=== PATIENT | male | born 1975 | race African-American/Black ===

== ENCOUNTER 2017-12-19 12:15 | Emergency (ER) | payer SELFPAY ==
[2017-12-19] MEDS: HYDROcodone/APAP 5/325MG 1 TAB TABLET PO ×2 (13:12)
[2017-12-19] MEDS: DIPHTH,PERTUSS(ACELL),TET TOX 0.5 ML DISP.SYRIN. VAX IM ×2 (14:24)
== END 2017-12-19 14:37 | disposition home or self-care (01) ==
LOC: ER 12:15
DX: S91.302A Unspecified open wound, left foot, initial encounter (principal); E11.9 Type 2 diabetes mellitus without complications; I10 Essential (primary) hypertension; Z23 Encounter for immunization; X58.XXXA Exposure to other specified factors, initial encounter; Y93.89 Activity, other specified; Y92.89 Other specified places as the place of occurrence of the external cause; Y99.8 Other external cause status
CPT/HCPCS: 73630; 87071; 87075; 87186; 87205; 90471; 90715; 99285-25

== ENCOUNTER 2019-08-27 05:46 | Inpatient (IN) | payer SELFPAY ==
[~2019-08-27] VITALS: Ht 157.5 cm; Wt 46.1 kg
[2019-08-27] VITALS (12 sets, daily range): BP systolic 104–160; BP diastolic 65–98
[~2019-08-27 05:46] MED LIST: CLIN300C8 PO; HYDR-3164 PO
[2019-08-27] MEDS ORDERED: IV NORMAL SALINE 1000ML BAG 1,000 ML IV SCH ×2 (06:30→08:45)
--- NOTE | 2019-08-27 06:52 | PHYS DOC ---
Past Medical History Past Medical History: Diabetes-Type II, Hypertension Past Surgical History: No Surgical History Alcohol Use: None Drug Use: None Adult General Chief Complaint Chief Complaint: DEPRESSION HPI HPI Patient is a 44 year old male who presents via EMS because of depression. Patient states he has diabetes and unable to eat and his life is not good and he feels depressed. When I questioned him about suicidal ideation he states he has suicidal ideation with plan to hang himself. Patient states he has suicidal ideation and mental hospital hospitalization about couple years ago. Patient states he sometimes has hallucination but at this time doesn't have hallucination. Patient denies homicidal ideation. Review of Systems Review of Systems Constitutional: Denies fever or chills [] Eyes: Denies change in visual acuity, redness, or eye pain [] HENT: Denies nasal congestion or sore throat [] Respiratory: Denies cough or shortness of breath [] Cardiovascular: No additional information not addressed in HPI [] GI: Denies abdominal pain, nausea, vomiting, bloody stools or diarrhea [] : Denies dysuria or hematuria [] Musculoskeletal: Denies back pain or joint pain [] Integument: Denies rash or skin lesions [] Neurologic: Denies headache, focal weakness or sensory changes [] Endocrine: Denies polyuria or polydipsia [] All other systems were reviewed and found to be within normal limits, except as documented in this note. Current Medications Current Medications Current Medications Medications (Trade) Dose Ordered Sig/Dez Start Time Stop Time Status Last Admin Dose Admin Sodium Chloride 1,000 ml @ 1,000 mls/hr Q1H 08/27/19 06:30 08/27/19 07:29 DC 08/27/19 08:40 1,000 MLS/HR Allergies Allergies Allergies Coded Allergies Type Severity Reaction Last Updated Verified I S O L A T I O N *CONTACT* Allergy Unknown 12/23/17 Yes lisinopril Allergy Unknown 08/27/19 Yes Physical Exam Physical Exam Constitutional: Very cachectic and thin patient, mild distress, non-toxic appearance. [] HENT: Normocephalic, atraumatic, bilateral external ears normal, oropharynx dry, no oral exudates, nose normal. [] Eyes: PERRLA, EOMI, conjunctiva normal, no discharge. [] Neck: Normal range of motion, no tenderness, supple, no stridor. [] Cardiovascular:Heart rate regular rhythm, no murmur [] Lungs & Thorax: Bilateral breath sounds clear to auscultation [] Abdomen: Bowel sounds normal, soft, no tenderness, no masses, no pulsatile masses. [] Skin: Warm, dry, no erythema, no rash. [] Back: No tenderness, no CVA tenderness. 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 [] Psychologic: Affect depressed and anxious, suicidal. Current Patient Data Vital Signs Vital Signs Date Time Temp Pulse Resp B/P (MAP) Pulse Ox O2 Delivery O2 Flow Rate FiO2 08/27/19 05:47 97.5 96 20 112/71 (85) 100 Room Air 97.5 Lab Values Laboratory Tests Test 08/27/19 06:35 08/27/19 07:25 Glucose (Fingerstick) 81 mg/dL (70-99) White Blood Count 7.3 x10^3/uL (4.0-11.0) Red Blood Count 3.74 x10^6/uL (4.30-5.70) L Hemoglobin 10.0 g/dL (13.0-17.5) L Hematocrit 30.5 % (39.0-53.0) L Mean Corpuscular Volume 82 fL (79-100) Mean Corpuscular Hemoglobin 27 pg (25-35) Mean Corpuscular Hemoglobin Concent 33 g/dL (31-37) Red Cell Distribution Width 16.7 % (11.5-14.5) H Platelet Count 370 x10^3/uL (140-400) Neutrophils (%) (Auto) 80 % (31-73) H Lymphocytes (%) (Auto) 15 % (24-48) L Monocytes (%) (Auto) 5 % (0-9) Eosinophils (%) (Auto) 0 % (0-3) Basophils (%) (Auto) 0 % (0-3) Neutrophils # (Auto) 5.8 x10^3/uL (1.8-7.7) Lymphocytes # (Auto) 1.1 x10^3/uL (1.0-4.8) Monocytes # (Auto) 0.4 x10^3/uL (0.0-1.1) Eosinophils # (Auto) 0.0 x10^3/uL (0.0-0.7) Basophils # (Auto) 0.0 x10^3/uL (0.0-0.2) Prothrombin Time 18.7 SEC (11.7-14.0) H Prothrombin Time INR 1.6 (0.8-1.1) H Sodium Level 131 mmol/L (136-145) L Potassium Level 6.1 mmol/L (3.5-5.1) *H Chloride Level 100 mmol/L (98-107) Carbon Dioxide Level 10 mmol/L (21-32) *L Anion Gap 21 (6-14) H Blood Urea Nitrogen 166 mg/dL (8-26) H Creatinine 2.9 mg/dL (0.7-1.3) H Estimated GFR (Cockcroft-Gault) 28.7 Glucose Level 78 mg/dL (70-99) Lactic Acid Level 1.2 mmol/L (0.4-2.0) Calcium Level 7.9 mg/dL (8.5-10.1) L Magnesium Level 2.9 mg/dL (1.8-2.4) H Total Bilirubin 0.3 mg/dL (0.2-1.0) Direct Bilirubin 0.2 mg/dL (0.0-0.2) Aspartate Amino Transferase (AST) 21 U/L (15-37) Alanine Aminotransferase (ALT) 24 U/L (16-63) Alkaline Phosphatase 262 U/L (46-116) H Troponin I Quantitative 0.158 ng/mL (0.000-0.055) Total Protein 8.1 g/dL (6.4-8.2) Albumin 2.5 g/dL (3.4-5.0) L Thyroid Stimulating Hormone (TSH) 5.788 uIU/mL (0.358-3.74) H Ethyl Alcohol Level < 10 mg/dL (0-10) Laboratory Tests 08/27/19 07:25 Laboratory Tests 08/27/19 07:25 EKG EKG EKG interpreted by me. EKG at 0 926 showed normal sinus rhythm at rate of 86, left atrial abnormality, poor R-wave progress in anteroseptal leads, prolonged QT at 414, no acute ST and T-wave abnormalities. Radiology/Procedures Radiology/Procedures [][facility] [address] [place] [address] IMAGING REPORT Signed PATIENT: ELADIA PEARSON ACCOUNT: [id number] : 1975 LOCATION: [address] [place] [address] AGE: 44 SEX: M EXAM STATUS: ADM IN ORD. PHYSICIAN: IMELDA ANDREW MD REASON: abnormal weight loss PROCEDURE: CHEST AP ONLY CHEST AP ONLY Clinical Indication: Abnormal weight loss Comparison: 12/17/2018 Portable Chest X-ray Exam. Findings: Upright frontal view of the chest was obtained. Limited pulmonary inflation noted. The cardiomediastinal silhouette is normal. Lungs are clear. There is no pneumothorax. No pleural effusion is appreciated. No acute bone abnormality. IMPRESSION: No acute cardiopulmonary process. Electronically signed by: Jaden Clark MD (08/27/2019 9:50 AM) [facility] DICTATED and SIGNED BY: JADEN CLARK MD DATE: 08/27/19 09 Course & Med Decision Making Course & Med Decision Making Pertinent Labs and Imaging studies reviewed. (See chart for details) Evaluation of patient in ER showed 44-year-old male patient brought in by EMS because of depression. Patient was cachectic and dehydrated and complaining of suicidal ideation. Labs showed severe dehydration and electrolyte problems. Patient was treated with IV fluid and also treatment for hyperkalemia was started. On-call bolt loader was consulted at 0918.Patient requiring admission for further evaluation and treatment. Discussed with Dr. Andrew] wh o is in agreement with admission. Discussed findings and plan with patient and family, who acknowledge understanding and agreement. Dragon Disclaimer Dragon Disclaimer This electronic medical record was generated, in whole or in part, using a voice recognition dictation system. Departure Departure Impression: Primary Impression: Acute renal failure Additional Impressions: Severe malnutrition Hyperkalemia Suicidal ideation Hyponatremia Hypoalbuminemia Metabolic acidosis Hypermagnesemia Hyperphosphatemia Hypocalcemia Disposition: ADMITTED INPATIENT (at 0 840) Admitting Physician: MELVAS (Dr. Andrew accepted admission at 0 839) Condition: GUARDED Referrals: NO PCP (PCP) Critical Care Time Critical care time was 90 minutes exclusive of procedures. Problem Qualifiers Primary Impression: Acute renal failure Acute renal failure type: unspecified Qualified Codes: N17.9 - Acute kidney failure, unspecified ODILON TIPTON MD Aug 27, 2019 06:52
[2019-08-27 07:42] LABS: BASO % 0 % (0-3); EOS % 0 % (0-3); HEMATOCRIT 30.5 % (39.0-53.0); LYMPH # 1.1 x10^3/uL (1.0-4.8); LYMPH % 15 % (24-48); MEAN CORPUSCULAR HEMOGLOBIN 27 pg (25-35); MEAN CORPUSCULAR HGB CONC 33 g/dL (31-37); MEAN CORPUSCULAR VOLUME 82 fL (79-100); MONO # 0.4 x10^3/uL (0.0-1.1); MONO % 5 % (0-9); NEUT # 5.8 x10^3/uL (1.8-7.7); NEUT % 80 % (31-73); PLATELET COUNT 370 x10^3/uL (140-400); RED BLOOD COUNT 3.74 x10^6/uL (4.30-5.70); RED CELL DISTRIBUTION WIDTH 16.7 % (11.5-14.5); WHITE BLOOD COUNT 7.3 x10^3/uL (4.0-11.0)
[2019-08-27 07:54] LABS: PROTHROMBIN TIME PATIENT 18.7 SEC (11.7-14.0)
[2019-08-27 08:06] LABS: ALBUMIN 2.5 g/dL (3.4-5.0); CALCIUM 7.9 mg/dL (8.5-10.1); CREATININE 2.9 mg/dL (0.7-1.3); DIRECT BILIRUBIN 0.2 mg/dL (0.0-0.2); GFR 28.7; MAGNESIUM 2.9 mg/dL (1.8-2.4); TOTAL BILIRUBIN 0.3 mg/dL (0.2-1.0); TOTAL PROTEIN 8.1 g/dL (6.4-8.2)
[2019-08-27 08:11] LABS: POTASSIUM 6.1 mmol/L (3.5-5.1)
[2019-08-27] MEDS ORDERED: DEXTROSE 50% 25 GM / 50ML DISP.SYRIN. IV ONE (08:45)
[2019-08-27] MEDS ORDERED: CALCIUM GLUCONATE 1,000 MG/10 ML VIAL. IVP ONE ×2 (08:45→12:45)
[2019-08-27] MEDS ORDERED: SODIUM BICARB ADULT 8.4% 50 MEQ/50 ML DISP.SYRIN. IV ONE (08:45)
[2019-08-27] MEDS ORDERED: INSULIN REGULAR 100 UNIT/ML 3ML VIAL. IV ONE (08:45)
[2019-08-27] MEDS ORDERED: SODIUM POLYSTYRENE SULFON/SORB 15 GM/60 ML ORAL.SUSP PO ONE (08:45)
--- NOTE | 2019-08-27 08:52 | PDOC1 ---
History and Physical Date of Admission Date of Admission DATE: 08/27/19 TIME: 08:51 Identification/Chief Complaint Chief Complaint Seen in ER , presented via EMS because of depression. Patient states he has diabetes and unable to eat and his life is not good and he feels depressed, he has suicidal ideation with plan to hang himself. 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 "Girlfriend does with-hold water" "because she is lazy" and does not feed him enough food. Past Medical History Psych: Addictions Endocrine: Diabetes Family History Family History: Hypertension Social History Smoke: <1 pack per day ALCOHOL: none Drugs: None, Cocaine, Marijuana Current Medications Current Medications Current Medications Sodium Chloride 1,000 ml @ 1,000 mls/hr Q1H IV Last administered on 08/27/19at 08:40; Start 08/27/19 at 06:30; Stop 08/27/19 at 07:29; Status DC Calcium Gluconate (Calcium Gluconate) 1,000 mg 1X ONCE IVP ; Start 08/27/19 at 08:45; Stop 08/27/19 at 08:46; Status DC Sodium Bicarbonate (Sodium Bicarb Adult 8.4% Syr) 50 meq 1X ONCE IV ; Start 08/27/19 at 08:45; Stop 08/27/19 at 08:46; Status DC Dextrose (Dextrose 50%-Water Syringe) 25 gm 1X ONCE IV ; Start 08/27/19 at 08:45; Stop 08/27/19 at 08:46; Status DC Insulin Human Regular (HumuLIN R VIAL) 10 unit 1X ONCE IV ; Start 08/27/19 at 08:45; Stop 08/27/19 at 08:46; Status DC Sodium Polystyrene Sulfonate (Kayexalate) 30 gm 1X ONCE PO ; Start 08/27/19 at 08:45; Stop 08/27/19 at 08:46; Status DC Sodium Chloride 1,000 ml @ 1,000 mls/hr Q1H IV ; Start 08/27/19 at 08:45; Stop 08/27/19 at 09:44 Active Scripts Active [place] 5-325 Tablet (Acetaminophen/Hydrocodone Bitart) 1 Each Tablet 1 Tab PO PRN Q6HRS PRN Clindamycin Hcl 300 Mg Capsule 1 Cap PO TID Allergies Allergies: Coded Allergies: I S O L A T I O N *CONTACT* (Verified Allergy, Unknown, 12/23/17) mrsa No Known Medication Allergies (Verified Allergy, Unknown, 12/23/17) lisinopril (Verified Allergy, Unknown, 08/27/19) Physical Exam Physical Exam Physical Exam Physical Exam Constitutional: Very cachectic and thin patient, mild distress, non-toxic appearance. [] ADVANCED DENTAL DISEASE HENT: Normocephalic, atraumatic, bilateral external ears normal, oropharynx dry, no oral exudates, nose normal. [] Eyes: PERRLA, EOMI, conjunctiva normal, no discharge. [] Neck: Normal range of motion, no tenderness, supple, no stridor. [] Cardiovascular:Heart rate regular rhythm, no murmur [] Lungs & Thorax: Bilateral breath sounds clear to auscultation [] Abdomen: Bowel sounds normal, soft, no tenderness, no masses, no pulsatile masses. very thin [] Skin: Warm, dry, no erythema, no rash. [] LEFT LEG SEVERAL superficial abrasions Back: No tenderness, no CVA tenderness. 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 [] Psychologic: Affect depressed and anxious, suicidal. General: Alert, Oriented X3, Cooperative, mild distress HEENT: Atraumatic Lungs: Clear to auscultation Heart: RRR Abdomen: Soft Rectal Exam: not examined Extremities: No cyanosis Neuro: Normal speech, Cranial nerves 3-12 NL Vitals Vitals Vital Signs Date Time Temp Pulse Resp B/P (MAP) Pulse Ox O2 Delivery O2 Flow Rate FiO2 08/27/19 05:47 97.5 96 20 112/71 (85) 100 Room Air 97.5 Labs Labs Laboratory Tests Test 08/27/19 06:35 08/27/19 07:25 Glucose (Fingerstick) 81 mg/dL (70-99) White Blood Count 7.3 x10^3/uL (4.0-11.0) Red Blood Count 3.74 x10^6/uL (4.30-5.70) Hemoglobin 10.0 g/dL (13.0-17.5) Hematocrit 30.5 % (39.0-53.0) Mean Corpuscular Volume 82 fL (79-100) Mean Corpuscular Hemoglobin 27 pg (25-35) Mean Corpuscular Hemoglobin Concent 33 g/dL (31-37) Red Cell Distribution Width 16.7 % (11.5-14.5) Platelet Count 370 x10^3/uL (140-400) Neutrophils (%) (Auto) 80 % (31-73) Lymphocytes (%) (Auto) 15 % (24-48) Monocytes (%) (Auto) 5 % (0-9) Eosinophils (%) (Auto) 0 % (0-3) Basophils (%) (Auto) 0 % (0-3) Neutrophils # (Auto) 5.8 x10^3/uL (1.8-7.7) Lymphocytes # (Auto) 1.1 x10^3/uL (1.0-4.8) Monocytes # (Auto) 0.4 x10^3/uL (0.0-1.1) Eosinophils # (Auto) 0.0 x10^3/uL (0.0-0.7) Basophils # (Auto) 0.0 x10^3/uL (0.0-0.2) Prothrombin Time 18.7 SEC (11.7-14.0) Prothromb Time International Ratio 1.6 (0.8-1.1) Sodium Level 131 mmol/L (136-145) Potassium Level 6.1 mmol/L (3.5-5.1) Chloride Level 100 mmol/L (98-107) Carbon Dioxide Level 10 mmol/L (21-32) Anion Gap 21 (6-14) Blood Urea Nitrogen 166 mg/dL (8-26) Creatinine 2.9 mg/dL (0.7-1.3) Estimated GFR (Cockcroft-Gault) 28.7 Glucose Level 78 mg/dL (70-99) Lactic Acid Level 1.2 mmol/L (0.4-2.0) Calcium Level 7.9 mg/dL (8.5-10.1) Magnesium Level 2.9 mg/dL (1.8-2.4) Total Bilirubin 0.3 mg/dL (0.2-1.0) Direct Bilirubin 0.2 mg/dL (0.0-0.2) Aspartate Amino Transf (AST/SGOT) 21 U/L (15-37) Alanine Aminotransferase (ALT/SGPT) 24 U/L (16-63) Alkaline Phosphatase 262 U/L (46-116) Total Protein 8.1 g/dL (6.4-8.2) Albumin 2.5 g/dL (3.4-5.0) Ethyl Alcohol Level < 10 mg/dL (0-10) Laboratory Tests Test 08/27/19 06:35 08/27/19 07:25 Glucose (Fingerstick) 81 mg/dL (70-99) White Blood Count 7.3 x10^3/uL (4.0-11.0) Red Blood Count 3.74 x10^6/uL (4.30-5.70) Hemoglobin 10.0 g/dL (13.0-17.5) Hematocrit 30.5 % (39.0-53.0) Mean Corpuscular Volume 82 fL (79-100) Mean Corpuscular Hemoglobin 27 pg (25-35) Mean Corpuscular Hemoglobin Concent 33 g/dL (31-37) Red Cell Distribution Width 16.7 % (11.5-14.5) Platelet Count 370 x10^3/uL (140-400) Neutrophils (%) (Auto) 80 % (31-73) Lymphocytes (%) (Auto) 15 % (24-48) Monocytes (%) (Auto) 5 % (0-9) Eosinophils (%) (Auto) 0 % (0-3) Basophils (%) (Auto) 0 % (0-3) Neutrophils # (Auto) 5.8 x10^3/uL (1.8-7.7) Lymphocytes # (Auto) 1.1 x10^3/uL (1.0-4.8) Monocytes # (Auto) 0.4 x10^3/uL (0.0-1.1) Eosinophils # (Auto) 0.0 x10^3/uL (0.0-0.7) Basophils # (Auto) 0.0 x10^3/uL (0.0-0.2) Prothrombin Time 18.7 SEC (11.7-14.0) Prothromb Time International Ratio 1.6 (0.8-1.1) Sodium Level 131 mmol/L (136-145) Potassium Level 6.1 mmol/L (3.5-5.1) Chloride Level 100 mmol/L (98-107) Carbon Dioxide Level 10 mmol/L (21-32) Anion Gap 21 (6-14) Blood Urea Nitrogen 166 mg/dL (8-26) Creatinine 2.9 mg/dL (0.7-1.3) Estimated GFR (Cockcroft-Gault) 28.7 Glucose Level 78 mg/dL (70-99) Lactic Acid Level 1.2 mmol/L (0.4-2.0) Calcium Level 7.9 mg/dL (8.5-10.1) Magnesium Level 2.9 mg/dL (1.8-2.4) Total Bilirubin 0.3 mg/dL (0.2-1.0) Direct Bilirubin 0.2 mg/dL (0.0-0.2) Aspartate Amino Transf (AST/SGOT) 21 U/L (15-37) Alanine Aminotransferase (ALT/SGPT) 24 U/L (16-63) Alkaline Phosphatase 262 U/L (46-116) Total Protein 8.1 g/dL (6.4-8.2) Albumin 2.5 g/dL (3.4-5.0) Ethyl Alcohol Level < 10 mg/dL (0-10) VTE Prophylaxis Ordered VTE Prophylaxis Devices: Contraindicated VTE Pharmacological Prophylaxi: Yes Assessment/Plan Assessment/Plan impression 1. Major depression 2. suicidial ideations 3. severe protein-caloric - malnutrition, severe weight loss 4. acute severe renal failure 5. hx diabetes 6. metabolic acidosis 7. hyperkalemia 8. anemia, likely more severe after hydration 9. possible occult malignancy 10. coagulopathy perhaps sec to severe malnutrition 11. severe dental hygiene 12. hx cocaine use and THC abuse 13. recent right BKA amputation, [facility] 14. diarrhea 15. Severe dental disease plan admit ICU due to severe electrolyte imbalance IV FLUID SUPPORT SUICIDE PRECAUTIONS GI consult Nephrology consult bmp at noon today occult stools iron panel cxr abdominal sono drugs of abuse screen UA Serum protein electrophoresis notify adult protective services sq heparin dvt prophylaxis 5000 units sq q 12 hrs OLD RECORDS NEEDED [facility] Kayexylate c-diff screen, stool checo k 5 mg po x 1 40 min cc time IMELDA ANDREW MD Aug 27, 2019 08:51
[2019-08-27] MEDS ORDERED: 0.9 % SODIUM CHLORIDE 10 ML DISP.SYRIN. IV PRN (09:45)
--- NOTE | 2019-08-27 09:53 | RAD ---
CHEST AP ONLY Clinical Indication: Abnormal weight loss Comparison: 12/17/2018 Portable Chest X-ray Exam. Findings: Upright frontal view of the chest was obtained. Limited pulmonary inflation noted. The cardiomediastinal silhouette is normal. Lungs are clear. There is no pneumothorax. No pleural effusion is appreciated. No acute bone abnormality. IMPRESSION: No acute cardiopulmonary process. Electronically signed by: Jaden Gibson MD (08/27/2019 9:50 AM) [facility]
--- NOTE | 2019-08-27 09:59 | EKG ---
[facility] [address] [place] [address] Test Date: 2019-08-27 Test Time: 09:26:54 Pat Name: ELADIA PEARSON Department: Room: 114 1 Gender: M [employer]: : 1975 Requested By: ODILON TIPTON Order Number: [id number] Reading MD: Hunter Alarcon MD Measurements Intervals [place] Rate: 86 P: 149 NE: 118 QRS: 72 QRSD: 110 T: 80 QT: 414 QTc: 499 Interpretive Statements SINUS RHYTHM NON-SPECIFIC ST/T CHANGES Electronically Signed On 09-07-2019 12:51:12 CDT by Hunter Alarcon MD
[2019-08-27] MEDS ORDERED: PHYTONADIONE 10 MG/ML ORAL SOLUTION. PO ONE (10:00)
[2019-08-27 10:17] LABS: BASE EXCESS ABG -19 mmol/L (-3-3); HCO3 ABG 7 mmol/L (21-28); PO2 ABG 145 mmHg (75-108); SAT O2 ABG 98 % (92-99)
[2019-08-27 10:21] LABS: PCO2 ABG 19 mmHg (35-46)
[2019-08-27] MEDS: FAMOTIDINE 20 MG/2 ML VIAL IVP SCH (10:39)
--- NOTE | 2019-08-27 10:46 | RAD ---
Examination: ABDOMEN COMPLETE History: Elevated liver function enzymes Comparison/Correlation: 03/18/2013 CT abdomen and pelvis with contrast Findings: Liver length is 12.6 mm. Normal hepatic echotexture is present. Common bile duct diameter is 0.5 cm. Few small calculi are present within the gallbladder. Minimal sludge also suggested. Gallbladder wall thickness of 0.1 cm. No pericholecystic fluid. Proximal pancreas is normal. Distal pancreas obscured by bowel gas. Spleen is not well visualized. Right kidney measures 9.1 cm x 6 cm x 4.77. Left kidney measures 10.4 cm x 6 cm x 5.9 cm. Moderate right hydronephrosis is present. Mild left hydronephrosis is present. Renal cortical echotexture is unremarkable. Inferior vena cava is unremarkable. 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 No upper abdominal ascites. Impression: Bilateral hydronephrosis greater on the right. Cholelithiasis without findings of acute cholecystitis or biliary dilatation. Atheromatous involvement of the abdominal aorta is greater then expected for age. Electronically signed by: Jaden Gibson MD (08/27/2019 10:43 AM) [facility]
[2019-08-27] MEDS ORDERED: cefTRIAXone IV Push 1 GM VIAL. IVP ONE (12:00)
[2019-08-27 12:26] LABS: CALCIUM 7.5 mg/dL (8.5-10.1); CREATININE 2.6 mg/dL (0.7-1.3); GFR 32.6; POTASSIUM 4.7 mmol/L (3.5-5.1)
[2019-08-27] MEDS: IV NORMAL SALINE 1000ML BAG 1,000 ML IV SCH (12:37)
[2019-08-27 12:42] LABS: ALBUMIN 2.3 g/dL (3.4-5.0); PHOSPHORUS 8.4 mg/dL (2.6-4.7)
[2019-08-27] MEDS ORDERED: NOREPINEPHRIN 8MG/250ML PREMIX 250 ML IV PRN (12:45)
[2019-08-27] MEDS ORDERED: IV NORMAL SALINE 500ML BAG 500 ML IV PRN (12:45)
--- NOTE | 2019-08-27 12:45 | NUR ---
admitted to rm 114 from ER per cart. Pt alert and oriented. LISBET taylor, Has Rt AKA. Pt here with ARF, dehydration. Reportedly Had rec'd 2 liters NS in ER. Geiger with yellow urine. No family at this time. under 1:1 observation with nursing at bedside for report that pt had told DR he had plan to harm himself. Multiple wounds on body ranging from healed scrapes to open wounds. mergers and acquisitions manager consulted. Pt reports he does not feel safe at home. Soc Serv consulted. Reportedly, PAT team spoke with pt in ER. Dr Archuleta aware of consult as well as Dorian . Temp low at 96. Karley liriano applied. Pt states he is thirsty and hungry. Will check swallow for safety and give oral and food. Pt has rectal tube with very watery liq lt orange pichardo. BP stable SR. 2 IV's patent. Will cont to admit process.
--- NOTE | 2019-08-27 13:07 | PDOC2 ---
GREYSON CABRERA ADVERTISING DISPATCH CLERK 08/27/19 1307: CARDIAC CONSULT DATE OF CONSULT Date of Consult DATE: 08/27/19 TIME: 12:57 REASON FOR CONSULT Reason for Consult: Elevated troponin REFERRING PHYSICIAN Referring Physician: Vinod SOURCE Source: Chart review HISTORY OF PRESENT ILLNESS HISTORY OF PRESENT ILLNESS This is a pleasant 44 yo male admitted for complains of depression. Stated "life not worth living" He has hx of depression seen in the past by [facility] but has not been on medications as instructed. Reports that he wants to hang himself. He recently had a RAKA by ortho due to wounds and DMUpon further testing, he has been noted with severe renal failure with elevated potassium. He is cachectic and looking malnourished. He has not been taking any medications lately and denies attempting overdose. No hx of CAD and no complains of chest pain, SOA. Consult is for elevated troponin. He has multiple body wounds and in no distress currently and not in any pain. PAST MEDICAL HISTORY Cardiovascular: CHF, HTN Pulmonary: No pertinent hx CENTRAL NERVOUS SYSTEM: Periperal neuropathy, Other GI: No pertinent hx Heme/Onc: Anemia NOS Hepatobiliary: No pertinent hx Psych: Depression Musculoskeletal: Other (RAKA) Rheumatologic: No pertinent hx ENT: No pertinent hx Renal/: Chronic renal insuff (prior hemodialysis in 05/2019) Endocrine: Diabetes (2) Dermatology: Other (coccygeal pressure ulcer) PAST SURGICAL HISTORY Past Surgical History: Other (right AKA due to gangrene and DM) FAMILY HISTORY Family History noncontributory SOCIAL HISTORY Smoke: <1 pack per day ALCOHOL: none Drugs: None Lives: Friends CURRENT MEDICATIONS CURRENT MEDICATIONS Current Medications Medications (Trade) Dose Ordered Sig/Dez Route PRN Reason Start Time Stop Time Status Last Admin Dose Admin Sodium Chloride 1,000 ml @ 1,000 mls/hr Q1H IV 08/27/19 06:30 08/27/19 07:29 DC 08/27/19 08:40 Calcium Gluconate (Calcium Gluconate) 1,000 mg 1X ONCE IVP 08/27/19 08:45 08/27/19 08:46 DC 08/27/19 10:36 Sodium Bicarbonate (Sodium Bicarb Adult 8.4% Syr) 50 meq 1X ONCE IV 08/27/19 08:45 08/27/19 08:46 DC 08/27/19 10:35 Dextrose (Dextrose 50%-Water Syringe) 25 gm 1X ONCE IV 08/27/19 08:45 08/27/19 08:46 DC 08/27/19 10:35 Insulin Human Regular (HumuLIN R VIAL) 10 unit 1X ONCE IV 08/27/19 08:45 08/27/19 08:46 DC 08/27/19 11:23 Sodium Polystyrene Sulfonate (Kayexalate) 30 gm 1X ONCE PO 08/27/19 08:45 08/27/19 08:46 DC 08/27/19 10:37 Sodium Chloride 1,000 ml @ 1,000 mls/hr Q1H IV 08/27/19 08:45 08/27/19 09:44 DC 08/27/19 10:36 Famotidine (Pepcid Vial) 20 mg DAILY IVP 08/27/19 10:00 08/27/19 10:39 ALLERGIES ALLERGIES: Coded Allergies: I S O L A T I O N *CONTACT* (Verified Allergy, Unknown, 12/23/17) mrsa lisinopril (Verified Allergy, Unknown, 08/27/19) ROS Review of System 14 point ROS evaluated with pertinent positives noted per HPI PHYSICAL EXAM General: Alert, Oriented X3, Cooperative, No acute distress, Other (cachectic) HEENT: Atraumatic, Mucous membr. moist/pink Heart: Regular rate (SR), Normal S1, Normal S2, No murmurs, Other Abdomen: Soft, Other (hyperactive bowel sounds) Extremities: No cyanosis, No edema Skin: Other (multiple pressure ulcers) Neuro: Normal speech, Sensation intact Psych/Mental Status: Other (depressed) MUSCULOSKELETAL: Osteoarthritic changes both hands, Other (RAKA) VITALS/I&O VITALS/I&O: Vital Signs Date Time Temp Pulse Resp B/P (MAP) Pulse Ox O2 Delivery O2 Flow Rate FiO2 08/27/19 12:42 96.1 90 20 152/86 (108) 100 Room Air 96.1 LABS Lab: Laboratory Tests Test 08/27/19 06:35 08/27/19 07:25 08/27/19 10:15 08/27/19 12:05 Glucose (Fingerstick) 81 mg/dL (70-99) White Blood Count 7.3 x10^3/uL (4.0-11.0) Red Blood Count 3.74 x10^6/uL (4.30-5.70) L 3.43 x10^6/uL (4.30-5.70) L Hemoglobin 10.0 g/dL (13.0-17.5) L Hematocrit 30.5 % (39.0-53.0) L Mean Corpuscular Volume 82 fL (79-100) Mean Corpuscular Hemoglobin 27 pg (25-35) Mean Corpuscular Hemoglobin Concent 33 g/dL (31-37) Red Cell Distribution Width 16.7 % (11.5-14.5) H Platelet Count 370 x10^3/uL (140-400) Neutrophils (%) (Auto) 80 % (31-73) H Lymphocytes (%) (Auto) 15 % (24-48) L Monocytes (%) (Auto) 5 % (0-9) Eosinophils (%) (Auto) 0 % (0-3) Basophils (%) (Auto) 0 % (0-3) Neutrophils # (Auto) 5.8 x10^3/uL (1.8-7.7) Lymphocytes # (Auto) 1.1 x10^3/uL (1.0-4.8) Monocytes # (Auto) 0.4 x10^3/uL (0.0-1.1) Eosinophils # (Auto) 0.0 x10^3/uL (0.0-0.7) Basophils # (Auto) 0.0 x10^3/uL (0.0-0.2) Prothrombin Time 18.7 SEC (11.7-14.0) H Prothrombin Time INR 1.6 (0.8-1.1) H Sodium Level 131 mmol/L (136-145) L 137 mmol/L (136-145) Potassium Level 6.1 mmol/L (3.5-5.1) *H 4.7 mmol/L (3.5-5.1) # Chloride Level 100 mmol/L (98-107) 104 mmol/L (98-107) Carbon Dioxide Level 10 mmol/L (21-32) *L 12 mmol/L (21-32) L Anion Gap 21 (6-14) H 21 (6-14) H Blood Urea Nitrogen 166 mg/dL (8-26) H 146 mg/dL (8-26) H Creatinine 2.9 mg/dL (0.7-1.3) H 2.6 mg/dL (0.7-1.3) H Estimated GFR (Cockcroft-Gault) 28.7 32.6 Glucose Level 78 mg/dL (70-99) 95 mg/dL (70-99) Lactic Acid Level 1.2 mmol/L (0.4-2.0) Calcium Level 7.9 mg/dL (8.5-10.1) L 7.5 mg/dL (8.5-10.1) L Magnesium Level 2.9 mg/dL (1.8-2.4) H Total Bilirubin 0.3 mg/dL (0.2-1.0) Direct Bilirubin 0.2 mg/dL (0.0-0.2) Aspartate Amino Transferase (AST) 21 U/L (15-37) Alanine Aminotransferase (ALT) 24 U/L (16-63) Alkaline Phosphatase 262 U/L (46-116) H Troponin I Quantitative 0.158 ng/mL (0.000-0.055) Total Protein 8.1 g/dL (6.4-8.2) Albumin 2.5 g/dL (3.4-5.0) L 2.3 g/dL (3.4-5.0) L Thyroid Stimulating Hormone (TSH) 5.788 uIU/mL (0.358-3.74) H Ethyl Alcohol Level < 10 mg/dL (0-10) O2 Saturation 98 % (92-99) Arterial Blood pH 7.20 (7.35-7.45) *L Arterial Blood pCO2 at Patient Temp 19 mmHg (35-46) *L Arterial Blood pO2 at Patient Temp 145 mmHg (75-108) H Arterial Blood HCO3 7 mmol/L (21-28) L Arterial Blood Base Excess -19 mmol/L (-3-3) L Absolute Reticulocyte Count 0.031 x10^6/uL (0.020-0.120) Percent Reticulocyte Count 0.9 % (0.5-2.3) Immature Reticulocyte Fraction 0.46 (0.20-0.60) Ionized Calcium 1.02 mmol/L (1.13-1.32) L Phosphorus Level 8.4 mg/dL (2.6-4.7) H Laboratory Tests 08/27/19 07:25 Laboratory Tests 08/27/19 07:25 08/27/19 12:05 ECHOCARDIOGRAM ECHOCARDIOGRAM 05/18/2019 Rest Echo: Normal left ventricular systolic function. EF~ 60% Right ventricular size and systolic function are normal No significant valvular stenosis or regurgitation Estimated peak systolic PA pressure of 37 mmHg Trivial circumferential pericardial effusion. Left pleural effusion. ASSESSMENT/PLAN ASSESSMENT/PLAN 1. Depression with suicidal ideation with plans to hang himself. States"Life not worth living" 2. Elevated troponin: 0.15, EKG SR/ST without acute changes. Type 2 demand mediated with culprits below 3. Severe VENANCIO/uremia/hyperkalemia with underlying bilateral hydronephrosis: had temporary HD 05/2019 4. Metabolic acidosis 5. Tobaccoism 6. Mild coagulopathy 7. DM2 8. Malnutrition/multiple wounds/anorexia/cachexia 9. Hx of cocaine and marijuana abuse: last use 2 months ago 10. Diarrhea: medication induced? 11. Noncompliance: has not been taking any medications for a while now. 12. 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 Hypothermia: rewarming in process. Recommendations 1. TTE. No arrhythmias. 2. Consult urology 3. Psych referral once acute issues are better 4. Restart BP regimen when is consistently adequate 5. Potential HD, defer to nephrology 6. Poor fdc prognosis. Supportive care. BILLY BORGES MD 08/27/19 1720: CARDIAC CONSULT ASSESSMENT/PLAN ASSESSMENT/PLAN (1) GREYSON CABRERA APRN Aug 27, 2019 13:07 BILLY BORGES MD Aug 27, 2019 17:20 1: Patient seen and examined. Agree with above nurse practitioner note. 44-year-old male severely cachectic male with multiple medical problems as noted above presenting for multiorgan failure. Currently being evaluated for possible transfer to [facility] for urologic care. From a purely cardiac perspective he has moderate LV dysfunction. LV dysfunction likely related to his multiple comorbidities. Minimal troponin elevation without any acute EKG findings. Supportive care for now and one acute issues are resolved could consider outpatient stress testing.
[2019-08-27] MEDS ORDERED: C.DIFF MED SCREEN BY RX. MC ONE (13:15)
[2019-08-27] MEDS: THIAMINE 100 MG TABLET. PO SCH (13:56)
[2019-08-27] MEDS: MULTIVITAMIN I-VITE TABLET. PO SCH (13:56)
[2019-08-27] MEDS ORDERED: MEROPENEM 1 GM in IV NORMAL SALINE 100ML 100 ML IV SCH (14:00)
[2019-08-27] MEDS: HEPARIN for SUB-Q USE 5,000 UNIT/ML VIAL. SQ SCH ×2 (14:00→21:07)
[2019-08-27] MEDS ORDERED: MEROPENEM 500 MG in IV NORMAL SALINE 50ML 50 ML IV SCH (14:00)
--- NOTE | 2019-08-27 14:00 | NUR ---
Dr Archuleta aware of amadeo hydronephrosis and no urology coverage at this time. Urine pink tinged. Wounds pictured and measured. Pt very cooperative. Nurses and DRs in room very freq. D5W with bicarb placed. remians on RA. VSS. temp warming up. Pt signed consent for temp dialysis placement
[2019-08-27] MEDS ORDERED: LIDOCAINE WITH 8.4% SOD BICARB 3 ML DISP.SYRIN. ONE (14:06)
--- NOTE | 2019-08-27 14:11 | PDOC2 ---
CONSULT Date of Consult Date of Consult DATE: 08/27/19 TIME: 13:52 Reason for Consult Reason for Consult: VENANCIO Referring Physician Referring Physician: Dr. Chacon Source Source: Chart review History of Present Illness Reason for Visit: Pt is a 44 yo male presented via EMS because of depression. Patient states he has diabetes and unable to eat and his life is not good and he feels depressed . 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 Denies any N/V/D. No CP, SOB. No Urinary complaints HAS KNOWN HX MAJOR DEPRESSION HX Past Medical History Psych: Depression Endocrine: Diabetes (2) Family History Family History: Hypertension Social History <1 pack per day ALCOHOL: none Drugs: None, Cocaine, Marijuana Current Problem List Problem List Problems Medical Problems: (1) Hyperkalemia Status: Acute Current Medications Current Medications Current Medications Sodium Chloride 1,000 ml @ 1,000 mls/hr Q1H IV Last administered on 08/27/19at 08:40; Start 08/27/19 at 06:30; Stop 08/27/19 at 07:29; Status DC Calcium Gluconate (Calcium Gluconate) 1,000 mg 1X ONCE IVP Last administered on 08/27/19at 10:36; Start 08/27/19 at 08:45; Stop 08/27/19 at 08:46; Status DC Sodium Bicarbonate (Sodium Bicarb Adult 8.4% Syr) 50 meq 1X ONCE IV Last administered on 08/27/19at 10:35; Start 08/27/19 at 08:45; Stop 08/27/19 at 08:46; Status DC Dextrose (Dextrose 50%-Water Syringe) 25 gm 1X ONCE IV Last administered on 08/27/19at 10:35; Start 08/27/19 at 08:45; Stop 08/27/19 at 08:46; Status DC Insulin Human Regular (HumuLIN R VIAL) 10 unit 1X ONCE IV Last administered on 08/27/19at 11:23; Start 08/27/19 at 08:45; Stop 08/27/19 at 08:46; Status DC Sodium Polystyrene Sulfonate (Kayexalate) 30 gm 1X ONCE PO Last administered on 08/27/19at 10:37; Start 08/27/19 at 08:45; Stop 08/27/19 at 08:46; Status DC Sodium Chloride 1,000 ml @ 1,000 mls/hr Q1H IV Last administered on 08/27/19at 10:36; Start 08/27/19 at 08:45; Stop 08/27/19 at 09:44; Status DC Acetaminophen (Tylenol) 650 mg Q6H PRN PO Headaches, Temp > 101.5'; Start 08/27/19 at 09:45 Famotidine (Pepcid Vial) 20 mg DAILY IVP Last administered on 08/27/19at 10:39; Start 08/27/19 at 10:00 Info (Icu Electrolyte Protocol) 1 ea DAILY MC ; Start 08/28/19 at 09:00 Heparin Sodium (Porcine) (Heparin Sodium) 5,000 unit Q12HR SQ ; Start 08/27/19 at 10:00 Sodium Chloride (Normal Saline Flush) 3 ml QSHIFT PRN IV AFTER MEDS AND BLOOD DRAWS; Start 08/27/19 at 09:45 Thiamine Mononitrate (Vitamin B-1) 100 mg DAILY PO ; Start 08/27/19 at 10:00 Multivitamins/ Minerals (I-Carly) 1 tab DAILY PO ; Start 08/27/19 at 10:00 Phytonadione (Mephyton Oral Soln) 5 mg 1X ONCE PO ; Start 08/27/19 at 10:00; Stop 08/27/19 at 10:01; Status DC Ceftriaxone Sodium (Rocephin) 1 gm 1X ONCE IVP Last administered on 08/27/19at 13:14; Start 08/27/19 at 12:00; Stop 08/27/19 at 12:01; Status DC Calcium Gluconate (Calcium Gluconate) 1,000 mg 1X ONCE IVP ; Start 08/27/19 at 12:45; Stop 08/27/19 at 12:46; Status DC Sodium Chloride 1,000 ml @ 1,650 mls/hr Q37M IV ; Start 08/27/19 at 12:37; Stop 08/27/19 at 13:37; Status DC Sodium Chloride 500 ml @ 1,000 mls/hr PRN Q30MIN PRN IV SEE COMMENTS; Start 08/27/19 at 12:45 Meropenem 1 gm/ Sodium Chloride 100 ml @ 200 mls/hr Q8HRS IV ; Start 08/27/19 at 14:00; Status UNV Norepinephrine Bitartrate 250 ml @ 0 mls/hr CONT PRN IV SEE I/O RECORD; Start 08/27/19 at 12:45 Dobutamine HCl/ Dextrose 250 ml @ 0 mls/hr CONT PRN IV SEE I/O RECORD; Start 08/27/19 at 12:45 Meropenem 500 mg/ Sodium Chloride 50 ml @ 100 mls/hr Q8HRS IV ; Start 08/27/19 at 14:00 Pharmacy Consult (C.diff Med Screen By Rx) 1 each 1X ONCE MC ; Start 08/27/19 at 13:15; Stop 08/27/19 at 13:16; Status UNV Influenza Virus Vaccine Quadrival (Afluria Quad 2019-20 (3yr Up) Syringe) 0.5 ml ONCE ONCE VAX IM ; Start 08/28/19 at 09:00; Stop 08/28/19 at 09:01 Lactobacillus Rhamnosus (Culturelle) 1 cap BID PO ; Start 08/27/19 at 21:00 Active Scripts Active Allergies Allergies: Coded Allergies: I S O L A T I O N *CONTACT* (Verified Allergy, Unknown, 12/23/17) mrsa lisinopril (Verified Allergy, Unknown, 08/27/19) ROS Review of System Per HPI Physical Exam Physical Exam GEN: NAD HEEN- OM dry NECK: supple CVS: S1S2 , No rub RESP: CTA, No Acc. Muscle Use GI: BS + ve, NO Bruit, Non Tender, Non Distended : [No CVA tenderness, No Suprapubic Tenderness, Geiger + NEURO- Grossly normal, No Asterexis Skin No Rash Vital Signs Vital Signs Date Time Temp Pulse Resp B/P (MAP) Pulse Ox O2 Delivery O2 Flow Rate FiO2 08/27/19 13:05 91.6 87 18 160/98 (118) 100 Room Air 91.6 Assessment & Plan VENANCIO - ATN sec to Dehydration,poor PO intake,illicit drug use ? PRUITT - Hydronephrosis Non Oliguric , NO UA done in ER Renal US Bilat Hydronephrosis Rt > Lt , IVF , avoid nephrotoxins , Strict I/O , No urgent indication for SPARE HAND CARDING Bilat Hydronephrosis- Urology consult TIFFANY Hyperkalemia- Back to normal, recd Kayexalate in the ER Hypo Na- Na corrected with IVF Metabolic acidosis- sec to VENANCIO IV D5 W with 3 amps of Bicarb Hypotensive - IVF Depression with suicidal ideation - per primary DM2 Hx of cocaine and marijuana abuse Discussed with RN Labs Labs Laboratory Tests Test 08/27/19 06:35 08/27/19 07:25 08/27/19 10:15 08/27/19 12:05 Glucose (Fingerstick) 81 mg/dL (70-99) White Blood Count 7.3 x10^3/uL (4.0-11.0) Red Blood Count 3.74 x10^6/uL (4.30-5.70) 3.43 x10^6/uL (4.30-5.70) Hemoglobin 10.0 g/dL (13.0-17.5) Hematocrit 30.5 % (39.0-53.0) Mean Corpuscular Volume 82 fL (79-100) Mean Corpuscular Hemoglobin 27 pg (25-35) Mean Corpuscular Hemoglobin Concent 33 g/dL (31-37) Red Cell Distribution Width 16.7 % (11.5-14.5) Platelet Count 370 x10^3/uL (140-400) Neutrophils (%) (Auto) 80 % (31-73) Lymphocytes (%) (Auto) 15 % (24-48) Monocytes (%) (Auto) 5 % (0-9) Eosinophils (%) (Auto) 0 % (0-3) Basophils (%) (Auto) 0 % (0-3) Neutrophils # (Auto) 5.8 x10^3/uL (1.8-7.7) Lymphocytes # (Auto) 1.1 x10^3/uL (1.0-4.8) Monocytes # (Auto) 0.4 x10^3/uL (0.0-1.1) Eosinophils # (Auto) 0.0 x10^3/uL (0.0-0.7) Basophils # (Auto) 0.0 x10^3/uL (0.0-0.2) Prothrombin Time 18.7 SEC (11.7-14.0) Prothromb Time International Ratio 1.6 (0.8-1.1) Sodium Level 131 mmol/L (136-145) 137 mmol/L (136-145) Potassium Level 6.1 mmol/L (3.5-5.1) 4.7 mmol/L (3.5-5.1) Chloride Level 100 mmol/L (98-107) 104 mmol/L (98-107) Carbon Dioxide Level 10 mmol/L (21-32) 12 mmol/L (21-32) Anion Gap 21 (6-14) 21 (6-14) Blood Urea Nitrogen 166 mg/dL (8-26) 146 mg/dL (8-26) Creatinine 2.9 mg/dL (0.7-1.3) 2.6 mg/dL (0.7-1.3) Estimated GFR (Cockcroft-Gault) 28.7 32.6 Glucose Level 78 mg/dL (70-99) 95 mg/dL (70-99) Lactic Acid Level 1.2 mmol/L (0.4-2.0) Calcium Level 7.9 mg/dL (8.5-10.1) 7.5 mg/dL (8.5-10.1) Magnesium Level 2.9 mg/dL (1.8-2.4) Total Bilirubin 0.3 mg/dL (0.2-1.0) Direct Bilirubin 0.2 mg/dL (0.0-0.2) Aspartate Amino Transf (AST/SGOT) 21 U/L (15-37) Alanine Aminotransferase (ALT/SGPT) 24 U/L (16-63) Alkaline Phosphatase 262 U/L (46-116) Troponin I Quantitative 0.158 ng/mL (0.000-0.055) Total Protein 8.1 g/dL (6.4-8.2) Albumin 2.5 g/dL (3.4-5.0) 2.3 g/dL (3.4-5.0) Thyroid Stimulating Hormone (TSH) 5.788 uIU/mL (0.358-3.74) Ethyl Alcohol Level < 10 mg/dL (0-10) O2 Saturation 98 % (92-99) Arterial Blood pH 7.20 (7.35-7.45) Arterial Blood pCO2 at Patient Temp 19 mmHg (35-46) Arterial Blood pO2 at Patient Temp 145 mmHg (75-108) Arterial Blood HCO3 7 mmol/L (21-28) Arterial Blood Base Excess -19 mmol/L (-3-3) Absolute Reticulocyte Count 0.031 x10^6/uL (0.020-0.120) Percent Reticulocyte Count 0.9 % (0.5-2.3) Immature Reticulocyte Fraction 0.46 (0.20-0.60) Ionized Calcium 1.02 mmol/L (1.13-1.32) Phosphorus Level 8.4 mg/dL (2.6-4.7) Laboratory Tests Test 08/27/19 06:35 08/27/19 07:25 08/27/19 10:15 08/27/19 12:05 Glucose (Fingerstick) 81 mg/dL (70-99) White Blood Count 7.3 x10^3/uL (4.0-11.0) Red Blood Count 3.74 x10^6/uL (4.30-5.70) 3.43 x10^6/uL (4.30-5.70) Hemoglobin 10.0 g/dL (13.0-17.5) Hematocrit 30.5 % (39.0-53.0) Mean Corpuscular Volume 82 fL (79-100) Mean Corpuscular Hemoglobin 27 pg (25-35) Mean Corpuscular Hemoglobin Concent 33 g/dL (31-37) Red Cell Distribution Width 16.7 % (11.5-14.5) Platelet Count 370 x10^3/uL (140-400) Neutrophils (%) (Auto) 80 % (31-73) Lymphocytes (%) (Auto) 15 % (24-48) Monocytes (%) (Auto) 5 % (0-9) Eosinophils (%) (Auto) 0 % (0-3) Basophils (%) (Auto) 0 % (0-3) Neutrophils # (Auto) 5.8 x10^3/uL (1.8-7.7) Lymphocytes # (Auto) 1.1 x10^3/uL (1.0-4.8) Monocytes # (Auto) 0.4 x10^3/uL (0.0-1.1) Eosinophils # (Auto) 0.0 x10^3/uL (0.0-0.7) Basophils # (Auto) 0.0 x10^3/uL (0.0-0.2) Prothrombin Time 18.7 SEC (11.7-14.0) Prothromb Time International Ratio 1.6 (0.8-1.1) Sodium Level 131 mmol/L (136-145) 137 mmol/L (136-145) Potassium Level 6.1 mmol/L (3.5-5.1) 4.7 mmol/L (3.5-5.1) Chloride Level 100 mmol/L (98-107) 104 mmol/L (98-107) Carbon Dioxide Level 10 mmol/L (21-32) 12 mmol/L (21-32) Anion Gap 21 (6-14) 21 (6-14) Blood Urea Nitrogen 166 mg/dL (8-26) 146 mg/dL (8-26) Creatinine 2.9 mg/dL (0.7-1.3) 2.6 mg/dL (0.7-1.3) Estimated GFR (Cockcroft-Gault) 28.7 32.6 Glucose Level 78 mg/dL (70-99) 95 mg/dL (70-99) Lactic Acid Level 1.2 mmol/L (0.4-2.0) Calcium Level 7.9 mg/dL (8.5-10.1) 7.5 mg/dL (8.5-10.1) Magnesium Level 2.9 mg/dL (1.8-2.4) Total Bilirubin 0.3 mg/dL (0.2-1.0) Direct Bilirubin 0.2 mg/dL (0.0-0.2) Aspartate Amino Transf (AST/SGOT) 21 U/L (15-37) Alanine Aminotransferase (ALT/SGPT) 24 U/L (16-63) Alkaline Phosphatase 262 U/L (46-116) Troponin I Quantitative 0.158 ng/mL (0.000-0.055) Total Protein 8.1 g/dL (6.4-8.2) Albumin 2.5 g/dL (3.4-5.0) 2.3 g/dL (3.4-5.0) Thyroid Stimulating Hormone (TSH) 5.788 uIU/mL (0.358-3.74) Ethyl Alcohol Level < 10 mg/dL (0-10) O2 Saturation 98 % (92-99) Arterial Blood pH 7.20 (7.35-7.45) Arterial Blood pCO2 at Patient Temp 19 mmHg (35-46) Arterial Blood pO2 at Patient Temp 145 mmHg (75-108) Arterial Blood HCO3 7 mmol/L (21-28) Arterial Blood Base Excess -19 mmol/L (-3-3) Absolute Reticulocyte Count 0.031 x10^6/uL (0.020-0.120) Percent Reticulocyte Count 0.9 % (0.5-2.3) Immature Reticulocyte Fraction 0.46 (0.20-0.60) Ionized Calcium 1.02 mmol/L (1.13-1.32) Phosphorus Level 8.4 mg/dL (2.6-4.7) Review All relevant outside records, renal labs, imaging studies, telemetry/EKG's were reviewed. Images Images Liver length is 12.6 mm. Normal hepatic echotexture is present. Common bile duct diameter is 0.5 cm. Few small calculi are present within the gallbladder. Minimal sludge also suggested. Gallbladder wall thickness of 0.1 cm. No pericholecystic fluid. Proximal pancreas is normal. Distal pancreas obscured by bowel gas. Spleen is not well visualized. Right kidney measures 9.1 cm x 6 cm x 4.77. Left kidney measures 10.4 cm x 6 cm x 5.9 cm. Moderate right hydronephrosis is present. Mild left hydronephrosis is present. Renal cortical echotexture is unremarkable. Inferior vena cava is unremarkable. 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 No upper abdominal ascites. Impression: Bilateral hydronephrosis greater on the right. Cholelithiasis without findings of acute cholecystitis or biliary dilatation. Atheromatous involvement of the abdominal aorta is greater then expected for age. PETTY FERRIS MD Aug 27, 2019 14:11
--- NOTE | 2019-08-27 14:11 | PDOC2 ---
GI CONSULT Reason For Consult: severe malnutrition, weight loss, elevated LFTs HPI: HPI: 44 y/o admitted to ICU from ER. Per chart, thought about hanging himself. Apparently smelled of urine and was incontinent of stool. Noted w/ multiple pressure wounds. Says he's been ill since he left [facility] in "I wanna say July" after right AKA. Tells me he doesn't eat because he's stressed trying to take care of his disabled girlfriend and her dog. Also says he can't make food himself because he's in a wheelchair and can't stand up. He's really hungry now. Admits weight loss, not sure how much. Some acid reflux, untreated. No dysphagia. No n/v. No abd pain. No constipation. No hematochezia or melena. Doesn't know about previous 'scopes. No GB, liver, pancreas, or PUD history. Says takes no meds at home. Noted w/ anemia, hyperkalemia, and VENANCIO. LFTs are actually normal except Alk Phos 262 (which has also been elevated in the past). Abd US notes hydronephrosis and cholelithiasis. Has a rectal tube after Kayexalate w/ wounds/skin breakdown on buttocks. PMH: PMH: HTN, DM, depression, substance abuse, MRSA right AKA FH: Family History: No pertinent hx Social History: Smoke: <1 pack per day ALCOHOL: none Drugs: Cocaine, Marijuana ROS: GEN: Denies fevers, chills, sweats HEENT: Denies blurred vision, sore throat CV: Denies chest pain RESP: Denies shortness of air, cough GI: Per HPI : Denies hematuria, dysuria ENDO: Denies weight changes NEURO: Denies confusion, dizziness MSK: Denies weakness, joint pain/swelling SKIN: Denies jaundice, pruritus Vitals: Vitals: Vital Signs Date Time Temp Pulse Resp B/P (MAP) Pulse Ox O2 Delivery O2 Flow Rate FiO2 08/27/19 13:05 91.6 87 18 160/98 (118) 100 Room Air 91.6 Labs: Labs: Laboratory Tests Test 08/27/19 06:35 08/27/19 07:25 08/27/19 10:15 08/27/19 12:05 Glucose (Fingerstick) 81 mg/dL (70-99) White Blood Count 7.3 x10^3/uL (4.0-11.0) Red Blood Count 3.74 x10^6/uL (4.30-5.70) 3.43 x10^6/uL (4.30-5.70) Hemoglobin 10.0 g/dL (13.0-17.5) Hematocrit 30.5 % (39.0-53.0) Mean Corpuscular Volume 82 fL (79-100) Mean Corpuscular Hemoglobin 27 pg (25-35) Mean Corpuscular Hemoglobin Concent 33 g/dL (31-37) Red Cell Distribution Width 16.7 % (11.5-14.5) Platelet Count 370 x10^3/uL (140-400) Neutrophils (%) (Auto) 80 % (31-73) Lymphocytes (%) (Auto) 15 % (24-48) Monocytes (%) (Auto) 5 % (0-9) Eosinophils (%) (Auto) 0 % (0-3) Basophils (%) (Auto) 0 % (0-3) Neutrophils # (Auto) 5.8 x10^3/uL (1.8-7.7) Lymphocytes # (Auto) 1.1 x10^3/uL (1.0-4.8) Monocytes # (Auto) 0.4 x10^3/uL (0.0-1.1) Eosinophils # (Auto) 0.0 x10^3/uL (0.0-0.7) Basophils # (Auto) 0.0 x10^3/uL (0.0-0.2) Prothrombin Time 18.7 SEC (11.7-14.0) Prothromb Time International Ratio 1.6 (0.8-1.1) Sodium Level 131 mmol/L (136-145) 137 mmol/L (136-145) Potassium Level 6.1 mmol/L (3.5-5.1) 4.7 mmol/L (3.5-5.1) Chloride Level 100 mmol/L (98-107) 104 mmol/L (98-107) Carbon Dioxide Level 10 mmol/L (21-32) 12 mmol/L (21-32) Anion Gap 21 (6-14) 21 (6-14) Blood Urea Nitrogen 166 mg/dL (8-26) 146 mg/dL (8-26) Creatinine 2.9 mg/dL (0.7-1.3) 2.6 mg/dL (0.7-1.3) Estimated GFR (Cockcroft-Gault) 28.7 32.6 Glucose Level 78 mg/dL (70-99) 95 mg/dL (70-99) Lactic Acid Level 1.2 mmol/L (0.4-2.0) Calcium Level 7.9 mg/dL (8.5-10.1) 7.5 mg/dL (8.5-10.1) Magnesium Level 2.9 mg/dL (1.8-2.4) Total Bilirubin 0.3 mg/dL (0.2-1.0) Direct Bilirubin 0.2 mg/dL (0.0-0.2) Aspartate Amino Transf (AST/SGOT) 21 U/L (15-37) Alanine Aminotransferase (ALT/SGPT) 24 U/L (16-63) Alkaline Phosphatase 262 U/L (46-116) Troponin I Quantitative 0.158 ng/mL (0.000-0.055) Total Protein 8.1 g/dL (6.4-8.2) Albumin 2.5 g/dL (3.4-5.0) 2.3 g/dL (3.4-5.0) Thyroid Stimulating Hormone (TSH) 5.788 uIU/mL (0.358-3.74) Ethyl Alcohol Level < 10 mg/dL (0-10) O2 Saturation 98 % (92-99) Arterial Blood pH 7.20 (7.35-7.45) Arterial Blood pCO2 at Patient Temp 19 mmHg (35-46) Arterial Blood pO2 at Patient Temp 145 mmHg (75-108) Arterial Blood HCO3 7 mmol/L (21-28) Arterial Blood Base Excess -19 mmol/L (-3-3) Absolute Reticulocyte Count 0.031 x10^6/uL (0.020-0.120) Percent Reticulocyte Count 0.9 % (0.5-2.3) Immature Reticulocyte Fraction 0.46 (0.20-0.60) Ionized Calcium 1.02 mmol/L (1.13-1.32) Phosphorus Level 8.4 mg/dL (2.6-4.7) Procalcitonin 33.29 ng/mL (0.00-0.10) Allergies: Coded Allergies: I S O L A T I O N *CONTACT* (Verified Allergy, Unknown, 12/23/17) mrsa lisinopril (Verified Allergy, Unknown, 08/27/19) Medications: Current Medications Medications (Trade) Dose Ordered Sig/Dez Route PRN Reason Start Time Stop Time Status Last Admin Dose Admin Sodium Chloride 1,000 ml @ 1,000 mls/hr Q1H IV 08/27/19 06:30 08/27/19 07:29 DC 08/27/19 08:40 Calcium Gluconate (Calcium Gluconate) 1,000 mg 1X ONCE IVP 08/27/19 08:45 08/27/19 08:46 DC 08/27/19 10:36 Sodium Bicarbonate (Sodium Bicarb Adult 8.4% Syr) 50 meq 1X ONCE IV 08/27/19 08:45 08/27/19 08:46 DC 08/27/19 10:35 Dextrose (Dextrose 50%-Water Syringe) 25 gm 1X ONCE IV 08/27/19 08:45 08/27/19 08:46 DC 08/27/19 10:35 Insulin Human Regular (HumuLIN R VIAL) 10 unit 1X ONCE IV 08/27/19 08:45 08/27/19 08:46 DC 08/27/19 11:23 Sodium Polystyrene Sulfonate (Kayexalate) 30 gm 1X ONCE PO 08/27/19 08:45 08/27/19 08:46 DC 08/27/19 10:37 Sodium Chloride 1,000 ml @ 1,000 mls/hr Q1H IV 08/27/19 08:45 08/27/19 09:44 DC 08/27/19 10:36 Famotidine (Pepcid Vial) 20 mg DAILY IVP 08/27/19 10:00 08/27/19 10:39 Ceftriaxone Sodium (Rocephin) 1 gm 1X ONCE IVP 08/27/19 12:00 08/27/19 12:01 DC 08/27/19 13:14 Imaging: Imaging: CXR IMPRESSION: No acute cardiopulmonary process. Abd US Impression: Bilateral hydronephrosis greater on the right. Cholelithiasis without findings of acute cholecystitis or biliary dilatation. Atheromatous involvement of the abdominal aorta is greater then expected for age. PE: GEN: thin HEENT: poor dentition LUNGS: room air HEART: RRR ABD: NABS, S/ND/NT EXTREMITY: right AKA SKIN: multiple wounds NEURO/PSYCH: A & O 3 A/P: A/P: Suicidal ideation Weakness, weight loss, multiple wounds, diarrhea Anemia, hyperkalemia, VENANCIO, elevated procalcitonin, hydronephrosis Acid reflux Elevated Alk Phos Cholelithiasis - incidental finding H/o substance abuse (cocaine, marijuana), DM -- Unable/unwilling to care for self at home. Not sure Alk Phos is all from the liver. 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 Many additional labs ordered including iron profile and C Diff - await these. NENA ARCINIEGA Aug 27, 2019 14:11
[2019-08-27] MEDS ORDERED: DEXTROSE 50% 25 GM / 50ML DISP.SYRIN. IV PRN (14:15)
[2019-08-27] MEDS ORDERED: LIDOCAINE WITH 8.4% SOD BICARB 3 ML DISP.SYRIN. INJ ONE (14:30)
[2019-08-27] MEDS: SODIUM BICARBONATE VIAL 150 MEQ in IV DEXTROSE 5% 1,000 ML IV SCH (15:00)
--- NOTE | 2019-08-27 15:01 | NUR ---
Wound Care Wound care consult for multiple wounds. Pt has multiple wounds on bony prominences that appear to be DTI and Stage III pressure ulcers. Pt is not stable enough for full consult, recommend A&D ointment to bilateral buttocks and pink foams to all other wounds, WC will reassess on Friday if he is still here.
--- NOTE | 2019-08-27 15:02 | NUR ---
SS following for discharge planning. SS received request for transfer to for urology. SS contacted transfer team, and made request for transfer. SS spoke with Shlomo, , in the transfer center. SS phoned and faxed requested clinical to at fax [phone]. SS left voicemail for Radiology, 1955, requesting images for current stay be clouded to . SS will await acceptance decision and will proceed accordingly. Pt's RN notified.
--- NOTE | 2019-08-27 15:29 | RAD ---
CHEST AP ONLY Clinical indications: Temporary hemodialysis catheter placement. COMPARISON: August 27, 2019. Findings: A left IJ hemodialysis catheter has been placed and the tip is seen within the lower SVC at the junction with the right atrium. No acute lung infiltrate or pleural effusion or pulmonary edema or lung mass or pneumothorax is seen. The heart size, pulmonary vasculature, mediastinum and both shea are unremarkable. Impression: No acute radiographic abnormality is seen. Electronically signed by: Alexis Paredes MD (08/27/2019 3:26 PM) [place] [id number]
[2019-08-27 15:32] LABS: BILIRUBIN,URINE NEGATIVE (NEG); CLARITY,URINE CLOUDY; COLOR,URINE RED; NITRITE,URINE NEGATIVE (NEG); PROTEIN,URINE >=300 mg/dL (NEG-TRACE); UROBILINOGEN,URINE 0.2 mg/dL (0.2 mg/dL)
[2019-08-27] MEDS ORDERED: MEROPENEM 500 MG in IV NORMAL SALINE 50ML 50 ML IV ONE (15:45)
--- NOTE | 2019-08-27 15:46 | CARD ---
MR#: [id number] Date of Study: 08/27/2019 Ordering Physician: IMELDA ANDREW, Referring Physician: IMELDA ANDREW, Tech: Kiara Pena APPROVED REPORT EXAM: Two-dimensional and M-mode echocardiogram with Doppler and color Doppler. Other Information Quality : AverageHR: 92bpm Technically limited study due to body habitus. INDICATION LV Function:Systolic 2D DIMENSIONS Left Atrium(2D)2.9 (1.6-4.0cm)IVSd0.9 (0.7-1.1cm) Aortic Root(2D)2.2 (2.0-3.7cm)LVDd4.1 (3.9-5.9cm) PWd0.8 (0.7-1.1cm)LVDs3.7 (2.5-4.0cm) FS (%) 10.1 %SV16.8 ml LVEF(%)22.3 (>50%) LEFT VENTRICLE The left ventricle is normal size. There is normal left ventricular wall thickness. The systolic func tion is moderately impaired. The Ejection Fraction is 40%. There is global hypokinesis of the left ve ntricle with mild predominance in the anterior wall. Diastology not performed. RIGHT VENTRICLE The right ventricle is normal size. There is normal right ventricular wall thickness. The right ventr icular systolic function is normal. ATRIA The left atrium size is normal. The right atrium size is normal. The interatrial septum is intact wit h no evidence for an atrial septal defect or patent foramen ovale as noted on 2-D or Doppler imaging. AORTIC VALVE The aortic valve is normal in structure and function. Doppler and color-flow analysis was not perform ed. There is no significant aortic valvular stenosis. MITRAL VALVE The mitral valve is thickened but opens well. There is no evidence of mitral valve prolapse. There is no mitral valve stenosis. Doppler and color-flow analysis was not performed. TRICUSPID VALVE The tricuspid valve is normal in structure and function. Doppler and color-flow analysis was not perf ormed. There is no tricuspid valve prolapse. There is no tricuspid valve stenosis. PULMONIC VALVE The pulmonic valve is not well visualized. Doppler and color-flow analysis was not performed. GREAT VESSELS The aortic root is normal in size. The IVC is normal in size and collapses >50% with inspiration. PERICARDIAL EFFUSION There is a trace pericardial effusion. Critical Notification Critical Value: No <Conclusion> The systolic function is moderately impaired. The Ejection Fraction is 40%. There is global hypokinesis of the left ventricle with mild predominance in the anterior wall. Limited study only Signed by : Hunter Alarcon, Electronically Approved : 08/27/2019 15:46:19
[2019-08-27 16:00] LABS: BACTERIA,URINE 0 /HPF (0-FEW); RBC,URINE TNTC /HPF (0-2); WBC,URINE TNTC /HPF (0-4)
--- NOTE | 2019-08-27 18:00 | NUR ---
TDC placed at bedside by IR w/o diff. [facility] denied transfer at this time. DR Dave aware. Pt making urine but bloodtinged at times. Pt had some jello and juice and water, anes here to place another PIV.
[2019-08-27] MEDS: ACETAMINOPHEN 325 MG TABLET. PO PRN (18:29)
[2019-08-27] MEDS: DAPTOMYCIN IV SCH (18:29)
[2019-08-27] MEDS: NORMAL SALINE IV SCH (18:29)
[2019-08-27 19:14] LABS: ALBUMIN 2.1 g/dL (3.4-5.0); ALBUMIN/GLOBULIN RATIO 0.4 (1.0-1.7); CALCIUM 7.2 mg/dL (8.5-10.1); CREATININE 2.4 mg/dL (0.7-1.3); GFR 35.8; POTASSIUM 4.7 mmol/L (3.5-5.1); TOTAL BILIRUBIN 0.3 mg/dL (0.2-1.0)
[2019-08-27] MEDS: MEROPENEM 500 MG in IV NORMAL SALINE 50ML 50 ML IV SCH (20:07)
[2019-08-27] MEDS: LACTOBACILLUS RHAMNOSUS GG 1 CAPSULE. PO SCH (20:14)
[2019-08-28] VITALS (15 sets, daily range): BP systolic 107–160; BP diastolic 70–97
[2019-08-28] MEDS ORDERED: CARV25TA PO (00:18)
[2019-08-28] MEDS ORDERED: TRAM50TA PO (00:18)
[2019-08-28] MEDS ORDERED: GLIP5TAB10 PO (00:18)
[2019-08-28] MEDS ORDERED: AMLO10TA4 PO (00:18)
[2019-08-28] MEDS ORDERED: CHOL10003 PO (00:18)
[2019-08-28] MEDS ORDERED: TAMS0.4C97 PO (00:18)
[2019-08-28] MEDS ORDERED: HYDR-2868 PO (00:18)
[2019-08-28] MEDS: SODIUM BICARBONATE VIAL 150 MEQ in IV DEXTROSE 5% 1,000 ML IV SCH ×2 (02:02→13:49)
[2019-08-28] MEDS: IV NORMAL SALINE 1000ML BAG 1,000 ML IV SCH (02:03)
--- NOTE | 2019-08-28 02:13 | CONS ---
DATE OF CONSULTATION: 08/27/2019 ATTENDING PHYSICIAN: Dr. Chacon. REASON FOR CONSULTATION: The patient is seen in pulmonary consultation at the request of Dr. Chacon for sepsis. HISTORY OF PRESENT ILLNESS: The patient is a 44-year-old that presented to the Emergency Room because of depression, states that he has diabetes, is unable to eat. He was also suicidal with plans to hang himself. He does have a prior history of major depression episode. He has lost approximately 20 pounds in the last 3 months, lives with his significant other. He has severe renal failure and he was dehydrated upon the initial exam. He had apparently stopped using cocaine 3 months ago, but uses THC. I was asked to see him in consultation. The patient denies any increasing shortness of breath. No chest pain. No pressure. His white count was 7.3. Arterial blood gas initially revealed a pH of 7.20, PaCO2 of 19, pO2 of 145, bicarbonate was 17. The patient is currently receiving IV antibiotics. Nephrology has been consulted. ID has been consulted along with Cardiology. He is currently receiving IV fluids. He is awake, alert, following commands. No chest pain or pressure. PAST MEDICAL HISTORY: Remarkable for diabetes complicated with previous amputation. He has a prior history of major depression and addiction. FAMILY HISTORY: Hypertension. SOCIAL HISTORY: He smokes less than 1 pack of cigarettes a day. In the past, he has used cocaine and marijuana. REVIEW OF SYSTEMS: As indicated above, otherwise a 10-point system was reviewed and negative. PHYSICAL EXAMINATION: GENERAL: The patient was in the intensive care unit, on room air, saturation 92%. LUNGS: Anteriorly were clear. CARDIOVASCULAR: Regular rate and rhythm with S1, S2, no S3. ABDOMEN: Soft. EXTREMITIES: Evidence of previous right amputation. LABORATORY DATA: As indicated above. White count was normal. Hemoglobin and hematocrit were noted. Arterial blood gas revealed a severe metabolic acidosis. INR was 1.6, BUN was 146, creatinine was 2.6, procalcitonin was high. TSH was high. IMPRESSION: 1. Sepsis. 2. Severe metabolic acidosis. 3. Acute renal failure. 4. Diabetes complicated with peripheral vascular disease, status post amputation. 5. Electrolyte abnormalities. 6. Hyperkalemia. 7. Chronic anemia. 8. Coagulopathy. PLAN: 1. Continue current support with IV fluids. 2. IV antibiotics. 3. P.r.n. oxygen supplementation. 4. Follow other consultants' input. The patient's respiratory status is currently compensated. No need for invasive or noninvasive ventilation. I do appreciate the privilege in sharing in the patient's care. ELIZA JUNIOR MD DR: ANGELA/tisha JOB#: [id number] / [id number]
[2019-08-28 04:37] LABS: BASO % 0 % (0-3); EOS % 0 % (0-3); HEMATOCRIT 26.3 % (39.0-53.0); LYMPH # 0.5 x10^3/uL (1.0-4.8); LYMPH % 6 % (24-48); MEAN CORPUSCULAR HEMOGLOBIN 27 pg (25-35); MEAN CORPUSCULAR HGB CONC 34 g/dL (31-37); MEAN CORPUSCULAR VOLUME 79 fL (79-100); MONO # 0.4 x10^3/uL (0.0-1.1); MONO % 5 % (0-9); NEUT # 7.8 x10^3/uL (1.8-7.7); NEUT % 89 % (31-73); PLATELET COUNT 290 x10^3/uL (140-400); RED BLOOD COUNT 3.34 x10^6/uL (4.30-5.70); RED CELL DISTRIBUTION WIDTH 16.7 % (11.5-14.5); WHITE BLOOD COUNT 8.9 x10^3/uL (4.0-11.0)
[2019-08-28 05:07] LABS: ALBUMIN 1.7 g/dL (3.4-5.0); ALBUMIN/GLOBULIN RATIO 0.4 (1.0-1.7); CALCIUM 6.5 mg/dL (8.5-10.1); CREATININE 2.2 mg/dL (0.7-1.3); GFR 39.5; POTASSIUM 3.2 mmol/L (3.5-5.1); TOTAL BILIRUBIN 0.3 mg/dL (0.2-1.0)
--- NOTE | 2019-08-28 06:49 | PDOC ---
PULMONARY PROGRESS NOTES Subjective on ra, denies sob, has occ cough, no pain Vitals Vital Signs Date Time Temp Pulse Resp B/P (MAP) Pulse Ox O2 Delivery O2 Flow Rate FiO2 08/28/19 06:03 98.2 93 16 134/81 (98) 100 Room Air 98.2 ROS: No Nausea, No Chest Pain General: Alert HEENT: Other (nc at perrl) Lungs: Clear Cardiovascular: S1, S2 Abdomen: Soft, Non-tender Neuro Exam: Alert Extremities: Other (s/p r aka) Skin: Warm Labs Laboratory Tests Test 08/27/19 06:35 08/27/19 07:25 08/27/19 10:15 08/27/19 12:05 Glucose (Fingerstick) 81 mg/dL (70-99) White Blood Count 7.3 x10^3/uL (4.0-11.0) Red Blood Count 3.74 x10^6/uL (4.30-5.70) 3.43 x10^6/uL (4.30-5.70) Hemoglobin 10.0 g/dL (13.0-17.5) Hematocrit 30.5 % (39.0-53.0) Mean Corpuscular Volume 82 fL (79-100) Mean Corpuscular Hemoglobin 27 pg (25-35) Mean Corpuscular Hemoglobin Concent 33 g/dL (31-37) Red Cell Distribution Width 16.7 % (11.5-14.5) Platelet Count 370 x10^3/uL (140-400) Neutrophils (%) (Auto) 80 % (31-73) Lymphocytes (%) (Auto) 15 % (24-48) Monocytes (%) (Auto) 5 % (0-9) Eosinophils (%) (Auto) 0 % (0-3) Basophils (%) (Auto) 0 % (0-3) Neutrophils # (Auto) 5.8 x10^3/uL (1.8-7.7) Lymphocytes # (Auto) 1.1 x10^3/uL (1.0-4.8) Monocytes # (Auto) 0.4 x10^3/uL (0.0-1.1) Eosinophils # (Auto) 0.0 x10^3/uL (0.0-0.7) Basophils # (Auto) 0.0 x10^3/uL (0.0-0.2) Prothrombin Time 18.7 SEC (11.7-14.0) Prothromb Time International Ratio 1.6 (0.8-1.1) Sodium Level 131 mmol/L (136-145) 137 mmol/L (136-145) Potassium Level 6.1 mmol/L (3.5-5.1) 4.7 mmol/L (3.5-5.1) Chloride Level 100 mmol/L (98-107) 104 mmol/L (98-107) Carbon Dioxide Level 10 mmol/L (21-32) 12 mmol/L (21-32) Anion Gap 21 (6-14) 21 (6-14) Blood Urea Nitrogen 166 mg/dL (8-26) 146 mg/dL (8-26) Creatinine 2.9 mg/dL (0.7-1.3) 2.6 mg/dL (0.7-1.3) Estimated GFR (Cockcroft-Gault) 28.7 32.6 Glucose Level 78 mg/dL (70-99) 95 mg/dL (70-99) Lactic Acid Level 1.2 mmol/L (0.4-2.0) Calcium Level 7.9 mg/dL (8.5-10.1) 7.5 mg/dL (8.5-10.1) Magnesium Level 2.9 mg/dL (1.8-2.4) Total Bilirubin 0.3 mg/dL (0.2-1.0) Direct Bilirubin 0.2 mg/dL (0.0-0.2) Aspartate Amino Transf (AST/SGOT) 21 U/L (15-37) Alanine Aminotransferase (ALT/SGPT) 24 U/L (16-63) Alkaline Phosphatase 262 U/L (46-116) Troponin I Quantitative 0.158 ng/mL (0.000-0.055) Total Protein 8.1 g/dL (6.4-8.2) Albumin 2.5 g/dL (3.4-5.0) 2.3 g/dL (3.4-5.0) Thyroid Stimulating Hormone (TSH) 5.788 uIU/mL (0.358-3.74) Ethyl Alcohol Level < 10 mg/dL (0-10) O2 Saturation 98 % (92-99) Arterial Blood pH 7.20 (7.35-7.45) Arterial Blood pCO2 at Patient Temp 19 mmHg (35-46) Arterial Blood pO2 at Patient Temp 145 mmHg (75-108) Arterial Blood HCO3 7 mmol/L (21-28) Arterial Blood Base Excess -19 mmol/L (-3-3) Absolute Reticulocyte Count 0.031 x10^6/uL (0.020-0.120) Percent Reticulocyte Count 0.9 % (0.5-2.3) Immature Reticulocyte Fraction 0.46 (0.20-0.60) Ionized Calcium 1.02 mmol/L (1.13-1.32) Phosphorus Level 8.4 mg/dL (2.6-4.7) Gamma Glutamyl Transpeptidase 65 U/L (10-85) Procalcitonin 33.29 ng/mL (0.00-0.10) Test 08/27/19 14:04 08/27/19 14:05 08/27/19 14:40 08/27/19 14:47 Glucose (Fingerstick) 31 mg/dL (70-99) 104 mg/dL (70-99) Troponin I Quantitative 0.118 ng/mL (0.000-0.055) Creatine Kinase 143 U/L (39-308) Test 08/27/19 15:00 08/27/19 18:30 08/27/19 21:04 08/28/19 04:00 Urine Collection Type Unknown Urine Color Red Urine Clarity Cloudy Urine pH 6.0 Urine Specific [place] 1.020 Urine Protein >=300 mg/dL (NEG-TRACE) Urine Glucose (UA) Negative mg/dL (NEG) Urine Ketones (Stick) Negative mg/dL (NEG) Urine Blood Large (NEG) Urine Nitrite Negative (NEG) Urine Bilirubin Negative (NEG) Urine Urobilinogen Dipstick 0.2 mg/dL (0.2 mg/dL) Urine Leukocyte Esterase Large (NEG) Urine RBC Tntc /HPF (0-2) Urine WBC Tntc /HPF (0-4) Urine Bacteria 0 /HPF (0-FEW) Sodium Level 137 mmol/L (136-145) 137 mmol/L (136-145) Potassium Level 4.7 mmol/L (3.5-5.1) 3.2 mmol/L (3.5-5.1) Chloride Level 106 mmol/L (98-107) 104 mmol/L (98-107) Carbon Dioxide Level 9 mmol/L (21-32) 15 mmol/L (21-32) Anion Gap 22 (6-14) 18 (6-14) Blood Urea Nitrogen 142 mg/dL (8-26) 119 mg/dL (8-26) Creatinine 2.4 mg/dL (0.7-1.3) 2.2 mg/dL (0.7-1.3) Estimated GFR (Cockcroft-Gault) 35.8 39.5 BUN/Creatinine Ratio 59 (6-20) 54 (6-20) Glucose Level 57 mg/dL (70-99) 87 mg/dL (70-99) Calcium Level 7.2 mg/dL (8.5-10.1) 6.5 mg/dL (8.5-10.1) Iron Level 68 ug/dL (65-175) Total Iron Binding Capacity 124 ug/dL (250-450) Iron Saturation 55 % (15-34) Total Bilirubin 0.3 mg/dL (0.2-1.0) 0.3 mg/dL (0.2-1.0) Aspartate Amino Transf (AST/SGOT) 21 U/L (15-37) 14 U/L (15-37) Alanine Aminotransferase (ALT/SGPT) 16 U/L (16-63) 17 U/L (16-63) Alkaline Phosphatase 222 U/L (46-116) 183 U/L (46-116) Total Protein 7.0 g/dL (6.4-8.2) 6.0 g/dL (6.4-8.2) Albumin 2.1 g/dL (3.4-5.0) 1.7 g/dL (3.4-5.0) Albumin/Globulin Ratio 0.4 (1.0-1.7) 0.4 (1.0-1.7) Glucose (Fingerstick) 131 mg/dL (70-99) White Blood Count 8.9 x10^3/uL (4.0-11.0) Red Blood Count 3.34 x10^6/uL (4.30-5.70) Hemoglobin 9.0 g/dL (13.0-17.5) Hematocrit 26.3 % (39.0-53.0) Mean Corpuscular Volume 79 fL (79-100) Mean Corpuscular Hemoglobin 27 pg (25-35) Mean Corpuscular Hemoglobin Concent 34 g/dL (31-37) Red Cell Distribution Width 16.7 % (11.5-14.5) Platelet Count 290 x10^3/uL (140-400) Neutrophils (%) (Auto) 89 % (31-73) Lymphocytes (%) (Auto) 6 % (24-48) Monocytes (%) (Auto) 5 % (0-9) Eosinophils (%) (Auto) 0 % (0-3) Basophils (%) (Auto) 0 % (0-3) Neutrophils # (Auto) 7.8 x10^3/uL (1.8-7.7) Lymphocytes # (Auto) 0.5 x10^3/uL (1.0-4.8) Monocytes # (Auto) 0.4 x10^3/uL (0.0-1.1) Eosinophils # (Auto) 0.0 x10^3/uL (0.0-0.7) Basophils # (Auto) 0.0 x10^3/uL (0.0-0.2) Laboratory Tests Test 08/27/19 07:25 08/27/19 10:15 08/27/19 12:05 08/27/19 14:04 White Blood Count 7.3 x10^3/uL (4.0-11.0) Red Blood Count 3.74 x10^6/uL (4.30-5.70) 3.43 x10^6/uL (4.30-5.70) Hemoglobin 10.0 g/dL (13.0-17.5) Hematocrit 30.5 % (39.0-53.0) Mean Corpuscular Volume 82 fL (79-100) Mean Corpuscular Hemoglobin 27 pg (25-35) Mean Corpuscular Hemoglobin Concent 33 g/dL (31-37) Red Cell Distribution Width 16.7 % (11.5-14.5) Platelet Count 370 x10^3/uL (140-400) Neutrophils (%) (Auto) 80 % (31-73) Lymphocytes (%) (Auto) 15 % (24-48) Monocytes (%) (Auto) 5 % (0-9) Eosinophils (%) (Auto) 0 % (0-3) Basophils (%) (Auto) 0 % (0-3) Neutrophils # (Auto) 5.8 x10^3/uL (1.8-7.7) Lymphocytes # (Auto) 1.1 x10^3/uL (1.0-4.8) Monocytes # (Auto) 0.4 x10^3/uL (0.0-1.1) Eosinophils # (Auto) 0.0 x10^3/uL (0.0-0.7) Basophils # (Auto) 0.0 x10^3/uL (0.0-0.2) Prothrombin Time 18.7 SEC (11.7-14.0) Prothromb Time International Ratio 1.6 (0.8-1.1) Sodium Level 131 mmol/L (136-145) 137 mmol/L (136-145) Potassium Level 6.1 mmol/L (3.5-5.1) 4.7 mmol/L (3.5-5.1) Chloride Level 100 mmol/L (98-107) 104 mmol/L (98-107) Carbon Dioxide Level 10 mmol/L (21-32) 12 mmol/L (21-32) Anion Gap 21 (6-14) 21 (6-14) Blood Urea Nitrogen 166 mg/dL (8-26) 146 mg/dL (8-26) Creatinine 2.9 mg/dL (0.7-1.3) 2.6 mg/dL (0.7-1.3) Estimated GFR (Cockcroft-Gault) 28.7 32.6 Glucose Level 78 mg/dL (70-99) 95 mg/dL (70-99) Lactic Acid Level 1.2 mmol/L (0.4-2.0) Calcium Level 7.9 mg/dL (8.5-10.1) 7.5 mg/dL (8.5-10.1) Magnesium Level 2.9 mg/dL (1.8-2.4) Total Bilirubin 0.3 mg/dL (0.2-1.0) Direct Bilirubin 0.2 mg/dL (0.0-0.2) Aspartate Amino Transf (AST/SGOT) 21 U/L (15-37) Alanine Aminotransferase (ALT/SGPT) 24 U/L (16-63) Alkaline Phosphatase 262 U/L (46-116) Troponin I Quantitative 0.158 ng/mL (0.000-0.055) Total Protein 8.1 g/dL (6.4-8.2) Albumin 2.5 g/dL (3.4-5.0) 2.3 g/dL (3.4-5.0) Thyroid Stimulating Hormone (TSH) 5.788 uIU/mL (0.358-3.74) Ethyl Alcohol Level < 10 mg/dL (0-10) O2 Saturation 98 % (92-99) Arterial Blood pH 7.20 (7.35-7.45) Arterial Blood pCO2 at Patient Temp 19 mmHg (35-46) Arterial Blood pO2 at Patient Temp 145 mmHg (75-108) Arterial Blood HCO3 7 mmol/L (21-28) Arterial Blood Base Excess -19 mmol/L (-3-3) Absolute Reticulocyte Count 0.031 x10^6/uL (0.020-0.120) Percent Reticulocyte Count 0.9 % (0.5-2.3) Immature Reticulocyte Fraction 0.46 (0.20-0.60) Ionized Calcium 1.02 mmol/L (1.13-1.32) Phosphorus Level 8.4 mg/dL (2.6-4.7) Gamma Glutamyl Transpeptidase 65 U/L (10-85) Procalcitonin 33.29 ng/mL (0.00-0.10) Glucose (Fingerstick) 31 mg/dL (70-99) Test 08/27/19 14:05 08/27/19 14:40 08/27/19 14:47 08/27/19 15:00 Troponin I Quantitative 0.118 ng/mL (0.000-0.055) Creatine Kinase 143 U/L (39-308) Glucose (Fingerstick) 104 mg/dL (70-99) Urine Collection Type Unknown Urine Color Red Urine Clarity Cloudy Urine pH 6.0 Urine Specific [place] 1.020 Urine Protein >=300 mg/dL (NEG-TRACE) Urine Glucose (UA) Negative mg/dL (NEG) Urine Ketones (Stick) Negative mg/dL (NEG) Urine Blood Large (NEG) Urine Nitrite Negative (NEG) Urine Bilirubin Negative (NEG) Urine Urobilinogen Dipstick 0.2 mg/dL (0.2 mg/dL) Urine Leukocyte Esterase Large (NEG) Urine RBC Tntc /HPF (0-2) Urine WBC Tntc /HPF (0-4) Urine Bacteria 0 /HPF (0-FEW) Test 08/27/19 18:30 08/27/19 21:04 08/28/19 04:00 Sodium Level 137 mmol/L (136-145) 137 mmol/L (136-145) Potassium Level 4.7 mmol/L (3.5-5.1) 3.2 mmol/L (3.5-5.1) Chloride Level 106 mmol/L (98-107) 104 mmol/L (98-107) Carbon Dioxide Level 9 mmol/L (21-32) 15 mmol/L (21-32) Anion Gap 22 (6-14) 18 (6-14) Blood Urea Nitrogen 142 mg/dL (8-26) 119 mg/dL (8-26) Creatinine 2.4 mg/dL (0.7-1.3) 2.2 mg/dL (0.7-1.3) Estimated GFR (Cockcroft-Gault) 35.8 39.5 BUN/Creatinine Ratio 59 (6-20) 54 (6-20) Glucose Level 57 mg/dL (70-99) 87 mg/dL (70-99) Calcium Level 7.2 mg/dL (8.5-10.1) 6.5 mg/dL (8.5-10.1) Iron Level 68 ug/dL (65-175) Total Iron Binding Capacity 124 ug/dL (250-450) Iron Saturation 55 % (15-34) Total Bilirubin 0.3 mg/dL (0.2-1.0) 0.3 mg/dL (0.2-1.0) Aspartate Amino Transf (AST/SGOT) 21 U/L (15-37) 14 U/L (15-37) Alanine Aminotransferase (ALT/SGPT) 16 U/L (16-63) 17 U/L (16-63) Alkaline Phosphatase 222 U/L (46-116) 183 U/L (46-116) Total Protein 7.0 g/dL (6.4-8.2) 6.0 g/dL (6.4-8.2) Albumin 2.1 g/dL (3.4-5.0) 1.7 g/dL (3.4-5.0) Albumin/Globulin Ratio 0.4 (1.0-1.7) 0.4 (1.0-1.7) Glucose (Fingerstick) 131 mg/dL (70-99) White Blood Count 8.9 x10^3/uL (4.0-11.0) Red Blood Count 3.34 x10^6/uL (4.30-5.70) Hemoglobin 9.0 g/dL (13.0-17.5) Hematocrit 26.3 % (39.0-53.0) Mean Corpuscular Volume 79 fL (79-100) Mean Corpuscular Hemoglobin 27 pg (25-35) Mean Corpuscular Hemoglobin Concent 34 g/dL (31-37) Red Cell Distribution Width 16.7 % (11.5-14.5) Platelet Count 290 x10^3/uL (140-400) Neutrophils (%) (Auto) 89 % (31-73) Lymphocytes (%) (Auto) 6 % (24-48) Monocytes (%) (Auto) 5 % (0-9) Eosinophils (%) (Auto) 0 % (0-3) Basophils (%) (Auto) 0 % (0-3) Neutrophils # (Auto) 7.8 x10^3/uL (1.8-7.7) Lymphocytes # (Auto) 0.5 x10^3/uL (1.0-4.8) Monocytes # (Auto) 0.4 x10^3/uL (0.0-1.1) Eosinophils # (Auto) 0.0 x10^3/uL (0.0-0.7) Basophils # (Auto) 0.0 x10^3/uL (0.0-0.2) Medications Active Scripts Medications Dose Route/Sig Max Daily Dose Days Date Category Tramadol Hcl 50 Mg Tablet 50 Mg PO Q6HRS PRN 08/28/19 Reported Flomax (Tamsulosin Hcl) 0.4 Mg Cap.er.24h 0.4 Mg PO DAILY 08/28/19 Reported Hydralazine Hcl 25 Mg Tablet 1 Tab PO TID 08/28/19 Reported Glipizide 5 Mg Tablet 1.5 Tab PO DAILY 08/28/19 Reported Vitamin D3 (Cholecalciferol (Vitamin D3)) 1,000 Unit Tablet 1 Tab PO DAILY 08/28/19 Reported Coreg (Carvedilol) 25 Mg Tablet 25 Mg PO BIDWMEALS 08/28/19 Reported Norvasc (Amlodipine Besylate) 10 Mg Tablet 10 Mg PO DAILY 08/28/19 Reported Impression . IMPRESSION: 1. Sepsis. 2. Severe metabolic acidosis. 3. Acute renal failure. 4. Diabetes complicated with peripheral vascular disease, status post amputation. 5. Electrolyte abnormalities. 6. Hyperkalemia. 7. Chronic anemia. 8. Coagulopathy. 9. cardiomyopathy Plan . PLAN: 1. Continue current support with IV fluids. 2. IV antibiotics. 3. P.r.n. oxygen supplementation. 4. Follow other consultants' input. discussed w pt KERVIN Lennon MD Aug 28, 2019 06:49
[2019-08-28] MEDS ORDERED: POTASSIUM CHLORIDE 20 MEQ TABLET.ER. PO ONE (07:30)
[2019-08-28 07:53] LABS: % ATYL 1 % (0-0); % BANDS 25 % (0-9); % LYMPHS 2 % (24-48); % MONOS 3 % (0-10); % SEGS 69 % (35-66); PLT ESTIMATE ADEQUATE (ADEQUATE)
[2019-08-28 07:54] LABS: ANISOCYTOSIS SLIGHT; POLYCHROMASIA SLIGHT
[2019-08-28 07:55] LABS: ACANTHOCYTES OCC; BURR CELLS FEW; SCHISTOCYTES OCC; TARGET CELLS FEW
--- NOTE | 2019-08-28 08:30 | PDOC ---
CARDIOLOGY PROGRESS NOTE SUBJECTIVE: No transfer to [facility] This morning he states that he is tired of being sick and wants to get better. OBJECTIVE: Vital Signs/I&O: Vital Signs Date Time Temp Pulse Resp B/P (MAP) Pulse Ox O2 Delivery O2 Flow Rate FiO2 08/28/19 06:03 98.2 93 16 134/81 (98) 100 Room Air 98.2 I & O 08/27/19 08/27/19 08/28/19 15:00 23:00 07:00 Intake Total 3000 ml 1230 ml 2140 ml Output Total 625 ml 790 ml 950 ml Balance 2375 ml 440 ml 1190 ml Objective: Cachectic No edema. RLE amputation Multiple skin wounds Normal cardiac exam. CURRENT MEDICATIONS: Current Medications Medications (Trade) Dose Ordered Sig/Dez Route PRN Reason Start Time Stop Time Status Last Admin Dose Admin Calcium Gluconate (Calcium Gluconate) 1,000 mg 1X ONCE IVP 08/27/19 08:45 08/27/19 08:46 DC 08/27/19 10:36 Sodium Bicarbonate (Sodium Bicarb Adult 8.4% Syr) 50 meq 1X ONCE IV 08/27/19 08:45 08/27/19 08:46 DC 08/27/19 10:35 Dextrose (Dextrose 50%-Water Syringe) 25 gm 1X ONCE IV 08/27/19 08:45 08/27/19 08:46 DC 08/27/19 10:35 Insulin Human Regular (HumuLIN R VIAL) 10 unit 1X ONCE IV 08/27/19 08:45 08/27/19 08:46 DC 08/27/19 11:23 Sodium Polystyrene Sulfonate (Kayexalate) 30 gm 1X ONCE PO 08/27/19 08:45 08/27/19 08:46 DC 08/27/19 10:37 Sodium Chloride 1,000 ml @ 1,000 mls/hr Q1H IV 08/27/19 08:45 08/27/19 09:44 DC 08/27/19 10:36 Acetaminophen (Tylenol) 650 mg Q6H PRN PO Headaches, Temp > 101.5' 08/27/19 09:45 08/27/19 18:29 Famotidine (Pepcid Vial) 20 mg DAILY IVP 08/27/19 10:00 08/27/19 10:39 Heparin Sodium (Porcine) (Heparin Sodium) 5,000 unit Q12HR SQ 08/27/19 10:00 08/27/19 21:07 Thiamine Mononitrate (Vitamin B-1) 100 mg DAILY PO 08/27/19 10:00 08/27/19 13:56 Multivitamins/ Minerals (I-Carly) 1 tab DAILY PO 08/27/19 10:00 08/27/19 13:56 Phytonadione (Mephyton Oral Soln) 5 mg 1X ONCE PO 08/27/19 10:00 08/27/19 10:01 DC 08/27/19 14:00 Ceftriaxone Sodium (Rocephin) 1 gm 1X ONCE IVP 08/27/19 12:00 08/27/19 12:01 DC 08/27/19 13:14 Sodium Chloride 1,000 ml @ 1,650 mls/hr Q37M IV 08/27/19 12:37 08/27/19 13:37 DC 08/28/19 02:03 Meropenem 500 mg/ Sodium Chloride 50 ml @ 100 mls/hr Q8HRS IV 08/27/19 14:00 08/27/19 16:26 DC 08/27/19 15:16 Lactobacillus Rhamnosus (Culturelle) 1 cap BID PO 08/27/19 21:00 08/27/19 20:14 Lidocaine HCl (Buffered Lidocaine 1%) 6 ml 1X ONCE INJ 08/27/19 14:30 08/27/19 14:31 DC 08/27/19 14:51 Sodium Bicarbonate 150 meq/Dextrose 1,150 ml @ 100 mls/hr [id number] IV 08/27/19 14:30 08/28/19 02:02 Daptomycin 200 mg/ Sodium Chloride 50 ml @ 100 mls/hr Q48H IV 08/27/19 17:00 08/27/19 18:29 Meropenem 500 mg/ Sodium Chloride 50 ml @ 100 mls/hr Q12HR IV 08/27/19 21:00 08/27/19 20:07 DIAGNOSTIC TESTING: Echo with moderate LV dysfunction. Labs: Laboratory Tests 08/28/19 04:00 Laboratory Tests Test 08/27/19 10:15 08/27/19 12:05 08/27/19 14:04 08/27/19 14:40 O2 Saturation 98 % (92-99) Arterial Blood pH 7.20 (7.35-7.45) *L Arterial Blood pCO2 at Patient Temp 19 mmHg (35-46) *L Arterial Blood pO2 at Patient Temp 145 mmHg (75-108) H Arterial Blood HCO3 7 mmol/L (21-28) L Arterial Blood Base Excess -19 mmol/L (-3-3) L Red Blood Count 3.43 x10^6/uL (4.30-5.70) L Absolute Reticulocyte Count 0.031 x10^6/uL (0.020-0.120) Percent Reticulocyte Count 0.9 % (0.5-2.3) Immature Reticulocyte Fraction 0.46 (0.20-0.60) Sodium Level 137 mmol/L (136-145) Potassium Level 4.7 mmol/L (3.5-5.1) # Chloride Level 104 mmol/L (98-107) Carbon Dioxide Level 12 mmol/L (21-32) L Anion Gap 21 (6-14) H Blood Urea Nitrogen 146 mg/dL (8-26) H Creatinine 2.6 mg/dL (0.7-1.3) H Estimated GFR (Cockcroft-Gault) 32.6 Glucose Level 95 mg/dL (70-99) Calcium Level 7.5 mg/dL (8.5-10.1) L Ionized Calcium 1.02 mmol/L (1.13-1.32) L Phosphorus Level 8.4 mg/dL (2.6-4.7) H Gamma Glutamyl Transpeptidase 65 U/L (10-85) Albumin 2.3 g/dL (3.4-5.0) L Procalcitonin 33.29 ng/mL (0.00-0.10) H Glucose (Fingerstick) 31 mg/dL (70-99) *L Creatine Kinase 143 U/L (39-308) Test 08/27/19 14:47 08/27/19 15:00 08/27/19 18:30 08/27/19 21:04 Glucose (Fingerstick) 104 mg/dL (70-99) H 131 mg/dL (70-99) H Urine Collection Type Unknown Urine Color Red Urine Clarity Cloudy Urine pH 6.0 Urine Specific [place] 1.020 Urine Protein >=300 mg/dL (NEG-TRACE) Urine Glucose (UA) Negative mg/dL (NEG) Urine Ketones (Stick) Negative mg/dL (NEG) Urine Blood Large (NEG) Urine Nitrite Negative (NEG) Urine Bilirubin Negative (NEG) Urine Urobilinogen Dipstick 0.2 mg/dL (0.2 mg/dL) Urine Leukocyte Esterase Large (NEG) Urine RBC Tntc /HPF (0-2) Urine WBC Tntc /HPF (0-4) Urine Bacteria 0 /HPF (0-FEW) Sodium Level 137 mmol/L (136-145) Potassium Level 4.7 mmol/L (3.5-5.1) Chloride Level 106 mmol/L (98-107) Carbon Dioxide Level 9 mmol/L (21-32) *L Anion Gap 22 (6-14) H Blood Urea Nitrogen 142 mg/dL (8-26) H Creatinine 2.4 mg/dL (0.7-1.3) H Estimated GFR (Cockcroft-Gault) 35.8 BUN/Creatinine Ratio 59 (6-20) H Glucose Level 57 mg/dL (70-99) L Calcium Level 7.2 mg/dL (8.5-10.1) L Iron Level 68 ug/dL (65-175) Total Iron Binding Capacity 124 ug/dL (250-450) L Iron Saturation 55 % (15-34) H Total Bilirubin 0.3 mg/dL (0.2-1.0) Aspartate Amino Transf (AST/SGOT) 21 U/L (15-37) Alkaline Phosphatase 222 U/L (46-116) H Total Protein 7.0 g/dL (6.4-8.2) Albumin 2.1 g/dL (3.4-5.0) L Albumin/Globulin Ratio 0.4 (1.0-1.7) L Test 08/28/19 04:00 White Blood Count 8.9 x10^3/uL (4.0-11.0) Red Blood Count 3.34 x10^6/uL (4.30-5.70) L Hemoglobin 9.0 g/dL (13.0-17.5) L Hematocrit 26.3 % (39.0-53.0) L Mean Corpuscular Volume 79 fL (79-100) Mean Corpuscular Hemoglobin 27 pg (25-35) Mean Corpuscular Hemoglobin Concent 34 g/dL (31-37) Red Cell Distribution Width 16.7 % (11.5-14.5) H Platelet Count 290 x10^3/uL (140-400) Neutrophils (%) (Auto) 89 % (31-73) H Lymphocytes (%) (Auto) 6 % (24-48) L Monocytes (%) (Auto) 5 % (0-9) Eosinophils (%) (Auto) 0 % (0-3) Basophils (%) (Auto) 0 % (0-3) Neutrophils # (Auto) 7.8 x10^3/uL (1.8-7.7) H Lymphocytes # (Auto) 0.5 x10^3/uL (1.0-4.8) L Monocytes # (Auto) 0.4 x10^3/uL (0.0-1.1) Eosinophils # (Auto) 0.0 x10^3/uL (0.0-0.7) Basophils # (Auto) 0.0 x10^3/uL (0.0-0.2) Segmented Neutrophils % 69 % (35-66) H Band Neutrophils % 25 % (0-9) H Lymphocytes % 2 % (24-48) L Atypical Lymphocytes % (Manual) 1 % (0-0) H Monocytes % 3 % (0-10) Platelet Estimate Adequate (ADEQUATE) Polychromasia Slight Anisocytosis Slight Target Cells Few [place] Cells Few Acanthocytes Occ Schistocytes Occ Sodium Level 137 mmol/L (136-145) Potassium Level 3.2 mmol/L (3.5-5.1) #L Chloride Level 104 mmol/L (98-107) Carbon Dioxide Level 15 mmol/L (21-32) L Anion Gap 18 (6-14) H Blood Urea Nitrogen 119 mg/dL (8-26) H Creatinine 2.2 mg/dL (0.7-1.3) H Estimated GFR (Cockcroft-Gault) 39.5 BUN/Creatinine Ratio 54 (6-20) H Glucose Level 87 mg/dL (70-99) Calcium Level 6.5 mg/dL (8.5-10.1) L Total Bilirubin 0.3 mg/dL (0.2-1.0) Aspartate Amino Transf (AST/SGOT) 14 U/L (15-37) L Alkaline Phosphatase 183 U/L (46-116) H Total Protein 6.0 g/dL (6.4-8.2) L Albumin 1.7 g/dL (3.4-5.0) L Albumin/Globulin Ratio 0.4 (1.0-1.7) L ASSESSMENT: 1. Cardiomyopathy - probable stress induced but cannot rule out CAD due to his multiple risk factors 2. Diabetic with prior RLE amputation 3. Failure to thrive. 4. Multiple psychosocial issues 5. Severe metabolic acidosis with renal failure 6. anemia - probably related to chronic disease. PLAN: 1. Given his multiple comorbidities, poor candidate for any further CV intervention. 2. Supportive care with medical therapy for cardiomyopathy including b-marlena, asa and afterload reduction with hydralazine/imdur when tolerated. Will first start with low dose asa and b-marlena, probably tomorrow after ensuring stable hgb and BP. Thanks. Will follow along BILLY BORGES MD Aug 28, 2019 08:30
[2019-08-28] MEDS: MULTIVITAMIN I-VITE TABLET. PO SCH (08:41)
[2019-08-28] MEDS: FAMOTIDINE 20 MG/2 ML VIAL IVP SCH (08:42)
[2019-08-28] MEDS: THIAMINE 100 MG TABLET. PO SCH (08:42)
[2019-08-28] MEDS: LACTOBACILLUS RHAMNOSUS GG 1 CAPSULE. PO SCH ×2 (08:42→23:13)
[2019-08-28] MEDS: HEPARIN for SUB-Q USE 5,000 UNIT/ML VIAL. SQ SCH ×2 (08:44→23:20)
--- NOTE | 2019-08-28 08:49 | PDOC ---
Infectious Disease Note Vital Signs: Vital Signs Vital Signs Date Time Temp Pulse Resp B/P (MAP) Pulse Ox O2 Delivery O2 Flow Rate FiO2 08/28/19 06:03 98.2 93 16 134/81 (98) 100 Room Air 98.2 Medications: Inpatient Meds: Current Medications Medications (Trade) Dose Ordered Sig/Dez Start Time Stop Time Status Last Admin Dose Admin Acetaminophen (Tylenol) 650 mg Q6H PRN 08/27/19 09:45 08/27/19 18:29 650 MG Calcium Gluconate (Calcium Gluconate) 1,000 mg 1X ONCE 08/27/19 12:45 08/27/19 12:46 DC Ceftriaxone Sodium (Rocephin) 1 gm 1X ONCE 08/27/19 12:00 08/27/19 12:01 DC 08/27/19 13:14 1 GM Daptomycin 200 mg/ Sodium Chloride 50 ml @ 100 mls/hr Q48H 08/27/19 17:00 08/27/19 18:29 100 MLS/HR Dextrose (Dextrose 50%-Water Syringe) 12.5 gm PRN Q15MIN PRN 08/27/19 14:15 Dobutamine HCl/ Dextrose 250 ml @ 0 mls/hr CONT PRN 08/27/19 12:45 Famotidine (Pepcid Vial) 20 mg DAILY 08/27/19 10:00 08/27/19 10:39 20 MG Heparin Sodium (Porcine) (Heparin Sodium) 5,000 unit Q12HR 08/27/19 10:00 08/27/19 21:07 5,000 UNIT Influenza Virus Vaccine Quadrival (Afluria Quad 2019-20 (3yr Up) Syringe) 0.5 ml ONCE ONCE 08/28/19 09:00 08/28/19 09:01 Info ([facility] Electrolyte Protocol) 1 ea DAILY 08/28/19 09:00 Insulin Human Regular (HumuLIN R VIAL) 10 unit 1X ONCE 08/27/19 08:45 08/27/19 08:46 DC 08/27/19 11:23 10 UNIT Lactobacillus Rhamnosus (Culturelle) 1 cap BID 08/27/19 21:00 08/27/19 20:14 1 CAP Lidocaine HCl (Buffered Lidocaine 1%) 6 ml 1X ONCE 08/27/19 14:30 08/27/19 14:31 DC 08/27/19 14:51 4 ML Meropenem 1 gm/ Sodium Chloride 100 ml @ 200 mls/hr Q8HRS 08/27/19 14:00 UNV Meropenem 500 mg/ Sodium Chloride 50 ml @ 100 mls/hr Q12HR 08/27/19 21:00 08/27/19 20:07 100 MLS/HR Multivitamins/ Minerals (I-Carly) 1 tab DAILY 08/27/19 10:00 08/27/19 13:56 1 TAB Norepinephrine Bitartrate 250 ml @ 0 mls/hr CONT PRN 08/27/19 12:45 Pharmacy Consult (C.diff Med Screen By Rx) 1 each 1X ONCE 08/27/19 13:15 08/27/19 13:16 UNV Phytonadione (Mephyton Oral Soln) 5 mg 1X ONCE 08/27/19 10:00 08/27/19 10:01 DC 08/27/19 14:00 5 MG Potassium Chloride (Klor-Con) 40 meq 1X ONCE 08/28/19 07:30 08/28/19 07:31 DC Sodium Bicarbonate 150 meq/Dextrose 1,150 ml @ 100 mls/hr [id number] 08/27/19 14:30 08/28/19 02:02 100 MLS/HR Sodium Polystyrene Sulfonate (Kayexalate) 30 gm 1X ONCE 08/27/19 08:45 08/27/19 08:46 DC 08/27/19 10:37 30 GM Sodium Bicarbonate (Sodium Bicarb Adult 8.4% Syr) 50 meq 1X ONCE 08/27/19 08:45 08/27/19 08:46 DC 08/27/19 10:35 50 MEQ Sodium Chloride 500 ml @ 1,000 mls/hr PRN Q30MIN PRN 08/27/19 12:45 Sodium Chloride (Normal Saline Flush) 3 ml QSHIFT PRN 08/27/19 09:45 Thiamine Mononitrate (Vitamin B-1) 100 mg DAILY 08/27/19 10:00 08/27/19 13:56 100 MG Labs: Lab Laboratory Tests Test 08/27/19 10:15 08/27/19 12:05 08/27/19 14:04 08/27/19 14:05 O2 Saturation 98 % (92-99) Arterial Blood pH 7.20 (7.35-7.45) Arterial Blood pCO2 at Patient Temp 19 mmHg (35-46) Arterial Blood pO2 at Patient Temp 145 mmHg (75-108) Arterial Blood HCO3 7 mmol/L (21-28) Arterial Blood Base Excess -19 mmol/L (-3-3) Red Blood Count 3.43 x10^6/uL (4.30-5.70) Absolute Reticulocyte Count 0.031 x10^6/uL (0.020-0.120) Percent Reticulocyte Count 0.9 % (0.5-2.3) Immature Reticulocyte Fraction 0.46 (0.20-0.60) Sodium Level 137 mmol/L (136-145) Potassium Level 4.7 mmol/L (3.5-5.1) Chloride Level 104 mmol/L (98-107) Carbon Dioxide Level 12 mmol/L (21-32) Anion Gap 21 (6-14) Blood Urea Nitrogen 146 mg/dL (8-26) Creatinine 2.6 mg/dL (0.7-1.3) Estimated GFR (Cockcroft-Gault) 32.6 Glucose Level 95 mg/dL (70-99) Calcium Level 7.5 mg/dL (8.5-10.1) Ionized Calcium 1.02 mmol/L (1.13-1.32) Phosphorus Level 8.4 mg/dL (2.6-4.7) Gamma Glutamyl Transpeptidase 65 U/L (10-85) Albumin 2.3 g/dL (3.4-5.0) Procalcitonin 33.29 ng/mL (0.00-0.10) Glucose (Fingerstick) 31 mg/dL (70-99) Troponin I Quantitative 0.118 ng/mL (0.000-0.055) Test 08/27/19 14:40 08/27/19 14:47 08/27/19 15:00 08/27/19 18:30 Creatine Kinase 143 U/L (39-308) Glucose (Fingerstick) 104 mg/dL (70-99) Urine Collection Type Unknown Urine Color Red Urine Clarity Cloudy Urine pH 6.0 Urine Specific Randolph 1.020 Urine Protein >=300 mg/dL (NEG-TRACE) Urine Glucose (UA) Negative mg/dL (NEG) Urine Ketones (Stick) Negative mg/dL (NEG) Urine Blood Large (NEG) Urine Nitrite Negative (NEG) Urine Bilirubin Negative (NEG) Urine Urobilinogen Dipstick 0.2 mg/dL (0.2 mg/dL) Urine Leukocyte Esterase Large (NEG) Urine RBC Tntc /HPF (0-2) Urine WBC Tntc /HPF (0-4) Urine Bacteria 0 /HPF (0-FEW) Sodium Level 137 mmol/L (136-145) Potassium Level 4.7 mmol/L (3.5-5.1) Chloride Level 106 mmol/L (98-107) Carbon Dioxide Level 9 mmol/L (21-32) Anion Gap 22 (6-14) Blood Urea Nitrogen 142 mg/dL (8-26) Creatinine 2.4 mg/dL (0.7-1.3) Estimated GFR (Cockcroft-Gault) 35.8 BUN/Creatinine Ratio 59 (6-20) Glucose Level 57 mg/dL (70-99) Calcium Level 7.2 mg/dL (8.5-10.1) Iron Level 68 ug/dL (65-175) Total Iron Binding Capacity 124 ug/dL (250-450) Iron Saturation 55 % (15-34) Total Bilirubin 0.3 mg/dL (0.2-1.0) Aspartate Amino Transf (AST/SGOT) 21 U/L (15-37) Alanine Aminotransferase (ALT/SGPT) 16 U/L (16-63) Alkaline Phosphatase 222 U/L (46-116) Total Protein 7.0 g/dL (6.4-8.2) Albumin 2.1 g/dL (3.4-5.0) Albumin/Globulin Ratio 0.4 (1.0-1.7) Test 08/27/19 21:04 08/28/19 04:00 Glucose (Fingerstick) 131 mg/dL (70-99) White Blood Count 8.9 x10^3/uL (4.0-11.0) Red Blood Count 3.34 x10^6/uL (4.30-5.70) Hemoglobin 9.0 g/dL (13.0-17.5) Hematocrit 26.3 % (39.0-53.0) Mean Corpuscular Volume 79 fL (79-100) Mean Corpuscular Hemoglobin 27 pg (25-35) Mean Corpuscular Hemoglobin Concent 34 g/dL (31-37) Red Cell Distribution Width 16.7 % (11.5-14.5) Platelet Count 290 x10^3/uL (140-400) Neutrophils (%) (Auto) 89 % (31-73) Lymphocytes (%) (Auto) 6 % (24-48) Monocytes (%) (Auto) 5 % (0-9) Eosinophils (%) (Auto) 0 % (0-3) Basophils (%) (Auto) 0 % (0-3) Neutrophils # (Auto) 7.8 x10^3/uL (1.8-7.7) Lymphocytes # (Auto) 0.5 x10^3/uL (1.0-4.8) Monocytes # (Auto) 0.4 x10^3/uL (0.0-1.1) Eosinophils # (Auto) 0.0 x10^3/uL (0.0-0.7) Basophils # (Auto) 0.0 x10^3/uL (0.0-0.2) Segmented Neutrophils % 69 % (35-66) Band Neutrophils % 25 % (0-9) Lymphocytes % 2 % (24-48) Atypical Lymphocytes % (Manual) 1 % (0-0) Monocytes % 3 % (0-10) Platelet Estimate Adequate (ADEQUATE) Polychromasia Slight Anisocytosis Slight Target Cells Few Novice Cells Few Acanthocytes Occ Schistocytes Occ Sodium Level 137 mmol/L (136-145) Potassium Level 3.2 mmol/L (3.5-5.1) Chloride Level 104 mmol/L (98-107) Carbon Dioxide Level 15 mmol/L (21-32) Anion Gap 18 (6-14) Blood Urea Nitrogen 119 mg/dL (8-26) Creatinine 2.2 mg/dL (0.7-1.3) Estimated GFR (Cockcroft-Gault) 39.5 BUN/Creatinine Ratio 54 (6-20) Glucose Level 87 mg/dL (70-99) Calcium Level 6.5 mg/dL (8.5-10.1) Total Bilirubin 0.3 mg/dL (0.2-1.0) Aspartate Amino Transf (AST/SGOT) 14 U/L (15-37) Alanine Aminotransferase (ALT/SGPT) 17 U/L (16-63) Alkaline Phosphatase 183 U/L (46-116) Total Protein 6.0 g/dL (6.4-8.2) Albumin 1.7 g/dL (3.4-5.0) Albumin/Globulin Ratio 0.4 (1.0-1.7) Objective: Assessment: Pt seen and examined Imp Sepsis ,hypothermia Gram neg bacteremia multiple chronic wounds dm rt aka acute renal failure,met acidosis,hyperkalemia bilat hydronephrosis suicidal ideation Plan: Plan of Care cont merrem and dapto f/u gnr in f/u cults cont supportive care d/w rn [id number] DELBERT LOPEZ MD Aug 28, 2019 08:49
[2019-08-28] MEDS: ELECTROLYTE (ICU) PROTOCOL. MC SCH (09:00)
[2019-08-28] MEDS ORDERED: FLU VAX QS 2019-20 (36MOS+)/PF 0.5 ML SYRINGE. VAX IM ONE (09:00)
[2019-08-28] MEDS: MEROPENEM 500 MG in IV NORMAL SALINE 50ML 50 ML IV SCH ×2 (09:05→23:14)
--- NOTE | 2019-08-28 09:19 | CONS ---
DATE OF CONSULTATION: 08/28/2019 REFERRING PHYSICIAN: Rick Chacon MD REASON FOR CONSULTATION: Sepsis. HISTORY OF PRESENT ILLNESS: A 44-year-old male presented to the EMS because of depression. The patient underwent right BKA recently at [facility] a couple of months ago. Has been wheelchair bound. Also, has diabetes, unable to eat, has social issues. He started having suicidal ideation and with plans to hang himself. The patient underwent right BKA at [facility] a couple of months ago. He has poor p.o. intake. Has not been taking his medication recently. He has a lot of weight loss. He has multiple body wounds. His white count was normal. Potassium was 6, bicarb of 10. Ultrasound of the renal showed bilateral hydronephrosis. UA shows large blood, large leukocyte esterase, wbc's too numerous to count. He received a dose of Rocephin. Was admitted to ICU. Currently on bicarb drip. ID consult has been requested for antibiotic management. This morning, the patient states he feels a little better. Denies any fevers, chills, nausea, vomiting. Had diarrhea, but currently none. Denies any symptoms prior to admission. PAST MEDICAL HISTORY: CHF, hypertension, peripheral neuropathy, anemia, depression, right AKA for chronic nonhealing diabetic foot wound at [facility], chronic renal insufficiency prior to hemodialysis at in 05/2019, diabetes, coccygeal pressure wound, multiple leg wounds. PAST SURGICAL HISTORY: Right AKA due to gangrene and diabetic foot infection. FAMILY HISTORY: As per HPI. SOCIAL HISTORY: Smoker. No ETOH. No drugs. Lives with friends. CURRENT MEDICATION: Meropenem, daptomycin, received a dose of Rocephin in the ER. ALLERGIES: LISINOPRIL. REVIEW OF SYSTEMS: Negative except for above in HPI. PHYSICAL EXAMINATION: VITALS: Temperature 98.2; yesterday the temperature was 91.6, pulse 93, respirations 16, blood pressure 134/81, oxygen saturation 100% on room air. GENERAL: Cachectic, thin male, lying in bed, cooperative, appears comfortable, in no acute distress. HEENT: Anicteric. Poor dentition. No thrush. Oral mucosa moist. NECK: HDC catheter looks okay. LUNGS: Clear. HEART: S1, S2. ABDOMEN: Soft, nontender, nondistended. GENITOURINARY: Geiger in place. Groin dry skin. EXTREMITIES: Right AKA. SKIN: Multiple wounds lower extremities, no evidence of infection, multiple abrasions, wound descriptions noted from pictures in the chart over the back, no purulent drainage noted, unstageable. NEUROLOGIC: Alert, oriented, grossly nonfocal. PSYCHIATRY: Awake, alert, cooperative. LABORATORY DATA: WBC 8.9, hemoglobin 9.0, hematocrit 26.3, platelets 290, neutrophil 89%. Sodium 137, potassium 3.2, chloride 104, bicarb 15, BUN 119; was 142, creatinine of 2.2, glucose of 87. Lactate was 1.2, glucose of 135, calcium 6.5, alk phos 183, albumin 1.7. Ethyl alcohol less than 10. UA: Large blood, large leukocyte esterase, rbc's too numerous to count, wbc's too numerous to count. Micro: C. diff pending. Urine culture pending. Blood culture pending. MRSA PCR pending. IMAGING: Ultrasound of the abdomen shows bilateral hydronephrosis, greater on the right, cholelithiasis without findings of acute cholecystitis or biliary dilatation. Atheromatous involvement of the abdominal aorta is greater than expected for the age. MICRO: Blood culture 2 out of 4 bottles positive for Gram-negative rods. ID and DAVID pending. Urine culture pending. MRSA PCR pending. C. diff pending. IMPRESSION: 1. Sepsis with hypothermia present on admission, Gram-negative sepsis. 2. Gram-negative sepsis, source genitourinary and/or wounds. 3. Chronic nonhealing wounds. 4. Severe Depression with suicidal ideation present on admission. 5. Severe acute renal failure,hyperkalemia with metabolic acidosis. 6. Bilateral hydronephrosis. 7. Severe protein-calorie malnutrition. 8. Diabetes mellitus 2. 9. Right above-knee amputation for gangrene, 06/2019, at [facility]. 10. Diarrhea. 11. History of cocaine and marijuana abuse. 12. Poor dentition. 13. Tobaccoism. 14. Cholelithiasis without acute cholecystitis or biliary dilatation. RECOMMENDATIONS: 1. Continue meropenem and daptomycin renal dosing. 2. Follow up Gram-negative yuliya in blood cultures. 3. Follow up blood and urine cultures.Repeat blood cultures in a.m. 4. F/U C diff pcr 5. Continue wound care by wound team. 6. No urology service is available at [facility]. Attempts were made to transfer to per team. He was not accepted at this time. 7. Continue supportive care. Thank you for consulting Infectious Disease to participate in this patient's care. We will follow along with you. Discussed with nursing staff. DELBERT LOPEZ MD DR: MINDI/tisha JOB#: [id number] / [id number] YESICA
[2019-08-28] MEDS ORDERED: DEXTROSE 50% 25 GM / 50ML DISP.SYRIN. IV PRN (12:30)
--- NOTE | 2019-08-28 12:44 | PDOC ---
PROGRESS NOTES Chief Complaint Chief Complaint acute renal failure obstructive uropathy severe sepsis severe malnutrition, BMI 13.8 diabetes 2, very poor care peripheral vascular disease, s/p AKA sacral and leg wounds, poor self care, cellulitis and poss furhter infection depression, reports suicidal, hx bipolar History of Present Illness History of Present Illness I discussed poss tranfer with [facility] x2 yesterday, Dr. Humberto Hale declined transfer and I was in agreement, that we should allow [facility]immerman a few days to see if obstruction resolves. making urine, appears bloody he still reports suicidal intent, his chronic condition looks terrible, would needs long course of wound care and likely snu or LTAC, he has no insurance, and history of poor self-care that I dont think we can improve on here. will start antidepressant, considereed [place], he says he has been on that before, start 50 seroquel HS. I would consider hospice on discharge due to how poorly he looks with his general self care on admit, he refused to go back to , Vitals Vitals Vital Signs Date Time Temp Pulse Resp B/P (MAP) Pulse Ox O2 Delivery O2 Flow Rate FiO2 08/28/19 12:00 97.9 96 20 151/95 (113) 100 Room Air 97.9 Physical Exam Physical Exam at times lying in chair with blanket over his head, behavior is odd at best General: Alert, Oriented X3, Cooperative, No acute distress, Other (cachectic) Heart: Regular rate (SR), Normal S1, Normal S2, No murmurs, Other Abdomen: Soft, Other (hyperactive bowel sounds) Extremities: No cyanosis, No edema Skin: Other (multiple pressure ulcers) Labs LABS Laboratory Tests Test 08/27/19 14:04 08/27/19 14:05 08/27/19 14:40 08/27/19 14:47 Glucose (Fingerstick) 31 mg/dL (70-99) 104 mg/dL (70-99) Troponin I Quantitative 0.118 ng/mL (0.000-0.055) Creatine Kinase 143 U/L (39-308) Test 08/27/19 15:00 08/27/19 18:30 08/27/19 21:04 08/28/19 04:00 Urine Collection Type Unknown Urine Color Red Urine Clarity Cloudy Urine pH 6.0 Urine Specific [place] 1.020 Urine Protein >=300 mg/dL (NEG-TRACE) Urine Glucose (UA) Negative mg/dL (NEG) Urine Ketones (Stick) Negative mg/dL (NEG) Urine Blood Large (NEG) Urine Nitrite Negative (NEG) Urine Bilirubin Negative (NEG) Urine Urobilinogen Dipstick 0.2 mg/dL (0.2 mg/dL) Urine Leukocyte Esterase Large (NEG) Urine RBC Tntc /HPF (0-2) Urine WBC Tntc /HPF (0-4) Urine Bacteria 0 /HPF (0-FEW) Sodium Level 137 mmol/L (136-145) 137 mmol/L (136-145) Potassium Level 4.7 mmol/L (3.5-5.1) 3.2 mmol/L (3.5-5.1) Chloride Level 106 mmol/L (98-107) 104 mmol/L (98-107) Carbon Dioxide Level 9 mmol/L (21-32) 15 mmol/L (21-32) Anion Gap 22 (6-14) 18 (6-14) Blood Urea Nitrogen 142 mg/dL (8-26) 119 mg/dL (8-26) Creatinine 2.4 mg/dL (0.7-1.3) 2.2 mg/dL (0.7-1.3) Estimated GFR (Cockcroft-Gault) 35.8 39.5 BUN/Creatinine Ratio 59 (6-20) 54 (6-20) Glucose Level 57 mg/dL (70-99) 87 mg/dL (70-99) Calcium Level 7.2 mg/dL (8.5-10.1) 6.5 mg/dL (8.5-10.1) Iron Level 68 ug/dL (65-175) Total Iron Binding Capacity 124 ug/dL (250-450) Iron Saturation 55 % (15-34) Total Bilirubin 0.3 mg/dL (0.2-1.0) 0.3 mg/dL (0.2-1.0) Aspartate Amino Transf (AST/SGOT) 21 U/L (15-37) 14 U/L (15-37) Alanine Aminotransferase (ALT/SGPT) 16 U/L (16-63) 17 U/L (16-63) Alkaline Phosphatase 222 U/L (46-116) 183 U/L (46-116) Total Protein 7.0 g/dL (6.4-8.2) 6.0 g/dL (6.4-8.2) Albumin 2.1 g/dL (3.4-5.0) 1.7 g/dL (3.4-5.0) Albumin/Globulin Ratio 0.4 (1.0-1.7) 0.4 (1.0-1.7) Glucose (Fingerstick) 131 mg/dL (70-99) White Blood Count 8.9 x10^3/uL (4.0-11.0) Red Blood Count 3.34 x10^6/uL (4.30-5.70) Hemoglobin 9.0 g/dL (13.0-17.5) Hematocrit 26.3 % (39.0-53.0) Mean Corpuscular Volume 79 fL (79-100) Mean Corpuscular Hemoglobin 27 pg (25-35) Mean Corpuscular Hemoglobin Concent 34 g/dL (31-37) Red Cell Distribution Width 16.7 % (11.5-14.5) Platelet Count 290 x10^3/uL (140-400) Neutrophils (%) (Auto) 89 % (31-73) Lymphocytes (%) (Auto) 6 % (24-48) Monocytes (%) (Auto) 5 % (0-9) Eosinophils (%) (Auto) 0 % (0-3) Basophils (%) (Auto) 0 % (0-3) Neutrophils # (Auto) 7.8 x10^3/uL (1.8-7.7) Lymphocytes # (Auto) 0.5 x10^3/uL (1.0-4.8) Monocytes # (Auto) 0.4 x10^3/uL (0.0-1.1) Eosinophils # (Auto) 0.0 x10^3/uL (0.0-0.7) Basophils # (Auto) 0.0 x10^3/uL (0.0-0.2) Segmented Neutrophils % 69 % (35-66) Band Neutrophils % 25 % (0-9) Lymphocytes % 2 % (24-48) Atypical Lymphocytes % (Manual) 1 % (0-0) Monocytes % 3 % (0-10) Platelet Estimate Adequate (ADEQUATE) Polychromasia Slight Anisocytosis Slight Target Cells Few Monica Cells Few Acanthocytes Occ Schistocytes Occ Test 08/28/19 12:17 Glucose (Fingerstick) 265 mg/dL (70-99) Assessment and Plan Assessmemt and Plan Problems Medical Problems: (1) Hyperkalemia Status: Acute (2) Hypermagnesemia Status: Acute (3) Hyperphosphatemia Status: Acute (4) Hypoalbuminemia Status: Acute (5) Hypocalcemia Status: Acute (6) Hyponatremia Status: Acute (7) Metabolic acidosis Status: Acute (8) Suicidal ideation Status: Acute Comment Review of Relevant I have reviewed the following items anisa (where applicable) has been applied. Labs Laboratory Tests Test 08/27/19 06:35 08/27/19 07:25 08/27/19 10:15 08/27/19 12:05 Glucose (Fingerstick) 81 mg/dL (70-99) White Blood Count 7.3 x10^3/uL (4.0-11.0) Red Blood Count 3.74 x10^6/uL (4.30-5.70) 3.43 x10^6/uL (4.30-5.70) Hemoglobin 10.0 g/dL (13.0-17.5) Hematocrit 30.5 % (39.0-53.0) Mean Corpuscular Volume 82 fL (79-100) Mean Corpuscular Hemoglobin 27 pg (25-35) Mean Corpuscular Hemoglobin Concent 33 g/dL (31-37) Red Cell Distribution Width 16.7 % (11.5-14.5) Platelet Count 370 x10^3/uL (140-400) Neutrophils (%) (Auto) 80 % (31-73) Lymphocytes (%) (Auto) 15 % (24-48) Monocytes (%) (Auto) 5 % (0-9) Eosinophils (%) (Auto) 0 % (0-3) Basophils (%) (Auto) 0 % (0-3) Neutrophils # (Auto) 5.8 x10^3/uL (1.8-7.7) Lymphocytes # (Auto) 1.1 x10^3/uL (1.0-4.8) Monocytes # (Auto) 0.4 x10^3/uL (0.0-1.1) Eosinophils # (Auto) 0.0 x10^3/uL (0.0-0.7) Basophils # (Auto) 0.0 x10^3/uL (0.0-0.2) Prothrombin Time 18.7 SEC (11.7-14.0) Prothromb Time International Ratio 1.6 (0.8-1.1) Sodium Level 131 mmol/L (136-145) 137 mmol/L (136-145) Potassium Level 6.1 mmol/L (3.5-5.1) 4.7 mmol/L (3.5-5.1) Chloride Level 100 mmol/L (98-107) 104 mmol/L (98-107) Carbon Dioxide Level 10 mmol/L (21-32) 12 mmol/L (21-32) Anion Gap 21 (6-14) 21 (6-14) Blood Urea Nitrogen 166 mg/dL (8-26) 146 mg/dL (8-26) Creatinine 2.9 mg/dL (0.7-1.3) 2.6 mg/dL (0.7-1.3) Estimated GFR (Cockcroft-Gault) 28.7 32.6 Glucose Level 78 mg/dL (70-99) 95 mg/dL (70-99) Lactic Acid Level 1.2 mmol/L (0.4-2.0) Calcium Level 7.9 mg/dL (8.5-10.1) 7.5 mg/dL (8.5-10.1) Magnesium Level 2.9 mg/dL (1.8-2.4) Total Bilirubin 0.3 mg/dL (0.2-1.0) Direct Bilirubin 0.2 mg/dL (0.0-0.2) Aspartate Amino Transf (AST/SGOT) 21 U/L (15-37) Alanine Aminotransferase (ALT/SGPT) 24 U/L (16-63) Alkaline Phosphatase 262 U/L (46-116) Troponin I Quantitative 0.158 ng/mL (0.000-0.055) Total Protein 8.1 g/dL (6.4-8.2) Albumin 2.5 g/dL (3.4-5.0) 2.3 g/dL (3.4-5.0) Thyroid Stimulating Hormone (TSH) 5.788 uIU/mL (0.358-3.74) Ethyl Alcohol Level < 10 mg/dL (0-10) O2 Saturation 98 % (92-99) Arterial Blood pH 7.20 (7.35-7.45) Arterial Blood pCO2 at Patient Temp 19 mmHg (35-46) Arterial Blood pO2 at Patient Temp 145 mmHg (75-108) Arterial Blood HCO3 7 mmol/L (21-28) Arterial Blood Base Excess -19 mmol/L (-3-3) Absolute Reticulocyte Count 0.031 x10^6/uL (0.020-0.120) Percent Reticulocyte Count 0.9 % (0.5-2.3) Immature Reticulocyte Fraction 0.46 (0.20-0.60) Ionized Calcium 1.02 mmol/L (1.13-1.32) Phosphorus Level 8.4 mg/dL (2.6-4.7) Gamma Glutamyl Transpeptidase 65 U/L (10-85) Procalcitonin 33.29 ng/mL (0.00-0.10) Test 08/27/19 14:04 08/27/19 14:05 08/27/19 14:40 08/27/19 14:47 Glucose (Fingerstick) 31 mg/dL (70-99) 104 mg/dL (70-99) Troponin I Quantitative 0.118 ng/mL (0.000-0.055) Creatine Kinase 143 U/L (39-308) Test 08/27/19 15:00 08/27/19 18:30 08/27/19 21:04 08/28/19 04:00 Urine Collection Type Unknown Urine Color Red Urine Clarity Cloudy Urine pH 6.0 Urine Specific [place] 1.020 Urine Protein >=300 mg/dL (NEG-TRACE) Urine Glucose (UA) Negative mg/dL (NEG) Urine Ketones (Stick) Negative mg/dL (NEG) Urine Blood Large (NEG) Urine Nitrite Negative (NEG) Urine Bilirubin Negative (NEG) Urine Urobilinogen Dipstick 0.2 mg/dL (0.2 mg/dL) Urine Leukocyte Esterase Large (NEG) Urine RBC Tntc /HPF (0-2) Urine WBC Tntc /HPF (0-4) Urine Bacteria 0 /HPF (0-FEW) Sodium Level 137 mmol/L (136-145) 137 mmol/L (136-145) Potassium Level 4.7 mmol/L (3.5-5.1) 3.2 mmol/L (3.5-5.1) Chloride Level 106 mmol/L (98-107) 104 mmol/L (98-107) Carbon Dioxide Level 9 mmol/L (21-32) 15 mmol/L (21-32) Anion Gap 22 (6-14) 18 (6-14) Blood Urea Nitrogen 142 mg/dL (8-26) 119 mg/dL (8-26) Creatinine 2.4 mg/dL (0.7-1.3) 2.2 mg/dL (0.7-1.3) Estimated GFR (Cockcroft-Gault) 35.8 39.5 BUN/Creatinine Ratio 59 (6-20) 54 (6-20) Glucose Level 57 mg/dL (70-99) 87 mg/dL (70-99) Calcium Level 7.2 mg/dL (8.5-10.1) 6.5 mg/dL (8.5-10.1) Iron Level 68 ug/dL (65-175) Total Iron Binding Capacity 124 ug/dL (250-450) Iron Saturation 55 % (15-34) Total Bilirubin 0.3 mg/dL (0.2-1.0) 0.3 mg/dL (0.2-1.0) Aspartate Amino Transf (AST/SGOT) 21 U/L (15-37) 14 U/L (15-37) Alanine Aminotransferase (ALT/SGPT) 16 U/L (16-63) 17 U/L (16-63) Alkaline Phosphatase 222 U/L (46-116) 183 U/L (46-116) Total Protein 7.0 g/dL (6.4-8.2) 6.0 g/dL (6.4-8.2) Albumin 2.1 g/dL (3.4-5.0) 1.7 g/dL (3.4-5.0) Albumin/Globulin Ratio 0.4 (1.0-1.7) 0.4 (1.0-1.7) Glucose (Fingerstick) 131 mg/dL (70-99) White Blood Count 8.9 x10^3/uL (4.0-11.0) Red Blood Count 3.34 x10^6/uL (4.30-5.70) Hemoglobin 9.0 g/dL (13.0-17.5) Hematocrit 26.3 % (39.0-53.0) Mean Corpuscular Volume 79 fL (79-100) Mean Corpuscular Hemoglobin 27 pg (25-35) Mean Corpuscular Hemoglobin Concent 34 g/dL (31-37) Red Cell Distribution Width 16.7 % (11.5-14.5) Platelet Count 290 x10^3/uL (140-400) Neutrophils (%) (Auto) 89 % (31-73) Lymphocytes (%) (Auto) 6 % (24-48) Monocytes (%) (Auto) 5 % (0-9) Eosinophils (%) (Auto) 0 % (0-3) Basophils (%) (Auto) 0 % (0-3) Neutrophils # (Auto) 7.8 x10^3/uL (1.8-7.7) Lymphocytes # (Auto) 0.5 x10^3/uL (1.0-4.8) Monocytes # (Auto) 0.4 x10^3/uL (0.0-1.1) Eosinophils # (Auto) 0.0 x10^3/uL (0.0-0.7) Basophils # (Auto) 0.0 x10^3/uL (0.0-0.2) Segmented Neutrophils % 69 % (35-66) Band Neutrophils % 25 % (0-9) Lymphocytes % 2 % (24-48) Atypical Lymphocytes % (Manual) 1 % (0-0) Monocytes % 3 % (0-10) Platelet Estimate Adequate (ADEQUATE) Polychromasia Slight Anisocytosis Slight Target Cells Few Monica Cells Few Acanthocytes Occ Schistocytes Occ Test 08/28/19 12:17 Glucose (Fingerstick) 265 mg/dL (70-99) Laboratory Tests Test 08/27/19 14:04 08/27/19 14:05 08/27/19 14:40 08/27/19 14:47 Glucose (Fingerstick) 31 mg/dL (70-99) 104 mg/dL (70-99) Troponin I Quantitative 0.118 ng/mL (0.000-0.055) Creatine Kinase 143 U/L (39-308) Test 08/27/19 15:00 08/27/19 18:30 08/27/19 21:04 08/28/19 04:00 Urine Collection Type Unknown Urine Color Red Urine Clarity Cloudy Urine pH 6.0 Urine Specific [place] 1.020 Urine Protein >=300 mg/dL (NEG-TRACE) Urine Glucose (UA) Negative mg/dL (NEG) Urine Ketones (Stick) Negative mg/dL (NEG) Urine Blood Large (NEG) Urine Nitrite Negative (NEG) Urine Bilirubin Negative (NEG) Urine Urobilinogen Dipstick 0.2 mg/dL (0.2 mg/dL) Urine Leukocyte Esterase Large (NEG) Urine RBC Tntc /HPF (0-2) Urine WBC Tntc /HPF (0-4) Urine Bacteria 0 /HPF (0-FEW) Sodium Level 137 mmol/L (136-145) 137 mmol/L (136-145) Potassium Level 4.7 mmol/L (3.5-5.1) 3.2 mmol/L (3.5-5.1) Chloride Level 106 mmol/L (98-107) 104 mmol/L (98-107) Carbon Dioxide Level 9 mmol/L (21-32) 15 mmol/L (21-32) Anion Gap 22 (6-14) 18 (6-14) Blood Urea Nitrogen 142 mg/dL (8-26) 119 mg/dL (8-26) Creatinine 2.4 mg/dL (0.7-1.3) 2.2 mg/dL (0.7-1.3) Estimated GFR (Cockcroft-Gault) 35.8 39.5 BUN/Creatinine Ratio 59 (6-20) 54 (6-20) Glucose Level 57 mg/dL (70-99) 87 mg/dL (70-99) Calcium Level 7.2 mg/dL (8.5-10.1) 6.5 mg/dL (8.5-10.1) Iron Level 68 ug/dL (65-175) Total Iron Binding Capacity 124 ug/dL (250-450) Iron Saturation 55 % (15-34) Total Bilirubin 0.3 mg/dL (0.2-1.0) 0.3 mg/dL (0.2-1.0) Aspartate Amino Transf (AST/SGOT) 21 U/L (15-37) 14 U/L (15-37) Alanine Aminotransferase (ALT/SGPT) 16 U/L (16-63) 17 U/L (16-63) Alkaline Phosphatase 222 U/L (46-116) 183 U/L (46-116) Total Protein 7.0 g/dL (6.4-8.2) 6.0 g/dL (6.4-8.2) Albumin 2.1 g/dL (3.4-5.0) 1.7 g/dL (3.4-5.0) Albumin/Globulin Ratio 0.4 (1.0-1.7) 0.4 (1.0-1.7) Glucose (Fingerstick) 131 mg/dL (70-99) White Blood Count 8.9 x10^3/uL (4.0-11.0) Red Blood Count 3.34 x10^6/uL (4.30-5.70) Hemoglobin 9.0 g/dL (13.0-17.5) Hematocrit 26.3 % (39.0-53.0) Mean Corpuscular Volume 79 fL (79-100) Mean Corpuscular Hemoglobin 27 pg (25-35) Mean Corpuscular Hemoglobin Concent 34 g/dL (31-37) Red Cell Distribution Width 16.7 % (11.5-14.5) Platelet Count 290 x10^3/uL (140-400) Neutrophils (%) (Auto) 89 % (31-73) Lymphocytes (%) (Auto) 6 % (24-48) Monocytes (%) (Auto) 5 % (0-9) Eosinophils (%) (Auto) 0 % (0-3) Basophils (%) (Auto) 0 % (0-3) Neutrophils # (Auto) 7.8 x10^3/uL (1.8-7.7) Lymphocytes # (Auto) 0.5 x10^3/uL (1.0-4.8) Monocytes # (Auto) 0.4 x10^3/uL (0.0-1.1) Eosinophils # (Auto) 0.0 x10^3/uL (0.0-0.7) Basophils # (Auto) 0.0 x10^3/uL (0.0-0.2) Segmented Neutrophils % 69 % (35-66) Band Neutrophils % 25 % (0-9) Lymphocytes % 2 % (24-48) Atypical Lymphocytes % (Manual) 1 % (0-0) Monocytes % 3 % (0-10) Platelet Estimate Adequate (ADEQUATE) Polychromasia Slight Anisocytosis Slight Target Cells Few Monica Cells Few Acanthocytes Occ Schistocytes Occ Test 08/28/19 12:17 Glucose (Fingerstick) 265 mg/dL (70-99) Microbiology 08/27/19 Blood Culture - Final, Complete Medications Current Medications Sodium Chloride 1,000 ml @ 1,000 mls/hr Q1H IV Last administered on 08/27/19at 08:40; Start 08/27/19 at 06:30; Stop 08/27/19 at 07:29; Status DC Calcium Gluconate (Calcium Gluconate) 1,000 mg 1X ONCE IVP Last administered on 08/27/19at 10:36; Start 08/27/19 at 08:45; Stop 08/27/19 at 08:46; Status DC Sodium Bicarbonate (Sodium Bicarb Adult 8.4% Syr) 50 meq 1X ONCE IV Last administered on 08/27/19at 10:35; Start 08/27/19 at 08:45; Stop 08/27/19 at 08:46; Status DC Dextrose (Dextrose 50%-Water Syringe) 25 gm 1X ONCE IV Last administered on 08/27/19at 10:35; Start 08/27/19 at 08:45; Stop 08/27/19 at 08:46; Status DC Insulin Human Regular (HumuLIN R VIAL) 10 unit 1X ONCE IV Last administered on 08/27/19at 11:23; Start 08/27/19 at 08:45; Stop 08/27/19 at 08:46; Status DC Sodium Polystyrene Sulfonate (Kayexalate) 30 gm 1X ONCE PO Last administered on 08/27/19at 10:37; Start 08/27/19 at 08:45; Stop 08/27/19 at 08:46; Status DC Sodium Chloride 1,000 ml @ 1,000 mls/hr Q1H IV Last administered on 08/27/19at 10:36; Start 08/27/19 at 08:45; Stop 08/27/19 at 09:44; Status DC Acetaminophen (Tylenol) 650 mg Q6H PRN PO Headaches, Temp > 101.5' Last administered on 08/27/19at 18:29; Start 08/27/19 at 09:45 Famotidine (Pepcid Vial) 20 mg DAILY IVP Last administered on 08/28/19at 08:42; Start 08/27/19 at 10:00 Info (Icu Electrolyte Protocol) 1 ea DAILY MC ; Start 08/28/19 at 09:00 Heparin Sodium (Porcine) (Heparin Sodium) 5,000 unit Q12HR SQ Last administered on 08/28/19at 08:44; Start 08/27/19 at 10:00 Sodium Chloride (Normal Saline Flush) 3 ml QSHIFT PRN IV AFTER MEDS AND BLOOD DRAWS; Start 08/27/19 at 09:45 Thiamine Mononitrate (Vitamin B-1) 100 mg DAILY PO Last administered on 08/28/19at 08:42; Start 08/27/19 at 10:00 Multivitamins/ Minerals (I-Carly) 1 tab DAILY PO Last administered on 08/28/19at 08:41; Start 08/27/19 at 10:00 Phytonadione (Mephyton Oral Soln) 5 mg 1X ONCE PO Last administered on 08/27/19at 14:00; Start 08/27/19 at 10:00; Stop 08/27/19 at 10:01; Status DC Ceftriaxone Sodium (Rocephin) 1 gm 1X ONCE IVP Last administered on 08/27/19at 13:14; Start 08/27/19 at 12:00; Stop 08/27/19 at 12:01; Status DC Calcium Gluconate (Calcium Gluconate) 1,000 mg 1X ONCE IVP ; Start 08/27/19 at 12:45; Stop 08/27/19 at 12:46; Status DC Sodium Chloride 1,000 ml @ 1,650 mls/hr Q37M IV Last administered on 08/28/19at 02:03; Start 08/27/19 at 12:37; Stop 08/27/19 at 13:37; Status DC Sodium Chloride 500 ml @ 1,000 mls/hr PRN Q30MIN PRN IV SEE COMMENTS; Start 08/27/19 at 12:45 Meropenem 1 gm/ Sodium Chloride 100 ml @ 200 mls/hr Q8HRS IV ; Start 08/27/19 at 14:00; Status UNV Norepinephrine Bitartrate 250 ml @ 0 mls/hr CONT PRN IV SEE I/O RECORD; Start 08/27/19 at 12:45 Dobutamine HCl/ Dextrose 250 ml @ 0 mls/hr CONT PRN IV SEE I/O RECORD; Start 08/27/19 at 12:45 Meropenem 500 mg/ Sodium Chloride 50 ml @ 100 mls/hr Q8HRS IV Last administered on 08/27/19at 15:16; Start 08/27/19 at 14:00; Stop 08/27/19 at 16:26; Status DC Pharmacy Consult (C.diff Med Screen By Rx) 1 each 1X ONCE MC ; Start 08/27/19 at 13:15; Stop 08/27/19 at 13:16; Status UNV Influenza Virus Vaccine Quadrival (Afluria Quad 2019-20 (3yr Up) Syringe) 0.5 ml ONCE ONCE VAX IM Last administered on 08/28/19at 09:01; Start 08/28/19 at 09:00; Stop 08/28/19 at 09:01; Status DC Lactobacillus Rhamnosus (Culturelle) 1 cap BID PO Last administered on 08/28/19at 08:42; Start 08/27/19 at 21:00 Lidocaine HCl (Buffered Lidocaine 1%) 3 ml STK-MED ONCE .ROUTE ; Start 08/27/19 at 14:06; Stop 08/27/19 at 14:07; Status DC Dextrose (Dextrose 50%-Water Syringe) 12.5 gm PRN Q15MIN PRN IV SEE COMMENTS; Start 08/27/19 at 14:15 Lidocaine HCl (Buffered Lidocaine 1%) 6 ml 1X ONCE INJ Last administered on 08/27/19at 14:51; Start 08/27/19 at 14:30; Stop 08/27/19 at 14:31; Status DC Sodium Bicarbonate 150 meq/Dextrose 1,150 ml @ 100 mls/hr [id number] IV Last a dministered on 08/28/19at 02:02; Start 08/27/19 at 14:30 Meropenem 500 mg/ Sodium Chloride 50 ml @ 100 mls/hr 1X ONCE IV ; Start 08/27/19 at 15:45; Stop 08/27/19 at 16:14; Status UNV Daptomycin 200 mg/ Sodium Chloride 50 ml @ 100 mls/hr Q48H IV Last administered on 08/27/19at 18:29; Start 08/27/19 at 17:00 Meropenem 500 mg/ Sodium Chloride 50 ml @ 100 mls/hr Q12HR IV Last administered on 08/28/19at 09:05; Start 08/27/19 at 21:00 Potassium Chloride (Klor-Con) 40 meq 1X ONCE PO Last administered on 08/28/19at 08:41; Start 08/28/19 at 07:30; Stop 08/28/19 at 07:31; Status DC Insulin Human Lispro (HumaLOG) 0-7 UNITS TIDWMEALS SQ ; Start 08/28/19 at 12:30 Dextrose (Dextrose 50%-Water Syringe) 12.5 gm PRN Q15MIN PRN IV SEE COMMENTS; Start 08/28/19 at 12:30; Status UNV Active Scripts Active Reported Tramadol Hcl 50 Mg Tablet 50 Mg PO Q6HRS PRN Flomax (Tamsulosin Hcl) 0.4 Mg Cap.er.24h 0.4 Mg PO DAILY Hydralazine Hcl 25 Mg Tablet 1 Tab PO TID Glipizide 5 Mg Tablet 1.5 Tab PO DAILY Vitamin D3 (Cholecalciferol (Vitamin D3)) 1,000 Unit Tablet 1 Tab PO DAILY Coreg (Carvedilol) 25 Mg Tablet 25 Mg PO BIDWMEALS Norvasc (Amlodipine Besylate) 10 Mg Tablet 10 Mg PO DAILY Vitals/I & O Vital Sign - Last 24 Hours 08/27/19 08/27/19 08/27/19 08/27/19 12:42 13:05 13:47 14:00 Temp 96.1 91.6 93.6 96.1 91.6 93.6 Pulse 90 87 90 Resp 20 18 20 B/P (MAP) 152/86 (108) 160/98 (118) 127/88 (101) Pulse Ox 92 100 100 O2 Delivery Room Air Room Air Room Air Room Air 08/27/19 08/27/19 08/27/19 08/27/19 15:07 16:04 16:13 17:00 Temp 94.1 94.8 94.1 94.8 Pulse 97 91 97 Resp 20 18 20 B/P (MAP) 124/85 (98) 117/82 (94) 129/65 (86) Pulse Ox 100 100 98 O2 Delivery Room Air Room Air Room Air Room Air 08/27/19 08/27/19 08/27/19 08/27/19 18:00 19:00 20:00 20:00 Temp 95.0 95.0 95.0 95.0 Pulse 97 96 94 Resp 20 16 16 B/P (MAP) 104/67 (79) 112/72 (85) 116/73 (87) Pulse Ox 100 94 100 O2 Delivery Room Air Room Air Room Air Room Air 08/27/19 08/27/19 08/27/19 08/27/19 21:00 22:01 23:06 23:59 Temp 97.3 98.1 98.4 97.3 98.1 98.4 Pulse 97 93 99 Resp 16 16 B/P (MAP) 114/74 (87) 105/71 (82) 114/75 (88) Pulse Ox 100 100 100 O2 Delivery Room Air Room Air Room Air Room Air 08/28/19 08/28/19 08/28/19 08/28/19 01:00 02:04 03:00 04:05 Temp 97.3 97.3 98.4 97.3 97.3 98.4 Pulse 94 101 92 Resp 16 B/P (MAP) 112/73 (86) 107/70 (82) 130/81 (97) Pulse Ox 100 100 100 O2 Delivery Room Air Room Air Room Air Room Air 08/28/19 08/28/19 08/28/19 08/28/19 04:08 05:06 06:03 07:00 Temp 98.4 98.4 98.2 98.2 98.4 98.4 98.2 98.2 Pulse 101 98 93 94 Resp 16 16 16 B/P (MAP) 137/91 (106) 134/81 (98) 134/81 (98) 141/88 (105) Pulse Ox 100 100 100 100 O2 Delivery Room Air Room Air Room Air Room Air 08/28/19 08/28/19 08/28/19 08/28/19 08:00 08:00 09:00 10:00 Temp 98.1 98.1 Pulse 96 100 97 Resp 20 18 18 B/P (MAP) 119/83 (95) 120/95 (103) 146/93 (110) Pulse Ox 100 100 100 O2 Delivery Room Air Room Air Room Air Room Air 08/28/19 08/28/19 11:00 12:00 Temp 97.9 97.9 Pulse 98 96 Resp 18 20 B/P (MAP) 160/97 (118) 151/95 (113) Pulse Ox 100 100 O2 Delivery Room Air Room Air Intake and Output 08/27/19 08/27/19 08/28/19 14:59 22:59 06:59 Intake Total 3000 ml 1230 ml 2140 ml Output Total 625 ml 790 ml 950 ml Balance 2375 ml 440 ml 1190 ml Nutrition Consultation Dietary Evaluation: Recommendations by RD: Increase Calorie Intake, Protein supplementation Comments: Continue w/ADA diet as ordered, will not add cardiac restriction at this time REC Glucerna TID REC Vit C 500 mg BID - wound healing Continue w/MVI Expected Outcomes/Goals: PO intake to meet >75% est needs Interpretation of weight loss: >7.5% in 3 months Malnutrition Findings: Food and Nutrition Intake (Mod: <75% est energy req 7days Weight Status: Underweight SHORTY BALL MD Aug 28, 2019 12:44
[2019-08-28] MEDS: INSULIN LISPRO 300 UNITS/3 ML VIAL. SQ SCH ×2 (12:49→17:00)
--- NOTE | 2019-08-28 13:22 | PDOC ---
SUBJECTIVE ROS Stable, No new concerns, No N/V OBJECTIVE Vital Signs Vital Signs Date Time Temp Pulse Resp B/P (MAP) Pulse Ox O2 Delivery O2 Flow Rate FiO2 08/28/19 12:00 97.9 96 20 151/95 (113) 100 Room Air 97.9 I & 0 Intake and Output 08/28/19 06:59 Intake Total 6370 ml Output Total 2365 ml Balance 4005 ml Intake Oral 1820 ml IV Total 3050 ml Other 1500 ml Output Urine Total 2365 ml # Bowel Movements 5 PHYSICAL EXAM Physical Exam GEN: NAD HEEN- OM dry NECK: supple CVS: S1S2 , No rub RESP: CTA, No Acc. Muscle Use GI: BS + ve, NO Bruit, Non Tender, Non Distended : [No CVA tenderness, No Suprapubic Tenderness, Geiger + NEURO- Grossly normal, No Asterexis Skin No Rash DIAGNOSIS/ASSESSMENT Assessment & Plan VENANCIO - ATN sec to Dehydration,poor PO intake,illicit drug use ? PRUITT - Hydronephrosis Non Oliguric , good UOP , Renal function improving - from 166/ 2.9-->119/2.2 Renal US Bilat Hydronephrosis Rt > Lt IVF , avoid nephrotoxins , Strict I/O , No urgent indication for [employer], monitor for Polyuric phase Bilat Hydronephrosis- Urology consult placed Urologist Not available at [facility], [facility] refused to accept the patient UOP good, Monitor Hyperkalemia- recd Kayexalate in the ER Now Hypokalemia-- replace per protocol Hypo Na- Na corrected with IVF Metabolic acidosis- sec to VENANCIO Continue IV D5 W with 3 amps of Bicarb Hypotensive - resolved with IVF Depression with suicidal ideation - per primary DM2 Hx of cocaine and marijuana abuse Discussed with RN COMMENT/RELEVANT DATA Meds Current Medications Medications (Trade) Dose Ordered Sig/Dez Start Time Stop Time Status Last Admin Dose Admin Acetaminophen (Tylenol) 650 mg Q6H PRN 08/27/19 09:45 08/27/19 18:29 650 MG Calcium Gluconate (Calcium Gluconate) 1,000 mg 1X ONCE 08/27/19 12:45 08/27/19 12:46 DC Ceftriaxone Sodium (Rocephin) 1 gm 1X ONCE 08/27/19 12:00 08/27/19 12:01 DC 08/27/19 13:14 1 GM Daptomycin 200 mg/ Sodium Chloride 50 ml @ 100 mls/hr Q48H 08/27/19 17:00 08/27/19 18:29 100 MLS/HR Dextrose (Dextrose 50%-Water Syringe) 12.5 gm PRN Q15MIN PRN 08/28/19 12:30 UNV Dobutamine HCl/ Dextrose 250 ml @ 0 mls/hr CONT PRN 08/27/19 12:45 Famotidine (Pepcid Vial) 20 mg DAILY 08/27/19 10:00 08/28/19 08:42 20 MG Heparin Sodium (Porcine) (Heparin Sodium) 5,000 unit Q12HR 08/27/19 10:00 08/28/19 08:44 5,000 UNIT Influenza Virus Vaccine Quadrival (Afluria Quad 2019-20 (3yr Up) Syringe) 0.5 ml ONCE ONCE 08/28/19 09:00 08/28/19 09:01 DC 08/28/19 09:01 0.5 ML Info (Icu Electrolyte Protocol) 1 ea DAILY 08/28/19 09:00 Insulin Human Lispro (HumaLOG) 0-7 UNITS TIDWMEALS 08/28/19 12:30 08/28/19 12:49 6 UNITS Insulin Human Regular (HumuLIN R VIAL) 10 unit 1X ONCE 08/27/19 08:45 08/27/19 08:46 DC 08/27/19 11:23 10 UNIT Lactobacillus Rhamnosus (Culturelle) 1 cap BID 08/27/19 21:00 08/28/19 08:42 1 CAP Lidocaine HCl (Buffered Lidocaine 1%) 6 ml 1X ONCE 08/27/19 14:30 08/27/19 14:31 DC 08/27/19 14:51 4 ML Meropenem 1 gm/ Sodium Chloride 100 ml @ 200 mls/hr Q8HRS 08/27/19 14:00 UNV Meropenem 500 mg/ Sodium Chloride 50 ml @ 100 mls/hr Q12HR 08/27/19 21:00 08/28/19 09:05 100 MLS/HR Multivitamins/ Minerals (I-Carly) 1 tab DAILY 08/27/19 10:00 08/28/19 08:41 1 TAB Norepinephrine Bitartrate 250 ml @ 0 mls/hr CONT PRN 08/27/19 12:45 Paroxetine HCl (Paxil) 10 mg DAILY 08/29/19 09:00 Pharmacy Consult (C.diff Med Screen By Rx) 1 each 1X ONCE 08/27/19 13:15 08/27/19 13:16 UNV Phytonadione (Mephyton Oral Soln) 5 mg 1X ONCE 08/27/19 10:00 08/27/19 10:01 DC 08/27/19 14:00 5 MG Potassium Chloride (Klor-Con) 40 meq 1X ONCE 08/28/19 07:30 08/28/19 07:31 DC 08/28/19 08:41 40 MEQ Quetiapine Fumarate (SEROquel) 50 mg HS 08/28/19 21:00 Sodium Bicarbonate 150 meq/Dextrose 1,150 ml @ 100 mls/hr [id number] 08/27/19 14:30 08/28/19 02:02 100 MLS/HR Sodium Polystyrene Sulfonate (Kayexalate) 30 gm 1X ONCE 08/27/19 08:45 08/27/19 08:46 DC 08/27/19 10:37 30 GM Sodium Bicarbonate (Sodium Bicarb Adult 8.4% Syr) 50 meq 1X ONCE 08/27/19 08:45 08/27/19 08:46 DC 08/27/19 10:35 50 MEQ Sodium Chloride 500 ml @ 1,000 mls/hr PRN Q30MIN PRN 08/27/19 12:45 Sodium Chloride (Normal Saline Flush) 3 ml QSHIFT PRN 08/27/19 09:45 Thiamine Mononitrate (Vitamin B-1) 100 mg DAILY 08/27/19 10:00 08/28/19 08:42 100 MG Lab Laboratory Tests Test 08/27/19 14:04 08/27/19 14:05 08/27/19 14:40 08/27/19 14:47 Glucose (Fingerstick) 31 mg/dL (70-99) 104 mg/dL (70-99) Troponin I Quantitative 0.118 ng/mL (0.000-0.055) Creatine Kinase 143 U/L (39-308) Test 08/27/19 15:00 08/27/19 18:30 08/27/19 21:04 08/28/19 04:00 Urine Collection Type Unknown Urine Color Red Urine Clarity Cloudy Urine pH 6.0 Urine Specific [place] 1.020 Urine Protein >=300 mg/dL (NEG-TRACE) Urine Glucose (UA) Negative mg/dL (NEG) Urine Ketones (Stick) Negative mg/dL (NEG) Urine Blood Large (NEG) Urine Nitrite Negative (NEG) Urine Bilirubin Negative (NEG) Urine Urobilinogen Dipstick 0.2 mg/dL (0.2 mg/dL) Urine Leukocyte Esterase Large (NEG) Urine RBC Tntc /HPF (0-2) Urine WBC Tntc /HPF (0-4) Urine Bacteria 0 /HPF (0-FEW) Sodium Level 137 mmol/L (136-145) 137 mmol/L (136-145) Potassium Level 4.7 mmol/L (3.5-5.1) 3.2 mmol/L (3.5-5.1) Chloride Level 106 mmol/L (98-107) 104 mmol/L (98-107) Carbon Dioxide Level 9 mmol/L (21-32) 15 mmol/L (21-32) Anion Gap 22 (6-14) 18 (6-14) Blood Urea Nitrogen 142 mg/dL (8-26) 119 mg/dL (8-26) Creatinine 2.4 mg/dL (0.7-1.3) 2.2 mg/dL (0.7-1.3) Estimated GFR (Cockcroft-Gault) 35.8 39.5 BUN/Creatinine Ratio 59 (6-20) 54 (6-20) Glucose Level 57 mg/dL (70-99) 87 mg/dL (70-99) Calcium Level 7.2 mg/dL (8.5-10.1) 6.5 mg/dL (8.5-10.1) Iron Level 68 ug/dL (65-175) Total Iron Binding Capacity 124 ug/dL (250-450) Iron Saturation 55 % (15-34) Total Bilirubin 0.3 mg/dL (0.2-1.0) 0.3 mg/dL (0.2-1.0) Aspartate Amino Transf (AST/SGOT) 21 U/L (15-37) 14 U/L (15-37) Alanine Aminotransferase (ALT/SGPT) 16 U/L (16-63) 17 U/L (16-63) Alkaline Phosphatase 222 U/L (46-116) 183 U/L (46-116) Total Protein 7.0 g/dL (6.4-8.2) 6.0 g/dL (6.4-8.2) Albumin 2.1 g/dL (3.4-5.0) 1.7 g/dL (3.4-5.0) Albumin/Globulin Ratio 0.4 (1.0-1.7) 0.4 (1.0-1.7) Glucose (Fingerstick) 131 mg/dL (70-99) White Blood Count 8.9 x10^3/uL (4.0-11.0) Red Blood Count 3.34 x10^6/uL (4.30-5.70) Hemoglobin 9.0 g/dL (13.0-17.5) Hematocrit 26.3 % (39.0-53.0) Mean Corpuscular Volume 79 fL (79-100) Mean Corpuscular Hemoglobin 27 pg (25-35) Mean Corpuscular Hemoglobin Concent 34 g/dL (31-37) Red Cell Distribution Width 16.7 % (11.5-14.5) Platelet Count 290 x10^3/uL (140-400) Neutrophils (%) (Auto) 89 % (31-73) Lymphocytes (%) (Auto) 6 % (24-48) Monocytes (%) (Auto) 5 % (0-9) Eosinophils (%) (Auto) 0 % (0-3) Basophils (%) (Auto) 0 % (0-3) Neutrophils # (Auto) 7.8 x10^3/uL (1.8-7.7) Lymphocytes # (Auto) 0.5 x10^3/uL (1.0-4.8) Monocytes # (Auto) 0.4 x10^3/uL (0.0-1.1) Eosinophils # (Auto) 0.0 x10^3/uL (0.0-0.7) Basophils # (Auto) 0.0 x10^3/uL (0.0-0.2) Segmented Neutrophils % 69 % (35-66) Band Neutrophils % 25 % (0-9) Lymphocytes % 2 % (24-48) Atypical Lymphocytes % (Manual) 1 % (0-0) Monocytes % 3 % (0-10) Platelet Estimate Adequate (ADEQUATE) Polychromasia Slight Anisocytosis Slight Target Cells Few Cressey Cells Few Acanthocytes Occ Schistocytes Occ Test 08/28/19 12:17 Glucose (Fingerstick) 265 mg/dL (70-99) Results All relevant outside records, renal labs, imaging studies, telemetry/EKG's were reviewed. PETTY FERRIS MD Aug 28, 2019 13:22
--- NOTE | 2019-08-28 18:55 | NUR ---
Pt. arrived on unit by wheelchair from ICU. Pt. is on 1:1 and is stable.
[2019-08-28] MEDS: QUEtiapine 25 MG TABLET. PO SCH (23:13)
[2019-08-28] MEDS: ACETAMINOPHEN 325 MG TABLET. PO PRN (23:13)
--- NOTE | 2019-08-28 23:57 | NUR ---
Pt. was stuck 4x before Kiara (nursing supervisor telephone answering service) was able to get an IV in.
[2019-08-29 03:00] VITALS: BP 112/67
[2019-08-29] MEDS: SODIUM BICARBONATE VIAL 150 MEQ in IV DEXTROSE 5% 1,000 ML IV SCH ×2 (05:23→16:20)
[2019-08-29 07:07] VITALS: BP 107/67
[2019-08-29] MEDS: INSULIN LISPRO 300 UNITS/3 ML VIAL. SQ SCH ×3 (08:00→17:00)
--- NOTE | 2019-08-29 08:42 | PDOC ---
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 He underwent right BKA recently at [facility] a couple of months ago, has been wheelchair bound even prior to that. He started having suicidal ideation and with plans to hang himself. He has poor p.o. intake with significant weight loss. Has not been taking his medications recently. He has a lot of weight loss. He has multiple body wounds. His white count was normal. Potassium was 6, bicarb of 10. Ultrasound of the renal showed bilateral hydronephrosis. UA shows large blood, large leukocyte esterase, wbc's too numerous to count. He received a dose of Rocephin. Was admitted to ICU initially with ID and Nephrology consults. Discussed transfer to x2 08/28/19, Dr. Humberto Hale declined transfer and I was in agreement. We should allow zimmerman a few days to see if obstruction resolves. Making urine, appears less bloody, dark yellow today He still reports suicidal intent and is asking for us to feed him. His chronic condition looks terrible, very cachectic appearing. Would needs long course of wound care and likely snu or LTAC, he has no insurance, and history of poor self-care that I dont think we can improve on here. Started 50 seroquel HS. I would consider hospice on discharge due to how poorly he looks with his gener al self care on admit Vitals Vitals Vital Signs Date Time Temp Pulse Resp B/P (MAP) Pulse Ox O2 Delivery O2 Flow Rate FiO2 08/29/19 07:07 97.7 96 16 107/67 (80) 99 Room Air 97.7 Physical Exam Physical Exam at times lying in chair with blanket over his head, behavior is odd at best General: Alert, Oriented X3, Cooperative, No acute distress, Other (cachectic) Heart: Regular rate (SR), Normal S1, Normal S2, No murmurs, Other Lungs: Clear Abdomen: Soft, Other (hyperactive bowel sounds) Extremities: No cyanosis, No edema Skin: Other (multiple pressure ulcers) Labs LABS Laboratory Tests Test 08/28/19 12:17 08/28/19 17:05 08/28/19 17:28 08/28/19 20:36 Glucose (Fingerstick) 265 mg/dL (70-99) 32 mg/dL (70-99) 130 mg/dL (70-99) 58 mg/dL (70-99) Test 08/28/19 21:01 08/28/19 21:56 Glucose (Fingerstick) 62 mg/dL (70-99) 105 mg/dL (70-99) Assessment and Plan Assessmemt and Plan Problems Medical Problems: (1) Hyperkalemia Status: Acute (2) Hypermagnesemia Status: Acute (3) Hyperphosphatemia Status: Acute (4) Hypoalbuminemia Status: Acute (5) Hypocalcemia Status: Acute (6) Hyponatremia Status: Acute (7) Metabolic acidosis Status: Acute (8) Suicidal ideation Status: Acute Comment Review of Relevant I have reviewed the following items anisa (where applicable) has been applied. Labs Laboratory Tests Test 08/27/19 10:15 08/27/19 12:05 08/27/19 13:00 08/27/19 14:04 O2 Saturation 98 % (92-99) Arterial Blood pH 7.20 (7.35-7.45) Arterial Blood pCO2 at Patient Temp 19 mmHg (35-46) Arterial Blood pO2 at Patient Temp 145 mmHg (75-108) Arterial Blood HCO3 7 mmol/L (21-28) Arterial Blood Base Excess -19 mmol/L (-3-3) Red Blood Count 3.43 x10^6/uL (4.30-5.70) Absolute Reticulocyte Count 0.031 x10^6/uL (0.020-0.120) Percent Reticulocyte Count 0.9 % (0.5-2.3) Immature Reticulocyte Fraction 0.46 (0.20-0.60) Sodium Level 137 mmol/L (136-145) Potassium Level 4.7 mmol/L (3.5-5.1) Chloride Level 104 mmol/L (98-107) Carbon Dioxide Level 12 mmol/L (21-32) Anion Gap 21 (6-14) Blood Urea Nitrogen 146 mg/dL (8-26) Creatinine 2.6 mg/dL (0.7-1.3) Estimated GFR (Cockcroft-Gault) 32.6 Glucose Level 95 mg/dL (70-99) Calcium Level 7.5 mg/dL (8.5-10.1) Ionized Calcium 1.02 mmol/L (1.13-1.32) Phosphorus Level 8.4 mg/dL (2.6-4.7) Gamma Glutamyl Transpeptidase 65 U/L (10-85) Albumin 2.3 g/dL (3.4-5.0) Procalcitonin 33.29 ng/mL (0.00-0.10) Nasal Screen MRSA (PCR) Negative (Negative) Clostridium difficile Toxin B Gene Positive (Negative) Glucose (Fingerstick) 31 mg/dL (70-99) Test 08/27/19 14:05 08/27/19 14:40 08/27/19 14:47 08/27/19 15:00 Troponin I Quantitative 0.118 ng/mL (0.000-0.055) Creatine Kinase 143 U/L (39-308) Glucose (Fingerstick) 104 mg/dL (70-99) Urine Collection Type Unknown Urine Color Red Urine Clarity Cloudy Urine pH 6.0 Urine Specific [place] 1.020 Urine Protein >=300 mg/dL (NEG-TRACE) Urine Glucose (UA) Negative mg/dL (NEG) Urine Ketones (Stick) Negative mg/dL (NEG) Urine Blood Large (NEG) Urine Nitrite Negative (NEG) Urine Bilirubin Negative (NEG) Urine Urobilinogen Dipstick 0.2 mg/dL (0.2 mg/dL) Urine Leukocyte Esterase Large (NEG) Urine RBC Tntc /HPF (0-2) Urine WBC Tntc /HPF (0-4) Urine Bacteria 0 /HPF (0-FEW) Test 08/27/19 18:30 08/27/19 21:04 08/28/19 04:00 08/28/19 12:17 Sodium Level 137 mmol/L (136-145) 137 mmol/L (136-145) Potassium Level 4.7 mmol/L (3.5-5.1) 3.2 mmol/L (3.5-5.1) Chloride Level 106 mmol/L (98-107) 104 mmol/L (98-107) Carbon Dioxide Level 9 mmol/L (21-32) 15 mmol/L (21-32) Anion Gap 22 (6-14) 18 (6-14) Blood Urea Nitrogen 142 mg/dL (8-26) 119 mg/dL (8-26) Creatinine 2.4 mg/dL (0.7-1.3) 2.2 mg/dL (0.7-1.3) Estimated GFR (Cockcroft-Gault) 35.8 39.5 BUN/Creatinine Ratio 59 (6-20) 54 (6-20) Glucose Level 57 mg/dL (70-99) 87 mg/dL (70-99) Calcium Level 7.2 mg/dL (8.5-10.1) 6.5 mg/dL (8.5-10.1) Iron Level 68 ug/dL (65-175) Total Iron Binding Capacity 124 ug/dL (250-450) Iron Saturation 55 % (15-34) Total Bilirubin 0.3 mg/dL (0.2-1.0) 0.3 mg/dL (0.2-1.0) Aspartate Amino Transf (AST/SGOT) 21 U/L (15-37) 14 U/L (15-37) Alanine Aminotransferase (ALT/SGPT) 16 U/L (16-63) 17 U/L (16-63) Alkaline Phosphatase 222 U/L (46-116) 183 U/L (46-116) Total Protein 7.0 g/dL (6.4-8.2) 6.0 g/dL (6.4-8.2) Albumin 2.1 g/dL (3.4-5.0) 1.7 g/dL (3.4-5.0) Albumin/Globulin Ratio 0.4 (1.0-1.7) 0.4 (1.0-1.7) Glucose (Fingerstick) 131 mg/dL (70-99) 265 mg/dL (70-99) White Blood Count 8.9 x10^3/uL (4.0-11.0) Red Blood Count 3.34 x10^6/uL (4.30-5.70) Hemoglobin 9.0 g/dL (13.0-17.5) Hematocrit 26.3 % (39.0-53.0) Mean Corpuscular Volume 79 fL (79-100) Mean Corpuscular Hemoglobin 27 pg (25-35) Mean Corpuscular Hemoglobin Concent 34 g/dL (31-37) Red Cell Distribution Width 16.7 % (11.5-14.5) Platelet Count 290 x10^3/uL (140-400) Neutrophils (%) (Auto) 89 % (31-73) Lymphocytes (%) (Auto) 6 % (24-48) Monocytes (%) (Auto) 5 % (0-9) Eosinophils (%) (Auto) 0 % (0-3) Basophils (%) (Auto) 0 % (0-3) Neutrophils # (Auto) 7.8 x10^3/uL (1.8-7.7) Lymphocytes # (Auto) 0.5 x10^3/uL (1.0-4.8) Monocytes # (Auto) 0.4 x10^3/uL (0.0-1.1) Eosinophils # (Auto) 0.0 x10^3/uL (0.0-0.7) Basophils # (Auto) 0.0 x10^3/uL (0.0-0.2) Segmented Neutrophils % 69 % (35-66) Band Neutrophils % 25 % (0-9) Lymphocytes % 2 % (24-48) Atypical Lymphocytes % (Manual) 1 % (0-0) Monocytes % 3 % (0-10) Platelet Estimate Adequate (ADEQUATE) Polychromasia Slight Anisocytosis Slight Target Cells Few Monica Cells Few Acanthocytes Occ Schistocytes Occ Test 08/28/19 17:05 08/28/19 17:28 08/28/19 20:36 08/28/19 21:01 Glucose (Fingerstick) 32 mg/dL (70-99) 130 mg/dL (70-99) 58 mg/dL (70-99) 62 mg/dL (70-99) Test 08/28/19 21:56 Glucose (Fingerstick) 105 mg/dL (70-99) Laboratory Tests Test 08/28/19 12:17 08/28/19 17:05 08/28/19 17:28 08/28/19 20:36 Glucose (Fingerstick) 265 mg/dL (70-99) 32 mg/dL (70-99) 130 mg/dL (70-99) 58 mg/dL (70-99) Test 08/28/19 21:01 08/28/19 21:56 Glucose (Fingerstick) 62 mg/dL (70-99) 105 mg/dL (70-99) Microbiology 08/27/19 Blood Culture - Final, Complete Medications Current Medications Sodium Chloride 1,000 ml @ 1,000 mls/hr Q1H IV Last administered on 08/27/19 08:40; Start 08/27/19 at 06:30; Stop 08/27/19 at 07:29; Status DC Calcium Gluconate (Calcium Gluconate) 1,000 mg 1X ONCE IVP Last administered on 08/27/19 10:36; Start 08/27/19 at 08:45; Stop 08/27/19 at 08:46; Status DC Sodium Bicarbonate (Sodium Bicarb Adult 8.4% Syr) 50 meq 1X ONCE IV Last administered on 08/27/19 10:35; Start 08/27/19 at 08:45; Stop 08/27/19 at 08:46; Status DC Dextrose (Dextrose 50%-Water Syringe) 25 gm 1X ONCE IV Last administered on 08/27/19 10:35; Start 08/27/19 at 08:45; Stop 08/27/19 at 08:46; Status DC Insulin Human Regular (HumuLIN R VIAL) 10 unit 1X ONCE IV Last administered on 08/27/19 11:23; Start 08/27/19 at 08:45; Stop 08/27/19 at 08:46; Status DC Sodium Polystyrene Sulfonate (Kayexalate) 30 gm 1X ONCE PO Last administered on 08/27/19at 10:37; Start 08/27/19 at 08:45; Stop 08/27/19 at 08:46; Status DC Sodium Chloride 1,000 ml @ 1,000 mls/hr Q1H IV Last administered on 08/27/19at 10:36; Start 08/27/19 at 08:45; Stop 08/27/19 at 09:44; Status DC Acetaminophen (Tylenol) 650 mg Q6H PRN PO Headaches, Temp > 101.5' Last administered on 08/28/19at 23:13; Start 08/27/19 at 09:45 Famotidine (Pepcid Vial) 20 mg DAILY IVP Last administered on 08/28/19at 08:42; Start 08/27/19 at 10:00 Info (Icu Electrolyte Protocol) 1 ea DAILY MC ; Start 08/28/19 at 09:00 Heparin Sodium (Porcine) (Heparin Sodium) 5,000 unit Q12HR SQ Last administered on 08/28/19 23:20; Start 08/27/19 at 10:00 Sodium Chloride (Normal Saline Flush) 3 ml QSHIFT PRN IV AFTER MEDS AND BLOOD DRAWS; Start 08/27/19 at 09:45 Thiamine Mononitrate (Vitamin B-1) 100 mg DAILY PO Last administered on 08/28/19 08:42; Start 08/27/19 at 10:00 Multivitamins/ Minerals (I-Carly) 1 tab DAILY PO Last administered on 08/28/19 08:41; Start 08/27/19 at 10:00 Phytonadione (Mephyton Oral Soln) 5 mg 1X ONCE PO Last administered on 08/27/19at 14:00; Start 08/27/19 at 10:00; Stop 08/27/19 at 10:01; Status DC Ceftriaxone Sodium (Rocephin) 1 gm 1X ONCE IVP Last administered on 08/27/19at 13:14; Start 08/27/19 at 12:00; Stop 08/27/19 at 12:01; Status DC Calcium Gluconate (Calcium Gluconate) 1,000 mg 1X ONCE IVP ; Start 08/27/19 at 12:45; Stop 08/27/19 at 12:46; Status DC Sodium Chloride 1,000 ml @ 1,650 mls/hr Q37M IV Last administered on 08/28/19at 02:03; Start 08/27/19 at 12:37; Stop 08/27/19 at 13:37; Status DC Sodium Chloride 500 ml @ 1,000 mls/hr PRN Q30MIN PRN IV SEE COMMENTS; Start 1 at 12:45 Meropenem 1 gm/ Sodium Chloride 100 ml @ 200 mls/hr Q8HRS IV ; Start 08/27/19 at 14:00; Status UNV Norepinephrine Bitartrate 250 ml @ 0 mls/hr CONT PRN IV SEE I/O RECORD; Start 08/27/19 at 12:45 Dobutamine HCl/ Dextrose 250 ml @ 0 mls/hr CONT PRN IV SEE I/O RECORD; Start 08/27/19 at 12:45 Meropenem 500 mg/ Sodium Chloride 50 ml @ 100 mls/hr Q8HRS IV Last a dministered on 08/27/19at 15:16; Start 08/27/19 at 14:00; Stop 08/27/19 at 16:26; Status DC Pharmacy Consult (C.diff Med Screen By Rx) 1 each 1X ONCE MC ; Start 08/27/19 at 13:15; Stop 08/27/19 at 13:16; Status UNV Influenza Virus Vaccine Quadrival (Afluria Quad 2019-20 (3yr Up) Syringe) 0.5 ml ONCE ONCE VAX IM Last administered on 08/28/19at 09:01; Start 08/28/19 at 09:00; Stop 08/28/19 at 09:01; Status DC Lactobacillus Rhamnosus (Culturelle) 1 cap BID PO Last administered on 08/28/19at 23:13; Start 08/27/19 at 21:00 Lidocaine HCl (Buffered Lidocaine 1%) 3 ml STK-MED ONCE .ROUTE ; Start 08/27/19 at 14:06; Stop 08/27/19 at 14:07; Status DC Dextrose (Dextrose 50%-Water Syringe) 12.5 gm PRN Q15MIN PRN IV SEE COMMENTS Last administered on 08/28/19at 17:14; Start 08/27/19 at 14:15 Lidocaine HCl (Buffered Lidocaine 1%) 6 ml 1X ONCE INJ Last administered on 08/27/19at 14:51; Start 08/27/19 at 14:30; Stop 08/27/19 at 14:31; Status DC Sodium Bicarbonate 150 meq/Dextrose 1,150 ml @ 100 mls/hr [id number] IV Last administered on 08/29/19at 05:23; Start 08/27/19 at 14:30 Meropenem 500 mg/ Sodium Chloride 50 ml @ 100 mls/hr 1X ONCE IV ; Start 08/27/19 at 15:45; Stop 08/27/19 at 16:14; Status UNV Daptomycin 200 mg/ Sodium Chloride 50 ml @ 100 mls/hr Q48H IV Last administered on 08/27/19at 18:29; Start 08/27/19 at 17:00 Meropenem 500 mg/ Sodium Chloride 50 ml @ 100 mls/hr Q12HR IV Last administered on 08/28/19at 23:14; Start 08/27/19 at 21:00 Potassium Chloride (Klor-Con) 40 meq 1X ONCE PO Last administered on 08/28/19at 08:41; Start 08/28/19 at 07:30; Stop 08/28/19 at 07:31; Status DC Insulin Human Lispro (HumaLOG) 0-7 UNITS TIDWMEALS SQ Last administered on 08/28/19at 12:49; Start 08/28/19 at 12:30 Dextrose (Dextrose 50%-Water Syringe) 12.5 gm PRN Q15MIN PRN IV SEE COMMENTS; Start 08/28/19 at 12:30; Status UNV Paroxetine HCl (Paxil) 10 mg DAILY PO ; Start 08/29/19 at 09:00 Quetiapine Fumarate (SEROquel) 50 mg HS PO Last administered on 08/28/19at 23:13; Start 08/28/19 at 21:00 Vancomycin HCl (Vancomycin Oral Solution) 125 mg [id number] PO ; Start 08/29/19 at 09:00 Active Scripts Active Reported Tramadol Hcl 50 Mg Tablet 50 Mg PO Q6HRS PRN Flomax (Tamsulosin Hcl) 0.4 Mg Cap.er.24h 0.4 Mg PO DAILY Hydralazine Hcl 25 Mg Tablet 1 Tab PO TID Glipizide 5 Mg Tablet 1.5 Tab PO DAILY Vitamin D3 (Cholecalciferol (Vitamin D3)) 1,000 Unit Tablet 1 Tab PO DAILY Coreg (Carvedilol) 25 Mg Tablet 25 Mg PO BIDWMEALS Norvasc (Amlodipine Besylate) 10 Mg Tablet 10 Mg PO DAILY Vitals/I & O Vital Sign - Last 24 Hours 08/28/19 08/28/19 08/28/19 08/28/19 09:00 10:00 11:00 12:00 Temp 97.9 97.9 Pulse 100 97 98 96 Resp 18 20 B/P (MAP) 120/95 (103) 146/93 (110) 160/97 (118) 151/95 (113) Pulse Ox 100 100 100 100 O2 Delivery Room Air Room Air Room Air Room Air 08/28/19 08/28/19 08/28/19 08/28/19 16:00 19:00 20:00 23:00 Temp 97.5 98.0 97.5 98.0 Pulse 96 102 105 Resp 18 18 18 B/P (MAP) 143/79 (100) 149/85 (106) 133/78 (96) Pulse Ox 100 100 100 O2 Delivery Room Air Room Air 08/29/19 08/29/19 03:00 07:07 Temp 98.2 97.7 98.2 97.7 Pulse 96 96 Resp 18 16 B/P (MAP) 112/67 (82) 107/67 (80) Pulse Ox 98 99 O2 Delivery Room Air Intake and Output 08/28/19 08/28/19 08/29/19 14:59 22:59 06:59 Intake Total 490 ml 650 ml 360 ml Output Total 350 ml 700 ml 900 ml Balance 140 ml -50 ml -540 ml Nutrition Consultation Dietary Evaluation: Recommendations by RD: Increase Calorie Intake, Protein supplementation Comments: Continue w/ADA diet as ordered, will not add cardiac restriction at this time REC Glucerna TID REC Vit C 500 mg BID - wound healing Continue w/MVI Expected Outcomes/Goals: PO intake to meet >75% est needs Interpretation of weight loss: >7.5% in 3 months Malnutrition Findings: Food and Nutrition Intake (Mod: <75% est energy req 7days Weight Status: Underweight VICKY BLOOD MD Aug 29, 2019 08:42
[2019-08-29] MEDS: ELECTROLYTE (ICU) PROTOCOL. MC SCH (09:00)
[2019-08-29] MEDS: MULTIVITAMIN I-VITE TABLET. PO SCH (09:33)
[2019-08-29] MEDS: PARoxetine 10 MG TABLET PO SCH (09:33)
[2019-08-29] MEDS: LACTOBACILLUS RHAMNOSUS GG 1 CAPSULE. PO SCH ×2 (09:34→20:05)
[2019-08-29] MEDS: THIAMINE 100 MG TABLET. PO SCH (09:34)
[2019-08-29] MEDS: FAMOTIDINE 20 MG/2 ML VIAL IVP SCH (09:34)
[2019-08-29] MEDS: MEROPENEM 500 MG in IV NORMAL SALINE 50ML 50 ML IV SCH ×2 (09:35→20:07)
--- NOTE | 2019-08-29 09:39 | PDOC ---
Infectious Disease Note Subjective: Subjective pt moved out of icu He says feels a little better hypothermia improved ROS: ROS feels weak Vital Signs: Vital Signs Vital Signs Date Time Temp Pulse Resp B/P (MAP) Pulse Ox O2 Delivery O2 Flow Rate FiO2 08/29/19 07:07 97.7 96 16 107/67 (80) 99 Room Air 97.7 Physical Exam: PHYSICAL EXAM GENERAL: Cachectic, thin male, lying in bed, cooperative, appears comfortable, in no acute distress. HEENT: Anicteric. Poor dentition. No thrush. Oral mucosa moist. NECK: HDC catheter looks okay. LUNGS: Clear. HEART: S1, S2. ABDOMEN: Soft, nontender, nondistended. GENITOURINARY: Gegier in place. Groin dry skin. EXTREMITIES: Right AKA. SKIN: Multiple wounds lower extremities, no evidence of infection, multiple abrasions, wound descriptions noted from pictures in the chart over the back, no purulent drainage noted, unstageable. NEUROLOGIC: Alert, oriented, grossly nonfocal. PSYCHIATRY: Awake, alert, cooperative. Medications: Inpatient Meds: Current Medications Medications (Trade) Dose Ordered Sig/Dez Start Time Stop Time Status Last Admin Dose Admin Acetaminophen (Tylenol) 650 mg Q6H PRN 08/27/19 09:45 08/28/19 23:13 650 MG Calcium Gluconate (Calcium Gluconate) 1,000 mg 1X ONCE 08/27/19 12:45 08/27/19 12:46 DC Ceftriaxone Sodium (Rocephin) 1 gm 1X ONCE 08/27/19 12:00 08/27/19 12:01 DC 08/27/19 13:14 1 GM Daptomycin 200 mg/ Sodium Chloride 50 ml @ 100 mls/hr Q48H 08/27/19 17:00 08/27/19 18:29 100 MLS/HR Dextrose (Dextrose 50%-Water Syringe) 12.5 gm PRN Q15MIN PRN 08/28/19 12:30 UNV Dobutamine HCl/ Dextrose 250 ml @ 0 mls/hr CONT PRN 08/27/19 12:45 Famotidine (Pepcid Vial) 20 mg DAILY 08/27/19 10:00 08/28/19 08:42 20 MG Heparin Sodium (Porcine) (Heparin Sodium) 5,000 unit Q12HR 08/27/19 10:00 08/28/19 23:20 5,000 UNIT Influenza Virus Vaccine Quadrival (Afluria Quad 2019-20 (3yr Up) Syringe) 0.5 ml ONCE ONCE 08/28/19 09:00 08/28/19 09:01 DC 08/28/19 09:01 0.5 ML Info (Icu Electrolyte Protocol) 1 ea DAILY 08/28/19 09:00 Insulin Human Lispro (HumaLOG) 0-7 UNITS TIDWMEALS 08/28/19 12:30 08/28/19 12:49 6 UNITS Insulin Human Regular (HumuLIN R VIAL) 10 unit 1X ONCE 08/27/19 08:45 08/27/19 08:46 DC 08/27/19 11:23 10 UNIT Lactobacillus Rhamnosus (Culturelle) 1 cap BID 08/27/19 21:00 08/28/19 23:13 1 CAP Lidocaine HCl (Buffered Lidocaine 1%) 6 ml 1X ONCE 08/27/19 14:30 08/27/19 14:31 DC 08/27/19 14:51 4 ML Meropenem 1 gm/ Sodium Chloride 100 ml @ 200 mls/hr Q8HRS 08/27/19 14:00 UNV Meropenem 500 mg/ Sodium Chloride 50 ml @ 100 mls/hr Q12HR 08/27/19 21:00 08/28/19 23:14 100 MLS/HR Multivitamins/ Minerals (I-Carly) 1 tab DAILY 08/27/19 10:00 08/28/19 08:41 1 TAB Norepinephrine Bitartrate 250 ml @ 0 mls/hr CONT PRN 08/27/19 12:45 Paroxetine HCl (Paxil) 10 mg DAILY 08/29/19 09:00 Pharmacy Consult (C.diff Med Screen By Rx) 1 each 1X ONCE 08/27/19 13:15 08/27/19 13:16 UNV Phytonadione (Mephyton Oral Soln) 5 mg 1X ONCE 08/27/19 10:00 08/27/19 10:01 DC 08/27/19 14:00 5 MG Potassium Chloride (Klor-Con) 40 meq 1X ONCE 08/28/19 07:30 08/28/19 07:31 DC 08/28/19 08:41 40 MEQ Quetiapine Fumarate (SEROquel) 50 mg HS 08/28/19 21:00 08/28/19 23:13 50 MG Sodium Bicarbonate 150 meq/Dextrose 1,150 ml @ 100 mls/hr [id number] 08/27/19 14:30 08/29/19 05:23 100 MLS/HR Sodium Polystyrene Sulfonate (Kayexalate) 30 gm 1X ONCE 08/27/19 08:45 08/27/19 08:46 DC 08/27/19 10:37 30 GM Sodium Bicarbonate (Sodium Bicarb Adult 8.4% Syr) 50 meq 1X ONCE 08/27/19 08:45 08/27/19 08:46 DC 08/27/19 10:35 50 MEQ Sodium Chloride 500 ml @ 1,000 mls/hr PRN Q30MIN PRN 08/27/19 12:45 Sodium Chloride (Normal Saline Flush) 3 ml QSHIFT PRN 08/27/19 09:45 Thiamine Mononitrate (Vitamin B-1) 100 mg DAILY 08/27/19 10:00 08/28/19 08:42 100 MG Vancomycin HCl (Vancomycin Oral Solution) 125 mg [id number] 08/29/19 09:00 Labs: Lab Laboratory Tests Test 08/28/19 12:17 08/28/19 17:05 08/28/19 17:28 08/28/19 20:36 Glucose (Fingerstick) 265 mg/dL (70-99) 32 mg/dL (70-99) 130 mg/dL (70-99) 58 mg/dL (70-99) Test 08/28/19 21:01 08/28/19 21:56 Glucose (Fingerstick) 62 mg/dL (70-99) 105 mg/dL (70-99) Objective: Assessment: 1. Sepsis with hypothermia present on admission, Gram-negative sepsis. 2. Gram-negative sepsis, source genitourinary and/or wounds. 3. Chronic nonhealing wounds. 4. Severe Depression with suicidal ideation present on admission. 5. Severe acute renal failure,hyperkalemia with metabolic acidosis. 6. Bilateral hydronephrosis. 7. Severe protein-calorie malnutrition. 8. Diabetes mellitus 2. 9. 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 10. Diarrhea. 11. History of cocaine and marijuana abuse. 12. Poor dentition. 13. Tobaccoism. 14. Cholelithiasis without acute cholecystitis or biliary dilatation. Plan: Plan of Care 1. Continue meropenem and daptomycin renal dosing. 2. Follow up Gram-negative yuliya in blood cultures. 3. Follow up blood and urine cultures.Repeat blood cultures in a.m. 4. F/U C diff pcr 5. Continue wound care by wound team. 6. No urology service is available at [facility]. Attempts were made to transfer to per team. He was not accepted at this time. 7. Continue supportive care. D/W DELBERT SMITH MD Aug 29, 2019 09:39
[2019-08-29] MEDS: VANCOMYCIN 125 MG/2.5 ML ORAL SOLUTION. PO SCH ×4 (09:52→20:05)
[2019-08-29] MEDS: HEPARIN for SUB-Q USE 5,000 UNIT/ML VIAL. SQ SCH ×2 (09:53→20:16)
[2019-08-29 10:34] LABS: BASO % 0 % (0-3); EOS % 0 % (0-3); HEMATOCRIT 27.3 % (39.0-53.0); HEMOGLOBIN 9.1 g/dL (13.0-17.5); LYMPH # 0.9 x10^3/uL (1.0-4.8); LYMPH % 8 % (24-48); MEAN CORPUSCULAR HEMOGLOBIN 26 pg (25-35); MEAN CORPUSCULAR HGB CONC 33 g/dL (31-37); MEAN CORPUSCULAR VOLUME 79 fL (79-100); MONO # 0.4 x10^3/uL (0.0-1.1); MONO % 4 % (0-9); NEUT # 9.7 x10^3/uL (1.8-7.7); NEUT % 88 % (31-73); PLATELET COUNT 175 x10^3/uL (140-400); RED BLOOD COUNT 3.45 x10^6/uL (4.30-5.70); RED CELL DISTRIBUTION WIDTH 16.2 % (11.5-14.5)
[2019-08-29 10:37] LABS: ALBUMIN 1.5 g/dL (3.4-5.0); CALCIUM 6.8 mg/dL (8.5-10.1); CREATININE 1.7 mg/dL (0.7-1.3); GFR 53.2; PHOSPHORUS 3.2 mg/dL (2.6-4.7); POTASSIUM 3.1 mmol/L (3.5-5.1)
[2019-08-29 12:01] VITALS: BP 114/69
--- NOTE | 2019-08-29 12:03 | PDOC ---
SUBJECTIVE ROS Stable, No new concerns, No N/V OBJECTIVE Vital Signs Vital Signs Date Time Temp Pulse Resp B/P (MAP) Pulse Ox O2 Delivery O2 Flow Rate FiO2 08/29/19 07:07 97.7 96 16 107/67 (80) 99 Room Air 97.7 I & 0 Intake and Output 08/29/19 06:59 Intake Total 1500 ml Output Total 1950 ml Balance -450 ml Intake Oral 1500 ml Output Urine Total 1950 ml # Bowel Movements 4 PHYSICAL EXAM Physical Exam GEN: NAD HEEN- OM dry NECK: supple CVS: S1S2 , No rub RESP: CTA, No Acc. Muscle Use GI: BS + ve, NO Bruit, Non Tender, Non Distended : [No CVA tenderness, No Suprapubic Tenderness, Geiger + NEURO- Grossly normal, No Asterexis Skin No Rash DIAGNOSIS/ASSESSMENT Assessment & Plan VENANCIO - ATN sec to Dehydration,poor PO intake,illicit drug use ? PRUITT - Hydronephrosis Non Oliguric , good UOP , Renal function improving Renal US Bilat Hydronephrosis Rt > Lt avoid nephrotoxins , Strict I/O , Bilat Hydronephrosis- Urology consult placed Urologist Not available at [facility], [place] refused to accept the patient UOP good, Monitor Hyperkalemia- recd Kayexalate in the ER Now Hypokalemia-- replace per protocol Hypo Na- Na corrected with IVF Metabolic acidosis- sec to VENANCIO , resolved Hypotensive - resolved with IVF Depression with suicidal ideation DM2 Hx of cocaine and marijuana abuse COMMENT/RELEVANT DATA Meds Current Medications Medications (Trade) Dose Ordered Sig/Dez Start Time Stop Time Status Last Admin Dose Admin Acetaminophen (Tylenol) 650 mg Q6H PRN 08/27/19 09:45 08/28/19 23:13 650 MG Calcium Gluconate (Calcium Gluconate) 1,000 mg 1X ONCE 08/27/19 12:45 08/27/19 12:46 DC Ceftriaxone Sodium (Rocephin) 1 gm 1X ONCE 08/27/19 12:00 08/27/19 12:01 DC 08/27/19 13:14 1 GM Daptomycin 200 mg/ Sodium Chloride 50 ml @ 100 mls/hr Q48H 08/27/19 17:00 08/27/19 18:29 100 MLS/HR Dextrose (Dextrose 50%-Water Syringe) 12.5 gm PRN Q15MIN PRN 08/28/19 12:30 UNV Dobutamine HCl/ Dextrose 250 ml @ 0 mls/hr CONT PRN 08/27/19 12:45 08/29/19 11:48 DC Famotidine (Pepcid Vial) 20 mg DAILY 08/27/19 10:00 08/29/19 09:34 20 MG Heparin Sodium (Porcine) (Heparin Sodium) 5,000 unit Q12HR 08/27/19 10:00 08/29/19 09:53 5,000 UNIT Influenza Virus Vaccine Quadrival (Afluria Quad 2018- (3yr Up) Syringe) 0.5 ml ONCE ONCE 08/28/19 09:00 08/28/19 09:01 DC 08/28/19 09:01 0.5 ML Info (Icu Electrolyte Protocol) 1 ea DAILY 08/28/19 09:00 08/29/19 10:09 DC Insulin Human Lispro (HumaLOG) 0-7 UNITS TIDWMEALS 08/28/19 12:30 08/28/19 12:49 6 UNITS Insulin Human Regular (HumuLIN R VIAL) 10 unit 1X ONCE 08/27/19 08:45 08/27/19 08:46 DC 08/27/19 11:23 10 UNIT Lactobacillus Rhamnosus (Culturelle) 1 cap BID 08/27/19 21:00 08/29/19 09:34 1 CAP Lidocaine HCl (Buffered Lidocaine 1%) 6 ml 1X ONCE 08/27/19 14:30 08/27/19 14:31 DC 08/27/19 14:51 4 ML Meropenem 1 gm/ Sodium Chloride 100 ml @ 200 mls/hr Q8HRS 08/27/19 14:00 UNV Meropenem 500 mg/ Sodium Chloride 50 ml @ 100 mls/hr Q12HR 08/27/19 21:00 08/29/19 09:35 100 MLS/HR Multivitamins/ Minerals (I-Carly) 1 tab DAILY 08/27/19 10:00 08/29/19 09:33 1 TAB Norepinephrine Bitartrate 250 ml @ 0 mls/hr CONT PRN 08/27/19 12:45 08/29/19 11:48 DC Paroxetine HCl (Paxil) 10 mg DAILY 08/29/19 09:00 08/29/19 09:33 10 MG Pharmacy Consult (C.diff Med Screen By Rx) 1 each 1X ONCE 08/27/19 13:15 08/27/19 13:16 UNV Phytonadione (Mephyton Oral Soln) 5 mg 1X ONCE 08/27/19 10:00 08/27/19 10:01 DC 08/27/19 14:00 5 MG Potassium Chloride (Klor-Con) 40 meq 1X ONCE 08/28/19 07:30 08/28/19 07:31 DC 08/28/19 08:41 40 MEQ Quetiapine Fumarate (SEROquel) 50 mg HS 08/28/19 21:00 08/28/19 23:13 50 MG Sodium Bicarbonate 150 meq/Dextrose 1,150 ml @ 100 mls/hr [id number] 08/27/19 14:30 08/29/19 05:23 100 MLS/HR Sodium Polystyrene Sulfonate (Kayexalate) 30 gm 1X ONCE 08/27/19 08:45 08/27/19 08:46 DC 08/27/19 10:37 30 GM Sodium Bicarbonate (Sodium Bicarb Adult 8.4% Syr) 50 meq 1X ONCE 08/27/19 08:45 08/27/19 08:46 DC 08/27/19 10:35 50 MEQ Sodium Chloride 500 ml @ 1,000 mls/hr PRN Q30MIN PRN 08/27/19 12:45 Sodium Chloride (Normal Saline Flush) 3 ml QSHIFT PRN 08/27/19 09:45 Thiamine Mononitrate (Vitamin B-1) 100 mg DAILY 08/27/19 10:00 08/29/19 09:34 100 MG Vancomycin HCl (Vancomycin Oral Solution) 125 mg [id number] 08/29/19 09:00 08/29/19 09:52 125 MG Lab Laboratory Tests Test 08/28/19 12:17 08/28/19 17:05 08/28/19 17:28 08/28/19 20:36 Glucose (Fingerstick) 265 mg/dL (70-99) 32 mg/dL (70-99) 130 mg/dL (70-99) 58 mg/dL (70-99) Test 08/28/19 21:01 08/28/19 21:56 08/29/19 08:45 Glucose (Fingerstick) 62 mg/dL (70-99) 105 mg/dL (70-99) White Blood Count 11.0 x10^3/uL (4.0-11.0) Red Blood Count 3.45 x10^6/uL (4.30-5.70) Hemoglobin 9.1 g/dL (13.0-17.5) Hematocrit 27.3 % (39.0-53.0) Mean Corpuscular Volume 79 fL (79-100) Mean Corpuscular Hemoglobin 26 pg (25-35) Mean Corpuscular Hemoglobin Concent 33 g/dL (31-37) Red Cell Distribution Width 16.2 % (11.5-14.5) Platelet Count 175 x10^3/uL (140-400) Neutrophils (%) (Auto) 88 % (31-73) Lymphocytes (%) (Auto) 8 % (24-48) Monocytes (%) (Auto) 4 % (0-9) Eosinophils (%) (Auto) 0 % (0-3) Basophils (%) (Auto) 0 % (0-3) Neutrophils # (Auto) 9.7 x10^3/uL (1.8-7.7) Lymphocytes # (Auto) 0.9 x10^3/uL (1.0-4.8) Monocytes # (Auto) 0.4 x10^3/uL (0.0-1.1) Eosinophils # (Auto) 0.0 x10^3/uL (0.0-0.7) Basophils # (Auto) 0.0 x10^3/uL (0.0-0.2) Sodium Level 143 mmol/L (136-145) Potassium Level 3.1 mmol/L (3.5-5.1) Chloride Level 107 mmol/L (98-107) Carbon Dioxide Level 22 mmol/L (21-32) Anion Gap 14 (6-14) Blood Urea Nitrogen 82 mg/dL (8-26) Creatinine 1.7 mg/dL (0.7-1.3) Estimated GFR (Cockcroft-Gault) 53.2 Glucose Level 170 mg/dL (70-99) Calcium Level 6.8 mg/dL (8.5-10.1) Phosphorus Level 3.2 mg/dL (2.6-4.7) Albumin 1.5 g/dL (3.4-5.0) Results All relevant outside records, renal labs, imaging studies, telemetry/EKG's were reviewed. PETTY FERRIS MD Aug 29, 2019 12:03
[2019-08-29] MEDS: NORMAL SALINE IV SCH (16:20)
[2019-08-29] MEDS: DAPTOMYCIN IV SCH (16:20)
[2019-08-29] MEDS: ACETAMINOPHEN 325 MG TABLET. PO PRN (16:21)
[2019-08-29 16:27] VITALS: BP 118/75
[2019-08-29 19:00] VITALS: BP 150/87
[2019-08-29] MEDS: QUEtiapine 25 MG TABLET. PO SCH (20:05)
[2019-08-29 22:44] VITALS: BP 152/88
[2019-08-30 03:30] VITALS: BP 137/86
[2019-08-30 04:27] LABS: BASO # 0.1 x10^3/uL (0.0-0.2); BASO % 0 % (0-3); EOS % 0 % (0-3); HEMATOCRIT 26.3 % (39.0-53.0); HEMOGLOBIN 8.6 g/dL (13.0-17.5); LYMPH # 1.4 x10^3/uL (1.0-4.8); LYMPH % 10 % (24-48); MEAN CORPUSCULAR HEMOGLOBIN 26 pg (25-35); MEAN CORPUSCULAR HGB CONC 33 g/dL (31-37); MEAN CORPUSCULAR VOLUME 80 fL (79-100); MONO # 0.6 x10^3/uL (0.0-1.1); MONO % 5 % (0-9); NEUT # 11.9 x10^3/uL (1.8-7.7); NEUT % 85 % (31-73); PLATELET COUNT 140 x10^3/uL (140-400); RED BLOOD COUNT 3.28 x10^6/uL (4.30-5.70); RED CELL DISTRIBUTION WIDTH 16.4 % (11.5-14.5)
[2019-08-30 04:43] LABS: ALBUMIN 1.4 g/dL (3.4-5.0); CALCIUM 6.9 mg/dL (8.5-10.1); CREATININE 1.5 mg/dL (0.7-1.3); GFR 61.5; PHOSPHORUS 2.2 mg/dL (2.6-4.7)
[2019-08-30 05:03] LABS: POTASSIUM 2.7 mmol/L (3.5-5.1)
[2019-08-30] MEDS ORDERED: POTASSIUM CHLORIDE 20 MEQ TABLET.ER. PO ONE (05:30)
[2019-08-30] MEDS: POTASSIUM CHLORIDE 10MEQ 100 ML IV SCH ×4 (05:53→15:19)
[2019-08-30] MEDS: SODIUM BICARBONATE VIAL 150 MEQ in IV DEXTROSE 5% 1,000 ML IV SCH ×2 (05:54→12:56)
[2019-08-30 06:47] VITALS: BP 123/82
[2019-08-30] MEDS: INSULIN LISPRO 300 UNITS/3 ML VIAL. SQ SCH ×3 (08:00→16:37)
--- NOTE | 2019-08-30 08:49 | RAD ---
Procedure: Ultrasound-guided placement of right internal jugular central venous [id number]/21/2019 6:45 AM Clinical Indication: ARF - TEMPORARY HD CATHETER PLACEMENT Discussion: The risks and benefits of the procedure were discussed the patient and/or their admissions representative. Informed consent was obtained. A timeout procedure was performed. All elements of maximal sterile barrier technique including the use of a cap, mask, sterile gown, sterile gloves, large sterile sheet, appropriate hand hygiene, and 2% chlorhexidine for cutaneous antisepsis (or acceptable alternative antiseptic per current guidelines) were followed for this procedure. The patient was prepped and draped in the usual sterile fashion. Ultrasound interrogation of the right neck revealed occlusion of the right internal jugular vein. Ultrasound evaluation of the left neck revealed patency of the left internal jugular vein. A 21-gauge micropuncture was then used to gain access to the left internal jugular vein under ultrasound guidance. A hard copy ultrasound image was recorded. A guidewire was advanced centrally. 5 Upper Sorbian sheath was placed. Over a wire following dilatation, a temporary dialysis catheter was advanced centrally. Catheter was found to flush and aspirate normally. Follow-up chest radiograph demonstrates tip at the cavoatrial junction. Catheter secured in place and a sterile dressing was applied. No immediate complications were identified. Impression: Successful ultrasound-guided placement of left internal jugular temporary dialysis catheter
[2019-08-30] MEDS: FAMOTIDINE 20 MG TABLET. PO SCH (09:18)
[2019-08-30] MEDS: THIAMINE 100 MG TABLET. PO SCH (09:19)
[2019-08-30] MEDS: ACETAMINOPHEN 325 MG TABLET. PO PRN (09:19)
[2019-08-30] MEDS: VANCOMYCIN 125 MG/2.5 ML ORAL SOLUTION. PO SCH ×4 (09:19→20:46)
[2019-08-30] MEDS: LACTOBACILLUS RHAMNOSUS GG 1 CAPSULE. PO SCH ×2 (09:19→20:46)
[2019-08-30] MEDS: MEROPENEM 500 MG in IV NORMAL SALINE 50ML 50 ML IV SCH ×2 (09:19→20:51)
[2019-08-30] MEDS: PARoxetine 10 MG TABLET PO SCH (09:19)
[2019-08-30] MEDS: MULTIVITAMIN I-VITE TABLET. PO SCH (09:19)
[2019-08-30] MEDS: HEPARIN for SUB-Q USE 5,000 UNIT/ML VIAL. SQ SCH ×2 (09:28→20:50)
--- NOTE | 2019-08-30 09:47 | PDOC ---
PROGRESS NOTES Chief Complaint Chief Complaint Acute renal failure Obstructive uropathy Severe sepsis c diff positive Severe malnutrition, BMI 13.8 - ALBUMIN 1,8 Diabetes 2, very poor care Peripheral vascular disease, s/p AKA Sacral and leg wounds, poor self care, cellulitis and poss further infection Depression, reports suicidal Bipolar HYperkalemia, now HYPOKALEMIA LEukocytosis 14 History of Present Illness History of Present Illness HE has no complaints Came from home but clearly needs more than that -agreeable to SN[facility] S[facility]ter at [facility] - PAT team re eval Still some diarrhea, c diff pos- ON pO vanc, dapto, merrem per ID WBC 14 but no fevers ALBUMIN 1.4 CReat down to 1.5 from 2 + PLAN: SW SNU COnt contact isol and pO vanc COnt IV abx per ID MAintain zimmerman - sacral wounds and still loose BM NEeds pat re avl so we can dc sitter if appropriate - isaiah Tello Vitals Vitals Vital Signs Date Time Temp Pulse Resp B/P (MAP) Pulse Ox O2 Delivery O2 Flow Rate FiO2 08/30/19 08:00 Room Air 08/30/19 06:47 98.0 103 18 123/82 (96) 99 98.0 Physical Exam Physical Exam GENERAL: Cachectic, thin male, lying in bed, cooperative, appears comfortable, in no acute distress. HEENT: Anicteric. Poor dentition. No thrush. Oral mucosa moist. NECK: HDC catheter looks okay. LUNGS: Clear. HEART: S1, S2. ABDOMEN: Soft, nontender, nondistended. GENITOURINARY: Zimmerman in place. Groin dry skin. EXTREMITIES: Right AKA. SKIN: Multiple wounds lower extremities, no evidence of infection, multiple abrasions, wound descriptions noted from pictures in the chart over the back, no purulent drainage noted, unstageable. NEUROLOGIC: Alert, oriented, grossly nonfocal. PSYCHIATRY: Awake, alert, cooperative. General: Alert, Oriented X3, Cooperative, No acute distress, Other (cachectic) Heart: Regular rate (SR), Normal S1, Normal S2, No murmurs, Other Lungs: Clear Abdomen: Soft, Other (hyperactive bowel sounds) Extremities: No cyanosis, No edema Skin: Other (multiple pressure ulcers) Labs LABS Laboratory Tests Test 08/29/19 11:46 08/29/19 16:21 08/29/19 20:04 08/30/19 04:10 Glucose (Fingerstick) 196 mg/dL (70-99) 118 mg/dL (70-99) 118 mg/dL (70-99) White Blood Count 14.0 x10^3/uL (4.0-11.0) Red Blood Count 3.28 x10^6/uL (4.30-5.70) Hemoglobin 8.6 g/dL (13.0-17.5) Hematocrit 26.3 % (39.0-53.0) Mean Corpuscular Volume 80 fL (79-100) Mean Corpuscular Hemoglobin 26 pg (25-35) Mean Corpuscular Hemoglobin Concent 33 g/dL (31-37) Red Cell Distribution Width 16.4 % (11.5-14.5) Platelet Count 140 x10^3/uL (140-400) Neutrophils (%) (Auto) 85 % (31-73) Lymphocytes (%) (Auto) 10 % (24-48) Monocytes (%) (Auto) 5 % (0-9) Eosinophils (%) (Auto) 0 % (0-3) Basophils (%) (Auto) 0 % (0-3) Neutrophils # (Auto) 11.9 x10^3/uL (1.8-7.7) Lymphocytes # (Auto) 1.4 x10^3/uL (1.0-4.8) Monocytes # (Auto) 0.6 x10^3/uL (0.0-1.1) Eosinophils # (Auto) 0.0 x10^3/uL (0.0-0.7) Basophils # (Auto) 0.1 x10^3/uL (0.0-0.2) Sodium Level 142 mmol/L (136-145) Potassium Level 2.7 mmol/L (3.5-5.1) Chloride Level 105 mmol/L (98-107) Carbon Dioxide Level 27 mmol/L (21-32) Anion Gap 10 (6-14) Blood Urea Nitrogen 54 mg/dL (8-26) Creatinine 1.5 mg/dL (0.7-1.3) Estimated GFR (Cockcroft-Gault) 61.5 Glucose Level 181 mg/dL (70-99) Calcium Level 6.9 mg/dL (8.5-10.1) Phosphorus Level 2.2 mg/dL (2.6-4.7) Albumin 1.4 g/dL (3.4-5.0) Test 08/30/19 04:21 08/30/19 06:52 Glucose (Fingerstick) 164 mg/dL (70-99) 148 mg/dL (70-99) Review of Systems Review of Systems diarrhea, not suicidal currently, lakeshia rest 14 pt neg, dw him 14 pt Assessment and Plan Assessmemt and Plan Problems Medical Problems: (1) Hyperkalemia Status: Acute (2) Hypermagnesemia Status: Acute (3) Hyperphosphatemia Status: Acute (4) Hypoalbuminemia Status: Acute (5) Hypocalcemia Status: Acute (6) Hyponatremia Status: Acute (7) Metabolic acidosis Status: Acute (8) Suicidal ideation Status: Acute Comment Review of Relevant I have reviewed the following items anisa (where applicable) has been applied. Labs Laboratory Tests Test 08/28/19 12:17 08/28/19 17:05 08/28/19 17:28 08/28/19 20:36 Glucose (Fingerstick) 265 mg/dL (70-99) 32 mg/dL (70-99) 130 mg/dL (70-99) 58 mg/dL (70-99) Test 08/28/19 21:01 08/28/19 21:56 08/29/19 07:13 08/29/19 08:45 Glucose (Fingerstick) 62 mg/dL (70-99) 105 mg/dL (70-99) 129 mg/dL (70-99) White Blood Count 11.0 x10^3/uL (4.0-11.0) Red Blood Count 3.45 x10^6/uL (4.30-5.70) Hemoglobin 9.1 g/dL (13.0-17.5) Hematocrit 27.3 % (39.0-53.0) Mean Corpuscular Volume 79 fL (79-100) Mean Corpuscular Hemoglobin 26 pg (25-35) Mean Corpuscular Hemoglobin Concent 33 g/dL (31-37) Red Cell Distribution Width 16.2 % (11.5-14.5) Platelet Count 175 x10^3/uL (140-400) Neutrophils (%) (Auto) 88 % (31-73) Lymphocytes (%) (Auto) 8 % (24-48) Monocytes (%) (Auto) 4 % (0-9) Eosinophils (%) (Auto) 0 % (0-3) Basophils (%) (Auto) 0 % (0-3) Neutrophils # (Auto) 9.7 x10^3/uL (1.8-7.7) Lymphocytes # (Auto) 0.9 x10^3/uL (1.0-4.8) Monocytes # (Auto) 0.4 x10^3/uL (0.0-1.1) Eosinophils # (Auto) 0.0 x10^3/uL (0.0-0.7) Basophils # (Auto) 0.0 x10^3/uL (0.0-0.2) Sodium Level 143 mmol/L (136-145) Potassium Level 3.1 mmol/L (3.5-5.1) Chloride Level 107 mmol/L (98-107) Carbon Dioxide Level 22 mmol/L (21-32) Anion Gap 14 (6-14) Blood Urea Nitrogen 82 mg/dL (8-26) Creatinine 1.7 mg/dL (0.7-1.3) Estimated GFR (Cockcroft-Gault) 53.2 Glucose Level 170 mg/dL (70-99) Calcium Level 6.8 mg/dL (8.5-10.1) Phosphorus Level 3.2 mg/dL (2.6-4.7) Albumin 1.5 g/dL (3.4-5.0) Test 08/29/19 11:46 08/29/19 16:21 08/29/19 20:04 08/30/19 04:10 Glucose (Fingerstick) 196 mg/dL (70-99) 118 mg/dL (70-99) 118 mg/dL (70-99) White Blood Count 14.0 x10^3/uL (4.0-11.0) Red Blood Count 3.28 x10^6/uL (4.30-5.70) Hemoglobin 8.6 g/dL (13.0-17.5) Hematocrit 26.3 % (39.0-53.0) Mean Corpuscular Volume 80 fL (79-100) Mean Corpuscular Hemoglobin 26 pg (25-35) Mean Corpuscular Hemoglobin Concent 33 g/dL (31-37) Red Cell Distribution Width 16.4 % (11.5-14.5) Platelet Count 140 x10^3/uL (140-400) Neutrophils (%) (Auto) 85 % (31-73) Lymphocytes (%) (Auto) 10 % (24-48) Monocytes (%) (Auto) 5 % (0-9) Eosinophils (%) (Auto) 0 % (0-3) Basophils (%) (Auto) 0 % (0-3) Neutrophils # (Auto) 11.9 x10^3/uL (1.8-7.7) Lymphocytes # (Auto) 1.4 x10^3/uL (1.0-4.8) Monocytes # (Auto) 0.6 x10^3/uL (0.0-1.1) Eosinophils # (Auto) 0.0 x10^3/uL (0.0-0.7) Basophils # (Auto) 0.1 x10^3/uL (0.0-0.2) Sodium Level 142 mmol/L (136-145) Potassium Level 2.7 mmol/L (3.5-5.1) Chloride Level 105 mmol/L (98-107) Carbon Dioxide Level 27 mmol/L (21-32) Anion Gap 10 (6-14) Blood Urea Nitrogen 54 mg/dL (8-26) Creatinine 1.5 mg/dL (0.7-1.3) Estimated GFR (Cockcroft-Gault) 61.5 Glucose Level 181 mg/dL (70-99) Calcium Level 6.9 mg/dL (8.5-10.1) Phosphorus Level 2.2 mg/dL (2.6-4.7) Albumin 1.4 g/dL (3.4-5.0) Test 08/30/19 04:21 08/30/19 06:52 Glucose (Fingerstick) 164 mg/dL (70-99) 148 mg/dL (70-99) Laboratory Tests Test 08/29/19 11:46 08/29/19 16:21 08/29/19 20:04 08/30/19 04:10 Glucose (Fingerstick) 196 mg/dL (70-99) 118 mg/dL (70-99) 118 mg/dL (70-99) White Blood Count 14.0 x10^3/uL (4.0-11.0) Red Blood Count 3.28 x10^6/uL (4.30-5.70) Hemoglobin 8.6 g/dL (13.0-17.5) Hematocrit 26.3 % (39.0-53.0) Mean Corpuscular Volume 80 fL (79-100) Mean Corpuscular Hemoglobin 26 pg (25-35) Mean Corpuscular Hemoglobin Concent 33 g/dL (31-37) Red Cell Distribution Width 16.4 % (11.5-14.5) Platelet Count 140 x10^3/uL (140-400) Neutrophils (%) (Auto) 85 % (31-73) Lymphocytes (%) (Auto) 10 % (24-48) Monocytes (%) (Auto) 5 % (0-9) Eosinophils (%) (Auto) 0 % (0-3) Basophils (%) (Auto) 0 % (0-3) Neutrophils # (Auto) 11.9 x10^3/uL (1.8-7.7) Lymphocytes # (Auto) 1.4 x10^3/uL (1.0-4.8) Monocytes # (Auto) 0.6 x10^3/uL (0.0-1.1) Eosinophils # (Auto) 0.0 x10^3/uL (0.0-0.7) Basophils # (Auto) 0.1 x10^3/uL (0.0-0.2) Sodium Level 142 mmol/L (136-145) Potassium Level 2.7 mmol/L (3.5-5.1) Chloride Level 105 mmol/L (98-107) Carbon Dioxide Level 27 mmol/L (21-32) Anion Gap 10 (6-14) Blood Urea Nitrogen 54 mg/dL (8-26) Creatinine 1.5 mg/dL (0.7-1.3) Estimated GFR (Cockcroft-Gault) 61.5 Glucose Level 181 mg/dL (70-99) Calcium Level 6.9 mg/dL (8.5-10.1) Phosphorus Level 2.2 mg/dL (2.6-4.7) Albumin 1.4 g/dL (3.4-5.0) Test 08/30/19 04:21 08/30/19 06:52 Glucose (Fingerstick) 164 mg/dL (70-99) 148 mg/dL (70-99) Microbiology 08/29/19 Blood Culture - Preliminary, Resulted NO GROWTH AFTER 1 DAY Medications Current Medications Sodium Chloride 1,000 ml @ 1,000 mls/hr Q1H IV Last administered on 08/27/19 08:40; Start 08/27/19 at 06:30; Stop 08/27/19 at 07:29; Status DC Calcium Gluconate (Calcium Gluconate) 1,000 mg 1X ONCE IVP Last administered on 08/27/19 10:36; Start 08/27/19 at 08:45; Stop 08/27/19 at 08:46; Status DC Sodium Bicarbonate (Sodium Bicarb Adult 8.4% Syr) 50 meq 1X ONCE IV Last administered on 08/27/19 10:35; Start 08/27/19 at 08:45; Stop 08/27/19 at 08:46; Status DC Dextrose (Dextrose 50%-Water Syringe) 25 gm 1X ONCE IV Last administered on 1 at 10:35; Start 08/27/19 at 08:45; Stop 08/27/19 at 08:46; Status DC Insulin Human Regular (HumuLIN R VIAL) 10 unit 1X ONCE IV Last administered on 08/27/19at 11:23; Start 08/27/19 at 08:45; Stop 08/27/19 at 08:46; Status DC Sodium Polystyrene Sulfonate (Kayexalate) 30 gm 1X ONCE PO Last administered on 08/27/19at 10:37; Start 08/27/19 at 08:45; Stop 08/27/19 at 08:46; Status DC Sodium Chloride 1,000 ml @ 1,000 mls/hr Q1H IV Last administered on 08/27/19at 10:36; Start 08/27/19 at 08:45; Stop 08/27/19 at 09:44; Status DC Acetaminophen (Tylenol) 650 mg Q6H PRN PO Headaches, Temp > 101.5' Last administered on 08/30/19at 09:19; Start 08/27/19 at 09:45 Famotidine (Pepcid Vial) 20 mg DAILY IVP Last administered on 08/29/19at 09:34; Start 08/27/19 at 10:00; Stop 08/29/19 at 14:17; Status DC Info (Icu Electrolyte Protocol) 1 ea DAILY MC ; Start 08/28/19 at 09:00; Stop 08/29/19 at 10:09; Status DC Heparin Sodium (Porcine) (Heparin Sodium) 5,000 unit Q12HR SQ Last administered on 08/30/19at 09:28; Start 08/27/19 at 10:00 Sodium Chloride (Normal Saline Flush) 3 ml QSHIFT PRN IV AFTER MEDS AND BLOOD DRAWS; Start 08/27/19 at 09:45 Thiamine Mononitrate (Vitamin B-1) 100 mg DAILY PO Last administered on 08/30/19at 09:19; Start 08/27/19 at 10:00 Multivitamins/ Minerals (I-Carly) 1 tab DAILY PO Last administered on 08/30/19at 09:19; Start 08/27/19 at 10:00 Phytonadione (Mephyton Oral Soln) 5 mg 1X ONCE PO Last administered on 08/27/19at 14:00; Start 08/27/19 at 10:00; Stop 08/27/19 at 10:01; Status DC Ceftriaxone Sodium (Rocephin) 1 gm 1X ONCE IVP Last administered on 08/27/19at 13:14; Start 08/27/19 at 12:00; Stop 08/27/19 at 12:01; Status DC Calcium Gluconate (Calcium Gluconate) 1,000 mg 1X ONCE IVP ; Start 08/27/19 at 12:45; Stop 08/27/19 at 12:46; Status DC Sodium Chloride 1,000 ml @ 1,650 mls/hr Q37M IV Last administered on 08/28/19at 02:03; Start 08/27/19 at 12:37; Stop 08/27/19 at 13:37; Status DC Sodium Chloride 500 ml @ 1,000 mls/hr PRN Q30MIN PRN IV SEE COMMENTS; Start 08/27/19 at 12:45 Meropenem 1 gm/ Sodium Chloride 100 ml @ 200 mls/hr Q8HRS IV ; Start 08/27/19 at 14:00; Status UNV Norepinephrine Bitartrate 250 ml @ 0 mls/hr CONT PRN IV SEE I/O RECORD; Start 08/27/19 at 12:45; Stop 08/29/19 at 11:48; Status DC Dobutamine HCl/ Dextrose 250 ml @ 0 mls/hr CONT PRN IV SEE I/O RECORD; Start 08/27/19 at 12:45; Stop 08/29/19 at 11:48; Status DC Meropenem 500 mg/ Sodium Chloride 50 ml @ 100 mls/hr Q8HRS IV Last administered on 08/27/19at 15:16; Start 08/27/19 at 14:00; Stop 08/27/19 at 16:26; Status DC Pharmacy Consult (C.diff Med Screen By Rx) 1 each 1X ONCE MC ; Start 08/27/19 at 13:15; Stop 08/27/19 at 13:16; Status UNV Influenza Virus Vaccine Quadrival (Afluria Quad 2019-20 (3yr Up) Syringe) 0.5 ml ONCE ONCE VAX IM Last administered on 08/28/19at 09:01; Start 08/28/19 at 09:00; Stop 08/28/19 at 09:01; Status DC Lactobacillus Rhamnosus (Culturelle) 1 cap BID PO Last administered on 08/30/19at 09:19; Start 08/27/19 at 21:00 Lidocaine HCl (Buffered Lidocaine 1%) 3 ml STK-MED ONCE .ROUTE ; Start 08/27/19 at 14:06; Stop 08/27/19 at 14:07; Status DC Dextrose (Dextrose 50%-Water Syringe) 12.5 gm PRN Q15MIN PRN IV SEE COMMENTS Last administered on 08/28/19at 17:14; Start 08/27/19 at 14:15 Lidocaine HCl (Buffered Lidocaine 1%) 6 ml 1X ONCE INJ Last administered on 08/27/19at 14:51; Start 08/27/19 at 14:30; Stop 08/27/19 at 14:31; Status DC Sodium Bicarbonate 150 meq/Dextrose 1,150 ml @ 100 mls/hr [id number] IV Last administered on 08/30/19at 05:54; Start 08/27/19 at 14:30 Meropenem 500 mg/ Sodium Chloride 50 ml @ 100 mls/hr 1X ONCE IV ; Start 08/27/19 at 15:45; Stop 08/27/19 at 16:14; Status UNV Daptomycin 200 mg/ Sodium Chloride 50 ml @ 100 mls/hr Q48H IV Last administered on 08/29/19at 16:20; Start 08/27/19 at 17:00 Meropenem 500 mg/ Sodium Chloride 50 ml @ 100 mls/hr Q12HR IV Last administered on 08/30/19at 09:19; Start 08/27/19 at 21:00 Potassium Chloride (Klor-Con) 40 meq 1X ONCE PO Last administered on 08/28/19at 08:41; Start 08/28/19 at 07:30; Stop 08/28/19 at 07:31; Status DC Insulin Human Lispro (HumaLOG) 0-7 UNITS TIDWMEALS SQ Last administered on 08/29/19at 12:25; Start 08/28/19 at 12:30 Dextrose (Dextrose 50%-Water Syringe) 12.5 gm PRN Q15MIN PRN IV SEE COMMENTS; Start 08/28/19 at 12:30; Status UNV Paroxetine HCl (Paxil) 10 mg DAILY PO Last administered on 08/30/19at 09:19; Start 08/29/19 at 09:00 Quetiapine Fumarate (SEROquel) 50 mg HS PO Last administered on 08/29/19at 20:05; Start 08/28/19 at 21:00 Vancomycin HCl (Vancomycin Oral Solution) 125 mg [id number] PO Last administered on 08/30/19at 09:19; Start 08/29/19 at 09:00 Famotidine (Pepcid) 20 mg DAILY PO Last administered on 08/30/19at 09:18; Start 08/30/19 at 09:00 Potassium Chloride (Klor-Con) 40 meq 1X ONCE PO Last administered on 08/30/19at 05:53; Start 08/30/19 at 05:30; Stop 08/30/19 at 05:31; Status DC Potassium Chloride/Water 100 ml @ 100 mls/hr Q1H IV Last administered on 08/30/19at 06:53; Start 08/30/19 at 05:30; Stop 08/30/19 at 09:32; Status DC Active Scripts Active Reported Tramadol Hcl 50 Mg Tablet 50 Mg PO Q6HRS PRN Flomax (Tamsulosin Hcl) 0.4 Mg Cap.er.24h 0.4 Mg PO DAILY Hydralazine Hcl 25 Mg Tablet 1 Tab PO TID Glipizide 5 Mg Tablet 1.5 Tab PO DAILY Vitamin D3 (Cholecalciferol (Vitamin D3)) 1,000 Unit Tablet 1 Tab PO DAILY Coreg (Carvedilol) 25 Mg Tablet 25 Mg PO BIDWMEALS Norvasc (Amlodipine Besylate) 10 Mg Tablet 10 Mg PO DAILY Vitals/I & O Vital Sign - Last 24 Hours 08/29/19 08/29/19 08/29/19 08/29/19 12:01 16:27 19:00 19:31 Temp 98.0 98.1 98.0 98.1 Pulse 110 113 100 Resp 18 16 18 B/P (MAP) 114/69 (84) 118/75 (89) 150/87 (108) Pulse Ox 99 100 O2 Delivery Room Air Room Air Room Air Room Air 08/29/19 08/30/19 08/30/19 08/30/19 22:44 03:30 06:47 08:00 Temp 97.8 97.9 98.0 97.8 97.9 98.0 Pulse 102 103 103 Resp 18 18 18 B/P (MAP) 152/88 (109) 137/86 (103) 123/82 (96) Pulse Ox 100 99 99 O2 Delivery Room Air Room Air Room Air Room Air Intake and Output 08/29/19 08/29/19 08/30/19 15:00 23:00 07:00 Intake Total 950 ml 1580 ml 1450 ml Output Total 975 ml 975 ml Balance 950 ml 605 ml 475 ml Nutrition Consultation Dietary Evaluation: Recommendations by RD: Increase Calorie Intake, Protein supplementation Comments: Continue w/ADA diet as ordered, will not add cardiac restriction at this time REC Glucerna TID REC Vit C 500 mg BID - wound healing Continue w/MVI Expected Outcomes/Goals: PO intake to meet >75% est needs Interpretation of weight loss: >7.5% in 3 months Malnutrition Findings: Food and Nutrition Intake (Mod: <75% est energy req 7days Weight Status: Underweight ELISABETH CRAWFORD MD Aug 30, 2019 09:47
--- NOTE | 2019-08-30 09:58 | PDOC ---
Infectious Disease Note Subjective: Subjective pt moved out of icu He says feels a little better hypothermia improved ROS: ROS Negative otherwise. Vital Signs: Vital Signs Vital Signs Date Time Temp Pulse Resp B/P (MAP) Pulse Ox O2 Delivery O2 Flow Rate FiO2 08/30/19 08:00 Room Air 08/30/19 06:47 98.0 103 18 123/82 (96) 99 98.0 Physical Exam: PHYSICAL EXAM GENERAL: Cachectic, thin male, lying in bed, cooperative, appears comfortable, in no acute distress. HEENT: Anicteric. Poor dentition. No thrush. Oral mucosa moist. NECK: HDC catheter looks okay. LUNGS: Clear. HEART: S1, S2. ABDOMEN: Soft, nontender, nondistended. GENITOURINARY: Geiger in place. Groin dry skin. EXTREMITIES: Right AKA. SKIN: Multiple wounds lower extremities, no evidence of infection, multiple abrasions, wound descriptions noted from pictures in the chart over the back, no purulent drainage noted, unstageable. NEUROLOGIC: Alert, oriented, grossly nonfocal. PSYCHIATRY: Awake, alert, cooperative. Medications: Inpatient Meds: Current Medications Medications (Trade) Dose Ordered Sig/Dez Start Time Stop Time Status Last Admin Dose Admin Acetaminophen (Tylenol) 650 mg Q6H PRN 08/27/19 09:45 08/30/19 09:19 650 MG Calcium Gluconate (Calcium Gluconate) 1,000 mg 1X ONCE 08/27/19 12:45 08/27/19 12:46 DC Ceftriaxone Sodium (Rocephin) 1 gm 1X ONCE 08/27/19 12:00 08/27/19 12:01 DC 08/27/19 13:14 1 GM Daptomycin 200 mg/ Sodium Chloride 50 ml @ 100 mls/hr Q48H 08/27/19 17:00 08/29/19 16:20 100 MLS/HR Dextrose (Dextrose 50%-Water Syringe) 12.5 gm PRN Q15MIN PRN 08/28/19 12:30 UNV Dobutamine HCl/ Dextrose 250 ml @ 0 mls/hr CONT PRN 08/27/19 12:45 08/29/19 11:48 DC Famotidine (Pepcid Vial) 20 mg DAILY 08/27/19 10:00 08/29/19 14:17 DC 08/29/19 09:34 20 MG Famotidine (Pepcid) 20 mg DAILY 08/30/19 09:00 08/30/19 09:18 20 MG Heparin Sodium (Porcine) (Heparin Sodium) 5,000 unit Q12HR 08/27/19 10:00 08/30/19 09:28 5,000 UNIT Influenza Virus Vaccine Quadrival (Afluria Quad 2019-20 (3yr Up) Syringe) 0.5 ml ONCE ONCE 08/28/19 09:00 08/28/19 09:01 DC 08/28/19 09:01 0.5 ML Info (Icu Electrolyte Protocol) 1 ea DAILY 08/28/19 09:00 08/29/19 10:09 DC Insulin Human Lispro (HumaLOG) 0-7 UNITS TIDWMEALS 08/28/19 12:30 08/29/19 12:25 3 UNITS Insulin Human Regular (HumuLIN R VIAL) 10 unit 1X ONCE 08/27/19 08:45 08/27/19 08:46 DC 08/27/19 11:23 10 UNIT Lactobacillus Rhamnosus (Culturelle) 1 cap BID 08/27/19 21:00 08/30/19 09:19 1 CAP Lidocaine HCl (Buffered Lidocaine 1%) 6 ml 1X ONCE 08/27/19 14:30 08/27/19 14:31 DC 08/27/19 14:51 4 ML Meropenem 1 gm/ Sodium Chloride 100 ml @ 200 mls/hr Q8HRS 08/27/19 14:00 UNV Meropenem 500 mg/ Sodium Chloride 50 ml @ 100 mls/hr Q12HR 08/27/19 21:00 08/30/19 09:19 100 MLS/HR Multivitamins/ Minerals (I-Carly) 1 tab DAILY 08/27/19 10:00 08/30/19 09:19 1 TAB Norepinephrine Bitartrate 250 ml @ 0 mls/hr CONT PRN 08/27/19 12:45 08/29/19 11:48 DC Paroxetine HCl (Paxil) 10 mg DAILY 08/29/19 09:00 08/30/19 09:19 10 MG Pharmacy Consult (C.diff Med Screen By Rx) 1 each 1X ONCE 08/27/19 13:15 08/27/19 13:16 UNV Phytonadione (Mephyton Oral Soln) 5 mg 1X ONCE 08/27/19 10:00 08/27/19 10:01 DC 08/27/19 14:00 5 MG Potassium Chloride/Water 100 ml @ 100 mls/hr Q1H 08/30/19 05:30 08/30/19 09:32 DC 08/30/19 06:53 100 MLS/HR Potassium Chloride (Klor-Con) 40 meq 1X ONCE 08/30/19 05:30 08/30/19 05:31 DC 08/30/19 05:53 40 MEQ Quetiapine Fumarate (SEROquel) 50 mg HS 08/28/19 21:00 08/29/19 20:05 50 MG Sodium Bicarbonate 150 meq/Dextrose 1,150 ml @ 100 mls/hr [id number] 08/27/19 14:30 08/30/19 05:54 100 MLS/HR Sodium Polystyrene Sulfonate (Kayexalate) 30 gm 1X ONCE 08/27/19 08:45 08/27/19 08:46 DC 08/27/19 10:37 30 GM Sodium Bicarbonate (Sodium Bicarb Adult 8.4% Syr) 50 meq 1X ONCE 08/27/19 08:45 08/27/19 08:46 DC 08/27/19 10:35 50 MEQ Sodium Chloride 500 ml @ 1,000 mls/hr PRN Q30MIN PRN 08/27/19 12:45 Sodium Chloride (Normal Saline Flush) 3 ml QSHIFT PRN 08/27/19 09:45 Thiamine Mononitrate (Vitamin B-1) 100 mg DAILY 08/27/19 10:00 08/30/19 09:19 100 MG Vancomycin HCl (Vancomycin Oral Solution) 125 mg [id number] 08/29/19 09:00 08/30/19 09:19 125 MG Labs: Lab Laboratory Tests Test 08/29/19 11:46 08/29/19 16:21 08/29/19 20:04 08/30/19 04:10 Glucose (Fingerstick) 196 mg/dL (70-99) 118 mg/dL (70-99) 118 mg/dL (70-99) White Blood Count 14.0 x10^3/uL (4.0-11.0) Red Blood Count 3.28 x10^6/uL (4.30-5.70) Hemoglobin 8.6 g/dL (13.0-17.5) Hematocrit 26.3 % (39.0-53.0) Mean Corpuscular Volume 80 fL (79-100) Mean Corpuscular Hemoglobin 26 pg (25-35) Mean Corpuscular Hemoglobin Concent 33 g/dL (31-37) Red Cell Distribution Width 16.4 % (11.5-14.5) Platelet Count 140 x10^3/uL (140-400) Neutrophils (%) (Auto) 85 % (31-73) Lymphocytes (%) (Auto) 10 % (24-48) Monocytes (%) (Auto) 5 % (0-9) Eosinophils (%) (Auto) 0 % (0-3) Basophils (%) (Auto) 0 % (0-3) Neutrophils # (Auto) 11.9 x10^3/uL (1.8-7.7) Lymphocytes # (Auto) 1.4 x10^3/uL (1.0-4.8) Monocytes # (Auto) 0.6 x10^3/uL (0.0-1.1) Eosinophils # (Auto) 0.0 x10^3/uL (0.0-0.7) Basophils # (Auto) 0.1 x10^3/uL (0.0-0.2) Sodium Level 142 mmol/L (136-145) Potassium Level 2.7 mmol/L (3.5-5.1) Chloride Level 105 mmol/L (98-107) Carbon Dioxide Level 27 mmol/L (21-32) Anion Gap 10 (6-14) Blood Urea Nitrogen 54 mg/dL (8-26) Creatinine 1.5 mg/dL (0.7-1.3) Estimated GFR (Cockcroft-Gault) 61.5 Glucose Level 181 mg/dL (70-99) Calcium Level 6.9 mg/dL (8.5-10.1) Phosphorus Level 2.2 mg/dL (2.6-4.7) Albumin 1.4 g/dL (3.4-5.0) Test 08/30/19 04:21 08/30/19 06:52 Glucose (Fingerstick) 164 mg/dL (70-99) 148 mg/dL (70-99) Objective: Assessment: 1. Sepsis with hypothermia present on admission, Gram-negative sepsis. 2. Gram-negative sepsis, source genitourinary and/or wounds. 3. Chronic nonhealing wounds. 4. Severe Depression with suicidal ideation present on admission. 5. Severe acute renal failure,hyperkalemia with metabolic acidosis. 6. Bilateral hydronephrosis. 7. Severe protein-calorie malnutrition. 8. Diabetes mellitus 2. 9. Right above-knee amputation for gangrene, 06/2019, at [facility]. 10. Diarrhea.C difficile 11. History of cocaine and marijuana abuse. 12. Poor dentition. 13. Tobaccoism. 14. Cholelithiasis without acute cholecystitis or biliary dilatation. Plan: Plan of Care 1. Continue meropenem and daptomycin renal dosing.cont po vanco 2. Follow up Gram-negative yuliya in blood cultures. 3. Follow up blood and urine cultures.Repeat blood cultures in a.m. 4. Continue wound care by wound team. 5. No urology service is available at [facility]. Attempts were made to transfer to per team. He was not accepted at this time. 6. Continue supportive care. D/W DELBERT SMITH MD Aug 30, 2019 09:58
[2019-08-30 11:00] VITALS: BP 153/95
--- NOTE | 2019-08-30 11:02 | PDOC ---
SUBJECTIVE ROS Stable, No new concerns, No N/V OBJECTIVE Vital Signs Vital Signs Date Time Temp Pulse Resp B/P (MAP) Pulse Ox O2 Delivery O2 Flow Rate FiO2 08/30/19 08:00 Room Air 08/30/19 06:47 98.0 103 18 123/82 (96) 99 98.0 I & 0 Intake and Output 08/30/19 07:00 Intake Total 3980 ml Output Total 1950 ml Balance 2030 ml Intake Oral 1680 ml IV Total 2300 ml Output Urine Total 1950 ml # Bowel Movements 19 PHYSICAL EXAM Physical Exam GEN: NAD HEEN- OM dry NECK: supple CVS: S1S2 , No rub RESP: CTA, No Acc. Muscle Use GI: BS + ve, NO Bruit, Non Tender, Non Distended : [No CVA tenderness, No Suprapubic Tenderness, Zimmerman + NEURO- Grossly normal, No Asterexis Skin No Rash DIAGNOSIS/ASSESSMENT Assessment & Plan VENANCIO - ATN sec to Dehydration,poor PO intake,illicit drug use ? PRUITT - Hydronephrosis Non Oliguric , good UOP , Renal function improving Renal US Bilat Hydronephrosis Rt > Lt avoid nephrotoxins , can remove zimmerman, Per RN pt ?incontinent - if so bladder scan to r/o urinary retention Bilat Hydronephrosis- Urology consult placed Urologist Not available at [facility], [facility] refused to accept the patient UOP good, repeat Renal US in am Hypokalemia-- replace per protocol Hypo Na- Na corrected with IVF Metabolic acidosis- sec to VENANCIO , resolved Hypotensive - resolved with IVF Depression with suicidal ideation DM2 Hx of cocaine and marijuana abuse COMMENT/RELEVANT DATA Meds Current Medications Medications (Trade) Dose Ordered Sig/Dez Start Time Stop Time Status Last Admin Dose Admin Acetaminophen (Tylenol) 650 mg Q6H PRN 08/27/19 09:45 08/30/19 09:19 650 MG Calcium Gluconate (Calcium Gluconate) 1,000 mg 1X ONCE 08/27/19 12:45 08/27/19 12:46 DC Ceftriaxone Sodium (Rocephin) 1 gm 1X ONCE 08/27/19 12:00 08/27/19 12:01 DC 08/27/19 13:14 1 GM Daptomycin 200 mg/ Sodium Chloride 50 ml @ 100 mls/hr Q48H 08/27/19 17:00 10/20/19 16:20 100 MLS/HR Dextrose (Dextrose 50%-Water Syringe) 12.5 gm PRN Q15MIN PRN 08/28/19 12:30 UNV Dobutamine HCl/ Dextrose 250 ml @ 0 mls/hr CONT PRN 08/27/19 12:45 08/29/19 11:48 DC Famotidine (Pepcid Vial) 20 mg DAILY 08/27/19 10:00 08/29/19 14:17 DC 08/29/19 09:34 20 MG Famotidine (Pepcid) 20 mg DAILY 08/30/19 09:00 08/30/19 09:18 20 MG Heparin Sodium (Porcine) (Heparin Sodium) 5,000 unit Q12HR 08/27/19 10:00 08/30/19 09:28 5,000 UNIT Influenza Virus Vaccine Quadrival (Afluria Quad 2019-20 (3yr Up) Syringe) 0.5 ml ONCE ONCE 08/28/19 09:00 08/28/19 09:01 DC 08/28/19 09:01 0.5 ML Info (Icu Electrolyte Protocol) 1 ea DAILY 08/28/19 09:00 08/29/19 10:09 DC Insulin Human Lispro (HumaLOG) 0-7 UNITS TIDWMEALS 08/28/19 12:30 08/29/19 12:25 3 UNITS Insulin Human Regular (HumuLIN R VIAL) 10 unit 1X ONCE 08/27/19 08:45 08/27/19 08:46 DC 08/27/19 11:23 10 UNIT Lactobacillus Rhamnosus (Culturelle) 1 cap BID 08/27/19 21:00 08/30/19 09:19 1 CAP Lidocaine HCl (Buffered Lidocaine 1%) 6 ml 1X ONCE 08/27/19 14:30 08/27/19 14:31 DC 08/27/19 14:51 4 ML Meropenem 1 gm/ Sodium Chloride 100 ml @ 200 mls/hr Q8HRS 08/27/19 14:00 UNV Meropenem 500 mg/ Sodium Chloride 50 ml @ 100 mls/hr Q12HR 08/27/19 21:00 08/30/19 09:19 100 MLS/HR Multivitamins/ Minerals (I-Carly) 1 tab DAILY 08/27/19 10:00 08/30/19 09:19 1 TAB Norepinephrine Bitartrate 250 ml @ 0 mls/hr CONT PRN 08/27/19 12:45 08/29/19 11:48 DC Paroxetine HCl (Paxil) 10 mg DAILY 08/29/19 09:00 08/30/19 09:19 10 MG Pharmacy Consult (C.diff Med Screen By Rx) 1 each 1X ONCE 08/27/19 13:15 08/27/19 13:16 UNV Phytonadione (Mephyton Oral Soln) 5 mg 1X ONCE 08/27/19 10:00 08/27/19 10:01 DC 08/27/19 14:00 5 MG Potassium Chloride/Water 100 ml @ 100 mls/hr Q1H 08/30/19 05:30 08/30/19 09:32 DC 08/30/19 06:53 100 MLS/HR Potassium Chloride (Klor-Con) 40 meq 1X ONCE 08/30/19 05:30 08/30/19 05:31 DC 08/30/19 05:53 40 MEQ Quetiapine Fumarate (SEROquel) 50 mg HS 08/28/19 21:00 08/29/19 20:05 50 MG Sodium Bicarbonate 150 meq/Dextrose 1,150 ml @ 100 mls/hr [id number] 08/27/19 14:30 08/30/19 05:54 100 MLS/HR Sodium Polystyrene Sulfonate (Kayexalate) 30 gm 1X ONCE 08/27/19 08:45 08/27/19 08:46 DC 08/27/19 10:37 30 GM Sodium Bicarbonate (Sodium Bicarb Adult 8.4% Syr) 50 meq 1X ONCE 08/27/19 08:45 08/27/19 08:46 DC 08/27/19 10:35 50 MEQ Sodium Chloride 500 ml @ 1,000 mls/hr PRN Q30MIN PRN 08/27/19 12:45 Sodium Chloride (Normal Saline Flush) 3 ml QSHIFT PRN 08/27/19 09:45 Thiamine Mononitrate (Vitamin B-1) 100 mg DAILY 08/27/19 10:00 08/30/19 09:19 100 MG Vancomycin HCl (Vancomycin Oral Solution) 125 mg [id number] 08/29/19 09:00 08/30/19 09:19 125 MG Lab Laboratory Tests Test 08/29/19 11:46 08/29/19 16:21 08/29/19 20:04 08/30/19 04:10 Glucose (Fingerstick) 196 mg/dL (70-99) 118 mg/dL (70-99) 118 mg/dL (70-99) White Blood Count 14.0 x10^3/uL (4.0-11.0) Red Blood Count 3.28 x10^6/uL (4.30-5.70) Hemoglobin 8.6 g/dL (13.0-17.5) Hematocrit 26.3 % (39.0-53.0) Mean Corpuscular Volume 80 fL (79-100) Mean Corpuscular Hemoglobin 26 pg (25-35) Mean Corpuscular Hemoglobin Concent 33 g/dL (31-37) Red Cell Distribution Width 16.4 % (11.5-14.5) Platelet Count 140 x10^3/uL (140-400) Neutrophils (%) (Auto) 85 % (31-73) Lymphocytes (%) (Auto) 10 % (24-48) Monocytes (%) (Auto) 5 % (0-9) Eosinophils (%) (Auto) 0 % (0-3) Basophils (%) (Auto) 0 % (0-3) Neutrophils # (Auto) 11.9 x10^3/uL (1.8-7.7) Lymphocytes # (Auto) 1.4 x10^3/uL (1.0-4.8) Monocytes # (Auto) 0.6 x10^3/uL (0.0-1.1) Eosinophils # (Auto) 0.0 x10^3/uL (0.0-0.7) Basophils # (Auto) 0.1 x10^3/uL (0.0-0.2) Sodium Level 142 mmol/L (136-145) Potassium Level 2.7 mmol/L (3.5-5.1) Chloride Level 105 mmol/L (98-107) Carbon Dioxide Level 27 mmol/L (21-32) Anion Gap 10 (6-14) Blood Urea Nitrogen 54 mg/dL (8-26) Creatinine 1.5 mg/dL (0.7-1.3) Estimated GFR (Cockcroft-Gault) 61.5 Glucose Level 181 mg/dL (70-99) Calcium Level 6.9 mg/dL (8.5-10.1) Phosphorus Level 2.2 mg/dL (2.6-4.7) Albumin 1.4 g/dL (3.4-5.0) Test 08/30/19 04:21 08/30/19 06:52 08/30/19 10:54 Glucose (Fingerstick) 164 mg/dL (70-99) 148 mg/dL (70-99) 263 mg/dL (70-99) Results All relevant outside records, renal labs, imaging studies, telemetry/EKG's were reviewed. PETTY FERRIS MD Aug 30, 2019 11:02
--- NOTE | 2019-08-30 11:03 | NUR ---
SS following up with discharge planning. Pt is currently 1:1. SS received reports of SI for pt. SS contacted PAT team for re-evaluation. PAT team assessed pt on Friday. SS met with pt to discuss SI and discharge planning. Pt is self pay pt and does not have skilled benefits at this time. When discussed pt denied SI and denied having a plan. Pt requesting to go home. Pt denied needing any services at home to include home health or hospice. Pt also denied need for inpatient mental health. SS notified pt that Chris from the PAT team was coming to reassess him. Pt's RN notified.
--- NOTE | 2019-08-30 11:21 | NUR ---
IP: Patient has + cdiff, requires contact + precautions.
--- NOTE | 2019-08-30 11:56 | NUR ---
Patient is non-compliant with ADA diet, patient insisting on double portion for lunch this shift. Addendum: 08/30/19 at 1157 by EMMA MARTIN RN Bracelet Former educated patient on importance of adhering to ADA diet, but patient refuses.
--- NOTE | 2019-08-30 12:00 | NUR ---
Patient accidently pulled peripheral IV out. office systems technology instructor and student Jonna attempted to insert new peripheral line in right arm, they were unsuccessful. Received order from Dr. Zhang for Midline catheter, received authorization also from Dr. Archuleta and Kavon Gomez. Awaiting [facility].
--- NOTE | 2019-08-30 12:59 | PDOC ---
Objective: Objective: Reviewed w/ nurse. Vital Signs: Vital Signs Date Time Temp Pulse Resp B/P (MAP) Pulse Ox O2 Delivery O2 Flow Rate FiO2 08/30/19 11:00 97.4 102 16 153/95 (114) 100 Room Air 97.4 Labs: Laboratory Tests Test 08/29/19 16:21 08/29/19 20:04 08/30/19 04:10 08/30/19 04:21 Glucose (Fingerstick) 118 mg/dL 118 mg/dL 164 mg/dL White Blood Count 14.0 x10^3/uL Red Blood Count 3.28 x10^6/uL Hemoglobin 8.6 g/dL Hematocrit 26.3 % Mean Corpuscular Volume 80 fL Mean Corpuscular Hemoglobin 26 pg Mean Corpuscular Hemoglobin Concent 33 g/dL Red Cell Distribution Width 16.4 % Platelet Count 140 x10^3/uL Neutrophils (%) (Auto) 85 % Lymphocytes (%) (Auto) 10 % Monocytes (%) (Auto) 5 % Eosinophils (%) (Auto) 0 % Basophils (%) (Auto) 0 % Neutrophils # (Auto) 11.9 x10^3/uL Lymphocytes # (Auto) 1.4 x10^3/uL Monocytes # (Auto) 0.6 x10^3/uL Eosinophils # (Auto) 0.0 x10^3/uL Basophils # (Auto) 0.1 x10^3/uL Sodium Level 142 mmol/L Potassium Level 2.7 mmol/L Chloride Level 105 mmol/L Carbon Dioxide Level 27 mmol/L Anion Gap 10 Blood Urea Nitrogen 54 mg/dL Creatinine 1.5 mg/dL Estimated GFR (Cockcroft-Gault) 61.5 Glucose Level 181 mg/dL Calcium Level 6.9 mg/dL Phosphorus Level 2.2 mg/dL Albumin 1.4 g/dL Test 08/30/19 06:52 08/30/19 10:54 Glucose (Fingerstick) 148 mg/dL 263 mg/dL PE: having central line placed A/P: Suicidal ideation, multiple wounds GNR bacteremia - atbx per ID C Diff Anemia, hypokalemia, VENANCIO, hydronephrosis - urology not available here, attempted to transfer to /not accepted -- Continue vanco and acid-therapeutic activities services worker. NENA ARCINIEGA Aug 30, 2019 12:59
--- NOTE | 2019-08-30 13:15 | NUR ---
Chris from PAT team here to evaluate patient, patient no longer suicidal, notified [facility] and received order to discontinue the 1:1, message left for nursing shipping track supervisor to notify.
--- NOTE | 2019-08-30 13:20 | NUR ---
Patient continues to be non-compliant with food choices, even after newspaper writer educates on importance of diabetic diet.
--- NOTE | 2019-08-30 13:21 | NUR ---
SS following up with discharge planning. SS received phone contact from Chris with the PAT team stating that pt denies SI and denies having a plan. Chris reported that pt's mom a few weeks ago and pt is struggling with some depression. Chris reported that pt is starting on Celexa. He also reported that pt was giving referrals and resources to the [facility] for follow up care. Chris reported that pt denied needing hospice services and is requesting to go home.
[2019-08-30] MEDS: CITALOPRAM 10 MG TABLET. PO SCH (13:26)
[2019-08-30 14:34] VITALS: BP 148/97
--- NOTE | 2019-08-30 17:32 | NUR ---
wound care patient seen per wound care consult. see wound assessment, patient has multiple pressure ulcers that area dry slough, the areas were painted with Betadine at this time and foam dressings applied over, recommendations of changing every 3 days. patients bilateral buttocks area unstable pressure ulcers with denuded skin around, recommendations of A & D ointment. Patient having loose stools, brief changed at this time. patient currently on P500 bed, and needs to be turning every 2 hours, patient wanted to stay on his back at this time. patients heel in an off-loading position at this time. educated patient about turning every 2 hours.
[2019-08-30 19:00] VITALS: BP 202/122
[2019-08-30] MEDS: ALPRAZolam 0.5 MG TABLET PO PRN (19:39)
[2019-08-30] MEDS: QUEtiapine 25 MG TABLET. PO SCH (20:46)
[2019-08-30 23:00] VITALS: BP 123/69
[2019-08-31] MEDS: SODIUM BICARBONATE VIAL 150 MEQ in IV DEXTROSE 5% 1,000 ML IV SCH ×3 (00:25→22:00)
[2019-08-31 03:00] VITALS: BP 122/83
[2019-08-31 07:00] VITALS: BP 146/94
--- NOTE | 2019-08-31 08:12 | PDOC ---
Infectious Disease Note Subjective: Subjective He says feels better no complaints diarrhea improving ROS: ROS Negative otherwise. Vital Signs: Vital Signs Vital Signs Date Time Temp Pulse Resp B/P (MAP) Pulse Ox O2 Delivery O2 Flow Rate FiO2 08/31/19 03:00 97.8 91 18 122/83 (96) 95 Room Air 97.8 Physical Exam: PHYSICAL EXAM GENERAL: Cachectic, thin male, lying in bed, cooperative, appears comfortable, in no acute distress. HEENT: Anicteric. Poor dentition. No thrush. Oral mucosa moist. NECK: HDC catheter looks okay. LUNGS: Clear. HEART: S1, S2. ABDOMEN: Soft, nontender, nondistended. GENITOURINARY: Geiger in place. Groin dry skin. EXTREMITIES: Right AKA. SKIN: Multiple wounds lower extremities, no evidence of infection, multiple abrasions, wound descriptions noted from pictures in the chart over the back, no purulent drainage noted, unstageable. NEUROLOGIC: Alert, oriented, grossly nonfocal. PSYCHIATRY: Awake, alert, cooperative. Medications: Inpatient Meds: Current Medications Medications (Trade) Dose Ordered Sig/Dez Start Time Stop Time Status Last Admin Dose Admin Acetaminophen (Tylenol) 650 mg Q6H PRN 08/27/19 09:45 08/30/19 09:19 650 MG Alprazolam (Xanax) 0.5 mg PRN DAILY PRN 08/30/19 19:30 08/30/19 19:39 0.5 MG Aspirin (Ecotrin) 81 mg [id number] 08/31/19 08:00 Calcium Gluconate (Calcium Gluconate) 1,000 mg 1X ONCE 08/27/19 12:45 08/27/19 12:46 DC Ceftriaxone Sodium (Rocephin) 1 gm 1X ONCE 08/27/19 12:00 08/27/19 12:01 DC 08/27/19 13:14 1 GM Citalopram Hydrobromide (CeleXA) 10 mg DAILY 08/31/19 09:00 UNV Daptomycin 200 mg/ Sodium Chloride 50 ml @ 100 mls/hr Q48H 08/27/19 17:00 08/29/19 16:20 100 MLS/HR Dextrose (Dextrose 50%-Water Syringe) 12.5 gm PRN Q15MIN PRN 08/28/19 12:30 UNV Dobutamine HCl/ Dextrose 250 ml @ 0 mls/hr CONT PRN 08/27/19 12:45 08/29/19 11:48 DC Famotidine (Pepcid Vial) 20 mg DAILY 08/27/19 10:00 08/29/19 14:17 DC 08/29/19 09:34 20 MG Famotidine (Pepcid) 20 mg DAILY 08/30/19 09:00 08/30/19 09:18 20 MG Heparin Sodium (Porcine) (Heparin Sodium) 5,000 unit Q12HR 08/27/19 10:00 08/30/19 20:50 5,000 UNIT Influenza Virus Vaccine Quadrival (Afluria Quad 2019-20 (3yr Up) Syringe) 0.5 ml ONCE ONCE 08/28/19 09:00 08/28/19 09:01 DC 08/28/19 09:01 0.5 ML Info (Icu Electrolyte Protocol) 1 ea DAILY 08/28/19 09:00 08/29/19 10:09 DC Insulin Human Lispro (HumaLOG) 0-7 UNITS TIDWMEALS 08/28/19 12:30 08/30/19 11:37 6 UNITS Insulin Human Regular (HumuLIN R VIAL) 10 unit 1X ONCE 08/27/19 08:45 08/27/19 08:46 DC 08/27/19 11:23 10 UNIT Lactobacillus Rhamnosus (Culturelle) 1 cap BID 08/27/19 21:00 08/30/19 20:46 1 CAP Lidocaine HCl (Buffered Lidocaine 1%) 6 ml 1X ONCE 08/27/19 14:30 08/27/19 14:31 DC 08/27/19 14:51 4 ML Meropenem 1 gm/ Sodium Chloride 100 ml @ 200 mls/hr Q8HRS 08/27/19 14:00 UNV Meropenem 500 mg/ Sodium Chloride 50 ml @ 100 mls/hr Q12HR 08/27/19 21:00 08/30/19 20:51 100 MLS/HR Metoprolol Tartrate (Lopressor) 12.5 mg BID 08/31/19 09:00 Multivitamins/ Minerals (I-Carly) 1 tab DAILY 08/27/19 10:00 08/30/19 09:19 1 TAB Norepinephrine Bitartrate 250 ml @ 0 mls/hr CONT PRN 08/27/19 12:45 08/29/19 11:48 DC Paroxetine HCl (Paxil) 10 mg DAILY 08/29/19 09:00 08/30/19 09:19 10 MG Pharmacy Consult (C.diff Med Screen By Rx) 1 each 1X ONCE 08/27/19 13:15 08/27/19 13:16 UNV Phytonadione (Mephyton Oral Soln) 5 mg 1X ONCE 08/27/19 10:00 08/27/19 10:01 DC 08/27/19 14:00 5 MG Potassium Chloride/Water 100 ml @ 100 mls/hr Q1H 08/30/19 05:30 08/30/19 09:32 DC 08/30/19 15:19 100 MLS/HR Potassium Chloride (Klor-Con) 40 meq 1X ONCE 08/30/19 05:30 08/30/19 05:31 DC 08/30/19 05:53 40 MEQ Quetiapine Fumarate (SEROquel) 50 mg HS 08/28/19 21:00 08/30/19 20:46 50 MG Sodium Bicarbonate 150 meq/Dextrose 1,150 ml @ 100 mls/hr [id number] 08/27/19 14:30 08/31/19 00:25 100 MLS/HR Sodium Polystyrene Sulfonate (Kayexalate) 30 gm 1X ONCE 08/27/19 08:45 08/27/19 08:46 DC 08/27/19 10:37 30 GM Sodium Bicarbonate (Sodium Bicarb Adult 8.4% Syr) 50 meq 1X ONCE 08/27/19 08:45 08/27/19 08:46 DC 08/27/19 10:35 50 MEQ Sodium Chloride 500 ml @ 1,000 mls/hr PRN Q30MIN PRN 08/27/19 12:45 Sodium Chloride (Normal Saline Flush) 3 ml QSHIFT PRN 08/27/19 09:45 Thiamine Mononitrate (Vitamin B-1) 100 mg DAILY 08/27/19 10:00 08/30/19 09:19 100 MG Vancomycin HCl (Vancomycin Oral Solution) 125 mg [id number] 08/29/19 09:00 08/30/19 20:46 125 MG Labs: Lab Laboratory Tests Test 08/30/19 10:54 08/30/19 13:18 08/30/19 16:19 08/30/19 20:29 Glucose (Fingerstick) 263 mg/dL (70-99) 205 mg/dL (70-99) 107 mg/dL (70-99) 200 mg/dL (70-99) Test 08/31/19 07:54 Glucose (Fingerstick) 167 mg/dL (70-99) Objective: Assessment: 1. Sepsis with hypothermia present on admission, Gram-negative sepsis. 2. Gram-negative sepsis, source genitourinary and/or wounds.2/4 bottles ,POA 3. Chronic nonhealing wounds. 4. Severe Depression with suicidal ideation present on admission. 5. Severe acute renal failure,hyperkalemia with metabolic acidosis. 6. Bilateral hydronephrosis. 7. Severe protein-calorie malnutrition. 8. Diabetes mellitus 2. 9. 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 10. Diarrhea.C difficile 11. History of cocaine and marijuana abuse. 12. Poor dentition. 13. Tobaccoism. 14. Cholelithiasis without acute cholecystitis or biliary dilatation. Plan: Plan of Care 1. Continue meropenem and daptomycin renal dosing. cont po vanco 2. Follow up Gram-negative yuliya in blood cultures. 3. Follow up blood and urine cultures.Repeat blood cultures in a.m. 4. Continue wound care by wound team. 5. No urology service is available at [facility]. Attempts were made to transfer to per team. Denied by [facility] 6. Continue supportive care. D/W DELBERT SMITH MD Aug 31, 2019 08:12
[2019-08-31] MEDS: LACTOBACILLUS RHAMNOSUS GG 1 CAPSULE. PO SCH ×2 (08:52→21:09)
[2019-08-31] MEDS: MULTIVITAMIN I-VITE TABLET. PO SCH (08:52)
[2019-08-31] MEDS: PARoxetine 10 MG TABLET PO SCH (08:52)
[2019-08-31] MEDS: METOPROLOL TART IMMED RELEASE 25 MG TABLET. PO SCH ×2 (08:52→21:09)
[2019-08-31] MEDS: THIAMINE 100 MG TABLET. PO SCH (08:52)
[2019-08-31] MEDS: ASPIRIN ENTERIC COATED 81 MG TABLET.DR. PO SCH (08:52)
[2019-08-31] MEDS: FAMOTIDINE 20 MG TABLET. PO SCH (08:52)
[2019-08-31] MEDS: HEPARIN for SUB-Q USE 5,000 UNIT/ML VIAL. SQ SCH ×2 (08:56→21:23)
[2019-08-31] MEDS: INSULIN LISPRO 300 UNITS/3 ML VIAL. SQ SCH ×3 (08:57→17:20)
[2019-08-31 09:00] LABS: CHOLESTEROL/HDL RATIO 9.3
[2019-08-31] MEDS ORDERED: CITALOPRAM 10 MG TABLET. PO SCH (09:00)
[2019-08-31] MEDS: CITALOPRAM 10 MG TABLET. PO SCH (09:10)
[2019-08-31] MEDS: VANCOMYCIN 125 MG/2.5 ML ORAL SOLUTION. PO SCH ×4 (09:10→21:08)
[2019-08-31] MEDS: MEROPENEM 500 MG in IV NORMAL SALINE 50ML 50 ML IV SCH ×2 (09:12→21:10)
--- NOTE | 2019-08-31 09:34 | PDOC ---
SUBJECTIVE ROS Stable, No new concerns, No N/V OBJECTIVE Vital Signs Vital Signs Date Time Temp Pulse Resp B/P (MAP) Pulse Ox O2 Delivery O2 Flow Rate FiO2 08/31/19 08:52 101 146/94 08/31/19 07:00 98.2 16 99 Room Air 98.2 I & 0 Intake and Output 08/31/19 06:59 Intake Total 720 ml Output Total 350 ml Balance 370 ml Intake Oral 720 ml Output Urine Total 350 ml # Voids 3 # Bowel Movements 11 PHYSICAL EXAM Physical Exam GEN: NAD HEEN- OM moist NECK: supple CVS: S1S2 , No rub RESP: CTA, No Acc. Muscle Use GI: BS + ve, NO Bruit, Non Tender, Non Distended : [No CVA tenderness, No Suprapubic Tenderness, Zimmerman removed NEURO- Grossly normal, Skin No Rash DIAGNOSIS/ASSESSMENT Assessment & Plan VENANCIO - ATN sec to Dehydration,poor PO intake,illicit drug use ? PRUITT - Hydronephrosis Non Oliguric , good UOP , Renal function improving Renal US Bilat Hydronephrosis Rt > Lt avoid nephrotoxins , zimmerman removed, good uop per pt Bilat Hydronephrosis UOP good, repeat Renal US for follow up as no urologist at [facility] Hypokalemia-- replace per protocol Hypo Na- Na corrected with IVF Metabolic acidosis- sec to VENANCIO , resolved Hypotensive - resolved with IVF Depression with suicidal ideation DM2 Hx of cocaine and marijuana abuse COMMENT/RELEVANT DATA Meds Current Medications Medications (Trade) Dose Ordered Sig/Dez Start Time Stop Time Status Last Admin Dose Admin Acetaminophen (Tylenol) 650 mg Q6H PRN 08/27/19 09:45 08/30/19 09:19 650 MG Alprazolam (Xanax) 0.5 mg PRN DAILY PRN 08/30/19 19:30 08/30/19 19:39 0.5 MG Aspirin (Ecotrin) 81 mg [id number] 08/31/19 08:00 08/31/19 08:52 81 MG Calcium Gluconate (Calcium Gluconate) 1,000 mg 1X ONCE 08/27/19 12:45 08/27/19 12:46 DC Ceftriaxone Sodium (Rocephin) 1 gm 1X ONCE 08/27/19 12:00 08/27/19 12:01 DC 08/27/19 13:14 1 GM Citalopram Hydrobromide (CeleXA) 10 mg DAILY 08/31/19 09:00 UNV Daptomycin 200 mg/ Sodium Chloride 50 ml @ 100 mls/hr Q48H 08/27/19 17:00 08/29/19 16:20 100 MLS/HR Dextrose (Dextrose 50%-Water Syringe) 12.5 gm PRN Q15MIN PRN 08/28/19 12:30 UNV Dobutamine HCl/ Dextrose 250 ml @ 0 mls/hr CONT PRN 08/27/19 12:45 08/29/19 11:48 DC Famotidine (Pepcid Vial) 20 mg DAILY 08/27/19 10:00 08/29/19 14:17 DC 08/29/19 09:34 20 MG Famotidine (Pepcid) 20 mg DAILY 08/30/19 09:00 08/31/19 08:52 20 MG Heparin Sodium (Porcine) (Heparin Sodium) 5,000 unit Q12HR 08/27/19 10:00 08/31/19 08:56 5,000 UNIT Influenza Virus Vaccine Quadrival (Afluria Quad 2019-20 (3yr Up) Syringe) 0.5 ml ONCE ONCE 08/28/19 09:00 08/28/19 09:01 DC 08/28/19 09:01 0.5 ML Info (Icu Electrolyte Protocol) 1 ea DAILY 08/28/19 09:00 08/29/19 10:09 DC Insulin Human Lispro (HumaLOG) 0-7 UNITS TIDWMEALS 08/28/19 12:30 08/31/19 08:57 3 UNITS Insulin Human Regular (HumuLIN R VIAL) 10 unit 1X ONCE 08/27/19 08:45 08/27/19 08:46 DC 08/27/19 11:23 10 UNIT Lactobacillus Rhamnosus (Culturelle) 1 cap BID 08/27/19 21:00 08/31/19 08:52 1 CAP Lidocaine HCl (Buffered Lidocaine 1%) 6 ml 1X ONCE 08/27/19 14:30 08/27/19 14:31 DC 08/27/19 14:51 4 ML Meropenem 1 gm/ Sodium Chloride 100 ml @ 200 mls/hr Q8HRS 08/27/19 14:00 UNV Meropenem 500 mg/ Sodium Chloride 50 ml @ 100 mls/hr Q12HR 10/18/19 21:00 08/31/19 09:12 100 MLS/HR Metoprolol Tartrate (Lopressor) 12.5 mg BID 08/31/19 09:00 08/31/19 08:52 12.5 MG Multivitamins/ Minerals (I-Carly) 1 tab DAILY 08/27/19 10:00 08/31/19 08:52 1 TAB Norepinephrine Bitartrate 250 ml @ 0 mls/hr CONT PRN 08/27/19 12:45 08/29/19 11:48 DC Paroxetine HCl (Paxil) 10 mg DAILY 08/29/19 09:00 08/31/19 08:52 10 MG Pharmacy Consult (C.diff Med Screen By Rx) 1 each 1X ONCE 08/27/19 13:15 08/27/19 13:16 UNV Phytonadione (Mephyton Oral Soln) 5 mg 1X ONCE 08/27/19 10:00 08/27/19 10:01 DC 08/27/19 14:00 5 MG Potassium Chloride/Water 100 ml @ 100 mls/hr Q1H 08/30/19 05:30 08/30/19 09:32 DC 08/30/19 15:19 100 MLS/HR Potassium Chloride (Klor-Con) 40 meq 1X ONCE 08/30/19 05:30 08/30/19 05:31 DC 08/30/19 05:53 40 MEQ Quetiapine Fumarate (SEROquel) 50 mg HS 08/28/19 21:00 08/30/19 20:46 50 MG Sodium Bicarbonate 150 meq/Dextrose 1,150 ml @ 100 mls/hr [id number] 08/27/19 14:30 08/31/19 00:25 100 MLS/HR Sodium Polystyrene Sulfonate (Kayexalate) 30 gm 1X ONCE 08/27/19 08:45 08/27/19 08:46 DC 08/27/19 10:37 30 GM Sodium Bicarbonate (Sodium Bicarb Adult 8.4% Syr) 50 meq 1X ONCE 08/27/19 08:45 08/27/19 08:46 DC 08/27/19 10:35 50 MEQ Sodium Chloride 500 ml @ 1,000 mls/hr PRN Q30MIN PRN 08/27/19 12:45 Sodium Chloride (Normal Saline Flush) 3 ml QSHIFT PRN 08/27/19 09:45 Thiamine Mononitrate (Vitamin B-1) 100 mg DAILY 08/27/19 10:00 08/31/19 08:52 100 MG Vancomycin HCl (Vancomycin Oral Solution) 125 mg [id number] 08/29/19 09:00 08/31/19 09:10 125 MG Lab Laboratory Tests Test 08/30/19 10:54 08/30/19 13:18 08/30/19 16:19 08/30/19 20:29 Glucose (Fingerstick) 263 mg/dL (70-99) 205 mg/dL (70-99) 107 mg/dL (70-99) 200 mg/dL (70-99) Test 08/31/19 07:54 Glucose (Fingerstick) 167 mg/dL (70-99) Results All relevant outside records, renal labs, imaging studies, telemetry/EKG's were reviewed. PETTY FERRIS MD Aug 31, 2019 09:34
--- NOTE | 2019-08-31 09:49 | PDOC ---
Subjective: Subjective: Going to eat breakfast in a minute. Diarrhea is there, might be better. Objective: Vital Signs: Vital Signs Date Time Temp Pulse Resp B/P (MAP) Pulse Ox O2 Delivery O2 Flow Rate FiO2 08/31/19 08:52 101 146/94 08/31/19 07:00 98.2 16 99 Room Air 98.2 Labs: Laboratory Tests Test 08/30/19 10:54 08/30/19 13:18 08/30/19 16:19 08/30/19 20:29 Glucose (Fingerstick) 263 mg/dL 205 mg/dL 107 mg/dL 200 mg/dL Test 08/31/19 07:54 Glucose (Fingerstick) 167 mg/dL BLOOD CULTURE Preliminary NO GROWTH AFTER 2 DAYS PE: GEN: NAD LUNGS: CTAB HEART: mildly tachycardic ABD: S/ND/NT NEURO/PSYCH: A & O 3 A/P: Suicidal ideation Multiple wounds, GNR bacteremia C Diff Anemia, VENANCIO, hydronephrosis - [facility] transfer declined -- Continue same per GI. NENA ARCINIEGA Aug 31, 2019 09:49
[2019-08-31 10:28] LABS: CALCIUM 7.4 mg/dL (8.5-10.1); CREATININE 1.3 mg/dL (0.7-1.3); GFR 72.6; POTASSIUM 3.8 mmol/L (3.5-5.1)
[2019-08-31 11:00] VITALS: BP 151/87
[2019-08-31] MEDS: DAPTOMYCIN IV SCH (12:33)
[2019-08-31] MEDS: NORMAL SALINE IV SCH (12:33)
--- NOTE | 2019-08-31 13:30 | PDOC ---
PROGRESS NOTES Chief Complaint Chief Complaint Acute renal failure Obstructive uropathy Severe sepsis c diff positive/w/ ccute colitis, Severe malnutrition, BMI 13.8 - ALBUMIN 1,8 Diabetes 2, very poor care Peripheral vascular disease, s/p AKA Sacral and leg wounds, poor self care, cellulitis and poss further infection Depression, reports suicidal Bipolar HYperkalemia, now HYPOKALEMIA LEukocytosis 14 History of Present Illness History of Present Illness feels better still some pain Came from home but clearly needs more than that -agreeable to SNU has passed psych eval, no longer suicidal, Still some diarrhea, c diff pos- ON pO vanc, dapto, merrem per ID WBC 14 but no fevers ALBUMIN 1.4 CReat down to 1.5 from 2 + COnt contact isol and pO vanc COnt IV abx per ID MAintain zimmerman - sacral wounds and still loose BM NEeds pat re avl so we can dc sitter if appropriate - isaiah Tello Vitals Vitals Vital Signs Date Time Temp Pulse Resp B/P (MAP) Pulse Ox O2 Delivery O2 Flow Rate FiO2 08/31/19 11:00 98.2 92 16 151/87 (108) 99 Room Air 98.2 Physical Exam Physical Exam GENERAL: Cachectic, thin male, lying in bed, cooperative, appears comfortable, in no acute distress. HEENT: Anicteric. Poor dentition. No thrush. Oral mucosa moist. NECK: HDC catheter looks okay. LUNGS: Clear. HEART: S1, S2. ABDOMEN: Soft, nontender, nondistended. GENITOURINARY: Zimmerman in place. Groin dry skin. EXTREMITIES: Right AKA. SKIN: Multiple wounds lower extremities, no evidence of infection, multiple abrasions, wound descriptions noted from pictures in the chart over the back, no purulent drainage noted, unstageable. NEUROLOGIC: Alert, oriented, grossly nonfocal. PSYCHIATRY: Awake, alert, cooperative. General: Alert, Oriented X3, Cooperative, No acute distress, Other (cachectic) Heart: Regular rate (SR), Normal S1, Normal S2, No murmurs, Other Lungs: Clear Abdomen: Soft, Other (hyperactive bowel sounds) Extremities: No cyanosis, No edema Skin: Other (multiple pressure ulcers) Labs LABS Laboratory Tests Test 08/30/19 16:19 08/30/19 20:29 08/31/19 07:54 08/31/19 10:00 Glucose (Fingerstick) 107 mg/dL (70-99) 200 mg/dL (70-99) 167 mg/dL (70-99) Sodium Level 144 mmol/L (136-145) Potassium Level 3.8 mmol/L (3.5-5.1) Chloride Level 106 mmol/L (98-107) Carbon Dioxide Level 33 mmol/L (21-32) Anion Gap 5 (6-14) Blood Urea Nitrogen 36 mg/dL (8-26) Creatinine 1.3 mg/dL (0.7-1.3) Estimated GFR (Cockcroft-Gault) 72.6 Glucose Level 151 mg/dL (70-99) Calcium Level 7.4 mg/dL (8.5-10.1) Test 08/31/19 11:19 Glucose (Fingerstick) 148 mg/dL (70-99) Assessment and Plan Assessmemt and Plan Problems Medical Problems: (1) Hyperkalemia Status: Acute (2) Hypermagnesemia Status: Acute (3) Hyperphosphatemia Status: Acute (4) Hypoalbuminemia Status: Acute (5) Hypocalcemia Status: Acute (6) Hyponatremia Status: Acute (7) Metabolic acidosis Status: Acute (8) Suicidal ideation Status: Acute Comment Review of Relevant I have reviewed the following items anisa (where applicable) has been applied. Labs Laboratory Tests Test 08/29/19 16:21 08/29/19 20:04 08/30/19 04:10 08/30/19 04:21 Glucose (Fingerstick) 118 mg/dL (70-99) 118 mg/dL (70-99) 164 mg/dL (70-99) White Blood Count 14.0 x10^3/uL (4.0-11.0) Red Blood Count 3.28 x10^6/uL (4.30-5.70) Hemoglobin 8.6 g/dL (13.0-17.5) Hematocrit 26.3 % (39.0-53.0) Mean Corpuscular Volume 80 fL (79-100) Mean Corpuscular Hemoglobin 26 pg (25-35) Mean Corpuscular Hemoglobin Concent 33 g/dL (31-37) Red Cell Distribution Width 16.4 % (11.5-14.5) Platelet Count 140 x10^3/uL (140-400) Neutrophils (%) (Auto) 85 % (31-73) Lymphocytes (%) (Auto) 10 % (24-48) Monocytes (%) (Auto) 5 % (0-9) Eosinophils (%) (Auto) 0 % (0-3) Basophils (%) (Auto) 0 % (0-3) Neutrophils # (Auto) 11.9 x10^3/uL (1.8-7.7) Lymphocytes # (Auto) 1.4 x10^3/uL (1.0-4.8) Monocytes # (Auto) 0.6 x10^3/uL (0.0-1.1) Eosinophils # (Auto) 0.0 x10^3/uL (0.0-0.7) Basophils # (Auto) 0.1 x10^3/uL (0.0-0.2) Sodium Level 142 mmol/L (136-145) Potassium Level 2.7 mmol/L (3.5-5.1) Chloride Level 105 mmol/L (98-107) Carbon Dioxide Level 27 mmol/L (21-32) Anion Gap 10 (6-14) Blood Urea Nitrogen 54 mg/dL (8-26) Creatinine 1.5 mg/dL (0.7-1.3) Estimated GFR (Cockcroft-Gault) 61.5 Glucose Level 181 mg/dL (70-99) Calcium Level 6.9 mg/dL (8.5-10.1) Phosphorus Level 2.2 mg/dL (2.6-4.7) Albumin 1.4 g/dL (3.4-5.0) Triglycerides Level 192 mg/dL (0-150) Cholesterol Level 74 mg/dL (0-200) LDL Cholesterol, Calculated 28 mg/dL (0-100) VLDL Cholesterol, Calculated 38 mg/dL (0-40) Non-HDL Cholesterol Calculated 66 mg/dL (0-129) HDL Cholesterol 8 mg/dL (40-60) Cholesterol/HDL Ratio 9.3 Test 08/30/19 06:52 08/30/19 10:54 08/30/19 13:18 08/30/19 16:19 Glucose (Fingerstick) 148 mg/dL (70-99) 263 mg/dL (70-99) 205 mg/dL (70-99) 107 mg/dL (70-99) Test 08/30/19 20:29 08/31/19 07:54 08/31/19 10:00 08/31/19 11:19 Glucose (Fingerstick) 200 mg/dL (70-99) 167 mg/dL (70-99) 148 mg/dL (70-99) Sodium Level 144 mmol/L (136-145) Potassium Level 3.8 mmol/L (3.5-5.1) Chloride Level 106 mmol/L (98-107) Carbon Dioxide Level 33 mmol/L (21-32) Anion Gap 5 (6-14) Blood Urea Nitrogen 36 mg/dL (8-26) Creatinine 1.3 mg/dL (0.7-1.3) Estimated GFR (Cockcroft-Gault) 72.6 Glucose Level 151 mg/dL (70-99) Calcium Level 7.4 mg/dL (8.5-10.1) Laboratory Tests Test 08/30/19 16:19 08/30/19 20:29 08/31/19 07:54 08/31/19 10:00 Glucose (Fingerstick) 107 mg/dL (70-99) 200 mg/dL (70-99) 167 mg/dL (70-99) Sodium Level 144 mmol/L (136-145) Potassium Level 3.8 mmol/L (3.5-5.1) Chloride Level 106 mmol/L (98-107) Carbon Dioxide Level 33 mmol/L (21-32) Anion Gap 5 (6-14) Blood Urea Nitrogen 36 mg/dL (8-26) Creatinine 1.3 mg/dL (0.7-1.3) Estimated GFR (Cockcroft-Gault) 72.6 Glucose Level 151 mg/dL (70-99) Calcium Level 7.4 mg/dL (8.5-10.1) Test 08/31/19 11:19 Glucose (Fingerstick) 148 mg/dL (70-99) Microbiology 08/29/19 Blood Culture - Preliminary, Resulted NO GROWTH AFTER 2 DAYS Medications Current Medications Sodium Chloride 1,000 ml @ 1,000 mls/hr Q1H IV Last administered on 08/27/19at 08:40; Start 08/27/19 at 06:30; Stop 08/27/19 at 07:29; Status DC Calcium Gluconate (Calcium Gluconate) 1,000 mg 1X ONCE IVP Last administered on 08/27/19at 10:36; Start 08/27/19 at 08:45; Stop 08/27/19 at 08:46; Status DC Sodium Bicarbonate (Sodium Bicarb Adult 8.4% Syr) 50 meq 1X ONCE IV Last administered on 08/27/19at 10:35; Start 08/27/19 at 08:45; Stop 08/27/19 at 08:46; Status DC Dextrose (Dextrose 50%-Water Syringe) 25 gm 1X ONCE IV Last administered on 08/27/19at 10:35; Start 08/27/19 at 08:45; Stop 08/27/19 at 08:46; Status DC Insulin Human Regular (HumuLIN R VIAL) 10 unit 1X ONCE IV Last administered on 08/27/19at 11:23; Start 08/27/19 at 08:45; Stop 08/27/19 at 08:46; Status DC Sodium Polystyrene Sulfonate (Kayexalate) 30 gm 1X ONCE PO Last administered on 08/27/19at 10:37; Start 08/27/19 at 08:45; Stop 08/27/19 at 08:46; Status DC Sodium Chloride 1,000 ml @ 1,000 mls/hr Q1H IV Last administered on 08/27/19at 10:36; Start 08/27/19 at 08:45; Stop 08/27/19 at 09:44; Status DC Acetaminophen (Tylenol) 650 mg Q6H PRN PO Headaches, Temp > 101.5' Last administered on 08/30/19at 09:19; Start 08/27/19 at 09:45 Famotidine (Pepcid Vial) 20 mg DAILY IVP Last administered on 08/29/19at 09:34; Start 08/27/19 at 10:00; Stop 08/29/19 at 14:17; Status DC Info (Icu Electrolyte Protocol) 1 ea DAILY ; Start 08/28/19 at 09:00; Stop 08/29/19 at 10:09; Status DC Heparin Sodium (Porcine) (Heparin Sodium) 5,000 unit Q12HR SQ Last administered on 08/31/19at 08:56; Start 08/27/19 at 10:00 Sodium Chloride (Normal Saline Flush) 3 ml QSHIFT PRN IV AFTER MEDS AND BLOOD DRAWS; Start 08/27/19 at 09:45 Thiamine Mononitrate (Vitamin B-1) 100 mg DAILY PO Last administered on at 08:52; Start 08/27/19 at 10:00 Multivitamins/ Minerals (I-Carly) 1 tab DAILY PO Last administered on 08/31/19at 08:52; Start 08/27/19 at 10:00 Phytonadione (Mephyton Oral Soln) 5 mg 1X ONCE PO Last administered on 08/27/19at 14:00; Start 08/27/19 at 10:00; Stop 08/27/19 at 10:01; Status DC Ceftriaxone Sodium (Rocephin) 1 gm 1X ONCE IVP Last administered on 08/27/19at 13:14; Start 08/27/19 at 12:00; Stop 08/27/19 at 12:01; Status DC Calcium Gluconate (Calcium Gluconate) 1,000 mg 1X ONCE IVP ; Start 08/27/19 at 12:45; Stop 08/27/19 at 12:46; Status DC Sodium Chloride 1,000 ml @ 1,650 mls/hr Q37M IV Last administered on 08/28/19at 02:03; Start 08/27/19 at 12:37; Stop 08/27/19 at 13:37; Status DC Sodium Chloride 500 ml @ 1,000 mls/hr PRN Q30MIN PRN IV SEE COMMENTS; Start 08/27/19 at 12:45 Meropenem 1 gm/ Sodium Chloride 100 ml @ 200 mls/hr Q8HRS IV ; Start 08/27/19 at 14:00; Status UNV Norepinephrine Bitartrate 250 ml @ 0 mls/hr CONT PRN IV SEE I/O RECORD; Start 08/27/19 at 12:45; Stop 08/29/19 at 11:48; Status DC Dobutamine HCl/ Dextrose 250 ml @ 0 mls/hr CONT PRN IV SEE I/O RECORD; Start 08/27/19 at 12:45; Stop 08/29/19 at 11:48; Status DC Meropenem 500 mg/ Sodium Chloride 50 ml @ 100 mls/hr Q8HRS IV Last administered on 08/27/19at 15:16; Start 08/27/19 at 14:00; Stop 08/27/19 at 16:26; Status DC Pharmacy Consult (C.diff Med Screen By Rx) 1 each 1X ONCE MC ; Start 08/27/19 at 13:15; Stop 08/27/19 at 13:16; Status UNV Influenza Virus Vaccine Quadrival (Afluria Quad 2019-20 (3yr Up) Syringe) 0.5 ml ONCE ONCE VAX IM Last administered on 08/28/19at 09:01; Start 08/28/19 at 09:00; Stop 08/28/19 at 09:01; Status DC Lactobacillus Rhamnosus (Culturelle) 1 cap BID PO Last administered on 08/31/19at 08:52; Start 08/27/19 at 21:00 Lidocaine HCl (Buffered Lidocaine 1%) 3 ml STK-MED ONCE .ROUTE ; Start 08/27/19 at 14:06; Stop 08/27/19 at 14:07; Status DC Dextrose (Dextrose 50%-Water Syringe) 12.5 gm PRN Q15MIN PRN IV SEE COMMENTS Last administered on 08/28/19at 17:14; Start 08/27/19 at 14:15 Lidocaine HCl (Buffered Lidocaine 1%) 6 ml 1X ONCE INJ Last administered on 08/27/19at 14:51; Start 08/27/19 at 14:30; Stop 08/27/19 at 14:31; Status DC Sodium Bicarbonate 150 meq/Dextrose 1,150 ml @ 100 mls/hr [id number] IV Last administered on 08/31/19at 00:25; Start 08/27/19 at 14:30 Meropenem 500 mg/ Sodium Chloride 50 ml @ 100 mls/hr 1X ONCE IV ; Start 08/27/19 at 15:45; Stop 08/27/19 at 16:14; Status UNV Daptomycin 200 mg/ Sodium Chloride 50 ml @ 100 mls/hr Q48H IV Last administered on 08/29/19at 16:20; Start 08/27/19 at 17:00; Stop 08/31/19 at 10:36; Status DC Meropenem 500 mg/ Sodium Chloride 50 ml @ 100 mls/hr Q12HR IV Last administered on 08/31/19at 09:12; Start 08/27/19 at 21:00 Potassium Chloride (Klor-Con) 40 meq 1X ONCE PO Last administered on 08/28/19 08:41; Start 08/28/19 at 07:30; Stop 08/28/19 at 07:31; Status DC Insulin Human Lispro (HumaLOG) 0-7 UNITS TIDWMEALS SQ Last administered on 08/31/19 08:57; Start 08/28/19 at 12:30 Dextrose (Dextrose 50%-Water Syringe) 12.5 gm PRN Q15MIN PRN IV SEE COMMENTS; Start 08/28/19 at 12:30; Status UNV Paroxetine HCl (Paxil) 10 mg DAILY PO Last administered on 08/31/19 08:52; Start 08/29/19 at 09:00 Quetiapine Fumarate (SEROquel) 50 mg HS PO Last administered on 08/30/19 20:46; Start 08/28/19 at 21:00 Vancomycin HCl (Vancomycin Oral Solution) 125 mg [id number] PO Last administered on 08/31/19 09:10; Start 08/29/19 at 09:00 Famotidine (Pepcid) 20 mg DAILY PO Last administered on 08/31/19 08:52; Start 08/30/19 at 09:00 Potassium Chloride (Klor-Con) 40 meq 1X ONCE PO Last administered on 08/30/19 05:53; Start 08/30/19 at 05:30; Stop 08/30/19 at 05:31; Status DC Potassium Chloride/Water 100 ml @ 100 mls/hr Q1H IV Last administered on 08/30/19 15:19; Start 08/30/19 at 05:30; Stop 08/30/19 at 09:32; Status DC Citalopram Hydrobromide (CeleXA) 10 mg DAILY PO Last administered on 08/31/19 09:10; Start 08/30/19 at 14:00 Citalopram Hydrobromide (CeleXA) 10 mg DAILY PO ; Start 08/31/19 at 09:00; Status UNV Alprazolam (Xanax) 0.5 mg PRN DAILY PRN PO ANXIETY / AGITATION Last administered on 08/30/19at 19:39; Start 08/30/19 at 19:30 Aspirin (Ecotrin) 81 mg [id number] PO Last administered on 10/22/19at 08:52; Start 08/31/19 at 08:00 Metoprolol Tartrate (Lopressor) 12.5 mg BID PO Last administered on 08/31/19at 08:52; Start 08/31/19 at 09:00 Daptomycin 200 mg/ Sodium Chloride 50 ml @ 100 mls/hr Q24H IV Last administered on 08/31/19at 12:33; Start 08/31/19 at 12:00 Active Scripts Active Reported Tramadol Hcl 50 Mg Tablet 50 Mg PO Q6HRS PRN Flomax (Tamsulosin Hcl) 0.4 Mg Cap.er.24h 0.4 Mg PO DAILY Hydralazine Hcl 25 Mg Tablet 1 Tab PO TID Glipizide 5 Mg Tablet 1.5 Tab PO DAILY Vitamin D3 (Cholecalciferol (Vitamin D3)) 1,000 Unit Tablet 1 Tab PO DAILY Coreg (Carvedilol) 25 Mg Tablet 25 Mg PO BIDWMEALS Norvasc (Amlodipine Besylate) 10 Mg Tablet 10 Mg PO DAILY Vitals/I & O Vital Sign - Last 24 Hours 08/30/19 08/30/19 08/30/19 08/30/19 14:34 19:00 19:50 23:00 Temp 97.4 97.4 97.9 97.4 97.4 97.9 Pulse 104 100 98 Resp 16 16 18 B/P (MAP) 148/97 (114) 202/122 (148) 123/69 (87) Pulse Ox 100 95 94 O2 Delivery Room Air Room Air Room Air Room Air 08/31/19 08/31/19 08/31/19 08/31/19 03:00 07:00 08:00 08:52 Temp 97.8 98.2 97.8 98.2 Pulse 91 101 101 Resp 18 16 B/P (MAP) 122/83 (96) 146/94 (111) 146/94 Pulse Ox 95 99 O2 Delivery Room Air Room Air Room Air 08/31/19 11:00 Temp 98.2 98.2 Pulse 92 Resp 16 B/P (MAP) 151/87 (108) Pulse Ox 99 O2 Delivery Room Air Intake and Output 08/30/19 08/30/19 08/31/19 15:00 23:00 07:00 Intake Total 480 ml 240 ml Output Total 350 ml Balance 130 ml 240 ml Nutrition Consultation Dietary Evaluation: Recommendations by RD: Increase Calorie Intake, Protein supplementation Comments: Continue w/ADA diet as ordered, will not add cardiac restriction at this time d/c Glucerna per pt request, added dbl meats and tiago q day Tiago to provide 300 mg Vit C - wound healing Continue w/MVI Expected Outcomes/Goals: PO intake to meet >75% est needs- goal ongoing improved wound status Interpretation of weight loss: >7.5% in 3 months Malnutrition Findings: Food and Nutrition Intake (Mod: <75% est energy req 7days Weight Status: Underweight SHORTY BALL MD Aug 31, 2019 13:30
[2019-08-31 15:00] VITALS: BP 122/75
--- NOTE | 2019-08-31 17:08 | RAD ---
EXAM: Renal sonogram. HISTORY: Hydronephrosis. Renal insufficiency. TECHNIQUE: Sonographic imaging of the kidneys and bladder was performed. COMPARISON: 08/27/2019. FINDINGS: The right kidney measures 10.0 cm [id number]. The left kidney measures 10.9 cm [id number]. There is moderate right hydronephrosis and mild left hydronephrosis. There is echogenic renal parenchyma. No solid or cystic renal lesion is seen. There is urinary bladder wall thickening. IMPRESSION: 1. Moderate right and mild left hydronephrosis, similar compared to the recent prior study with allowing for differences in imaging technique. 2. Echogenic renal parenchyma, a finding which can be seen with medical renal disease. 3. Urinary bladder wall thickening. This may be due to cystitis or chronic outlet obstruction. Correlate with urinalysis. Electronically signed by: Karli Herrera MD (08/31/2019 5:05 PM) [id number]
[2019-08-31 18:10] LABS: IMMUNOGLOBULIN A 504 mg/dL (90-386); IMMUNOGLOBULIN G 1507 mg/dL (700-1600); IMMUNOGLOBULIN M 57 mg/dL (20-172)
[2019-08-31 19:20] VITALS: BP 139/88
[2019-08-31] MEDS: QUEtiapine 25 MG TABLET. PO SCH (21:08)
[2019-08-31] MEDS: ALPRAZolam 0.5 MG TABLET PO PRN (21:08)
[2019-08-31 23:00] VITALS: BP 144/82
[2019-09-01 03:00] VITALS: BP 146/89
[2019-09-01 05:19] LABS: CALCIUM 7.4 mg/dL (8.5-10.1); CREATININE 1.2 mg/dL (0.7-1.3); GFR 79.6
[2019-09-01 07:00] VITALS: BP 123/74
[2019-09-01] MEDS: INSULIN LISPRO 300 UNITS/3 ML VIAL. SQ SCH ×3 (08:00→17:18)
[2019-09-01] MEDS: MEROPENEM 500 MG in IV NORMAL SALINE 50ML 50 ML IV SCH ×2 (08:07→20:23)
[2019-09-01] MEDS: MULTIVITAMIN I-VITE TABLET. PO SCH (08:08)
[2019-09-01] MEDS: THIAMINE 100 MG TABLET. PO SCH (08:08)
[2019-09-01] MEDS: LACTOBACILLUS RHAMNOSUS GG 1 CAPSULE. PO SCH ×2 (08:08→20:24)
[2019-09-01] MEDS: VANCOMYCIN 125 MG/2.5 ML ORAL SOLUTION. PO SCH ×4 (08:08→20:23)
[2019-09-01] MEDS: PARoxetine 10 MG TABLET PO SCH (08:08)
[2019-09-01] MEDS: CITALOPRAM 10 MG TABLET. PO SCH (08:08)
[2019-09-01] MEDS: FAMOTIDINE 20 MG TABLET. PO SCH (08:08)
[2019-09-01] MEDS: METOPROLOL TART IMMED RELEASE 25 MG TABLET. PO SCH (08:11)
[2019-09-01] MEDS: ASPIRIN ENTERIC COATED 81 MG TABLET.DR. PO SCH (08:11)
[2019-09-01] MEDS: HEPARIN for SUB-Q USE 5,000 UNIT/ML VIAL. SQ SCH ×2 (08:25→20:28)
--- NOTE | 2019-09-01 09:27 | PDOC ---
Infectious Disease Note Subjective: Subjective He says feels better no complaints diarrhea improving ROS: ROS Negative otherwise. Vital Signs: Vital Signs Vital Signs Date Time Temp Pulse Resp B/P (MAP) Pulse Ox O2 Delivery O2 Flow Rate FiO2 09/01/19 08:30 Room Air 09/01/19 08:11 81 123/74 09/01/19 07:00 98.0 18 97 98.0 Physical Exam: PHYSICAL EXAM GENERAL: Cachectic, thin male, lying in bed, cooperative, appears comfortable, in no acute distress. HEENT: Anicteric. Poor dentition. No thrush. Oral mucosa moist. NECK: HDC catheter looks okay. LUNGS: Clear. HEART: S1, S2. ABDOMEN: Soft, nontender, nondistended. GENITOURINARY: Geiger in place. Groin dry skin. EXTREMITIES: Right AKA. SKIN: Multiple wounds lower extremities, no evidence of infection, multiple abrasions, wound descriptions noted from pictures in the chart over the back, no purulent drainage noted, unstageable. NEUROLOGIC: Alert, oriented, grossly nonfocal. PSYCHIATRY: Awake, alert, cooperative. Medications: Inpatient Meds: Current Medications Medications (Trade) Dose Ordered Sig/Dez Start Time Stop Time Status Last Admin Dose Admin Acetaminophen (Tylenol) 650 mg Q6H PRN 08/27/19 09:45 08/30/19 09:19 650 MG Alprazolam (Xanax) 0.5 mg PRN DAILY PRN 08/30/19 19:30 08/31/19 21:08 0.5 MG Aspirin (Ecotrin) 81 mg [id number] 08/31/19 08:00 09/01/19 08:11 81 MG Calcium Gluconate (Calcium Gluconate) 1,000 mg 1X ONCE 08/27/19 12:45 08/27/19 12:46 DC Ceftriaxone Sodium (Rocephin) 1 gm 1X ONCE 08/27/19 12:00 08/27/19 12:01 DC 08/27/19 13:14 1 GM Citalopram Hydrobromide (CeleXA) 10 mg DAILY 08/31/19 09:00 UNV Daptomycin 200 mg/ Sodium Chloride 50 ml @ 100 mls/hr Q24H 08/31/19 12:00 08/31/19 12:33 100 MLS/HR Dextrose (Dextrose 50%-Water Syringe) 12.5 gm PRN Q15MIN PRN 08/28/19 12:30 UNV Dobutamine HCl/ Dextrose 250 ml @ 0 mls/hr CONT PRN 08/27/19 12:45 08/29/19 11:48 DC Famotidine (Pepcid Vial) 20 mg DAILY 08/27/19 10:00 08/29/19 14:17 DC 08/29/19 09:34 20 MG Famotidine (Pepcid) 20 mg DAILY 08/30/19 09:00 09/01/19 08:08 20 MG Heparin Sodium (Porcine) (Heparin Sodium) 5,000 unit Q12HR 08/27/19 10:00 09/01/19 08:25 5,000 UNIT Influenza Virus Vaccine Quadrival (Afluria Quad 2019- (3yr Up) Syringe) 0.5 ml ONCE ONCE 08/28/19 09:00 08/28/19 09:01 DC 08/28/19 09:01 0.5 ML Info (Icu Electrolyte Protocol) 1 ea DAILY 08/28/19 09:00 08/29/19 10:09 DC Insulin Human Lispro (HumaLOG) 0-7 UNITS TIDWMEALS 08/28/19 12:30 08/31/19 17:20 3 UNITS Insulin Human Regular (HumuLIN R VIAL) 10 unit 1X ONCE 08/27/19 08:45 08/27/19 08:46 DC 08/27/19 11:23 10 UNIT Lactobacillus Rhamnosus (Culturelle) 1 cap BID 08/27/19 21:00 09/01/19 08:08 1 CAP Lidocaine HCl (Buffered Lidocaine 1%) 6 ml 1X ONCE 08/27/19 14:30 08/27/19 14:31 DC 08/27/19 14:51 4 ML Meropenem 1 gm/ Sodium Chloride 100 ml @ 200 mls/hr Q8HRS 08/27/19 14:00 UNV Meropenem 500 mg/ Sodium Chloride 50 ml @ 100 mls/hr Q12HR 08/27/19 21:00 09/01/19 08:07 100 MLS/HR Metoprolol Tartrate (Lopressor) 12.5 mg BID 08/31/19 09:00 09/01/19 08:11 12.5 MG Multivitamins/ Minerals (I-Carly) 1 tab DAILY 10/18/19 10:00 09/01/19 08:08 1 TAB Norepinephrine Bitartrate 250 ml @ 0 mls/hr CONT PRN 08/27/19 12:45 08/29/19 11:48 DC Paroxetine HCl (Paxil) 10 mg DAILY 08/29/19 09:00 09/01/19 08:08 10 MG Pharmacy Consult (C.diff Med Screen By Rx) 1 each 1X ONCE 08/27/19 13:15 08/27/19 13:16 UNV Phytonadione (Mephyton Oral Soln) 5 mg 1X ONCE 08/27/19 10:00 08/27/19 10:01 DC 08/27/19 14:00 5 MG Potassium Chloride/Water 100 ml @ 100 mls/hr Q1H 08/30/19 05:30 08/30/19 09:32 DC 08/30/19 15:19 100 MLS/HR Potassium Chloride (Klor-Con) 40 meq 1X ONCE 08/30/19 05:30 08/30/19 05:31 DC 08/30/19 05:53 40 MEQ Quetiapine Fumarate (SEROquel) 50 mg HS 08/28/19 21:00 08/31/19 21:08 50 MG Sodium Bicarbonate 150 meq/Dextrose 1,150 ml @ 100 mls/hr [id number] 08/27/19 14:30 08/31/19 14:00 100 MLS/HR Sodium Polystyrene Sulfonate (Kayexalate) 30 gm 1X ONCE 08/27/19 08:45 08/27/19 08:46 DC 08/27/19 10:37 30 GM Sodium Bicarbonate (Sodium Bicarb Adult 8.4% Syr) 50 meq 1X ONCE 08/27/19 08:45 08/27/19 08:46 DC 08/27/19 10:35 50 MEQ Sodium Chloride 500 ml @ 1,000 mls/hr PRN Q30MIN PRN 08/27/19 12:45 Sodium Chloride (Normal Saline Flush) 3 ml QSHIFT PRN 08/27/19 09:45 Thiamine Mononitrate (Vitamin B-1) 100 mg DAILY 08/27/19 10:00 09/01/19 08:08 100 MG Vancomycin HCl (Vancomycin Oral Solution) 125 mg [id number] 08/29/19 09:00 09/01/19 08:08 125 MG Labs: Lab Laboratory Tests Test 08/31/19 10:00 08/31/19 11:19 08/31/19 17:00 08/31/19 20:51 Sodium Level 144 mmol/L (136-145) Potassium Level 3.8 mmol/L (3.5-5.1) Chloride Level 106 mmol/L (98-107) Carbon Dioxide Level 33 mmol/L (21-32) Anion Gap 5 (6-14) Blood Urea Nitrogen 36 mg/dL (8-26) Creatinine 1.3 mg/dL (0.7-1.3) Estimated GFR (Cockcroft-Gault) 72.6 Glucose Level 151 mg/dL (70-99) Calcium Level 7.4 mg/dL (8.5-10.1) Glucose (Fingerstick) 148 mg/dL (70-99) 197 mg/dL (70-99) 100 mg/dL (70-99) Test 09/01/19 03:50 09/01/19 07:33 Sodium Level 142 mmol/L (136-145) Potassium Level 4.0 mmol/L (3.5-5.1) Chloride Level 105 mmol/L (98-107) Carbon Dioxide Level 33 mmol/L (21-32) Anion Gap 4 (6-14) Blood Urea Nitrogen 31 mg/dL (8-26) Creatinine 1.2 mg/dL (0.7-1.3) Estimated GFR (Cockcroft-Gault) 79.6 Glucose Level 133 mg/dL (70-99) Calcium Level 7.4 mg/dL (8.5-10.1) Glucose (Fingerstick) 140 mg/dL (70-99) Objective: Assessment: 1. Sepsis with hypothermia present on admission, Gram-negative sepsis. 2. Gram-negative sepsis, source genitourinary and/or wounds.2/4 bottles ,POA,ID and DAVID still pending 3. Chronic nonhealing wounds. 4. Severe Depression with suicidal ideation present on admission. 5. Severe acute renal failure,hyperkalemia with metabolic acidosis. 6. Bilateral hydronephrosis. 7. Severe protein-calorie malnutrition. 8. Diabetes mellitus 2. 9. 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 10. Diarrhea.C difficile 11. History of cocaine and marijuana abuse. 12. Poor dentition. 13. Tobaccoism. 14. Cholelithiasis without acute cholecystitis or biliary dilatation. Plan: Plan of Care 1. Continue meropenem Cont po vanco DC Daptomycin labs in am 2. Follow up Gram-negative yuliya in blood cultures. 3. Follow up blood and urine cultures. 4. Continue wound care by wound team. 5. No urology service is available at [facility]. Attempts were made to transfer to per team. Denied by [facility] 6. Continue supportive care. D/W DELBERT SMITH MD Sep 01, 2019 09:27
--- NOTE | 2019-09-01 09:49 | PDOC ---
SUBJECTIVE ROS Stable, No new concerns, No N/V OBJECTIVE Vital Signs Vital Signs Date Time Temp Pulse Resp B/P (MAP) Pulse Ox O2 Delivery O2 Flow Rate FiO2 09/01/19 08:30 Room Air 09/01/19 08:11 81 123/74 09/01/19 07:00 98.0 18 97 98.0 I & 0 Intake and Output 09/01/19 07:00 Intake Total 1790 ml Balance 1790 ml Intake Oral 540 ml IV Total 1250 ml # Voids 3 # Bowel Movements 2 PHYSICAL EXAM Physical Exam GEN: NAD HEEN- OM moist NECK: supple CVS: S1S2 , No rub RESP: CTA, No Acc. Muscle Use GI: BS + ve, NO Bruit, Non Tender, Non Distended : [No CVA tenderness, No Suprapubic Tenderness, Geiger removed NEURO- Grossly normal, Skin No Rash DIAGNOSIS/ASSESSMENT Assessment & Plan VENANCIO - ATN sec to Dehydration,poor PO intake,illicit drug use ? PRUITT - Hydronephrosis Non Oliguric , good UOP , Renal function improving Renal US Bilat Hydronephrosis Rt > Lt avoid nephrotoxins , good uop From renal standpoint IV fluid can be dced if good po intake, defer to primary Bilat Hydronephrosis UOP good, repeat Renal US - persitsent Bilat hydronephrosis As no urology service at [facility], recommend Urology Consult as op post discharge for further follow up Hypokalemia--Normal K Hypo Na- Na corrected Metabolic acidosis- resolved Hypotensive - resolved with IVF Depression with suicidal ideation DM2 Hx of cocaine and marijuana abuse Repeat Renal US -- 1. Moderate right and mild left hydronephrosis, similar compared to the recent prior study with allowing for differences in imaging technique. 2. Echogenic renal parenchyma, a finding which can be seen with medical renal disease. 3. Urinary bladder wall thickening. This may be due to cystitis or chronic outlet obstruction. Correlate with urinalysis. COMMENT/RELEVANT DATA Meds Current Medications Medications (Trade) Dose Ordered Sig/Dez Start Time Stop Time Status Last Admin Dose Admin Acetaminophen (Tylenol) 650 mg Q6H PRN 08/27/19 09:45 08/30/19 09:19 650 MG Alprazolam (Xanax) 0.5 mg PRN DAILY PRN 08/30/19 19:30 08/31/19 21:08 0.5 MG Aspirin (Ecotrin) 81 mg DAILYWBKFT 08/31/19 08:00 09/01/19 08:11 81 MG Calcium Gluconate (Calcium Gluconate) 1,000 mg 1X ONCE 08/27/19 12:45 08/27/19 12:46 DC Ceftriaxone Sodium (Rocephin) 1 gm 1X ONCE 08/27/19 12:00 08/27/19 12:01 DC 08/27/19 13:14 1 GM Citalopram Hydrobromide (CeleXA) 10 mg DAILY 08/31/19 09:00 UNV Daptomycin 200 mg/ Sodium Chloride 50 ml @ 100 mls/hr Q24H 08/31/19 12:00 08/31/19 12:33 100 MLS/HR Dextrose (Dextrose 50%-Water Syringe) 12.5 gm PRN Q15MIN PRN 08/28/19 12:30 UNV Dobutamine HCl/ Dextrose 250 ml @ 0 mls/hr CONT PRN 08/27/19 12:45 08/29/19 11:48 DC Famotidine (Pepcid Vial) 20 mg DAILY 08/27/19 10:00 08/29/19 14:17 DC 08/29/19 09:34 20 MG Famotidine (Pepcid) 20 mg DAILY 08/30/19 09:00 09/01/19 08:08 20 MG Heparin Sodium (Porcine) (Heparin Sodium) 5,000 unit Q12HR 08/27/19 10:00 09/01/19 08:25 5,000 UNIT Influenza Virus Vaccine Quadrival (Afluria Quad 2019-20 (3yr Up) Syringe) 0.5 ml ONCE ONCE 08/28/19 09:00 08/28/19 09:01 DC 08/28/19 09:01 0.5 ML Info (Icu Electrolyte Protocol) 1 ea DAILY 08/28/19 09:00 08/29/19 10:09 DC Insulin Human Lispro (HumaLOG) 0-7 UNITS TIDWMEALS 08/28/19 12:30 08/31/19 17:20 3 UNITS Insulin Human Regular (HumuLIN R VIAL) 10 unit 1X ONCE 08/27/19 08:45 08/27/19 08:46 DC 08/27/19 11:23 10 UNIT Lactobacillus Rhamnosus (Culturelle) 1 cap BID 08/27/19 21:00 09/01/19 08:08 1 CAP Lidocaine HCl (Buffered Lidocaine 1%) 6 ml 1X ONCE 08/27/19 14:30 08/27/19 14:31 DC 08/27/19 14:51 4 ML Meropenem 1 gm/ Sodium Chloride 100 ml @ 200 mls/hr Q8HRS 08/27/19 14:00 UNV Meropenem 500 mg/ Sodium Chloride 50 ml @ 100 mls/hr Q12HR 08/27/19 21:00 09/01/19 08:07 100 MLS/HR Metoprolol Tartrate (Lopressor) 12.5 mg BID 08/31/19 09:00 09/01/19 08:11 12.5 MG Multivitamins/ Minerals (I-Carly) 1 tab DAILY 08/27/19 10:00 09/01/19 08:08 1 TAB Norepinephrine Bitartrate 250 ml @ 0 mls/hr CONT PRN 08/27/19 12:45 08/29/19 11:48 DC Paroxetine HCl (Paxil) 10 mg DAILY 08/29/19 09:00 09/01/19 08:08 10 MG Pharmacy Consult (C.diff Med Screen By Rx) 1 each 1X ONCE 08/27/19 13:15 08/27/19 13:16 UNV Phytonadione (Mephyton Oral Soln) 5 mg 1X ONCE 08/27/19 10:00 08/27/19 10:01 DC 08/27/19 14:00 5 MG Potassium Chloride/Water 100 ml @ 100 mls/hr Q1H 08/30/19 05:30 08/30/19 09:32 DC 08/30/19 15:19 100 MLS/HR Potassium Chloride (Klor-Con) 40 meq 1X ONCE 08/30/19 05:30 08/30/19 05:31 DC 08/30/19 05:53 40 MEQ Quetiapine Fumarate (SEROquel) 50 mg HS 08/28/19 21:00 08/31/19 21:08 50 MG Sodium Bicarbonate 150 meq/Dextrose 1,150 ml @ 100 mls/hr [id number] 08/27/19 14:30 08/31/19 14:00 100 MLS/HR Sodium Polystyrene Sulfonate (Kayexalate) 30 gm 1X ONCE 08/27/19 08:45 08/27/19 08:46 DC 08/27/19 10:37 30 GM Sodium Bicarbonate (Sodium Bicarb Adult 8.4% Syr) 50 meq 1X ONCE 08/27/19 08:45 08/27/19 08:46 DC 08/27/19 10:35 50 MEQ Sodium Chloride 500 ml @ 1,000 mls/hr PRN Q30MIN PRN 08/27/19 12:45 Sodium Chloride (Normal Saline Flush) 3 ml QSHIFT PRN 08/27/19 09:45 Thiamine Mononitrate (Vitamin B-1) 100 mg DAILY 08/27/19 10:00 09/01/19 08:08 100 MG Vancomycin HCl (Vancomycin Oral Solution) 125 mg [id number] 08/29/19 09:00 09/01/19 08:08 125 MG Lab Laboratory Tests Test 08/31/19 10:00 08/31/19 11:19 08/31/19 17:00 08/31/19 20:51 Sodium Level 144 mmol/L (136-145) Potassium Level 3.8 mmol/L (3.5-5.1) Chloride Level 106 mmol/L (98-107) Carbon Dioxide Level 33 mmol/L (21-32) Anion Gap 5 (6-14) Blood Urea Nitrogen 36 mg/dL (8-26) Creatinine 1.3 mg/dL (0.7-1.3) Estimated GFR (Cockcroft-Gault) 72.6 Glucose Level 151 mg/dL (70-99) Calcium Level 7.4 mg/dL (8.5-10.1) Glucose (Fingerstick) 148 mg/dL (70-99) 197 mg/dL (70-99) 100 mg/dL (70-99) Test 09/01/19 03:50 09/01/19 07:33 Sodium Level 142 mmol/L (136-145) Potassium Level 4.0 mmol/L (3.5-5.1) Chloride Level 105 mmol/L (98-107) Carbon Dioxide Level 33 mmol/L (21-32) Anion Gap 4 (6-14) Blood Urea Nitrogen 31 mg/dL (8-26) Creatinine 1.2 mg/dL (0.7-1.3) Estimated GFR (Cockcroft-Gault) 79.6 Glucose Level 133 mg/dL (70-99) Calcium Level 7.4 mg/dL (8.5-10.1) Glucose (Fingerstick) 140 mg/dL (70-99) Results All relevant outside records, renal labs, imaging studies, telemetry/EKG's were reviewed. PETTY FERRIS MD Sep 01, 2019 09:49
--- NOTE | 2019-09-01 09:53 | PDOC ---
PROGRESS NOTES Chief Complaint Chief Complaint impression Acute renal failure Obstructive uropathy Severe sepsis c diff positive/w/ ccute colitis, Severe malnutrition, BMI 13.8 - ALBUMIN 1,8 Diabetes 2, very poor care Peripheral vascular disease, s/p AKA Sacral and leg wounds, poor self care, cellulitis and poss further infection Depression, reports suicidal ideations POA Bipolar HYperkalemia, now HYPOKALEMIA LEukocytosis 14 GAIT INSTABILITY Rolling Left Assistance Required * Mod Assistance Rolling Right Assistance Required * Mod Assistance Supine to Sit Assistance Required * Mod Assistance * Two-Person Assistance Transfer Assistance Required * Max Assistance * Two-Person Assistance Transfer Type convert metoprolol to coreg 27 MIN PT EXAM, CHART REVIEW, > 50% OF TIME SPENT WITH EXAM, CHART REVIEW, PT CARE COORDINATION History of Present Illness History of Present Illness feels better still some pain Came from home but clearly needs more than that -agreeable to SNU has passed psych eval, no longer suicidal, Still some diarrhea, c diff pos- ON pO vanc, dapto, merrem per ID WBC 14 but no fevers ALBUMIN 1.4 CReat down to 1.5 from 2 + COnt contact isol and pO vanc COnt IV abx per ID MAintain zimmerman - sacral wounds and still loose BM NEeds pat re avl so we can dc sitter if appropriate - SNU BED PLACEMENT Vitals Vitals Vital Signs Date Time Temp Pulse Resp B/P (MAP) Pulse Ox O2 Delivery O2 Flow Rate FiO2 09/01/19 08:30 Room Air 09/01/19 08:11 81 123/74 09/01/19 07:00 98.0 18 97 98.0 Physical Exam Physical Exam GENERAL: Cachectic, thin male, lying in bed, cooperative, appears comfortable, in no acute distress. HEENT: Anicteric. Poor dentition. No thrush. Oral mucosa moist. NECK: HDC catheter looks okay. LUNGS: Clear. HEART: S1, S2. ABDOMEN: Soft, nontender, nondistended. GENITOURINARY: Zimmerman in place. Groin dry skin. EXTREMITIES: Right AKA. SKIN: Multiple wounds lower extremities, no evidence of infection, multiple abrasions, wound descriptions noted from pictures in the chart over the back, no purulent drainage noted, unstageable. NEUROLOGIC: Alert, oriented, grossly nonfocal. PSYCHIATRY: Awake, alert, cooperative. General: Alert, Oriented X3, Cooperative, No acute distress, Other (cachectic) Heart: Regular rate (SR), Normal S1, Normal S2, No murmurs, Other Lungs: Clear Abdomen: Soft, Other (hyperactive bowel sounds) Extremities: No cyanosis, No edema Skin: Other (multiple pressure ulcers) Labs LABS Visit Type * Pt Declined Attempted Visit Details * Pt declining PT at this time stating, "can we do this tomorrow, my body is aching all over." PT will plan to follow-up at later time. PT/GLOBAL SUPPLY CHAIN VICE PRESIDENT * Ethel Lyn DPT Communicated Patient Care With (Name, Title) * TSERING Santiago; TERE Andrews Laboratory Tests * Due to Strength/ROM Defic Activity Tolerance * Poor Activity Tolerance/ Vitals * no signs or symptoms of distress Sitting Balance * 1+ pt performs >50% Standing Balance * 0 Pt performs <25% PT PAIN COMMENTS * buttocks pain due to sores/frequent BM's Rolling Left Assistance Required * Mod Assistance Rolling Right Assistance Required * Mod Assistance Supine to Sit Assistance Required * Mod Assistance * Two-Person Assistance Transfer Assistance Required * Max Assistance * Two-Person Assistance Transfer Type * Squat-Pivot Transfer Assistive Device * No Device Transfer Comments * squat pivot bed to chair with max x 2, pt bears little weight on left LE Rehab Potential to Achieve Goals * Fair Learning Preferences * One-on-One Instruction * Demonstration Problem List (body system elements) * Impaired fnctnl mobility * Strength * Balance * Pain Pt/caregiver agrees with plan of care/goals * Yes Patient condition at conclusion of therapy * Pt in chair * Call light in reach * Phone in reach * PtIn no apparent distress * Pt denies further needs Communicated Patient Care With (Name, Title) * TSERING Eric; Juliana OT Goal 1 - Bed Mobility Assistance Required * Independent Goal 1 Assessment * Appropriate - Continue Goal 2 - Transfers Assistance Required * Independent Goal 2 - Transfer Type * Squat-Pivot Goal 2 Assessment * Appropriate - Continue Treatment Plan * Therapeutic Exercise * Bed Mobility Training * Transfer training * Gait Training * Dynamic Balance Training Frequency of Treatment Expected * 6 visits/week Duration of Treatment Expected * 2 weeks Discharge Recommendations * Jail Unit Test 08/31/19 10:00 08/31/19 11:19 08/31/19 17:00 08/31/19 20:51 Sodium Level 144 mmol/L (136-145) Potassium Level 3.8 mmol/L (3.5-5.1) Chloride Level 106 mmol/L (98-107) Carbon Dioxide Level 33 mmol/L (21-32) Anion Gap 5 (6-14) Blood Urea Nitrogen 36 mg/dL (8-26) Creatinine 1.3 mg/dL (0.7-1.3) Estimated GFR (Cockcroft-Gault) 72.6 Glucose Level 151 mg/dL (70-99) Calcium Level 7.4 mg/dL (8.5-10.1) Glucose (Fingerstick) 148 mg/dL (70-99) 197 mg/dL (70-99) 100 mg/dL (70-99) Test 09/01/19 03:50 09/01/19 07:33 Sodium Level 142 mmol/L (136-145) Potassium Level 4.0 mmol/L (3.5-5.1) Chloride Level 105 mmol/L (98-107) Carbon Dioxide Level 33 mmol/L (21-32) Anion Gap 4 (6-14) Blood Urea Nitrogen 31 mg/dL (8-26) Creatinine 1.2 mg/dL (0.7-1.3) Estimated GFR (Cockcroft-Gault) 79.6 Glucose Level 133 mg/dL (70-99) Calcium Level 7.4 mg/dL (8.5-10.1) Glucose (Fingerstick) 140 mg/dL (70-99) Assessment and Plan Assessmemt and Plan Problems Medical Problems: (1) Hyperkalemia Status: Acute (2) Hypermagnesemia Status: Acute (3) Hyperphosphatemia Status: Acute (4) Hypoalbuminemia Status: Acute (5) Hypocalcemia Status: Acute (6) Hyponatremia Status: Acute (7) Metabolic acidosis Status: Acute (8) Suicidal ideation Status: Acute Comment Review of Relevant I have reviewed the following items anisa (where applicable) has been applied. Labs Laboratory Tests Test 08/30/19 10:54 08/30/19 13:18 08/30/19 16:19 08/30/19 20:29 Glucose (Fingerstick) 263 mg/dL (70-99) 205 mg/dL (70-99) 107 mg/dL (70-99) 200 mg/dL (70-99) Test 08/31/19 07:54 08/31/19 10:00 08/31/19 11:19 08/31/19 17:00 Glucose (Fingerstick) 167 mg/dL (70-99) 148 mg/dL (70-99) 197 mg/dL (70-99) Sodium Level 144 mmol/L (136-145) Potassium Level 3.8 mmol/L (3.5-5.1) Chloride Level 106 mmol/L (98-107) Carbon Dioxide Level 33 mmol/L (21-32) Anion Gap 5 (6-14) Blood Urea Nitrogen 36 mg/dL (8-26) Creatinine 1.3 mg/dL (0.7-1.3) Estimated GFR (Cockcroft-Gault) 72.6 Glucose Level 151 mg/dL (70-99) Calcium Level 7.4 mg/dL (8.5-10.1) Test 08/31/19 20:51 09/01/19 03:50 09/01/19 07:33 Glucose (Fingerstick) 100 mg/dL (70-99) 140 mg/dL (70-99) Sodium Level 142 mmol/L (136-145) Potassium Level 4.0 mmol/L (3.5-5.1) Chloride Level 105 mmol/L (98-107) Carbon Dioxide Level 33 mmol/L (21-32) Anion Gap 4 (6-14) Blood Urea Nitrogen 31 mg/dL (8-26) Creatinine 1.2 mg/dL (0.7-1.3) Estimated GFR (Cockcroft-Gault) 79.6 Glucose Level 133 mg/dL (70-99) Calcium Level 7.4 mg/dL (8.5-10.1) Laboratory Tests Test 08/31/19 10:00 08/31/19 11:19 08/31/19 17:00 08/31/19 20:51 Sodium Level 144 mmol/L (136-145) Potassium Level 3.8 mmol/L (3.5-5.1) Chloride Level 106 mmol/L (98-107) Carbon Dioxide Level 33 mmol/L (21-32) Anion Gap 5 (6-14) Blood Urea Nitrogen 36 mg/dL (8-26) Creatinine 1.3 mg/dL (0.7-1.3) Estimated GFR (Cockcroft-Gault) 72.6 Glucose Level 151 mg/dL (70-99) Calcium Level 7.4 mg/dL (8.5-10.1) Glucose (Fingerstick) 148 mg/dL (70-99) 197 mg/dL (70-99) 100 mg/dL (70-99) Test 09/01/19 03:50 09/01/19 07:33 Sodium Level 142 mmol/L (136-145) Potassium Level 4.0 mmol/L (3.5-5.1) Chloride Level 105 mmol/L (98-107) Carbon Dioxide Level 33 mmol/L (21-32) Anion Gap 4 (6-14) Blood Urea Nitrogen 31 mg/dL (8-26) Creatinine 1.2 mg/dL (0.7-1.3) Estimated GFR (Cockcroft-Gault) 79.6 Glucose Level 133 mg/dL (70-99) Calcium Level 7.4 mg/dL (8.5-10.1) Glucose (Fingerstick) 140 mg/dL (70-99) Microbiology 08/29/19 Blood Culture - Preliminary, Resulted NO GROWTH AFTER 3 DAYS Medications Current Medications Sodium Chloride 1,000 ml @ 1,000 mls/hr Q1H IV Last administered on 08/27/19at 08:40; Start 08/27/19 at 06:30; Stop 08/27/19 at 07:29; Status DC Calcium Gluconate (Calcium Gluconate) 1,000 mg 1X ONCE IVP Last administered on 08/27/19at 10:36; Start 08/27/19 at 08:45; Stop 08/27/19 at 08:46; Status DC Sodium Bicarbonate (Sodium Bicarb Adult 8.4% Syr) 50 meq 1X ONCE IV Last administered on 08/27/19at 10:35; Start 08/27/19 at 08:45; Stop 08/27/19 at 08 :46; Status DC Dextrose (Dextrose 50%-Water Syringe) 25 gm 1X ONCE IV Last administered on 08/27/19at 10:35; Start 08/27/19 at 08:45; Stop 08/27/19 at 08:46; Status DC Insulin Human Regular (HumuLIN R VIAL) 10 unit 1X ONCE IV Last administered on 08/27/19at 11:23; Start 08/27/19 at 08:45; Stop 08/27/19 at 08:46; Status DC Sodium Polystyrene Sulfonate (Kayexalate) 30 gm 1X ONCE PO Last administered on 08/27/19at 10:37; Start 08/27/19 at 08:45; Stop 08/27/19 at 08:46; Status DC Sodium Chloride 1,000 ml @ 1,000 mls/hr Q1H IV Last administered on 08/27/19at 10:36; Start 08/27/19 at 08:45; Stop 08/27/19 at 09:44; Status DC Acetaminophen (Tylenol) 650 mg Q6H PRN PO Headaches, Temp > 101.5' Last administered on 08/30/19at 09:19; Start 08/27/19 at 09:45 Famotidine (Pepcid Vial) 20 mg DAILY IVP Last administered on 08/29/19at 09:34; Start 08/27/19 at 10:00; Stop 08/29/19 at 14:17; Status DC Info (Icu Electrolyte Protocol) 1 ea DAILY MC ; Start 08/28/19 at 09:00; Stop 08/29/19 at 10:09; Status DC Heparin Sodium (Porcine) (Heparin Sodium) 5,000 unit Q12HR SQ Last administered on 09/01/19at 08:25; Start 08/27/19 at 10:00 Sodium Chloride (Normal Saline Flush) 3 ml QSHIFT PRN IV AFTER MEDS AND BLOOD DRAWS; Start 08/27/19 at 09:45 Thiamine Mononitrate (Vitamin B-1) 100 mg DAILY PO Last administered on 09/01/19at 08:08; Start 08/27/19 at 10:00 Multivitamins/ Minerals (I-Carly) 1 tab DAILY PO Last administered on 09/01/19at 08:08; Start 08/27/19 at 10:00 Phytonadione (Mephyton Oral Soln) 5 mg 1X ONCE PO Last administered on 08/27/19at 14:00; Start 08/27/19 at 10:00; Stop 08/27/19 at 10:01; Status DC Ceftriaxone Sodium (Rocephin) 1 gm 1X ONCE IVP Last administered on 08/27/19at 13:14; Start 08/27/19 at 12:00; Stop 08/27/19 at 12:01; Status DC Calcium Gluconate (Calcium Gluconate) 1,000 mg 1X ONCE IVP ; Start 08/27/19 at 12:45; Stop 08/27/19 at 12:46; Status DC Sodium Chloride 1,000 ml @ 1,650 mls/hr Q37M IV Last administered on 08/28/19at 02:03; Start 08/27/19 at 12:37; Stop 08/27/19 at 13:37; Status DC Sodium Chloride 500 ml @ 1,000 mls/hr PRN Q30MIN PRN IV SEE COMMENTS; Start 08/27/19 at 12:45 Meropenem 1 gm/ Sodium Chloride 100 ml @ 200 mls/hr Q8HRS IV ; Start 08/27/19 at 14:00; Status UNV Norepinephrine Bitartrate 250 ml @ 0 mls/hr CONT PRN IV SEE I/O RECORD; Start 08/27/19 at 12:45; Stop 08/29/19 at 11:48; Status DC Dobutamine HCl/ Dextrose 250 ml @ 0 mls/hr CONT PRN IV SEE I/O RECORD; Start 08/27/19 at 12:45; Stop 08/29/19 at 11:48; Status DC Meropenem 500 mg/ Sodium Chloride 50 ml @ 100 mls/hr Q8HRS IV Last administered on 08/27/19at 15:16; Start 08/27/19 at 14:00; Stop 08/27/19 at 16:26; Status DC Pharmacy Consult (C.diff Med Screen By Rx) 1 each 1X ONCE MC ; Start 08/27/19 at 13:15; Stop 08/27/19 at 13:16; Status UNV Influenza Virus Vaccine Quadrival (Afluria Quad 2019-20 (3yr Up) Syringe) 0.5 ml ONCE ONCE VAX IM Last administered on 08/28/19at 09:01; Start 08/28/19 at 09:00; Stop 08/28/19 at 09:01; Status DC Lactobacillus Rhamnosus (Culturelle) 1 cap BID PO Last administered on 09/01/19at 08:08; Start 08/27/19 at 21:00 Lidocaine HCl (Buffered Lidocaine 1%) 3 ml STK-MED ONCE .ROUTE ; Start 08/27/19 at 14:06; Stop 08/27/19 at 14:07; Status DC Dextrose (Dextrose 50%-Water Syringe) 12.5 gm PRN Q15MIN PRN IV SEE COMMENTS Last administered on 08/28/19at 17:14; Start 08/27/19 at 14:15 Lidocaine HCl (Buffered Lidocaine 1%) 6 ml 1X ONCE INJ Last administered on 08/27/19at 14:51; Start 08/27/19 at 14:30; Stop 08/27/19 at 14:31; Status DC Sodium Bicarbonate 150 meq/Dextrose 1,150 ml @ 100 mls/hr [id number] IV Last administered on 08/31/19at 14:00; Start 08/27/19 at 14:30 Meropenem 500 mg/ Sodium Chloride 50 ml @ 100 mls/hr 1X ONCE IV ; Start 08/27/19 at 15:45; Stop 08/27/19 at 16:14; Status UNV Daptomycin 200 mg/ Sodium Chloride 50 ml @ 100 mls/hr Q48H IV Last administered on 08/29/19at 16:20; Start 08/27/19 at 17:00; Stop 08/31/19 at 10:36; Status DC Meropenem 500 mg/ Sodium Chloride 50 ml @ 100 mls/hr Q12HR IV Last administered on 09/01/19 08:07; Start 08/27/19 at 21:00 Potassium Chloride (Klor-Con) 40 meq 1X ONCE PO Last administered on 08/28/19at 08:41; Start 08/28/19 at 07:30; Stop 08/28/19 at 07:31; Status DC Insulin Human Lispro (HumaLOG) 0-7 UNITS TIDWMEALS SQ Last administered on 08/31/19at 17:20; Start 08/28/19 at 12:30 Dextrose (Dextrose 50%-Water Syringe) 12.5 gm PRN Q15MIN PRN IV SEE COMMENTS; Start 08/28/19 at 12:30; Status UNV Paroxetine HCl (Paxil) 10 mg DAILY PO Last administered on 09/01/19at 08:08; Start 08/29/19 at 09:00 Quetiapine Fumarate (SEROquel) 50 mg HS PO Last administered on 08/31/19at 21:08; Start 08/28/19 at 21:00 Vancomycin HCl (Vancomycin Oral Solution) 125 mg [id number] PO Last administered on 09/01/19 08:08; Start 08/29/19 at 09:00 Famotidine (Pepcid) 20 mg DAILY PO Last administered on 09/01/19 08:08; Start 08/30/19 at 09:00 Potassium Chloride (Klor-Con) 40 meq 1X ONCE PO Last administered on 08/30/19 05:53; Start 08/30/19 at 05:30; Stop 08/30/19 at 05:31; Status DC Potassium Chloride/Water 100 ml @ 100 mls/hr Q1H IV Last administered on 08/30/19 15:19; Start 08/30/19 at 05:30; Stop 08/30/19 at 09:32; Status DC Citalopram Hydrobromide (CeleXA) 10 mg DAILY PO Last administered on 09/01/19 08:08; Start 08/30/19 at 14:00 Citalopram Hydrobromide (CeleXA) 10 mg DAILY PO ; Start 08/31/19 at 09:00; Status UNV Alprazolam (Xanax) 0.5 mg PRN DAILY PRN PO ANXIETY / AGITATION Last administered on 08/31/19 21:08; Start 08/30/19 at 19:30 Aspirin (Ecotrin) 81 mg [id number] PO Last administered on 09/01/19 08:11; Start 08/31/19 at 08:00 Metoprolol Tartrate (Lopressor) 12.5 mg BID PO Last administered on 09/01/19 08:11; Start 08/31/19 at 09:00 Daptomycin 200 mg/ Sodium Chloride 50 ml @ 100 mls/hr Q24H IV Last administ ered on 08/31/19at 12:33; Start 08/31/19 at 12:00 Active Scripts Active Reported Tramadol Hcl 50 Mg Tablet 50 Mg PO Q6HRS PRN Flomax (Tamsulosin Hcl) 0.4 Mg Cap.er.24h 0.4 Mg PO DAILY Hydralazine Hcl 25 Mg Tablet 1 Tab PO TID Glipizide 5 Mg Tablet 1.5 Tab PO DAILY Vitamin D3 (Cholecalciferol (Vitamin D3)) 1,000 Unit Tablet 1 Tab PO DAILY Coreg (Carvedilol) 25 Mg Tablet 25 Mg PO BIDWMEALS Norvasc (Amlodipine Besylate) 10 Mg Tablet 10 Mg PO DAILY Vitals/I & O Vital Sign - Last 24 Hours 08/31/19 08/31/19 08/31/19 08/31/19 11:00 15:00 19:20 20:30 Temp 98.2 97.8 98.8 98.2 97.8 98.8 Pulse 92 98 97 Resp 16 16 18 B/P (MAP) 151/87 (108) 122/75 (91) 139/88 (105) Pulse Ox 99 100 98 O2 Delivery Room Air Room Air Room Air Room Air 08/31/19 08/31/19 09/01/19 09/01/19 21:09 23:00 03:00 07:00 Temp 97.8 98.0 98.0 97.8 98.0 98.0 Pulse 98 85 95 81 Resp 18 16 18 B/P (MAP) 137/86 144/82 (102) 146/89 (108) 123/74 (90) Pulse Ox 99 96 97 O2 Delivery Room Air Room Air Room Air 09/01/19 09/01/19 08:11 08:30 Pulse 81 B/P (MAP) 123/74 O2 Delivery Room Air Intake and Output 08/31/19 08/31/19 09/01/19 15:00 23:00 07:00 Intake Total 1250 ml 540 ml Balance 1250 ml 540 ml Nutrition Consultation Dietary Evaluation: Recommendations by RD: Increase Calorie Intake, Protein supplementation Comments: Continue w/ADA diet as ordered, will not add cardiac restriction at this time d/c Glucerna per pt request, added dbl meats and tiago q day Tiago to provide 300 mg Vit C - wound healing Continue w/MVI Expected Outcomes/Goals: PO intake to meet >75% est needs- goal ongoing improved wound status Interpretation of weight loss: >7.5% in 3 months Malnutrition Findings: Food and Nutrition Intake (Mod: <75% est energy req 7days Weight Status: Underweight IMELDA ANDREW MD Sep 01, 2019 09:53
--- NOTE | 2019-09-01 10:13 | PDOC ---
Subjective: Subjective: Tolerating PO, diarrhea slowed "way down," wonders when he can go home. Objective: Vital Signs: Vital Signs Date Time Temp Pulse Resp B/P (MAP) Pulse Ox O2 Delivery O2 Flow Rate FiO2 09/01/19 08:30 Room Air 09/01/19 08:11 81 123/74 09/01/19 07:00 98.0 18 97 98.0 Labs: Laboratory Tests Test 08/31/19 11:19 08/31/19 17:00 08/31/19 20:51 09/01/19 03:50 Glucose (Fingerstick) 148 mg/dL 197 mg/dL 100 mg/dL Sodium Level 142 mmol/L Potassium Level 4.0 mmol/L Chloride Level 105 mmol/L Carbon Dioxide Level 33 mmol/L Anion Gap 4 Blood Urea Nitrogen 31 mg/dL Creatinine 1.2 mg/dL Estimated GFR (Cockcroft-Gault) 79.6 Glucose Level 133 mg/dL Calcium Level 7.4 mg/dL Test 09/01/19 07:33 Glucose (Fingerstick) 140 mg/dL BLOOD CULTURE LC Preliminary Preliminary report BLD CULT RESULT 1 Preliminary Gram negative rods Imaging: Renal US 08/31 IMPRESSION: 1. Moderate right and mild left hydronephrosis, similar compared to the recent prior study with allowing for differences in imaging technique. 2. Echogenic renal parenchyma, a finding which can be seen with medical renal disease. 3. Urinary bladder wall thickening. This may be due to cystitis or chronic outlet obstruction. Correlate with urinalysis. PE: GEN: NAD, eating with enthusiasm LUNGS: room air NEURO/PSYCH: A & O 3 A/P: Multiple wounds, GNR bacteremia C Diff - on vanco Hydronephrosis - [facility] transfer declined -- Improved from GI standpoint. NENA ARCINIEGA Sep 01, 2019 10:13
[2019-09-01 10:16] LABS: ALBUM 2.5 g/dL (2.9-4.4); ALPHA 1 0.5 g/dL (0.0-0.4); ALPHA 2 0.9 g/dL (0.4-1.0); BETA 1.1 g/dL (0.7-1.3); GAMMA 1.6 g/dL (0.4-1.8); PROTEIN TOTAL 6.5 g/dL (6.0-8.5); SPEP AG RATIO 0.6 (0.7-1.7)
[2019-09-01 11:00] VITALS: BP 120/68
--- NOTE | 2019-09-01 11:04 | PDOC ---
CARDIO Progress Notes Date and Time Date of Service 09/01/19 Time of Evaluation 1050 Subjective Subjective: No Chest Pain, No shortness of breath, Other (wanting to go home) Vitals Vitals Vital Signs Date Time Temp Pulse Resp B/P (MAP) Pulse Ox O2 Delivery O2 Flow Rate FiO2 09/01/19 08:30 Room Air 09/01/19 08:11 81 123/74 09/01/19 07:00 98.0 18 97 98.0 Weight Weight [ ] Input and Output Intake and Output Intake and Output 09/01/19 07:00 Intake Total 1790 ml Balance 1790 ml Intake Oral 540 ml IV Total 1250 ml # Voids 3 # Bowel Movements 2 Laboratory Labs Laboratory Tests Test 08/31/19 11:19 08/31/19 17:00 08/31/19 20:51 09/01/19 03:50 Glucose (Fingerstick) 148 mg/dL (70-99) 197 mg/dL (70-99) 100 mg/dL (70-99) Sodium Level 142 mmol/L (136-145) Potassium Level 4.0 mmol/L (3.5-5.1) Chloride Level 105 mmol/L (98-107) Carbon Dioxide Level 33 mmol/L (21-32) Anion Gap 4 (6-14) Blood Urea Nitrogen 31 mg/dL (8-26) Creatinine 1.2 mg/dL (0.7-1.3) Estimated GFR (Cockcroft-Gault) 79.6 Glucose Level 133 mg/dL (70-99) Calcium Level 7.4 mg/dL (8.5-10.1) Test 09/01/19 07:33 Glucose (Fingerstick) 140 mg/dL (70-99) Microbiology Micro Microbiology 08/29/19 Blood Culture - Preliminary, Resulted NO GROWTH AFTER 3 DAYS Physical Exam HEENT: Neck Supple W Full Motion Chest: Symmetric LUNGS: Clear to Auscultation, Other (diminished bases) Heart: S1S2, RRR Abdomen: Soft N/T, Other (hyperactive bowel sounds) Extremities: No Edema, Other (right AKA) Neurology: alert, oriented, follow commands Assessment Assessment 1. VENANCIO; improved 2. Hydronephrosis, bilateral 3. Sepsis, c-diff 4. Elevated troponin: 0.15, EKG SR/ST without acute changes. Most probably type II, demand ischemia. Multifactorial with above culprits 5. Chronic systolic CHF; clinically compensated 6. CMP; LVEF 40%. suspect NICM 7. DM2 8. Malnutrition/multiple wounds/anorexia/cachexia 9. Hx of cocaine and marijuana abuse 10. 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 Allergy to ACEi Continue ASA Supportive care LUZ MARIA RIVERS APRN Sep 01, 2019 11:04
[2019-09-01 11:11] LABS: ALBUMIN 1.3 g/dL (3.4-5.0); ALBUMIN/GLOBULIN RATIO 0.3 (1.0-1.7); CALCIUM 7.3 mg/dL (8.5-10.1); CREATININE 1.3 mg/dL (0.7-1.3); GFR 72.6; POTASSIUM 3.9 mmol/L (3.5-5.1); TOTAL BILIRUBIN 0.4 mg/dL (0.2-1.0); TOTAL PROTEIN 5.3 g/dL (6.4-8.2)
[2019-09-01 11:24] LABS: BASO % 0 % (0-3); EOS % 0 % (0-3); HEMATOCRIT 24.7 % (39.0-53.0); LYMPH # 1.2 x10^3/uL (1.0-4.8); LYMPH % 15 % (24-48); MEAN CORPUSCULAR HEMOGLOBIN 26 pg (25-35); MEAN CORPUSCULAR HGB CONC 33 g/dL (31-37); MEAN CORPUSCULAR VOLUME 81 fL (79-100); MONO # 0.6 x10^3/uL (0.0-1.1); MONO % 8 % (0-9); NEUT # 6.4 x10^3/uL (1.8-7.7); NEUT % 77 % (31-73); PLATELET COUNT 119 x10^3/uL (140-400); RED BLOOD COUNT 3.06 x10^6/uL (4.30-5.70); RED CELL DISTRIBUTION WIDTH 16.5 % (11.5-14.5); WHITE BLOOD COUNT 8.3 x10^3/uL (4.0-11.0)
[2019-09-01] MEDS: DAPTOMYCIN IV SCH (12:02)
[2019-09-01] MEDS: NORMAL SALINE IV SCH (12:02)
--- NOTE | 2019-09-01 12:11 | NUR ---
SW following for discharge planning, chart reviewed, discussed with RN. Pt is from home alone, has multiple pressure ulcers and C diff. RN concerned pt cannot return home to care for himself. ANGEL confirmed with [facility] pt is medicaid pending. RN advised pt has a contact listed, Tyra ([phone], ) which pt gave permission to RN for SW to contact. The 526 number for Tyra would not connect, SW left voicemail for Tyra on the [phone] number, requesting a call back. SW awaiting call back. SW will continue to follow.
[2019-09-01 15:00] VITALS: BP 123/72
--- NOTE | 2019-09-01 15:12 | PDOC2 ---
Chief Complaint: Chief Complaint: Bed sores Problems: (1) Pressure ulcer of left buttock, unstageable (2) Pressure ulcer of right buttock, unstageable Vital Signs: Vital Signs: Vital Signs Date Time Temp Pulse Resp B/P (MAP) Pulse Ox O2 Delivery O2 Flow Rate FiO2 08/31/19 07:00 98.2 101 16 146/94 (111) 99 Room Air 98.2 Vital Signs Date Time Temp Pulse Resp B/P (MAP) Pulse Ox O2 Delivery O2 Flow Rate FiO2 09/01/19 15:00 97.6 85 18 123/72 (89) 100 Room Air 97.6 Allergies: Allergies: Allergies Coded Allergies Type Severity Reaction Last Updated Verified I S O L A T I O N *CONTACT* Allergy Unknown 12/23/17 Yes lisinopril Allergy Unknown 08/27/19 Yes Medications: Home Meds Reported Medications Tramadol Hcl (TRAMADOL HCL) 50 Mg Tablet, 50 MG PO Q6HRS PRN for PAIN, TAB 08/28/19 Tamsulosin Hcl (FLOMAX) 0.4 Mg Cap.er.24h, 0.4 MG PO DAILY for urine flow, TAB 08/28/19 Hydralazine Hcl (HYDRALAZINE HCL) 25 Mg Tablet, 1 TAB PO TID for BP, #90 TAB 5 Refills 08/28/19 Glipizide (GLIPIZIDE) 5 Mg Tablet, 1.5 TAB PO DAILY for Blood sugar, #90 TAB 3 Refills 08/28/19 Cholecalciferol (Vitamin D3) (VITAMIN D3) 1,000 Unit Tablet, 1 TAB PO DAILY for vit d deficiency, #30 TAB 5 Refills 08/28/19 Carvedilol (COREG) 25 Mg Tablet, 25 MG PO BIDWMEALS for CARDIAC, TAB 08/28/19 Amlodipine Besylate (NORVASC) 10 Mg Tablet, 10 MG PO DAILY for bp, TAB 08/28/19 Discontinued Scripts Hydrocodone/Apap 5-325 (NORCO 5-325 TABLET) 1 Each Tablet, 1 TAB PO PRN Q6HRS PRN for PAIN, #20 TAB 0 Refills Prov:ARJUN NEIL [employer]ER 12/19/17 Clindamycin Hcl (CLINDAMYCIN HCL) 300 Mg Capsule, 1 CAP PO TID, #30 CAP Prov:ARJUN NEIL [employer]ER 12/19/17 PCP: PCP: None Pain: Pain Location: Buttocks (Bilateral) Pain Description: Chronic Scale (pain): 7 Date of Onset 44 yo diabetic male was admitted with suicidal ideation, sepsis, acute renal failure, dehydration, and malnutrition, of several days duration. He is nonambulatory s/p rigth AKA 1-2 years ago at [facility]. He is sedentary, spending most of his days in a chair at home. Upon admission several pressure sores were discovered, the worst of which are on his buttocks. He does not take diabetes medication regularly, he smokes less than 1 ppd cigarettes, and uses marijuana and cocaine. PSH Not , lives with his fiance. Finished high school, then "got in trouble." He was incarcerated 11 years, never had a steady job. He has children and step- children with who he is not in contact. His fiance with whom he lives is on disability. He has applied for disability but has not yet been qualified. Physical Exam - Wound #1 Wound Exam Location of Modifier: Right Body Site: Buttocks Drainage Amount: Scant Drainage Description: Serous Odor: None/Absent Wound Description: unstagable (Thick soft eschar. Some of the open wound surrounding the eschar is pink with small pinpoint islands of epithelialization) Stage: Unstageable Surgical Debridement #1 Start Time: 14:00 pm End Time: 14:30 pm Time Out Completed: Time Out Procedure: Consent Signed, Wound Asssess. Performed Wound Location: right buttock Anesthesia: Xylocaine Viscous 2% Tissue Removed: Non-Viable, Necrotic, Devitalized Method of Debridement: Scapel, Scissors, Other (pickups) Depth of Debridement: Skin, SQ Bleeding: None Pain Level: Pain ___/10 He flinched and grimaced Surgical Debridement #2 Start Time: 1400 End Time: 1430 Time Out Completed: Time Out Procedure: Verify 2 pt. Identifiers, H&P Performed, Wound Asssess. Performed Wound Location: left buttock Anesthesia: Xylocaine Viscous 2% Tissue Removed: Non-Viable, Necrotic, Devitalized Method of Debridement: Scapel, Scissors Depth of Debridement: Skin Bleeding: None Pain Level: Pain ___/10 He grimaced and flinched A/P Unstageable pressure ulcers complicated by immobility, diabetes, smoking, and malnutrition Problems: (1) Pressure ulcer of right buttock, unstageable (2) Pressure ulcer of left buttock, unstageable (3) Severe malnutrition VALARIE DEL REAL MD Sep 01, 2019 15:12
--- NOTE | 2019-09-01 15:39 | NUR ---
Wound Care Pt seen with Dr. Gay for possible bedside debridement of bilateral buttock wounds. After informed consent was obtained, bilateral buttocks debrided of necrotic tissue, with some adherent eschar remaining, but overall the base of the wounds have pink granulation buds throughout. Necrotic tissue is soft, so it needs to continue to be debrided either sharply or autolytically, Vitamin A&D ointment ordered to help as a barrier to the diarrhea, help soften remaining eschar, and heal the wounds, as applying dressings to this area would be difficult d/t amount and consistency of stools. Pt tolerated well, pt v/u of frequent repositioning and off-loading. Will continue to follow for continued wound care.
[2019-09-01] MEDS: SODIUM BICARBONATE VIAL 150 MEQ in IV DEXTROSE 5% 1,000 ML IV SCH (16:33)
[2019-09-01] MEDS: VITS A & D/LANOLIN TOPICAL OINTMENT 42GM TUBE. TP SCH ×2 (17:00→21:00)
[2019-09-01] MEDS: CARVEDILOL 3.125 MG TABLET. PO SCH (17:14)
[2019-09-01 19:39] VITALS: BP 156/86
[2019-09-01] MEDS: QUEtiapine 25 MG TABLET. PO SCH (20:24)
[2019-09-01] MEDS: ALPRAZolam 0.5 MG TABLET PO PRN (20:40)
[2019-09-01 23:34] VITALS: BP 120/62
[2019-09-02 03:49] VITALS: BP 142/78
[2019-09-02 05:08] LABS: BASO % 0 % (0-3); EOS % 1 % (0-3); HEMATOCRIT 24.5 % (39.0-53.0); LYMPH # 1.2 x10^3/uL (1.0-4.8); LYMPH % 12 % (24-48); MEAN CORPUSCULAR HEMOGLOBIN 26 pg (25-35); MEAN CORPUSCULAR HGB CONC 33 g/dL (31-37); MEAN CORPUSCULAR VOLUME 81 fL (79-100); MONO # 0.7 x10^3/uL (0.0-1.1); MONO % 8 % (0-9); NEUT # 7.7 x10^3/uL (1.8-7.7); NEUT % 79 % (31-73); PLATELET COUNT 136 x10^3/uL (140-400); RED BLOOD COUNT 3.04 x10^6/uL (4.30-5.70); RED CELL DISTRIBUTION WIDTH 16.4 % (11.5-14.5); WHITE BLOOD COUNT 9.6 x10^3/uL (4.0-11.0)
[2019-09-02 05:23] LABS: ALBUMIN 1.4 g/dL (3.4-5.0); ALBUMIN/GLOBULIN RATIO 0.4 (1.0-1.7); CALCIUM 7.4 mg/dL (8.5-10.1); CREATININE 1.2 mg/dL (0.7-1.3); GFR 79.6; POTASSIUM 4.4 mmol/L (3.5-5.1); TOTAL BILIRUBIN 0.3 mg/dL (0.2-1.0); TOTAL PROTEIN 5.3 g/dL (6.4-8.2)
[2019-09-02] MEDS: SODIUM BICARBONATE VIAL 150 MEQ in IV DEXTROSE 5% 1,000 ML IV SCH ×2 (06:30→08:30)
[2019-09-02 07:00] VITALS: BP 144/86
[2019-09-02] MEDS: INSULIN LISPRO 300 UNITS/3 ML VIAL. SQ SCH ×3 (08:00→17:54)
[2019-09-02] MEDS: PARoxetine 10 MG TABLET PO SCH (08:23)
[2019-09-02] MEDS: ASPIRIN ENTERIC COATED 81 MG TABLET.DR. PO SCH (08:23)
[2019-09-02] MEDS: FAMOTIDINE 20 MG TABLET. PO SCH (08:23)
[2019-09-02] MEDS: MULTIVITAMIN I-VITE TABLET. PO SCH (08:23)
[2019-09-02] MEDS: THIAMINE 100 MG TABLET. PO SCH (08:23)
[2019-09-02] MEDS: LACTOBACILLUS RHAMNOSUS GG 1 CAPSULE. PO SCH ×2 (08:23→21:10)
[2019-09-02] MEDS: MEROPENEM 500 MG in IV NORMAL SALINE 50ML 50 ML IV SCH (08:24)
[2019-09-02] MEDS: CITALOPRAM 10 MG TABLET. PO SCH (08:24)
[2019-09-02] MEDS: CARVEDILOL 3.125 MG TABLET. PO SCH ×2 (08:24→17:37)
[2019-09-02] MEDS: VANCOMYCIN 125 MG/2.5 ML ORAL SOLUTION. PO SCH ×4 (08:25→21:10)
[2019-09-02] MEDS: HEPARIN for SUB-Q USE 5,000 UNIT/ML VIAL. SQ SCH ×2 (08:36→21:16)
[2019-09-02] MEDS: VITS A & D/LANOLIN TOPICAL OINTMENT 42GM TUBE. TP SCH ×4 (08:37→21:00)
--- NOTE | 2019-09-02 08:50 | PDOC ---
Infectious Disease Note Subjective: Subjective Pt has no complaints diarrhea improving wants to go home today ROS: ROS Negative otherwise. Vital Signs: Vital Signs Vital Signs Date Time Temp Pulse Resp B/P (MAP) Pulse Ox O2 Delivery O2 Flow Rate FiO2 09/02/19 08:24 91 144/86 09/02/19 07:00 97.8 16 97 Room Air 97.8 Physical Exam: PHYSICAL EXAM GENERAL: Cachectic, thin male, lying in bed, cooperative, appears comfortable, in no acute distress. HEENT: Anicteric. Poor dentition. No thrush. Oral mucosa moist. NECK: HDC catheter looks okay. LUNGS: Clear. HEART: S1, S2. ABDOMEN: Soft, nontender, nondistended. GENITOURINARY: Geiger in place. Groin dry skin. EXTREMITIES: Right AKA. SKIN: Multiple wounds lower extremities, no evidence of infection, multiple abrasions, wound descriptions noted from pictures in the chart over the back, no purulent drainage noted, unstageable. NEUROLOGIC: Alert, oriented, grossly nonfocal. PSYCHIATRY: Awake, alert, cooperative. Medications: Inpatient Meds: Current Medications Medications (Trade) Dose Ordered Sig/Dez Start Time Stop Time Status Last Admin Dose Admin Acetaminophen (Tylenol) 650 mg Q6H PRN 08/27/19 09:45 08/30/19 09:19 650 MG Alprazolam (Xanax) 0.5 mg PRN DAILY PRN 08/30/19 19:30 09/01/19 20:40 0.5 MG Aspirin (Ecotrin) 81 mg [id number] 08/31/19 08:00 09/02/19 08:23 81 MG Calcium Gluconate (Calcium Gluconate) 1,000 mg 1X ONCE 08/27/19 12:45 08/27/19 12:46 DC Carvedilol (Coreg) 3.125 mg BIDWMEALS 09/01/19 17:00 09/02/19 08:24 3.125 MG Ceftriaxone Sodium (Rocephin) 1 gm 1X ONCE 08/27/19 12:00 08/27/19 12:01 DC 08/27/19 13:14 1 GM Citalopram Hydrobromide (CeleXA) 10 mg DAILY 08/31/19 09:00 UNV Daptomycin 200 mg/ Sodium Chloride 50 ml @ 100 mls/hr Q24H 08/31/19 12:00 09/01/19 12:02 100 MLS/HR Dextrose (Dextrose 50%-Water Syringe) 12.5 gm PRN Q15MIN PRN 08/28/19 12:30 UNV Dobutamine HCl/ Dextrose 250 ml @ 0 mls/hr CONT PRN 08/27/19 12:45 08/29/19 11:48 DC Famotidine (Pepcid Vial) 20 mg DAILY 08/27/19 10:00 08/29/19 14:17 DC 08/29/19 09:34 20 MG Famotidine (Pepcid) 20 mg DAILY 08/30/19 09:00 09/02/19 08:23 20 MG Heparin Sodium (Porcine) (Heparin Sodium) 5,000 unit Q12HR 08/27/19 10:00 09/02/19 08:36 5,000 UNIT Influenza Virus Vaccine Quadrival (Afluria Quad 2019-20 (3yr Up) Syringe) 0.5 ml ONCE ONCE 08/28/19 09:00 08/28/19 09:01 DC 08/28/19 09:01 0.5 ML Info (Icu Electrolyte Protocol) 1 ea DAILY 08/28/19 09:00 08/29/19 10:09 DC Insulin Human Lispro (HumaLOG) 0-7 UNITS TIDWMEALS 08/28/19 12:30 09/01/19 17:18 3 UNITS Insulin Human Regular (HumuLIN R VIAL) 10 unit 1X ONCE 08/27/19 08:45 08/27/19 08:46 DC 08/27/19 11:23 10 UNIT Lactobacillus Rhamnosus (Culturelle) 1 cap BID 08/27/19 21:00 09/02/19 08:23 1 CAP Lidocaine HCl (Buffered Lidocaine 1%) 6 ml 1X ONCE 08/27/19 14:30 08/27/19 14:31 DC 08/27/19 14:51 4 ML Meropenem 1 gm/ Sodium Chloride 100 ml @ 200 mls/hr Q8HRS 08/27/19 14:00 UNV Meropenem 500 mg/ Sodium Chloride 50 ml @ 100 mls/hr Q12HR 08/27/19 21:00 09/02/19 08:24 100 MLS/HR Metoprolol Tartrate (Lopressor) 12.5 mg BID 08/31/19 09:00 09/01/19 13:07 DC 09/01/19 08:11 12.5 MG Multivitamins/ Minerals (I-Carly) 1 tab DAILY 08/27/19 10:00 09/02/19 08:23 1 TAB Norepinephrine Bitartrate 250 ml @ 0 mls/hr CONT PRN 08/27/19 12:45 08/29/19 11:48 DC Paroxetine HCl (Paxil) 10 mg DAILY 08/29/19 09:00 09/02/19 08:23 10 MG Pharmacy Consult (C.diff Med Screen By Rx) 1 each 1X ONCE 08/27/19 13:15 08/27/19 13:16 UNV Phytonadione (Mephyton Oral Soln) 5 mg 1X ONCE 08/27/19 10:00 08/27/19 10:01 DC 08/27/19 14:00 5 MG Potassium Chloride/Water 100 ml @ 100 mls/hr Q1H 08/30/19 05:30 08/30/19 09:32 DC 08/30/19 15:19 100 MLS/HR Potassium Chloride (Klor-Con) 40 meq 1X ONCE 08/30/19 05:30 08/30/19 05:31 DC 08/30/19 05:53 40 MEQ Quetiapine Fumarate (SEROquel) 50 mg HS 08/28/19 21:00 09/01/19 20:24 50 MG Sodium Bicarbonate 150 meq/Dextrose 1,150 ml @ 100 mls/hr [id number] 08/27/19 14:30 09/02/19 06:30 100 MLS/HR Sodium Polystyrene Sulfonate (Kayexalate) 30 gm 1X ONCE 08/27/19 08:45 08/27/19 08:46 DC 08/27/19 10:37 30 GM Sodium Bicarbonate (Sodium Bicarb Adult 8.4% Syr) 50 meq 1X ONCE 08/27/19 08:45 08/27/19 08:46 DC 08/27/19 10:35 50 MEQ Sodium Chloride 500 ml @ 1,000 mls/hr PRN Q30MIN PRN 08/27/19 12:45 Sodium Chloride (Normal Saline Flush) 3 ml QSHIFT PRN 08/27/19 09:45 Thiamine Mononitrate (Vitamin B-1) 100 mg DAILY 08/27/19 10:00 09/02/19 08:23 100 MG Vancomycin HCl (Vancomycin Oral Solution) 125 mg [id number] 08/29/19 09:00 09/02/19 08:25 125 MG Vitamin A/Vitamin D (Vitamin A & D Ointment) 1 ambrosio QID 09/01/19 17:00 09/02/19 08:37 1 AMBROSIO Labs: Lab Laboratory Tests Test 09/01/19 10:20 09/01/19 11:48 09/01/19 16:12 09/01/19 20:12 White Blood Count 8.3 x10^3/uL (4.0-11.0) Red Blood Count 3.06 x10^6/uL (4.30-5.70) Hemoglobin 8.0 g/dL (13.0-17.5) Hematocrit 24.7 % (39.0-53.0) Mean Corpuscular Volume 81 fL (79-100) Mean Corpuscular Hemoglobin 26 pg (25-35) Mean Corpuscular Hemoglobin Concent 33 g/dL (31-37) Red Cell Distribution Width 16.5 % (11.5-14.5) Platelet Count 119 x10^3/uL (140-400) Neutrophils (%) (Auto) 77 % (31-73) Lymphocytes (%) (Auto) 15 % (24-48) Monocytes (%) (Auto) 8 % (0-9) Eosinophils (%) (Auto) 0 % (0-3) Basophils (%) (Auto) 0 % (0-3) Neutrophils # (Auto) 6.4 x10^3/uL (1.8-7.7) Lymphocytes # (Auto) 1.2 x10^3/uL (1.0-4.8) Monocytes # (Auto) 0.6 x10^3/uL (0.0-1.1) Eosinophils # (Auto) 0.0 x10^3/uL (0.0-0.7) Basophils # (Auto) 0.0 x10^3/uL (0.0-0.2) Sodium Level 144 mmol/L (136-145) Potassium Level 3.9 mmol/L (3.5-5.1) Chloride Level 105 mmol/L (98-107) Carbon Dioxide Level 36 mmol/L (21-32) Anion Gap 3 (6-14) Blood Urea Nitrogen 31 mg/dL (8-26) Creatinine 1.3 mg/dL (0.7-1.3) Estimated GFR (Cockcroft-Gault) 72.6 BUN/Creatinine Ratio 24 (6-20) Glucose Level 155 mg/dL (70-99) Calcium Level 7.3 mg/dL (8.5-10.1) Total Bilirubin 0.4 mg/dL (0.2-1.0) Aspartate Amino Transf (AST/SGOT) 17 U/L (15-37) Alanine Aminotransferase (ALT/SGPT) 20 U/L (16-63) Alkaline Phosphatase 288 U/L (46-116) Total Protein 5.3 g/dL (6.4-8.2) Albumin 1.3 g/dL (3.4-5.0) Albumin/Globulin Ratio 0.3 (1.0-1.7) Glucose (Fingerstick) 229 mg/dL (70-99) 157 mg/dL (70-99) 152 mg/dL (70-99) Test 09/02/19 04:45 White Blood Count 9.6 x10^3/uL (4.0-11.0) Red Blood Count 3.04 x10^6/uL (4.30-5.70) Hemoglobin 8.0 g/dL (13.0-17.5) Hematocrit 24.5 % (39.0-53.0) Mean Corpuscular Volume 81 fL (79-100) Mean Corpuscular Hemoglobin 26 pg (25-35) Mean Corpuscular Hemoglobin Concent 33 g/dL (31-37) Red Cell Distribution Width 16.4 % (11.5-14.5) Platelet Count 136 x10^3/uL (140-400) Neutrophils (%) (Auto) 79 % (31-73) Lymphocytes (%) (Auto) 12 % (24-48) Monocytes (%) (Auto) 8 % (0-9) Eosinophils (%) (Auto) 1 % (0-3) Basophils (%) (Auto) 0 % (0-3) Neutrophils # (Auto) 7.7 x10^3/uL (1.8-7.7) Lymphocytes # (Auto) 1.2 x10^3/uL (1.0-4.8) Monocytes # (Auto) 0.7 x10^3/uL (0.0-1.1) Eosinophils # (Auto) 0.0 x10^3/uL (0.0-0.7) Basophils # (Auto) 0.0 x10^3/uL (0.0-0.2) Sodium Level 144 mmol/L (136-145) Potassium Level 4.4 mmol/L (3.5-5.1) Chloride Level 105 mmol/L (98-107) Carbon Dioxide Level 36 mmol/L (21-32) Anion Gap 3 (6-14) Blood Urea Nitrogen 27 mg/dL (8-26) Creatinine 1.2 mg/dL (0.7-1.3) Estimated GFR (Cockcroft-Gault) 79.6 BUN/Creatinine Ratio 23 (6-20) Glucose Level 117 mg/dL (70-99) Calcium Level 7.4 mg/dL (8.5-10.1) Total Bilirubin 0.3 mg/dL (0.2-1.0) Aspartate Amino Transf (AST/SGOT) 17 U/L (15-37) Alanine Aminotransferase (ALT/SGPT) 17 U/L (16-63) Alkaline Phosphatase 276 U/L (46-116) Total Protein 5.3 g/dL (6.4-8.2) Albumin 1.4 g/dL (3.4-5.0) Albumin/Globulin Ratio 0.4 (1.0-1.7) Objective: Assessment: Klebsiella sepsis, source genitourinary and/or wounds.2/4 bottles , Chronic nonhealing wounds. Severe Depression with suicidal ideation present on admission. Severe acute renal failure,hyperkalemia with metabolic acidosis.U/S Bilateral hydronephrosis. Severe protein-calorie malnutrition. Diabetes mellitus 2. Right above-knee amputation for gangrene, 06/2019, at [facility]. . Diarrhea.C difficile positive History of cocaine and marijuana abuse. Poor dentition. Tobaccoism. Cholelithiasis without acute cholecystitis or biliary dilatation. Plan: Plan of Care 1. Dc meropenem ,start ceftriaxone Cont po vanco DC Daptomycin Continue wound care by wound team. Continue supportive care. when ready transition to po keflex for 7 days and po vanc for 21 days, scripts in chart f/u at wound clinic compliance discussed D/W DELBERT SMITH MD Sep 02, 2019 08:50
--- NOTE | 2019-09-02 09:26 | PDOC ---
Subjective: Subjective: Would like some more grits. Denies diarrhea. Objective: Vital Signs: Vital Signs Date Time Temp Pulse Resp B/P (MAP) Pulse Ox O2 Delivery O2 Flow Rate FiO2 09/02/19 08:24 91 144/86 09/02/19 07:00 97.8 16 97 Room Air 97.8 Labs: Laboratory Tests Test 09/01/19 10:20 09/01/19 11:48 09/01/19 16:12 09/01/19 20:12 White Blood Count 8.3 x10^3/uL Red Blood Count 3.06 x10^6/uL Hemoglobin 8.0 g/dL Hematocrit 24.7 % Mean Corpuscular Volume 81 fL Mean Corpuscular Hemoglobin 26 pg Mean Corpuscular Hemoglobin Concent 33 g/dL Red Cell Distribution Width 16.5 % Platelet Count 119 x10^3/uL Neutrophils (%) (Auto) 77 % Lymphocytes (%) (Auto) 15 % Monocytes (%) (Auto) 8 % Eosinophils (%) (Auto) 0 % Basophils (%) (Auto) 0 % Neutrophils # (Auto) 6.4 x10^3/uL Lymphocytes # (Auto) 1.2 x10^3/uL Monocytes # (Auto) 0.6 x10^3/uL Eosinophils # (Auto) 0.0 x10^3/uL Basophils # (Auto) 0.0 x10^3/uL Sodium Level 144 mmol/L Potassium Level 3.9 mmol/L Chloride Level 105 mmol/L Carbon Dioxide Level 36 mmol/L Anion Gap 3 Blood Urea Nitrogen 31 mg/dL Creatinine 1.3 mg/dL Estimated GFR (Cockcroft-Gault) 72.6 BUN/Creatinine Ratio 24 Glucose Level 155 mg/dL Calcium Level 7.3 mg/dL Total Bilirubin 0.4 mg/dL Aspartate Amino Transf (AST/SGOT) 17 U/L Alanine Aminotransferase (ALT/SGPT) 20 U/L Alkaline Phosphatase 288 U/L Total Protein 5.3 g/dL Albumin 1.3 g/dL Albumin/Globulin Ratio 0.3 Glucose (Fingerstick) 229 mg/dL 157 mg/dL 152 mg/dL Test 09/02/19 04:45 White Blood Count 9.6 x10^3/uL Red Blood Count 3.04 x10^6/uL Hemoglobin 8.0 g/dL Hematocrit 24.5 % Mean Corpuscular Volume 81 fL Mean Corpuscular Hemoglobin 26 pg Mean Corpuscular Hemoglobin Concent 33 g/dL Red Cell Distribution Width 16.4 % Platelet Count 136 x10^3/uL Neutrophils (%) (Auto) 79 % Lymphocytes (%) (Auto) 12 % Monocytes (%) (Auto) 8 % Eosinophils (%) (Auto) 1 % Basophils (%) (Auto) 0 % Neutrophils # (Auto) 7.7 x10^3/uL Lymphocytes # (Auto) 1.2 x10^3/uL Monocytes # (Auto) 0.7 x10^3/uL Eosinophils # (Auto) 0.0 x10^3/uL Basophils # (Auto) 0.0 x10^3/uL Sodium Level 144 mmol/L Potassium Level 4.4 mmol/L Chloride Level 105 mmol/L Carbon Dioxide Level 36 mmol/L Anion Gap 3 Blood Urea Nitrogen 27 mg/dL Creatinine 1.2 mg/dL Estimated GFR (Cockcroft-Gault) 79.6 BUN/Creatinine Ratio 23 Glucose Level 117 mg/dL Calcium Level 7.4 mg/dL Total Bilirubin 0.3 mg/dL Aspartate Amino Transf (AST/SGOT) 17 U/L Alanine Aminotransferase (ALT/SGPT) 17 U/L Alkaline Phosphatase 276 U/L Total Protein 5.3 g/dL Albumin 1.4 g/dL Albumin/Globulin Ratio 0.4 BLD CULT RESULT 1 Final Gram negative rods Klebsiella pneumoniae PE: GEN: NAD LUNGS: room air NEURO/PSYCH: A & O 3 A/P: Multiple wounds, bacteremia, hydronephrosis C Diff Elevated Alk Phos, normal GGT -- Eating well, diarrhea improved. NENA ARCINIEGA Sep 02, 2019 09:26
--- NOTE | 2019-09-02 10:23 | PDOC ---
SUBJECTIVE ROS Stable, OBJECTIVE Vital Signs Vital Signs Date Time Temp Pulse Resp B/P (MAP) Pulse Ox O2 Delivery O2 Flow Rate FiO2 09/02/19 08:24 91 144/86 09/02/19 07:50 Room Air 09/02/19 07:00 97.8 16 97 97.8 I & 0 Intake and Output 09/02/19 07:00 Intake Total 870 ml Balance 870 ml Intake Oral 820 ml IV Total 50 ml # Bowel Movements 13 PHYSICAL EXAM Physical Exam GEN: NAD HEEN- OM moist NECK: supple CVS: S1S2 , No rub RESP: CTA, No Acc. Muscle Use GI: BS + ve, NO Bruit, Non Tender, Non Distended : [No CVA tenderness, No Suprapubic Tenderness, Geiger removed NEURO- Grossly normal, Skin No Rash DIAGNOSIS/ASSESSMENT Assessment & Plan VENANCIO - ATN sec to Dehydration,poor PO intake,illicit drug use ? PRUITT - Hydronephrosis Non Oliguric , good UOP , Renal function improving Renal US Bilat Hydronephrosis Rt > Lt avoid nephrotoxins , good uop From renal standpoint IV fluid can be dced ( 09/01) , defer to primary Bilat Hydronephrosis UOP good, repeat Renal US - persitsent Bilat hydronephrosis As no urology service at [facility], recommend Urology Consult as op post discharge for further follow up Hypokalemia--Normal K Hypo Na- Na corrected Metabolic acidosis- resolved Hypotensive - resolved with IVF Depression with suicidal ideation DM2 Hx of cocaine and marijuana abuse Repeat Renal US -- 1. Moderate right and mild left hydronephrosis, similar compared to the recent prior study with allowing for differences in imaging technique. 2. Echogenic renal parenchyma, a finding which can be seen with medical renal disease. 3. Urinary bladder wall thickening. This may be due to cystitis or chronic outlet obstruction. Correlate with urinalysis. COMMENT/RELEVANT DATA Meds Current Medications Medications (Trade) Dose Ordered Sig/Dez Start Time Stop Time Status Last Admin Dose Admin Acetaminophen (Tylenol) 650 mg Q6H PRN 08/27/19 09:45 08/30/19 09:19 650 MG Alprazolam (Xanax) 0.5 mg PRN DAILY PRN 08/30/19 19:30 09/01/19 20:40 0.5 MG Aspirin (Ecotrin) 81 mg [id number] 08/31/19 08:00 09/02/19 08:23 81 MG Calcium Gluconate (Calcium Gluconate) 1,000 mg 1X ONCE 08/27/19 12:45 08/27/19 12:46 DC Carvedilol (Coreg) 3.125 mg BIDWMEALS 09/01/19 17:00 09/02/19 08:24 3.125 MG Ceftriaxone Sodium (Rocephin) 1 gm Q24H 09/02/19 10:00 Citalopram Hydrobromide (CeleXA) 10 mg DAILY 08/31/19 09:00 UNV Daptomycin 200 mg/ Sodium Chloride 50 ml @ 100 mls/hr Q24H 08/31/19 12:00 09/02/19 09:12 DC 09/01/19 12:02 100 MLS/HR Dextrose (Dextrose 50%-Water Syringe) 12.5 gm PRN Q15MIN PRN 08/28/19 12:30 UNV Dobutamine HCl/ Dextrose 250 ml @ 0 mls/hr CONT PRN 08/27/19 12:45 08/29/19 11:48 DC Famotidine (Pepcid Vial) 20 mg DAILY 08/27/19 10:00 08/29/19 14:17 DC 08/29/19 09:34 20 MG Famotidine (Pepcid) 20 mg DAILY 08/30/19 09:00 09/02/19 08:23 20 MG Heparin Sodium (Porcine) (Heparin Sodium) 5,000 unit Q12HR 08/27/19 10:00 09/02/19 08:36 5,000 UNIT Influenza Virus Vaccine Quadrival (Afluria Quad 2019-20 (3yr Up) Syringe) 0.5 ml ONCE ONCE 08/28/19 09:00 08/28/19 09:01 DC 08/28/19 09:01 0.5 ML Info (Icu Electrolyte Protocol) 1 ea DAILY 08/28/19 09:00 08/29/19 10:09 DC Insulin Human Lispro (HumaLOG) 0-7 UNITS TIDWMEALS 08/28/19 12:30 09/01/19 17:18 3 UNITS Insulin Human Regular (HumuLIN R VIAL) 10 unit 1X ONCE 08/27/19 08:45 08/27/19 08:46 DC 08/27/19 11:23 10 UNIT Lactobacillus Rhamnosus (Culturelle) 1 cap BID 08/27/19 21:00 09/02/19 08:23 1 CAP Lidocaine HCl (Buffered Lidocaine 1%) 6 ml 1X ONCE 08/27/19 14:30 08/27/19 14:31 DC 08/27/19 14:51 4 ML Meropenem 1 gm/ Sodium Chloride 100 ml @ 200 mls/hr Q8HRS 08/27/19 14:00 UNV Meropenem 500 mg/ Sodium Chloride 50 ml @ 100 mls/hr Q12HR 08/27/19 21:00 09/02/19 09:12 DC 09/02/19 08:24 100 MLS/HR Metoprolol Tartrate (Lopressor) 12.5 mg BID 08/31/19 09:00 09/01/19 13:07 DC 09/01/19 08:11 12.5 MG Multivitamins/ Minerals (I-Carly) 1 tab DAILY 08/27/19 10:00 09/02/19 08:23 1 TAB Norepinephrine Bitartrate 250 ml @ 0 mls/hr CONT PRN 08/27/19 12:45 08/29/19 11:48 DC Paroxetine HCl (Paxil) 10 mg DAILY 08/29/19 09:00 09/02/19 08:23 10 MG Pharmacy Consult (C.diff Med Screen By Rx) 1 each 1X ONCE 08/27/19 13:15 08/27/19 13:16 UNV Phytonadione (Mephyton Oral Soln) 5 mg 1X ONCE 08/27/19 10:00 08/27/19 10:01 DC 08/27/19 14:00 5 MG Potassium Chloride/Water 100 ml @ 100 mls/hr Q1H 08/30/19 05:30 08/30/19 09:32 DC 08/30/19 15:19 100 MLS/HR Potassium Chloride (Klor-Con) 40 meq 1X ONCE 08/30/19 05:30 08/30/19 05:31 DC 08/30/19 05:53 40 MEQ Quetiapine Fumarate (SEROquel) 50 mg HS 08/28/19 21:00 09/01/19 20:24 50 MG Sodium Bicarbonate 150 meq/Dextrose 1,150 ml @ 100 mls/hr [id number] 08/27/19 14:30 09/02/19 06:30 100 MLS/HR Sodium Polystyrene Sulfonate (Kayexalate) 30 gm 1X ONCE 08/27/19 08:45 08/27/19 08:46 DC 08/27/19 10:37 30 GM Sodium Bicarbonate (Sodium Bicarb Adult 8.4% Syr) 50 meq 1X ONCE 08/27/19 08:45 08/27/19 08:46 DC 08/27/19 10:35 50 MEQ Sodium Chloride 500 ml @ 1,000 mls/hr PRN Q30MIN PRN 08/27/19 12:45 Sodium Chloride (Normal Saline Flush) 3 ml QSHIFT PRN 08/27/19 09:45 Thiamine Mononitrate (Vitamin B-1) 100 mg DAILY 08/27/19 10:00 09/02/19 08:23 100 MG Vancomycin HCl (Vancomycin Oral Solution) 125 mg [id number] 08/29/19 09:00 09/02/19 08:25 125 MG Vitamin A/Vitamin D (Vitamin A & D Ointment) 1 ambrosio QID 09/01/19 17:00 09/02/19 08:37 1 AMRBOSIO Lab Laboratory Tests Test 09/01/19 11:48 09/01/19 16:12 09/01/19 20:12 09/02/19 04:45 Glucose (Fingerstick) 229 mg/dL (70-99) 157 mg/dL (70-99) 152 mg/dL (70-99) White Blood Count 9.6 x10^3/uL (4.0-11.0) Red Blood Count 3.04 x10^6/uL (4.30-5.70) Hemoglobin 8.0 g/dL (13.0-17.5) Hematocrit 24.5 % (39.0-53.0) Mean Corpuscular Volume 81 fL (79-100) Mean Corpuscular Hemoglobin 26 pg (25-35) Mean Corpuscular Hemoglobin Concent 33 g/dL (31-37) Red Cell Distribution Width 16.4 % (11.5-14.5) Platelet Count 136 x10^3/uL (140-400) Neutrophils (%) (Auto) 79 % (31-73) Lymphocytes (%) (Auto) 12 % (24-48) Monocytes (%) (Auto) 8 % (0-9) Eosinophils (%) (Auto) 1 % (0-3) Basophils (%) (Auto) 0 % (0-3) Neutrophils # (Auto) 7.7 x10^3/uL (1.8-7.7) Lymphocytes # (Auto) 1.2 x10^3/uL (1.0-4.8) Monocytes # (Auto) 0.7 x10^3/uL (0.0-1.1) Eosinophils # (Auto) 0.0 x10^3/uL (0.0-0.7) Basophils # (Auto) 0.0 x10^3/uL (0.0-0.2) Sodium Level 144 mmol/L (136-145) Potassium Level 4.4 mmol/L (3.5-5.1) Chloride Level 105 mmol/L (98-107) Carbon Dioxide Level 36 mmol/L (21-32) Anion Gap 3 (6-14) Blood Urea Nitrogen 27 mg/dL (8-26) Creatinine 1.2 mg/dL (0.7-1.3) Estimated GFR (Cockcroft-Gault) 79.6 BUN/Creatinine Ratio 23 (6-20) Glucose Level 117 mg/dL (70-99) Calcium Level 7.4 mg/dL (8.5-10.1) Total Bilirubin 0.3 mg/dL (0.2-1.0) Aspartate Amino Transf (AST/SGOT) 17 U/L (15-37) Alanine Aminotransferase (ALT/SGPT) 17 U/L (16-63) Alkaline Phosphatase 276 U/L (46-116) Total Protein 5.3 g/dL (6.4-8.2) Albumin 1.4 g/dL (3.4-5.0) Albumin/Globulin Ratio 0.4 (1.0-1.7) Results All relevant outside records, renal labs, imaging studies, telemetry/EKG's were reviewed. PETTY FERRIS MD Sep 02, 2019 10:23
[2019-09-02 11:00] VITALS: BP 159/82
--- NOTE | 2019-09-02 11:00 | PDOC ---
PROGRESS NOTES Chief Complaint Chief Complaint impression Acute renal failure Obstructive uropathy impression Severe sepsis c diff positive/w/ ccute colitis, Severe malnutrition, BMI 13.8 - ALBUMIN 1,8 Diabetes 2, very poor care Peripheral vascular disease, s/p AKA Sacral and leg wounds, poor self care, cellulitis and poss further infection Depression, reports suicidal ideations POA Bipolar HYperkalemia, now HYPOKALEMIA LEukocytosis 14 GAIT INSTABILITY needs safe d/c plan Rolling Left Assistance Required * Mod Assistance Rolling Right Assistance Required * Mod Assistance Supine to Sit Assistance Required * Mod Assistance * Two-Person Assistance Transfer Assistance Required * Max Assistance * Two-Person Assistance Transfer Type convert metoprolol to coreg 29 MIN PT EXAM, CHART REVIEW, > 50% OF TIME SPENT WITH EXAM, CHART REVIEW, PT CARE COORDINATION History of Present Illness History of Present Illness feels better still some pain Came from home but clearly needs more than that -agreeable to SNU has passed psych eval, no longer suicidal, Still some diarrhea, c diff pos- ON pO vanc, dapto, merrem per ID WBC 14 but no fevers ALBUMIN 1.4 CReat down to 1.5 from 2 + COnt contact isol and pO vanc COnt IV abx per ID MAintain zimmerman - sacral wounds and still loose BM NEeds pat re avl so we can dc sitter if appropriate - SNU BED PLACEMENT Vitals Vitals Vital Signs Date Time Temp Pulse Resp B/P (MAP) Pulse Ox O2 Delivery O2 Flow Rate FiO2 09/02/19 08:24 91 144/86 09/02/19 07:50 Room Air 09/02/19 07:00 97.8 16 97 97.8 Physical Exam Physical Exam GENERAL: Cachectic, thin male, lying in bed, cooperative, appears comfortable, in no acute distress. HEENT: Anicteric. Poor dentition. No thrush. Oral mucosa moist. NECK: HDC catheter looks okay. LUNGS: Clear. HEART: S1, S2. ABDOMEN: Soft, nontender, nondistended. GENITOURINARY: Zimmerman in place. Groin dry skin. EXTREMITIES: Right AKA. SKIN: Multiple wounds lower extremities, no evidence of infection, multiple abrasions, wound descriptions noted from pictures in the chart over the back, no purulent drainage noted, unstageable. NEUROLOGIC: Alert, oriented, grossly nonfocal. PSYCHIATRY: Awake, alert, cooperative. General: Alert, Oriented X3, Cooperative, No acute distress, Other (cachectic) Heart: Regular rate (SR), Normal S1, Normal S2, No murmurs, Other Lungs: Clear Abdomen: Soft, Other (hyperactive bowel sounds) Extremities: No cyanosis, No edema Skin: Other (multiple pressure ulcers) Labs LABS Laboratory Tests Test 09/01/19 11:48 09/01/19 16:12 09/01/19 20:12 09/02/19 04:45 Glucose (Fingerstick) 229 mg/dL (70-99) 157 mg/dL (70-99) 152 mg/dL (70-99) White Blood Count 9.6 x10^3/uL (4.0-11.0) Red Blood Count 3.04 x10^6/uL (4.30-5.70) Hemoglobin 8.0 g/dL (13.0-17.5) Hematocrit 24.5 % (39.0-53.0) Mean Corpuscular Volume 81 fL (79-100) Mean Corpuscular Hemoglobin 26 pg (25-35) Mean Corpuscular Hemoglobin Concent 33 g/dL (31-37) Red Cell Distribution Width 16.4 % (11.5-14.5) Platelet Count 136 x10^3/uL (140-400) Neutrophils (%) (Auto) 79 % (31-73) Lymphocytes (%) (Auto) 12 % (24-48) Monocytes (%) (Auto) 8 % (0-9) Eosinophils (%) (Auto) 1 % (0-3) Basophils (%) (Auto) 0 % (0-3) Neutrophils # (Auto) 7.7 x10^3/uL (1.8-7.7) Lymphocytes # (Auto) 1.2 x10^3/uL (1.0-4.8) Monocytes # (Auto) 0.7 x10^3/uL (0.0-1.1) Eosinophils # (Auto) 0.0 x10^3/uL (0.0-0.7) Basophils # (Auto) 0.0 x10^3/uL (0.0-0.2) Sodium Level 144 mmol/L (136-145) Potassium Level 4.4 mmol/L (3.5-5.1) Chloride Level 105 mmol/L (98-107) Carbon Dioxide Level 36 mmol/L (21-32) Anion Gap 3 (6-14) Blood Urea Nitrogen 27 mg/dL (8-26) Creatinine 1.2 mg/dL (0.7-1.3) Estimated GFR (Cockcroft-Gault) 79.6 BUN/Creatinine Ratio 23 (6-20) Glucose Level 117 mg/dL (70-99) Calcium Level 7.4 mg/dL (8.5-10.1) Total Bilirubin 0.3 mg/dL (0.2-1.0) Aspartate Amino Transf (AST/SGOT) 17 U/L (15-37) Alanine Aminotransferase (ALT/SGPT) 17 U/L (16-63) Alkaline Phosphatase 276 U/L (46-116) Total Protein 5.3 g/dL (6.4-8.2) Albumin 1.4 g/dL (3.4-5.0) Albumin/Globulin Ratio 0.4 (1.0-1.7) Assessment and Plan Assessmemt and Plan Problems Medical Problems: (1) Hyperkalemia Status: Acute (2) Hypermagnesemia Status: Acute (3) Hyperphosphatemia Status: Acute (4) Hypoalbuminemia Status: Acute (5) Hypocalcemia Status: Acute (6) Hyponatremia Status: Acute (7) Metabolic acidosis Status: Acute (8) Suicidal ideation Status: Acute Comment Review of Relevant I have reviewed the following items anisa (where applicable) has been applied. Labs Laboratory Tests Test 08/31/19 11:19 08/31/19 17:00 08/31/19 20:51 09/01/19 03:50 Glucose (Fingerstick) 148 mg/dL (70-99) 197 mg/dL (70-99) 100 mg/dL (70-99) Sodium Level 142 mmol/L (136-145) Potassium Level 4.0 mmol/L (3.5-5.1) Chloride Level 105 mmol/L (98-107) Carbon Dioxide Level 33 mmol/L (21-32) Anion Gap 4 (6-14) Blood Urea Nitrogen 31 mg/dL (8-26) Creatinine 1.2 mg/dL (0.7-1.3) Estimated GFR (Cockcroft-Gault) 79.6 Glucose Level 133 mg/dL (70-99) Calcium Level 7.4 mg/dL (8.5-10.1) Test 09/01/19 07:33 09/01/19 10:20 09/01/19 11:48 09/01/19 16:12 Glucose (Fingerstick) 140 mg/dL (70-99) 229 mg/dL (70-99) 157 mg/dL (70-99) White Blood Count 8.3 x10^3/uL (4.0-11.0) Red Blood Count 3.06 x10^6/uL (4.30-5.70) Hemoglobin 8.0 g/dL (13.0-17.5) Hematocrit 24.7 % (39.0-53.0) Mean Corpuscular Volume 81 fL (79-100) Mean Corpuscular Hemoglobin 26 pg (25-35) Mean Corpuscular Hemoglobin Concent 33 g/dL (31-37) Red Cell Distribution Width 16.5 % (11.5-14.5) Platelet Count 119 x10^3/uL (140-400) Neutrophils (%) (Auto) 77 % (31-73) Lymphocytes (%) (Auto) 15 % (24-48) Monocytes (%) (Auto) 8 % (0-9) Eosinophils (%) (Auto) 0 % (0-3) Basophils (%) (Auto) 0 % (0-3) Neutrophils # (Auto) 6.4 x10^3/uL (1.8-7.7) Lymphocytes # (Auto) 1.2 x10^3/uL (1.0-4.8) Monocytes # (Auto) 0.6 x10^3/uL (0.0-1.1) Eosinophils # (Auto) 0.0 x10^3/uL (0.0-0.7) Basophils # (Auto) 0.0 x10^3/uL (0.0-0.2) Sodium Level 144 mmol/L (136-145) Potassium Level 3.9 mmol/L (3.5-5.1) Chloride Level 105 mmol/L (98-107) Carbon Dioxide Level 36 mmol/L (21-32) Anion Gap 3 (6-14) Blood Urea Nitrogen 31 mg/dL (8-26) Creatinine 1.3 mg/dL (0.7-1.3) Estimated GFR (Cockcroft-Gault) 72.6 BUN/Creatinine Ratio 24 (6-20) Glucose Level 155 mg/dL (70-99) Calcium Level 7.3 mg/dL (8.5-10.1) Total Bilirubin 0.4 mg/dL (0.2-1.0) Aspartate Amino Transf (AST/SGOT) 17 U/L (15-37) Alanine Aminotransferase (ALT/SGPT) 20 U/L (16-63) Alkaline Phosphatase 288 U/L (46-116) Total Protein 5.3 g/dL (6.4-8.2) Albumin 1.3 g/dL (3.4-5.0) Albumin/Globulin Ratio 0.3 (1.0-1.7) Test 09/01/19 20:12 09/02/19 04:45 Glucose (Fingerstick) 152 mg/dL (70-99) White Blood Count 9.6 x10^3/uL (4.0-11.0) Red Blood Count 3.04 x10^6/uL (4.30-5.70) Hemoglobin 8.0 g/dL (13.0-17.5) Hematocrit 24.5 % (39.0-53.0) Mean Corpuscular Volume 81 fL (79-100) Mean Corpuscular Hemoglobin 26 pg (25-35) Mean Corpuscular Hemoglobin Concent 33 g/dL (31-37) Red Cell Distribution Width 16.4 % (11.5-14.5) Platelet Count 136 x10^3/uL (140-400) Neutrophils (%) (Auto) 79 % (31-73) Lymphocytes (%) (Auto) 12 % (24-48) Monocytes (%) (Auto) 8 % (0-9) Eosinophils (%) (Auto) 1 % (0-3) Basophils (%) (Auto) 0 % (0-3) Neutrophils # (Auto) 7.7 x10^3/uL (1.8-7.7) Lymphocytes # (Auto) 1.2 x10^3/uL (1.0-4.8) Monocytes # (Auto) 0.7 x10^3/uL (0.0-1.1) Eosinophils # (Auto) 0.0 x10^3/uL (0.0-0.7) Basophils # (Auto) 0.0 x10^3/uL (0.0-0.2) Sodium Level 144 mmol/L (136-145) Potassium Level 4.4 mmol/L (3.5-5.1) Chloride Level 105 mmol/L (98-107) Carbon Dioxide Level 36 mmol/L (21-32) Anion Gap 3 (6-14) Blood Urea Nitrogen 27 mg/dL (8-26) Creatinine 1.2 mg/dL (0.7-1.3) Estimated GFR (Cockcroft-Gault) 79.6 BUN/Creatinine Ratio 23 (6-20) Glucose Level 117 mg/dL (70-99) Calcium Level 7.4 mg/dL (8.5-10.1) Total Bilirubin 0.3 mg/dL (0.2-1.0) Aspartate Amino Transf (AST/SGOT) 17 U/L (15-37) Alanine Aminotransferase (ALT/SGPT) 17 U/L (16-63) Alkaline Phosphatase 276 U/L (46-116) Total Protein 5.3 g/dL (6.4-8.2) Albumin 1.4 g/dL (3.4-5.0) Albumin/Globulin Ratio 0.4 (1.0-1.7) Laboratory Tests Test 09/01/19 11:48 09/01/19 16:12 09/01/19 20:12 09/02/19 04:45 Glucose (Fingerstick) 229 mg/dL (70-99) 157 mg/dL (70-99) 152 mg/dL (70-99) White Blood Count 9.6 x10^3/uL (4.0-11.0) Red Blood Count 3.04 x10^6/uL (4.30-5.70) Hemoglobin 8.0 g/dL (13.0-17.5) Hematocrit 24.5 % (39.0-53.0) Mean Corpuscular Volume 81 fL (79-100) Mean Corpuscular Hemoglobin 26 pg (25-35) Mean Corpuscular Hemoglobin Concent 33 g/dL (31-37) Red Cell Distribution Width 16.4 % (11.5-14.5) Platelet Count 136 x10^3/uL (140-400) Neutrophils (%) (Auto) 79 % (31-73) Lymphocytes (%) (Auto) 12 % (24-48) Monocytes (%) (Auto) 8 % (0-9) Eosinophils (%) (Auto) 1 % (0-3) Basophils (%) (Auto) 0 % (0-3) Neutrophils # (Auto) 7.7 x10^3/uL (1.8-7.7) Lymphocytes # (Auto) 1.2 x10^3/uL (1.0-4.8) Monocytes # (Auto) 0.7 x10^3/uL (0.0-1.1) Eosinophils # (Auto) 0.0 x10^3/uL (0.0-0.7) Basophils # (Auto) 0.0 x10^3/uL (0.0-0.2) Sodium Level 144 mmol/L (136-145) Potassium Level 4.4 mmol/L (3.5-5.1) Chloride Level 105 mmol/L (98-107) Carbon Dioxide Level 36 mmol/L (21-32) Anion Gap 3 (6-14) Blood Urea Nitrogen 27 mg/dL (8-26) Creatinine 1.2 mg/dL (0.7-1.3) Estimated GFR (Cockcroft-Gault) 79.6 BUN/Creatinine Ratio 23 (6-20) Glucose Level 117 mg/dL (70-99) Calcium Level 7.4 mg/dL (8.5-10.1) Total Bilirubin 0.3 mg/dL (0.2-1.0) Aspartate Amino Transf (AST/SGOT) 17 U/L (15-37) Alanine Aminotransferase (ALT/SGPT) 17 U/L (16-63) Alkaline Phosphatase 276 U/L (46-116) Total Protein 5.3 g/dL (6.4-8.2) Albumin 1.4 g/dL (3.4-5.0) Albumin/Globulin Ratio 0.4 (1.0-1.7) Microbiology 08/29/19 Blood Culture - Preliminary, Resulted NO GROWTH AFTER 4 DAYS Medications Current Medications Sodium Chloride 1,000 ml @ 1,000 mls/hr Q1H IV Last administered on 08/27/19at 08:40; Start 08/27/19 at 06:30; Stop 08/27/19 at 07:29; Status DC Calcium Gluconate (Calcium Gluconate) 1,000 mg 1X ONCE IVP Last administered on 08/27/19 10:36; Start 08/27/19 at 08:45; Stop 08/27/19 at 08:46; Status DC Sodium Bicarbonate (Sodium Bicarb Adult 8.4% Syr) 50 meq 1X ONCE IV Last administered on 08/27/19at 10:35; Start 08/27/19 at 08:45; Stop 08/27/19 at 08:46; Status DC Dextrose (Dextrose 50%-Water Syringe) 25 gm 1X ONCE IV Last administered on 08/27/19at 10:35; Start 08/27/19 at 08:45; Stop 08/27/19 at 08:46; Status DC Insulin Human Regular (HumuLIN R VIAL) 10 unit 1X ONCE IV Last administered on 08/27/19 11:23; Start 08/27/19 at 08:45; Stop 08/27/19 at 08:46; Status DC Sodium Polystyrene Sulfonate (Kayexalate) 30 gm 1X ONCE PO Last administered on 08/27/19at 10:37; Start 08/27/19 at 08:45; Stop 08/27/19 at 08:46; Status DC Sodium Chloride 1,000 ml @ 1,000 mls/hr Q1H IV Last administered on 08/27/19at 10:36; Start 08/27/19 at 08:45; Stop 08/27/19 at 09:44; Status DC Acetaminophen (Tylenol) 650 mg Q6H PRN PO Headaches, Temp > 101.5' Last administered on 08/30/19at 09:19; Start 08/27/19 at 09:45 Famotidine (Pepcid Vial) 20 mg DAILY IVP Last administered on 08/29/19at 09:34; Start 08/27/19 at 10:00; Stop 08/29/19 at 14:17; Status DC Info (Icu Electrolyte Protocol) 1 ea DAILY ; Start 08/28/19 at 09:00; Stop 08/29/19 at 10:09; Status DC Heparin Sodium (Porcine) (Heparin Sodium) 5,000 unit Q12HR SQ Last administered on 09/02/19at 08:36; Start 08/27/19 at 10:00 Sodium Chloride (Normal Saline Flush) 3 ml QSHIFT PRN IV AFTER MEDS AND BLOOD DRAWS; Start 08/27/19 at 09:45 Thiamine Mononitrate (Vitamin B-1) 100 mg DAILY PO Last administered on 09/02/19at 08:23; Start 08/27/19 at 10:00 Multivitamins/ Minerals (I-Carly) 1 tab DAILY PO Last administered on 09/02/19at 08:23; Start 08/27/19 at 10:00 Phytonadione (Mephyton Oral Soln) 5 mg 1X ONCE PO Last administered on 08/27/19at 14:00; Start 08/27/19 at 10:00; Stop 08/27/19 at 10:01; Status DC Ceftriaxone Sodium (Rocephin) 1 gm 1X ONCE IVP Last administered on 08/27/19at 13:14; Start 08/27/19 at 12:00; Stop 08/27/19 at 12:01; Status DC Calcium Gluconate (Calcium Gluconate) 1,000 mg 1X ONCE IVP ; Start 08/27/19 at 12:45; Stop 08/27/19 at 12:46; Status DC Sodium Chloride 1,000 ml @ 1,650 mls/hr Q37M IV Last administered on 08/28/19at 02:03; Start 08/27/19 at 12:37; Stop 08/27/19 at 13:37; Status DC Sodium Chloride 500 ml @ 1,000 mls/hr PRN Q30MIN PRN IV SEE COMMENTS; Start 08/27/19 at 12:45 Meropenem 1 gm/ Sodium Chloride 100 ml @ 200 mls/hr Q8HRS IV ; Start 08/27/19 at 14:00; Status UNV Norepinephrine Bitartrate 250 ml @ 0 mls/hr CONT PRN IV SEE I/O RECORD; Start 08/27/19 at 12:45; Stop 08/29/19 at 11:48; Status DC Dobutamine HCl/ Dextrose 250 ml @ 0 mls/hr CONT PRN IV SEE I/O RECORD; Start 08/27/19 at 12:45; Stop 08/29/19 at 11:48; Status DC Meropenem 500 mg/ Sodium Chloride 50 ml @ 100 mls/hr Q8HRS IV Last administered on 08/27/19at 15:16; Start 08/27/19 at 14:00; Stop 08/27/19 at 16:26; Status DC Pharmacy Consult (C.diff Med Screen By Rx) 1 each 1X ONCE MC ; Start 08/27/19 at 13:15; Stop 08/27/19 at 13:16; Status UNV Influenza Virus Vaccine Quadrival (Afluria Quad 2019-20 (3yr Up) Syringe) 0.5 ml ONCE ONCE VAX IM Last administered on 08/28/19at 09:01; Start 08/28/19 at 09:00; Stop 08/28/19 at 09:01; Status DC Lactobacillus Rhamnosus (Culturelle) 1 cap BID PO Last administered on 09/02/19at 08:23; Start 08/27/19 at 21:00 Lidocaine HCl (Buffered Lidocaine 1%) 3 ml STK-MED ONCE .ROUTE ; Start 08/27/19 at 14:06; Stop 08/27/19 at 14:07; Status DC Dextrose (Dextrose 50%-Water Syringe) 12.5 gm PRN Q15MIN PRN IV SEE COMMENTS Last administered on 08/28/19at 17:14; Start 08/27/19 at 14:15 Lidocaine HCl (Buffered Lidocaine 1%) 6 ml 1X ONCE INJ Last administered on 08/27/19at 14:51; Start 08/27/19 at 14:30; Stop 08/27/19 at 14:31; Status DC Sodium Bicarbonate 150 meq/Dextrose 1,150 ml @ 100 mls/hr [id number] IV Last administered on 09/02/19at 06:30; Start 08/27/19 at 14:30 Meropenem 500 mg/ Sodium Chloride 50 ml @ 100 mls/hr 1X ONCE IV ; Start 08/27/19 at 15:45; Stop 08/27/19 at 16:14; Status UNV Daptomycin 200 mg/ Sodium Chloride 50 ml @ 100 mls/hr Q48H IV Last ad ministered on 08/29/19at 16:20; Start 08/27/19 at 17:00; Stop 08/31/19 at 10:36; Status DC Meropenem 500 mg/ Sodium Chloride 50 ml @ 100 mls/hr Q12HR IV Last administered on 09/02/19at 08:24; Start 08/27/19 at 21:00; Stop 09/02/19 at 09:12; Status DC Potassium Chloride (Klor-Con) 40 meq 1X ONCE PO Last administered on 08/28/19 08:41; Start 08/28/19 at 07:30; Stop 08/28/19 at 07:31; Status DC Insulin Human Lispro (HumaLOG) 0-7 UNITS TIDWMEALS SQ Last administered on 09/01/19 17:18; Start 08/28/19 at 12:30 Dextrose (Dextrose 50%-Water Syringe) 12.5 gm PRN Q15MIN PRN IV SEE COMMENTS; Start 08/28/19 at 12:30; Status UNV Paroxetine HCl (Paxil) 10 mg DAILY PO Last administered on 09/02/19 08:23; Start 08/29/19 at 09:00 Quetiapine Fumarate (SEROquel) 50 mg HS PO Last administered on 09/01/19 20:24; Start 08/28/19 at 21:00 Vancomycin HCl (Vancomycin Oral Solution) 125 mg [id number] PO Last administered on 09/02/19 08:25; Start 08/29/19 at 09:00 Famotidine (Pepcid) 20 mg DAILY PO Last administered on 09/02/19 08:23; Start 08/30/19 at 09:00 Potassium Chloride (Klor-Con) 40 meq 1X ONCE PO Last administered on 08/30/19 05:53; Start 08/30/19 at 05:30; Stop 08/30/19 at 05:31; Status DC Potassium Chloride/Water 100 ml @ 100 mls/hr Q1H IV Last administered on 08/30/19at 15:19; Start 08/30/19 at 05:30; Stop 08/30/19 at 09:32; Status DC Citalopram Hydrobromide (CeleXA) 10 mg DAILY PO Last administered on 09/02/19 08:24; Start 08/30/19 at 14:00 Citalopram Hydrobromide (CeleXA) 10 mg DAILY PO ; Start 08/31/19 at 09:00; Status UNV Alprazolam (Xanax) 0.5 mg PRN DAILY PRN PO ANXIETY / AGITATION Last admini stered on 09/01/19at 20:40; Start 08/30/19 at 19:30 Aspirin (Ecotrin) 81 mg DAILYWBKFT PO Last administered on 09/02/19at 08:23; Start 08/31/19 at 08:00 Metoprolol Tartrate (Lopressor) 12.5 mg BID PO Last administered on 09/01/19at 08:11; Start 08/31/19 at 09:00; Stop 09/01/19 at 13:07; Status DC Daptomycin 200 mg/ Sodium Chloride 50 ml @ 100 mls/hr Q24H IV Last administer ed on 09/01/19at 12:02; Start 08/31/19 at 12:00; Stop 09/02/19 at 09:12; Status DC Carvedilol (Coreg) 3.125 mg BIDWMEALS PO Last administered on 09/02/19at 08:24; Start 09/01/19 at 17:00 Vitamin A/Vitamin D (Vitamin A & D Ointment) 1 ambrosio QID TP Last administered on 09/02/19at 08:37; Start 09/01/19 at 17:00 Ceftriaxone Sodium (Rocephin) 1 gm Q24H IVP ; Start 09/02/19 at 10:00 Active Scripts Active Reported Tramadol Hcl 50 Mg Tablet 50 Mg PO Q6HRS PRN Flomax (Tamsulosin Hcl) 0.4 Mg Cap.er.24h 0.4 Mg PO DAILY Hydralazine Hcl 25 Mg Tablet 1 Tab PO TID Glipizide 5 Mg Tablet 1.5 Tab PO DAILY Vitamin D3 (Cholecalciferol (Vitamin D3)) 1,000 Unit Tablet 1 Tab PO DAILY Coreg (Carvedilol) 25 Mg Tablet 25 Mg PO BIDWMEALS Norvasc (Amlodipine Besylate) 10 Mg Tablet 10 Mg PO DAILY Vitals/I & O Vital Sign - Last 24 Hours 09/01/19 09/01/19 09/01/19 09/01/19 15:00 17:14 19:39 20:00 Temp 97.6 97.9 97.6 97.9 Pulse 85 85 93 Resp 18 18 B/P (MAP) 123/72 (89) 123/72 156/86 (109) Pulse Ox 100 99 O2 Delivery Room Air Room Air Room Air 09/01/19 09/02/19 09/02/19 09/02/19 23:34 03:49 07:00 07:50 Temp 98.1 97.4 97.8 98.1 97.4 97.8 Pulse 62 92 91 Resp 18 18 16 B/P (MAP) 120/62 (81) 142/78 (99) 144/86 (105) Pulse Ox 97 98 97 O2 Delivery Room Air Room Air Room Air Room Air 09/02/19 08:24 Pulse 91 B/P (MAP) 144/86 Intake and Output 09/01/19 09/01/19 09/02/19 15:00 23:00 07:00 Intake Total 50 ml 420 ml 400 ml Balance 50 ml 420 ml 400 ml Nutrition Consultation Dietary Evaluation: Recommendations by RD: Increase Calorie Intake, Protein supplementation Comments: Continue w/ADA diet as ordered, will not add cardiac restriction at this time d/c Glucerna per pt request, added dbl meats and tiago q day Tiago to provide 300 mg Vit C - wound healing Continue w/MVI Expected Outcomes/Goals: PO intake to meet >75% est needs- goal ongoing improved wound status Interpretation of weight loss: >7.5% in 3 months Malnutrition Findings: Food and Nutrition Intake (Mod: <75% est energy req 7days Weight Status: Underweight IMELDA ANDREW MD Sep 02, 2019 11:00
[2019-09-02] MEDS: cefTRIAXone IV Push 1 GM VIAL. IVP SCH (11:13)
--- NOTE | 2019-09-02 13:12 | NUR ---
SW following for discharge planning. Discussed with RN, [facility] cannot provide [facility] home health due to pt's needs being too high. ANGEL met with pt to discuss going to a usp for a short time in order to have time and help to get better. Pt reported he would not go to a usp and repeated "i'm going home" multiple times. SW could not convince pt to go to a usp. SW asked pt if he can afford his medications, pt stated he could. Pt's RN advised pt will be discharged on Vanco - and asked pt if he can afford around $300 (with goodrx coupon) for this medication. RN reported to SW pt stated he could afford this medication. Pt does not have concerns about going home, stating he came to the hospital because he was suicidal, but is no longer this way. SW question pt about becoming overwhelmed when he returns home, and whether this might make pt feel suicidal again or like he can't cope. Pt denied this would happen. RN notified. ANGEL will continue to follow, and will provide pt with a goodRx coupon card.
[2019-09-02 15:00] VITALS: BP 151/81
--- NOTE | 2019-09-02 15:34 | NUR ---
ANGEL following. ANGEL met with pt, pt's fiance - Tyra and Tyra's son. Pt initially was refusing to go to a senior care. Tyra told pt she is concerned about taking care of his wounds at home and would like him to go to a facility for a short time to get some care. RN (Inga) advised SW, pt's medication could be up to $900 a day, which pt and family were surprised to hear. ANGEL discussed with pt and family the benefit of going to a senior care prior to going home. Pt reluctantly agreed to let SW send a referral for medicaid pending beds at local facilities. Pt's jesse, Tyra stated she would take pt home if a facility could not be found in the [facility] area. Family not agreeable to [facility] in [place]. ANGEL contacted Deedee at [facility], Deedee advised they have male medicaid pending beds available. ANGEL faxed referral, awaiting acceptance decision (ph: [phone], fax: [phone]). RN notified. ANGEL will continue to follow.
[2019-09-02 19:00] VITALS: BP 139/78
[2019-09-02] MEDS: ALPRAZolam 0.5 MG TABLET PO PRN (21:10)
[2019-09-02] MEDS: QUEtiapine 25 MG TABLET. PO SCH (21:10)
[2019-09-02 23:00] VITALS: BP 129/80
[2019-09-03] MEDS ORDERED: INSULIN LISPRO 300 UNITS/3 ML VIAL. SQ ONE (00:30)
[2019-09-03 03:00] VITALS: BP 130/59
[2019-09-03 07:00] VITALS: BP 145/80
[2019-09-03] MEDS: INSULIN LISPRO 300 UNITS/3 ML VIAL. SQ SCH ×2 (08:00→12:00)
[2019-09-03] MEDS ORDERED: ASPI-612 PO (08:36)
[2019-09-03] MEDS ORDERED: ALPR0.5T6 PO (08:36)
[2019-09-03] MEDS ORDERED: CITA10TA8 PO (08:36)
[2019-09-03] MEDS ORDERED: CARV3.1210 PO (08:36)
[2019-09-03] MEDS ORDERED: TRAM50TA PO (08:36)
[2019-09-03] MEDS ORDERED: QUET25TA PO (08:36)
[2019-09-03] MEDS ORDERED: VANC500V PO (08:36)
[2019-09-03] MEDS ORDERED: VITS42.55 TP (08:37)
[2019-09-03] MEDS ORDERED: THIA100T22 PO (08:37)
--- NOTE | 2019-09-03 08:38 | SNU/HH DC ---
DISCHARGE ORDERS DISCHARGE INFORMATION: DISCHARGE DATE: Sep 03, 2019 FINAL DIAGNOSIS Problems Medical Problems: (1) Hyperkalemia Status: Acute (2) Hypermagnesemia Status: Acute (3) Hyperphosphatemia Status: Acute (4) Hypoalbuminemia Status: Acute (5) Hypocalcemia Status: Acute (6) Hyponatremia Status: Acute (7) Metabolic acidosis Status: Acute (8) Suicidal ideation Status: Acute CODE STATUS: Code Status: Full DETENTION: SNF STAY <30 DAYS: Yes HOSPICE: HOSPICE: No HOSPICE EVAL & TREAT: No LTAC: ADMIT TO LTAC: No POST DISCHARGE ORDERS: ACTIVITY ORDERS: Bedrest today WEIGHT BEARING STATUS: Non weight bearing DIET AFTER DISCHARGE: dm WOUND/INCISION CARE: Change dressing CHECKS AFTER DISCHARGE: CHECKS AFTER DISCHARGE: Check blood press - daily, Check blood sugar, ac/hs FOLLOW-UP: PHYSICIAN FOLLOW-UP: turn q2, monitor BS and BP - needed to stop 1 BP med TREATMENT/EQUIPMENT ORDERS: Physical Therapy For: Evalulation/Treatment Occupational Therapy For: Evaluation/Treatment DISCHARGE MEDICATIONS: Home Meds Active Scripts Thiamine Mononitrate (VITAMIN B-1) 100 Mg Tablet, 100 MG PO DAILY for mvi, #30 TAB Prov:ELISABETH CRAWFORD MD 09/03/19 Vits A and D/White Pet/Lanolin (A and D Ointment) 42.5 Gm Oint...g., 1 MONY TP QID for wounds, #1 MISC Prov:ELISABETH CRAWFORD MD 09/03/19 Alprazolam (ALPRAZOLAM) 0.5 Mg Tablet, 0.5 MG PO PRN DAILY PRN for ANXIETY / AGITATION, #30 TAB Prov:ELISABETH CRAWFORD MD 09/03/19 Quetiapine Fumarate (QUETIAPINE FUMARATE) 25 Mg Tablet, 50 MG PO HS for depr ession nos, #30 TAB Prov:ELISABETH CRAWFORD MD 09/03/19 Citalopram Hydrobromide (CELEXA) 10 Mg Tablet, 10 MG PO DAILY for depression nos, #30 TAB Prov:ELISABETH CRAWFORD MD 09/03/19 Aspirin (ASPIRIN EC) 81 Mg Tablet.dr, 81 MG PO DAILYWBKFT for prevention primary, #120 TAB.SR Prov:ELISABETH CRAWFORD MD 09/03/19 Carvedilol (CARVEDILOL ) 3.125 Mg Tablet, 3.125 MG PO BIDWMEALS for htn, #60 TAB Prov:ELISABETH CRAWFORD MD 09/03/19 Vancomycin Hcl (VANCOMYCIN HCL) 500 Mg Vial, 125 MG PO [id number] for c diff diarrhea for 14 Days, EACH Prov:ELISABETH CRAWFORD MD 09/03/19 Tramadol Hcl (TRAMADOL HCL) 50 Mg Tablet, 50 MG PO Q6HRS PRN for PAIN, #30 TAB Prov:ELISABETH CRAWFORD MD 09/03/19 Reported Medications Tamsulosin Hcl (FLOMAX) 0.4 Mg Cap.er.24h, 0.4 MG PO DAILY for urine flow, TAB 08/28/19 Glipizide (GLIPIZIDE) 5 Mg Tablet, 1.5 TAB PO DAILY for Blood sugar, #90 TAB 3 Refills 08/28/19 Cholecalciferol (Vitamin D3) (VITAMIN D3) 1,000 Unit Tablet, 1 TAB PO DAILY for vit d deficiency, #30 TAB 5 Refills 08/28/19 Amlodipine Besylate (NORVASC) 10 Mg Tablet, 10 MG PO DAILY for bp, TAB 08/28/19 Discontinued Reported Medications Hydralazine Hcl (HYDRALAZINE HCL) 25 Mg Tablet, 1 TAB PO TID for BP, #90 TAB 5 Refills 08/28/19 Carvedilol (COREG) 25 Mg Tablet, 25 MG PO BIDWMEALS for CARDIAC, TAB 08/28/19 Discontinued Scripts Hydrocodone/Apap 5-325 (NORCO 5-325 TABLET) 1 Each Tablet, 1 TAB PO PRN Q6HRS PRN for PAIN, #20 TAB 0 Refills Prov:ARJUN NEIL APRN 12/19/17 Clindamycin Hcl (CLINDAMYCIN HCL) 300 Mg Capsule, 1 CAP PO TID, #30 CAP Prov:ARJUN NEIL APRN 12/19/17 ELISABETH CRAWFORD MD Sep 03, 2019 08:38
[2019-09-03] MEDS: VITS A & D/LANOLIN TOPICAL OINTMENT 42GM TUBE. TP SCH ×2 (09:00→13:00)
--- NOTE | 2019-09-03 09:21 | PDOC ---
Infectious Disease Note Subjective: Subjective Pt has no complaints diarrhea improving ROS: ROS Negative otherwise. Vital Signs: Vital Signs Vital Signs Date Time Temp Pulse Resp B/P (MAP) Pulse Ox O2 Delivery O2 Flow Rate FiO2 09/03/19 07:00 98.4 76 18 145/80 (101) 96 Room Air 98.4 Physical Exam: PHYSICAL EXAM GENERAL: Cachectic, thin male, lying in bed, cooperative, appears comfortable, in no acute distress. HEENT: Anicteric. Poor dentition. No thrush. Oral mucosa moist. NECK: HDC catheter looks okay. LUNGS: Clear. HEART: S1, S2. ABDOMEN: Soft, nontender, nondistended. GENITOURINARY: Geiger in place. Groin dry skin. EXTREMITIES: Right AKA. SKIN: Multiple wounds lower extremities, no evidence of infection, multiple abrasions, wound descriptions noted from pictures in the chart over the back, no purulent drainage noted, unstageable. NEUROLOGIC: Alert, oriented, grossly nonfocal. PSYCHIATRY: Awake, alert, cooperative. Medications: Inpatient Meds: Current Medications Medications (Trade) Dose Ordered Sig/Dez Start Time Stop Time Status Last Admin Dose Admin Acetaminophen (Tylenol) 650 mg Q6H PRN 08/27/19 09:45 08/30/19 09:19 Alprazolam (Xanax) 0.5 mg PRN DAILY PRN 08/30/19 19:30 09/02/19 21:10 Aspirin (Ecotrin) 81 mg DAILYWBKFT 08/31/19 08:00 09/02/19 08:23 Calcium Gluconate (Calcium Gluconate) 1,000 mg 1X ONCE 08/27/19 12:45 08/27/19 12:46 DC Carvedilol (Coreg) 3.125 mg BIDWMEALS 09/01/19 17:00 09/02/19 17:37 Ceftriaxone Sodium (Rocephin) 1 gm Q24H 09/02/19 10:00 09/02/19 11:13 Citalopram Hydrobromide (CeleXA) 10 mg DAILY 08/31/19 09:00 UNV Daptomycin 200 mg/ Sodium Chloride 50 ml @ 100 mls/hr Q24H 08/31/19 12:00 09/02/19 09:12 DC 09/01/19 12:02 Dextrose (Dextrose 50%-Water Syringe) 12.5 gm PRN Q15MIN PRN 08/28/19 12:30 UNV Dobutamine HCl/ Dextrose 250 ml @ 0 mls/hr CONT PRN 08/27/19 12:45 08/29/19 11:48 DC Famotidine (Pepcid Vial) 20 mg DAILY 08/27/19 10:00 08/29/19 14:17 DC 08/29/19 09:34 Famotidine (Pepcid) 20 mg DAILY 08/30/19 09:00 09/02/19 08:23 Heparin Sodium (Porcine) (Heparin Sodium) 5,000 unit Q12HR 08/27/19 10:00 09/02/19 21:16 Influenza Virus Vaccine Quadrival (Afluria Quad 2019-20 (3yr Up) Syringe) 0.5 ml ONCE ONCE 08/28/19 09:00 08/28/19 09:01 DC 08/28/19 09:01 Info (Icu Electrolyte Protocol) 1 ea DAILY 08/28/19 09:00 08/29/19 10:09 DC Insulin Human Lispro (HumaLOG) 3 units 1X ONCE 09/03/19 00:30 09/03/19 00:31 DC 09/03/19 00:19 Insulin Human Regular (HumuLIN R VIAL) 10 unit 1X ONCE 08/27/19 08:45 08/27/19 08:46 DC 08/27/19 11:23 Lactobacillus Rhamnosus (Culturelle) 1 cap BID 08/27/19 21:00 09/02/19 21:10 Lidocaine HCl (Buffered Lidocaine 1%) 6 ml 1X ONCE 08/27/19 14:30 08/27/19 14:31 DC 08/27/19 14:51 Meropenem 1 gm/ Sodium Chloride 100 ml @ 200 mls/hr Q8HRS 08/27/19 14:00 UNV Meropenem 500 mg/ Sodium Chloride 50 ml @ 100 mls/hr Q12HR 08/27/19 21:00 09/02/19 09:12 DC 09/02/19 08:24 Metoprolol Tartrate (Lopressor) 12.5 mg BID 08/31/19 09:00 09/01/19 13:07 DC 09/01/19 08:11 Multivitamins/ Minerals (I-Carly) 1 tab DAILY 08/27/19 10:00 09/02/19 08:23 Norepinephrine Bitartrate 250 ml @ 0 mls/hr CONT PRN 08/27/19 12:45 08/29/19 11:48 DC Paroxetine HCl (Paxil) 10 mg DAILY 08/29/19 09:00 09/02/19 08:23 Pharmacy Consult ([place] Med Screen By Rx) 1 each 1X ONCE 08/27/19 13:15 08/27/19 13:16 UNV Phytonadione (Mephyton Oral Soln) 5 mg 1X ONCE 08/27/19 10:00 08/27/19 10:01 DC 08/27/19 14:00 Potassium Chloride/Water 100 ml @ 100 mls/hr Q1H 08/30/19 05:30 08/30/19 09:32 DC 08/30/19 15:19 Potassium Chloride (Klor-Con) 40 meq 1X ONCE 08/30/19 05:30 08/30/19 05:31 DC 08/30/19 05:53 Quetiapine Fumarate (SEROquel) 50 mg HS 08/28/19 21:00 09/02/19 21:10 Sodium Bicarbonate 150 meq/Dextrose 1,150 ml @ 100 mls/hr [id number] 08/27/19 14:30 09/02/19 17:34 DC 09/02/19 06:30 Sodium Polystyrene Sulfonate (Kayexalate) 30 gm 1X ONCE 08/27/19 08:45 08/27/19 08:46 DC 08/27/19 10:37 Sodium Bicarbonate (Sodium Bicarb Adult 8.4% Syr) 50 meq 1X ONCE 08/27/19 08:45 08/27/19 08:46 DC 08/27/19 10:35 Sodium Chloride 500 ml @ 1,000 mls/hr PRN Q30MIN PRN 08/27/19 12:45 Sodium Chloride (Normal Saline Flush) 3 ml QSHIFT PRN 08/27/19 09:45 Thiamine Mononitrate (Vitamin B-1) 100 mg DAILY 08/27/19 10:00 09/02/19 08:23 Vancomycin HCl (Vancomycin Oral Solution) 125 mg [id number] 08/29/19 09:00 09/02/19 21:10 Vitamin A/Vitamin D (Vitamin A & D Ointment) 1 ambrosio QID 09/01/19 17:00 09/02/19 21:00 Labs: Lab Laboratory Tests Test 09/02/19 11:18 09/02/19 17:21 09/02/19 20:26 09/03/19 07:53 Glucose (Fingerstick) 139 mg/dL (70-99) 268 mg/dL (70-99) 269 mg/dL (70-99) 79 mg/dL (70-99) Objective: Assessment: Klebsiella sepsis, source genitourinary and/or wounds.2/4 bottles , Chronic nonhealing wounds. Severe Depression with suicidal ideation present on admission. Severe acute renal failure,hyperkalemia with metabolic acidosis.U/S Bilateral hydronephrosis. Severe protein-calorie malnutrition. Diabetes mellitus 2. 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 . Diarrhea.C difficile positive History of cocaine and marijuana abuse. Poor dentition. Tobaccoism. Cholelithiasis without acute cholecystitis or biliary dilatation. Plan: Plan of Care cont ceftriaxone,po vanc Continue wound care by wound team. Continue supportive care. D/W DELBERT SMITH MD Sep 03, 2019 09:21
--- NOTE | 2019-09-03 10:12 | PDOC3 ---
Discharge Summary Visit Information Date of Admission: Aug 27, 2019 Date of Discharge: Sep 03, 2019 Admitting Diagnosis Comment: Acute renal failure Obstructive uropathy Severe sepsis c diff positive Severe malnutrition, BMI 13.8 - ALBUMIN 1,8 Diabetes 2, very poor care Peripheral vascular disease, s/p AKA Sacral and leg wounds, poor self care, cellulitis and poss further infection Depression, reports suicidal Bipolar HYperkalemia, now HYPOKALEMIA LEukocytosis 14 Final Diagnosis Problems Medical Problems: (1) Hyperkalemia Status: Acute (2) Hypermagnesemia Status: Acute (3) Hyperphosphatemia Status: Acute (4) Hypoalbuminemia Status: Acute (5) Hypocalcemia Status: Acute (6) Hyponatremia Status: Acute (7) Metabolic acidosis Status: Acute (8) Suicidal ideation Status: Acute Brief Hospital Course Allergies Allergies Coded Allergies Type Severity Reaction Last Updated Verified lisinopril Allergy Intermediate 09/02/19 Yes I S O L A T I O N *CONTACT* Allergy Unknown 12/23/17 Yes Vital Signs Vital Signs Date Time Temp Pulse Resp B/P (MAP) Pulse Ox O2 Delivery O2 Flow Rate FiO2 09/03/19 07:00 98.4 76 18 145/80 (101) 96 Room Air 98.4 Lab Results Laboratory Tests Test 09/01/19 10:20 09/01/19 11:48 09/01/19 16:12 09/01/19 20:12 White Blood Count 8.3 x10^3/uL (4.0-11.0) Red Blood Count 3.06 x10^6/uL (4.30-5.70) Hemoglobin 8.0 g/dL (13.0-17.5) Hematocrit 24.7 % (39.0-53.0) Mean Corpuscular Volume 81 fL (79-100) Mean Corpuscular Hemoglobin 26 pg (25-35) Mean Corpuscular Hemoglobin Concent 33 g/dL (31-37) Red Cell Distribution Width 16.5 % (11.5-14.5) Platelet Count 119 x10^3/uL (140-400) Neutrophils (%) (Auto) 77 % (31-73) Lymphocytes (%) (Auto) 15 % (24-48) Monocytes (%) (Auto) 8 % (0-9) Eosinophils (%) (Auto) 0 % (0-3) Basophils (%) (Auto) 0 % (0-3) Neutrophils # (Auto) 6.4 x10^3/uL (1.8-7.7) Lymphocytes # (Auto) 1.2 x10^3/uL (1.0-4.8) Monocytes # (Auto) 0.6 x10^3/uL (0.0-1.1) Eosinophils # (Auto) 0.0 x10^3/uL (0.0-0.7) Basophils # (Auto) 0.0 x10^3/uL (0.0-0.2) Sodium Level 144 mmol/L (136-145) Potassium Level 3.9 mmol/L (3.5-5.1) Chloride Level 105 mmol/L (98-107) Carbon Dioxide Level 36 mmol/L (21-32) Anion Gap 3 (6-14) Blood Urea Nitrogen 31 mg/dL (8-26) Creatinine 1.3 mg/dL (0.7-1.3) Estimated GFR (Cockcroft-Gault) 72.6 BUN/Creatinine Ratio 24 (6-20) Glucose Level 155 mg/dL (70-99) Calcium Level 7.3 mg/dL (8.5-10.1) Total Bilirubin 0.4 mg/dL (0.2-1.0) Aspartate Amino Transf (AST/SGOT) 17 U/L (15-37) Alanine Aminotransferase (ALT/SGPT) 20 U/L (16-63) Alkaline Phosphatase 288 U/L (46-116) Total Protein 5.3 g/dL (6.4-8.2) Albumin 1.3 g/dL (3.4-5.0) Albumin/Globulin Ratio 0.3 (1.0-1.7) Glucose (Fingerstick) 229 mg/dL (70-99) 157 mg/dL (70-99) 152 mg/dL (70-99) Test 09/02/19 04:45 09/02/19 08:01 09/02/19 11:18 09/02/19 17:21 White Blood Count 9.6 x10^3/uL (4.0-11.0) Red Blood Count 3.04 x10^6/uL (4.30-5.70) Hemoglobin 8.0 g/dL (13.0-17.5) Hematocrit 24.5 % (39.0-53.0) Mean Corpuscular Volume 81 fL (79-100) Mean Corpuscular Hemoglobin 26 pg (25-35) Mean Corpuscular Hemoglobin Concent 33 g/dL (31-37) Red Cell Distribution Width 16.4 % (11.5-14.5) Platelet Count 136 x10^3/uL (140-400) Neutrophils (%) (Auto) 79 % (31-73) Lymphocytes (%) (Auto) 12 % (24-48) Monocytes (%) (Auto) 8 % (0-9) Eosinophils (%) (Auto) 1 % (0-3) Basophils (%) (Auto) 0 % (0-3) Neutrophils # (Auto) 7.7 x10^3/uL (1.8-7.7) Lymphocytes # (Auto) 1.2 x10^3/uL (1.0-4.8) Monocytes # (Auto) 0.7 x10^3/uL (0.0-1.1) Eosinophils # (Auto) 0.0 x10^3/uL (0.0-0.7) Basophils # (Auto) 0.0 x10^3/uL (0.0-0.2) Sodium Level 144 mmol/L (136-145) Potassium Level 4.4 mmol/L (3.5-5.1) Chloride Level 105 mmol/L (98-107) Carbon Dioxide Level 36 mmol/L (21-32) Anion Gap 3 (6-14) Blood Urea Nitrogen 27 mg/dL (8-26) Creatinine 1.2 mg/dL (0.7-1.3) Estimated GFR (Cockcroft-Gault) 79.6 BUN/Creatinine Ratio 23 (6-20) Glucose Level 117 mg/dL (70-99) Calcium Level 7.4 mg/dL (8.5-10.1) Total Bilirubin 0.3 mg/dL (0.2-1.0) Aspartate Amino Transf (AST/SGOT) 17 U/L (15-37) Alanine Aminotransferase (ALT/SGPT) 17 U/L (16-63) Alkaline Phosphatase 276 U/L (46-116) Total Protein 5.3 g/dL (6.4-8.2) Albumin 1.4 g/dL (3.4-5.0) Albumin/Globulin Ratio 0.4 (1.0-1.7) Glucose (Fingerstick) 103 mg/dL (70-99) 139 mg/dL (70-99) 268 mg/dL (70-99) Test 09/02/19 20:26 09/03/19 07:53 Glucose (Fingerstick) 269 mg/dL (70-99) 79 mg/dL (70-99) Laboratory Tests Test 09/02/19 11:18 09/02/19 17:21 09/02/19 20:26 09/03/19 07:53 Glucose (Fingerstick) 139 mg/dL (70-99) 268 mg/dL (70-99) 269 mg/dL (70-99) 79 mg/dL (70-99) Brief Hospital Course Mr. Hilliard is a 44 old male who came from home with and is undernourished BMI 18, came in with sepsis, obstructive uropathy etc - pls refer to above dx), I took care 1 day out of his 7 days jese with us and im discharging to snu today once bed avail, ALl on PO meds, [facility] is an option but he can be choosy, BP was on the low side so some BP meds had to be stopped, adjusted ALso collaeahal started some ssri and seroquel plus xanax which she has been g etting in house so I wrote for those ex on dc, I did not write for paxil though (might be too much all at one time) Pt seen and examined SNU topday, MEDICALLY REDAY TO DC Jorge ORTIZ proc; None COnsults: iD time 32 Discharge Information Condition at Discharge: Improved, Stable Disposition/Orders: Other (snu) Scheduled Amlodipine Besylate (Norvasc) 10 Mg Tablet, 10 MG PO DAILY for bp, (Reported) Entered as Reported by: REE KAUFMAN RN on 08/28/1917 Last Action: New Order on 08/28/1917 by REE KAUFMAN, TSERING Aspirin (Aspirin Ec) 81 Mg Tablet., 81 MG PO [id number] for prevention primary, #120 Prescribed by: ELISABETH RCAWFORD on 09/03/19 0836 Carvedilol (Carvedilol ) 3.125 Mg Tablet, 3.125 MG PO BIDWMEALS for htn, #60 Prescribed by: ELISABETH CRAWFORD on 09/03/19835 Cholecalciferol (Vitamin D3) (Vitamin D3) 1,000 Unit Tablet, 1 TAB PO DAILY for vit d deficiency, #30 Ref 5 (Reported) Entered as Reported by: REE KAUFMAN RN on 08/28/1917 Last Action: New Order on 08/28/1917 by REE KAUFMAN RN Citalopram Hydrobromide (Celexa) 10 Mg Tablet, 10 MG PO DAILY for depression nos, #30 Prescribed by: ELISABETH CRAWFORD on 09/03/19835 Glipizide (Glipizide) 5 Mg Tablet, 1.5 TAB PO DAILY for Blood sugar, #90 Ref 3 (Reported) Entered as Reported by: REE KAUFMAN RN on 08/28/1917 Last Action: New Order on 08/28/1917 by REE KAUFMAN RN Quetiapine Fumarate (Quetiapine Fumarate) 25 Mg Tablet, 50 MG PO HS for depression nos, #30 Prescribed by: ELISABETH CRAWFORD on 09/03/19835 Tamsulosin Hcl (Flomax) 0.4 Mg Cap.er.24h, 0.4 MG PO DAILY for urine flow, (Reported) Entered as Reported by: REE KAUFMAN RN on 08/28/1917 Last Action: New Order on 08/28/1917 by REE KAUFMAN RN Thiamine Mononitrate (Vitamin B-1) 100 Mg Tablet, 100 MG PO DAILY for mvi, #30 Prescribed by: ELISABETH CRAWFORD on 09/03/19836 Vancomycin Hcl (Vancomycin Hcl) 500 Mg Vial, 125 MG PO [id number] for c diff diarrhea for 14 Days Prescribed by: ELISABETH CRAWFORD on 09/03/19835 Vits A and D/White Pet/Lanolin (A and D Ointment) 42.5 Gm Oint...g., 1 MONY TP QID for wounds, #1 Prescribed by: ELISABETH CRAWFORD on 09/03/19836 Scheduled PRN Alprazolam (Alprazolam) 0.5 Mg Tablet, 0.5 MG PO PRN DAILY PRN for ANXIETY / AGITATION, #30 Prescribed by: ELISABETH CRAWFORD on 09/03/19835 Tramadol Hcl (Tramadol Hcl) 50 Mg Tablet, 50 MG PO Q6HRS PRN for PAIN, #30 Prescribed by: ELISABETH CRAWFORD on 09/03/19835 Discontinued Medications Carvedilol (Coreg) 25 Mg Tablet, 25 MG PO BIDWMEALS for CARDIAC, (Reported) Entered as Reported by: REE KAUFMAN RN on 08/28/1917 Last Action: New Order on 08/28/1917 by REE KAUFMAN RN Clindamycin Hcl (Clindamycin Hcl) 300 Mg Capsule, 1 CAP PO TID, #30 Prescribed by: ARJUN NEIL APRN on 12/19/171415 Last Action: Discontinued on 08/27/19855 by IMELDA ANDREW MD Hydralazine Hcl (Hydralazine Hcl) 25 Mg Tablet, 1 TAB PO TID for BP, #90 Ref 5 (Reported) Entered as Reported by: REE KAUFMAN RN on 08/28/1917 Last Action: New Order on 08/28/1917 by REE KAUFMAN RN Hydrocodone/Apap 5-325 (Hayward 5-325 Tablet) 1 Each Tablet, 1 TAB PO PRN Q6HRS PRN for PAIN, #20 Ref 0 Prescribed by: ARJUN NEIL APRN on 12/19/171416 Last Action: Discontinued on 08/27/19855 by MD YVETTE TREADWELL CHERRIE Y MD Sep 03, 2019 10:12
[2019-09-03] MEDS: PARoxetine 10 MG TABLET PO SCH (10:24)
[2019-09-03] MEDS: LACTOBACILLUS RHAMNOSUS GG 1 CAPSULE. PO SCH (10:24)
[2019-09-03] MEDS: FAMOTIDINE 20 MG TABLET. PO SCH (10:24)
[2019-09-03] MEDS: THIAMINE 100 MG TABLET. PO SCH (10:24)
[2019-09-03] MEDS: CITALOPRAM 10 MG TABLET. PO SCH (10:24)
[2019-09-03] MEDS: MULTIVITAMIN I-VITE TABLET. PO SCH (10:24)
[2019-09-03] MEDS: ASPIRIN ENTERIC COATED 81 MG TABLET.DR. PO SCH (10:24)
[2019-09-03] MEDS: CARVEDILOL 3.125 MG TABLET. PO SCH (10:24)
[2019-09-03] MEDS: HEPARIN for SUB-Q USE 5,000 UNIT/ML VIAL. SQ SCH (10:54)
[2019-09-03] MEDS: VANCOMYCIN 125 MG/2.5 ML ORAL SOLUTION. PO SCH ×2 (10:56→14:30)
[2019-09-03] MEDS: cefTRIAXone IV Push 1 GM VIAL. IVP SCH (10:58)
[2019-09-03 11:00] VITALS: BP 150/82
--- NOTE | 2019-09-03 12:00 | PDOC ---
Subjective: Subjective: Wants to talk to the doctor who releases him. No GI complaints. Objective: Objective: D/w staff - refusing therapy, Vital Signs: Vital Signs Date Time Temp Pulse Resp B/P (MAP) Pulse Ox O2 Delivery O2 Flow Rate FiO2 09/03/19 10:24 76 145/80 09/03/19 07:00 98.4 18 96 Room Air 98.4 Labs: Laboratory Tests Test 09/02/19 17:21 09/02/19 20:26 09/03/19 07:53 Glucose (Fingerstick) 268 mg/dL (70-99) 269 mg/dL (70-99) 79 mg/dL (70-99) PE: GEN: NAD NEURO/PSYCH: A & O 3 A/P: Multiple wounds, bacteremia, hydronephrosis C Diff - diarrhea improved w/ vanco Elevated Alk Phos - normal GGT -- DC per primary. NENA ARCINIEGA Sep 03, 2019 12:00
--- NOTE | 2019-09-03 13:20 | NUR ---
SW following for discharge planning. [facility] requested the medicaid application so they could determine if pt will likely be granted medicaid. [facility] does not have this application as it was completed at , per [facility]. Pt's RN notified SW, pt reporting he is only going to go home and wants to return home. SW met with pt to discuss, pt said he would not agree to go to a facility even if we had an accepting facility. SW advised pt's medications may be incredibly expensive and [facility] will not be able to assist with this. Pt stated "that's fine, I want to go home". Pt choosing to discharge home with self care. RN notified. Pt advised SW he would call his , Tyra. No further SW needs.
--- NOTE | 2019-09-03 13:24 | PDOC ---
SUBJECTIVE ROS Stable, OBJECTIVE Vital Signs Vital Signs Date Time Temp Pulse Resp B/P (MAP) Pulse Ox O2 Delivery O2 Flow Rate FiO2 09/03/19 10:24 76 145/80 09/03/19 07:00 98.4 18 96 Room Air 98.4 I & 0 Intake and Output 09/03/19 07:00 # Voids 6 # Bowel Movements 11 PHYSICAL EXAM Physical Exam GEN: NAD HEEN- OM moist NECK: supple CVS: S1S2 , No rub RESP: CTA, No Acc. Muscle Use GI: BS + ve, NO Bruit, Non Tender, Non Distended : [No CVA tenderness, No Suprapubic Tenderness, Geiger removed NEURO- Grossly normal, Skin No Rash DIAGNOSIS/ASSESSMENT Assessment & Plan VENANCIO - ATN sec to Dehydration,poor PO intake,illicit drug use ? PRUITT - Hydronephrosis Non Oliguric , good UOP , Renal function improving - No labs this am Renal US Bilat Hydronephrosis Rt > Lt avoid nephrotoxins , good uop From renal standpoint IV fluid can be dced ( 09/01) , defer to primary Bilat Hydronephrosis UOP good, repeat Renal US - persitsent Bilat hydronephrosis As no urology service at [facility], recommend Urology Consult as op post discharge for further follow up Hypokalemia--Normal K Hypo Na- Na corrected Metabolic acidosis- resolved Hypotensive - resolved with IVF Depression with suicidal ideation DM2 Hx of cocaine and marijuana abuse Will sign off Repeat Renal US -- 1. Moderate right and mild left hydronephrosis, similar compared to the recent prior study with allowing for differences in imaging technique. 2. Echogenic renal parenchyma, a finding which can be seen with medical renal disease. 3. Urinary bladder wall thickening. This may be due to cystitis or chronic outlet obstruction. Correlate with urinalysis. COMMENT/RELEVANT DATA Meds Current Medications Medications (Trade) Dose Ordered Sig/Dez Start Time Stop Time Status Last Admin Dose Admin Acetaminophen (Tylenol) 650 mg Q6H PRN 08/27/19 09:45 08/30/19 09:19 650 MG Alprazolam (Xanax) 0.5 mg PRN DAILY PRN 08/30/19 19:30 10/24/19 21:10 0.5 MG Aspirin (Ecotrin) 81 mg DAILYWBKFT 08/31/19 08:00 09/03/19 10:24 81 MG Calcium Gluconate (Calcium Gluconate) 1,000 mg 1X ONCE 08/27/19 12:45 08/27/19 12:46 DC Carvedilol (Coreg) 3.125 mg BIDWMEALS 09/01/19 17:00 09/03/19 10:24 3.125 MG Ceftriaxone Sodium (Rocephin) 1 gm Q24H 09/02/19 10:00 09/03/19 10:58 1 GM Citalopram Hydrobromide (CeleXA) 10 mg DAILY 08/31/19 09:00 UNV Daptomycin 200 mg/ Sodium Chloride 50 ml @ 100 mls/hr Q24H 08/31/19 12:00 09/02/19 09:12 DC 09/01/19 12:02 100 MLS/HR Dextrose (Dextrose 50%-Water Syringe) 12.5 gm PRN Q15MIN PRN 08/28/19 12:30 UNV Dobutamine HCl/ Dextrose 250 ml @ 0 mls/hr CONT PRN 08/27/19 12:45 08/29/19 11:48 DC Famotidine (Pepcid Vial) 20 mg DAILY 08/27/19 10:00 08/29/19 14:17 DC 08/29/19 09:34 20 MG Famotidine (Pepcid) 20 mg DAILY 08/30/19 09:00 09/03/19 10:24 20 MG Heparin Sodium (Porcine) (Heparin Sodium) 5,000 unit Q12HR 08/27/19 10:00 09/03/19 10:54 5,000 UNIT Influenza Virus Vaccine Quadrival (Afluria Quad 2019-20 (3yr Up) Syringe) 0.5 ml ONCE ONCE 08/28/19 09:00 08/28/19 09:01 DC 08/28/19 09:01 0.5 ML Info (Icu Electrolyte Protocol) 1 ea DAILY 08/28/19 09:00 08/29/19 10:09 DC Insulin Human Lispro (HumaLOG) 3 units 1X ONCE 09/03/19 00:30 09/03/19 00:31 DC 09/03/19 00:19 3 UNITS Insulin Human Regular (HumuLIN R VIAL) 10 unit 1X ONCE 08/27/19 08:45 08/27/19 08:46 DC 08/27/19 11:23 10 UNIT Lactobacillus Rhamnosus (Culturelle) 1 cap BID 08/27/19 21:00 09/03/19 10:24 1 CAP Lidocaine HCl (Buffered Lidocaine 1%) 6 ml 1X ONCE 08/27/19 14:30 08/27/19 14:31 DC 08/27/19 14:51 4 ML Meropenem 1 gm/ Sodium Chloride 100 ml @ 200 mls/hr Q8HRS 08/27/19 14:00 UNV Meropenem 500 mg/ Sodium Chloride 50 ml @ 100 mls/hr Q12HR 08/27/19 21:00 09/02/19 09:12 DC 09/02/19 08:24 100 MLS/HR Metoprolol Tartrate (Lopressor) 12.5 mg BID 08/31/19 09:00 09/01/19 13:07 DC 09/01/19 08:11 12.5 MG Multivitamins/ Minerals (I-Carly) 1 tab DAILY 08/27/19 10:00 09/03/19 10:24 1 TAB Norepinephrine Bitartrate 250 ml @ 0 mls/hr CONT PRN 08/27/19 12:45 08/29/19 11:48 DC Paroxetine HCl (Paxil) 10 mg DAILY 08/29/19 09:00 09/03/19 10:24 10 MG Pharmacy Consult (C.diff Med Screen By Rx) 1 each 1X ONCE 08/27/19 13:15 08/27/19 13:16 UNV Phytonadione (Mephyton Oral Soln) 5 mg 1X ONCE 08/27/19 10:00 08/27/19 10:01 DC 08/27/19 14:00 5 MG Potassium Chloride/Water 100 ml @ 100 mls/hr Q1H 08/30/19 05:30 08/30/19 09:32 DC 08/30/19 15:19 100 MLS/HR Potassium Chloride (Klor-Con) 40 meq 1X ONCE 08/30/19 05:30 08/30/19 05:31 DC 08/30/19 05:53 40 MEQ Quetiapine Fumarate (SEROquel) 50 mg HS 08/28/19 21:00 09/02/19 21:10 50 MG Sodium Bicarbonate 150 meq/Dextrose 1,150 ml @ 100 mls/hr [id number] 08/27/19 14:30 09/02/19 17:34 DC 09/02/19 06:30 100 MLS/HR Sodium Polystyrene Sulfonate (Kayexalate) 30 gm 1X ONCE 08/27/19 08:45 08/27/19 08:46 DC 08/27/19 10:37 30 GM Sodium Bicarbonate (Sodium Bicarb Adult 8.4% Syr) 50 meq 1X ONCE 08/27/19 08:45 08/27/19 08:46 DC 08/27/19 10:35 50 MEQ Sodium Chloride 500 ml @ 1,000 mls/hr PRN Q30MIN PRN 08/27/19 12:45 Sodium Chloride (Normal Saline Flush) 3 ml QSHIFT PRN 08/27/19 09:45 Thiamine Mononitrate (Vitamin B-1) 100 mg DAILY 08/27/19 10:00 09/03/19 10:24 100 MG Vancomycin HCl (Vancomycin Oral Solution) 125 mg [id number] 08/29/19 09:00 09/03/19 10:56 125 MG Vitamin A/Vitamin D (Vitamin A & D Ointment) 1 ambrosio QID 09/01/19 17:00 09/03/19 09:00 1 AMBROSIO Lab Laboratory Tests Test 09/02/19 17:21 09/02/19 20:26 09/03/19 07:53 09/03/19 12:10 Glucose (Fingerstick) 268 mg/dL (70-99) 269 mg/dL (70-99) 79 mg/dL (70-99) 131 mg/dL (70-99) Results All relevant outside records, renal labs, imaging studies, telemetry/EKG's were reviewed. PETTY FERRIS MD Sep 03, 2019 13:24
--- NOTE | 2019-09-03 14:58 | NUR ---
Discharge instructions given to patient regarding new medications and wound care. Pt verbalizes understanding and will be seeing a primary care physician soon. Spouse verbalizes understanding of wound care and medication.
== END 2019-09-03 15:14 | disposition home or self-care (01) | DRG 871 ==
LOC: ER 05:46 → 1 WEST ICU 08:31 → 4 NORTH 08-28 18:55
PROVIDERS: ADMIT Internal Medicine; ATTEND Internal Medicine
PROC: 02HV33Z Insertion of Infusion Device into Superior Vena Cava, Percutaneous Approach (ICD-10-PCS; principal; 2019-08-30)
PROC: B548ZZA Ultrasonography of Superior Vena Cava, Guidance (ICD-10-PCS; 2019-08-30)
DX: A41.59 Other Gram-negative sepsis (principal); E43 Unspecified severe protein-calorie malnutrition; N17.0 Acute kidney failure with tubular necrosis; A04.72 Enterocolitis due to Clostridium difficile, not specified as recurrent; D68.9 Coagulation defect, unspecified; E87.1 Hypo-osmolality and hyponatremia; I13.0 Hypertensive heart and chronic kidney disease with heart failure and stage 1 through stage 4 chronic kidney disease, or unspecified chronic kidney disease; I42.9 Cardiomyopathy, unspecified; I50.22 Chronic systolic (congestive) heart failure; N13.30 Unspecified hydronephrosis; R45.851 Suicidal ideations; Z68.1 Body mass index [BMI] 19.9 or less, adult; R64 Cachexia; D63.8 Anemia in other chronic diseases classified elsewhere; E11.22 Type 2 diabetes mellitus with diabetic chronic kidney disease; E11.42 Type 2 diabetes mellitus with diabetic polyneuropathy; E83.39 Other disorders of phosphorus metabolism; E83.41 Hypermagnesemia; E83.51 Hypocalcemia; E86.0 Dehydration; E87.5 Hyperkalemia; E87.6 Hypokalemia; F12.90 Cannabis use, unspecified, uncomplicated; F17.210 Nicotine dependence, cigarettes, uncomplicated; F32.9 Major depressive disorder, single episode, unspecified; K08.9 Disorder of teeth and supporting structures, unspecified; K21.9 Gastro-esophageal reflux disease without esophagitis; K80.20 Calculus of gallbladder without cholecystitis without obstruction; L89.310 Pressure ulcer of right buttock, unstageable; L89.320 Pressure ulcer of left buttock, unstageable; N18.9 Chronic kidney disease, unspecified; R62.7 Adult failure to thrive; R65.20 Severe sepsis without septic shock; Z82.49 Family history of ischemic heart disease and other diseases of the circulatory system; Z89.611 Acquired absence of right leg above knee; Z91.14 Patient's other noncompliance with medication regimen; Z91.19 Patient's noncompliance with other medical treatment and regimen; Z99.3 Dependence on wheelchair; Z89.511 Acquired absence of right leg below knee; Z88.8 Allergy status to other drugs, medicaments and biological substances; Z79.899 Other long term (current) drug therapy; E11.51 Type 2 diabetes mellitus with diabetic peripheral angiopathy without gangrene
CPT/HCPCS: 36415; 36556; 36600; 71045; 76700; 76770; 76937; 80048; 80053; 80061; 80069; 80076; 81001; 82310; 82550; 82805; 82962; 82977; 83540; 83550; 83605; 83735; 84145; 84165; 84443; 84484; 85007; 85025; 85045; 85610; 86334; 87040; 87077; 87205; 87493; 87641; 90471; 90686; 93005; 93306; 96361; 96374; 96375; 99292; C1892; G0480; J0610; J0696; J0878; J1644; J1815; J2185; J3480; J3490; J7030; J7042; 97110; 97530; 97535; 99291-25; G0378